=== PATIENT | female | born 1970 | race Caucasian/White ===

== ENCOUNTER → 2016-10-31 | Outpatient (CLI) | payer OTHER ==
--- NOTE | 2016-11-01 08:48 | MM ---
Reason for exam: follow-up at short interval from prior study. Last mammogram was performed 7 months ago. Physical Findings: Nurse did not find any significant physical abnormalities on exam. MG Diagnostic Mammo LT w CAD CC and MLO view(s) were taken of the left breast. Prior study comparison: April 03, 2016, left breast MG diagnostic mammo LT w CAD. November 14, 2009, bilateral digital screening mammogram. The breast tissue is extremely dense which could obscure a lesion on mammography. Finding: There are vascular calcifications in the left breast. Nodular density lower inner quadrant persists, ultrasound is recommended. These results were verbally communicated with the patient and result sheet given to the patient on 10/31/16. ASSESSMENT: Incomplete: need additional imaging evaluation, BI-RAD 0 RECOMMENDATION: Ultrasound of the left breast.
--- NOTE | 2016-11-01 08:51 | USB ---
Reason for exam: additional evaluation requested from abnormal screening. US Breast Limited LT Left breast ultrasound demonstrates a 14 x 13 x 4mm lobular, solid, hypoechoic lesion at 7 o'clock 3cm from nipple and a 10 x 7 x 6mm irregular, solid, hypoechoic lesion at 9 o'clock, 2.3cm from nipple. These results were verbally communicated with the patient and result sheet given to the patient on 10/31/16. ASSESSMENT: Suspicious, BI-RAD 4 RECOMMENDATION: Surgical consultation and ultrasound core biopsy of the left breast. Called with mammographic findings and has scheduled an appointment for the patient for 11/08/16 at 11:[address] Martinez. PRELIMINARY REPORT CALLED AND FAXED TO DR. MARTINEZ ON 11/01/16 AT 300/TP.
== END | disposition home or self-care (01) ==
LOC: RADMAMWWP 13:56
PROVIDERS: ATTEND Surgery
DX: R92.2 Inconclusive mammogram (principal); R92.8 Other abnormal and inconclusive findings on diagnostic imaging of breast; R92.0 Mammographic microcalcification found on diagnostic imaging of breast
CPT/HCPCS: 76642; G0206

== ENCOUNTER → 2016-11-16 | Day surgery (SDC) | payer OTHER ==
[~2016-11-16] MED LIST: ALPRAZolam 0.25 MG TAB ONE
--- NOTE | 2016-11-16 13:55 | USB ---
EXAMINATION TYPE: US discontinued breast bx LT DATE OF EXAM: 11/16/2016 12:56 PM HISTORY: Hypoechoic area left breast 7:00 As well as and 9:00 adjacent to the nipple The 2 areas in question could not be confidently localized sonographically. Examination is further li mited by the patient's overall condition. Biopsy was therefore discontinued. 6 month follow-up ultras ound and mammography is recommended. IMPRESSION: 1. Probably benign BI-RADS 3 Recommendation: 6 month follow-up left-sided mammography and ultrasound.
== END ==
LOC: LABWHC1 10:28
PROVIDERS: ATTEND Surgery
DX: R92.8 Other abnormal and inconclusive findings on diagnostic imaging of breast (principal); Z53.8 Procedure and treatment not carried out for other reasons; Z88.8 Allergy status to other drugs, medicaments and biological substances; Z88.6 Allergy status to analgesic agent; Z91.02 Food additives allergy status

== ENCOUNTER → 2017-06-04 | Outpatient (CLI) | payer OTHER ==
--- NOTE | 2017-06-04 09:51 | MM ---
Reason for exam: follow-up at short interval from prior study. Last mammogram was performed 7 months ago. History: US discontinued breast bx LT of the left breast, November 16, 2016. Physical Findings: Nurse did not find any significant physical abnormalities on exam. MG Diagnostic Mammo w CAD MAURICIO Bilateral CC and MLO view(s) were taken. Prior study comparison: October 31, 2016, left breast MG diagnostic mammo LT w CAD. April 03, 2016, left breast MG diagnostic mammo LT w CAD. The breast tissue is extremely dense which could obscure a lesion on mammography. No suspicious calcifications or masses are seen. No significant new findings when compared with previous films. These results were verbally communicated with the patient and result sheet given to the patient on 06/04/17. ASSESSMENT: Incomplete: need additional imaging evaluation, BI-RAD 0 RECOMMENDATION: Ultrasound of the left breast. Manage patient on a clinical basis.
--- NOTE | 2017-06-04 09:54 | USB ---
Reason for exam: additional evaluation requested from abnormal screening. History: US discontinued breast bx LT of the left breast, November 16, 2016. US Breast LT Left breast ultrasound includes all four quadrants, the retroareolar region and axilla. Finding demonstrates no cystic or solid lesion seen. These results were verbally communicated with the patient and result sheet given to the patient on 06/04/17. ASSESSMENT: Negative, BI-RAD 1 RECOMMENDATION: Routine screening mammogram of both breasts in 1 year. Back on schedule. Manage patient on a clinical basis.
== END | disposition home or self-care (01) ==
LOC: RADMAMWWP 08:20
PROVIDERS: ATTEND Surgery
DX: R92.8 Other abnormal and inconclusive findings on diagnostic imaging of breast (principal)
CPT/HCPCS: 76641; G0204

== ENCOUNTER → 2017-08-02 | Outpatient (CLI) | payer OTHER ==
[2017-08-02 10:20] LABS: Phenytoin (Dilantin) 13.7 ug/mL
[2017-08-02 10:23] LABS: Valproic Acid (Depakene) 46.7 ug/mL
[2017-08-05 07:25] LABS: Levetiracetam (Keppra) 13.9 ug/mL (3.0-60.0)
== END | disposition home or self-care (01) ==
LOC: LABWHC1 09:10
PROVIDERS: ATTEND Psychiatry & Neurology Neurology
DX: G40.219 Localization-related (focal) (partial) symptomatic epilepsy and epileptic syndromes with complex partial seizures, intractable, without status epilepticus (principal)
CPT/HCPCS: 36415; 80164; 80177; 80185; 80203; 80339; 84450; 84460

== ENCOUNTER → 2018-01-13 | Outpatient (CLI) | payer OTHER ==
[2018-01-13 10:25] LABS: Basophils % (A) 1 %; Eosinophils # (A) 0.1 k/uL (0-0.7); Eosinophils % (A) 1 %; HCT 47.6 % (34.0-46.0); HGB 15.5 gm/dL (11.4-16.0); Lymphocytes # (A) 1.4 k/uL (1.0-4.8); Lymphocytes % (A) 25 %; MCH 33.8 pg (25.0-35.0); MCHC 32.5 g/dL (31.0-37.0); MCV 104.1 fL (80.0-100.0); Macrocytosis Slight; Mean Platelet Volume 6.7; Monocytes # (A) 0.7 k/uL (0-1.0); Monocytes % (A) 12 %; Neutrophils # (A) 3.4 k/uL (1.3-7.7); Neutrophils % (A) 58 %; Platelet Count 191 k/uL (150-450); RBC 4.57 m/uL (3.80-5.40); RDW 13.5 % (11.5-15.5); WBC 5.9 k/uL (3.8-10.6)
[2018-01-13 10:31] LABS: Albumin 3.9 g/dL (3.5-5.0); Anion Gap 11 mmol/L; Calcium 9.8 mg/dL (8.4-10.2); Carbon Dioxide 22 mmol/L (22-30); Chloride 108 mmol/L (98-107); Cholesterol 159 mg/dL (<200); Glucose 84 mg/dL (74-99); HDL Cholesterol 70 mg/dL (40-60); LDL Cholesterol,Calculated 72 mg/dL (0-99); Sodium 141 mmol/L (137-145); Total Bilirubin 0.4 mg/dL (0.2-1.3); Total Protein 7.7 g/dL (6.3-8.2); Triglycerides 86 mg/dL (<150)
[2018-01-13 10:33] LABS: Potassium 4.8 mmol/L (3.5-5.1)
[2018-01-13 10:34] LABS: ALT 16 U/L (9-52); AST 32 U/L (14-36); Alkaline Phosphatase 61 U/L (38-126); Blood Urea Nitrogen 20 mg/dL (7-17)
== END | disposition home or self-care (01) ==
LOC: LABWHC1 08:37
PROVIDERS: ATTEND Family Medicine
DX: Z00.00 Encounter for general adult medical examination without abnormal findings (principal); R32 Unspecified urinary incontinence; Z13.220 Encounter for screening for lipoid disorders
CPT/HCPCS: 36415; 80053; 80061; 85025

== ENCOUNTER → 2018-04-25 | Outpatient (CLI) | payer OTHER ==
[2018-04-25 10:25] LABS: Basophils % (A) 1 %; Eosinophils # (A) 0.1 k/uL (0-0.7); Eosinophils % (A) 2 %; HCT 41.4 % (34.0-46.0); HGB 13.6 gm/dL (11.4-16.0); Lymphocytes # (A) 1.4 k/uL (1.0-4.8); Lymphocytes % (A) 28 %; MCHC 32.8 g/dL (31.0-37.0); MCV 103.4 fL (80.0-100.0); Macrocytosis Slight; Mean Platelet Volume 6.7; Monocytes # (A) 0.5 k/uL (0-1.0); Monocytes % (A) 11 %; Neutrophils # (A) 2.8 k/uL (1.3-7.7); Neutrophils % (A) 55 %; Platelet Count 203 k/uL (150-450); RDW 13.1 % (11.5-15.5); WBC 5.1 k/uL (3.8-10.6)
[2018-04-25 10:41] LABS: Phenytoin (Dilantin) 13.3 ug/mL
[2018-04-25 10:43] LABS: Valproic Acid (Depakene) 40.7 ug/mL
[2018-04-28 06:44] LABS: Levetiracetam (Keppra) 11.8 ug/mL (3.0-60.0)
== END | disposition home or self-care (01) ==
LOC: LABWHC1 09:04
PROVIDERS: ATTEND Psychiatry & Neurology Neurology
DX: G40.219 Localization-related (focal) (partial) symptomatic epilepsy and epileptic syndromes with complex partial seizures, intractable, without status epilepticus (principal)
CPT/HCPCS: 36415; 80164; 80177; 80185; 80203; 84450; 84460; 85025

== ENCOUNTER → 2018-07-24 | Outpatient (CLI) | payer MEDICARE, OTHER ==
--- NOTE | 2018-07-26 14:17 | MM ---
Reason for exam: screening (asymptomatic). Last mammogram was performed 1 year and 2 months ago. History: US discontinued breast bx LT of the left breast, November 16, 2016. MG Screening Mammo w CAD Bilateral CC and MLO view(s) were taken. Prior study comparison: June 04, 2017, bilateral MG diagnostic mammo w CAD MAURICIO. October 31, 2016, left breast MG diagnostic mammo LT w CAD. The breast tissue is extremely dense which could obscure a lesion on mammography. Stable vascular calcifications. No discrete abnormality. No significant changes when compared with prior studies. ASSESSMENT: Benign, BI-RAD 2 RECOMMENDATION: Routine screening mammogram of both breasts in 1 year.
== END | disposition home or self-care (01) ==
LOC: RADMAMWWP 14:25
PROVIDERS: ATTEND Family Medicine
DX: Z12.31 Encounter for screening mammogram for malignant neoplasm of breast (principal)
CPT/HCPCS: 77067

== ENCOUNTER → 2018-07-31 | Outpatient (CLI) | payer MEDICARE, OTHER ==
[2018-07-31 15:04] VITALS: BP 122/68; PULSE 90; RESP 18; TEMP 98; BMI 17.1
--- NOTE | 2018-07-31 15:22 | P.GSHP ---
History of Present Illness H&P Date: 07/31/18 Chief Complaint: dense breast Trace is a 47-year-old borderline intellectual functioning white female who comes for routine breast examination. She lives in a skilled nursing, she has a public gaurdian. She has not noted any changes in her breast. No report of any nipple discharge. The report of any trauma or infection of the breast. She had a bilateral mammogram performed on 07/24/2018 which was felt to be benign however she does have bilateral dense breast tissue. Family history: None Hormonal history: Menarche: unknown : none periods: Perimenopausal at this time control pills: Negative Hormones: Negative Past Surgical History; 1. cardiac surgery/unsure of when Past medical history: 1. Borderline intellectual functioning 2. General lysed idiopathic epilepsy 3. nonspeaking 4. Tetralogy of for low 5. Cerebral palsy 6. 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 Eyes: denies blurred vision, denies pain Ears, nose, mouth and throat: Denies headache, Denies sore throat - Breasts Breasts: bilateral: as per HPI - Cardiovascular Comment: Tetralogy of Fallot - Respiratory Respiratory: Denies cough, Denies 7 - Gastrointestinal Gastrointestinal: Denies abdominal pain, Denies diarrhea, Denies nausea, Denies vomiting - Genitourinary (Female) Genitourinary: Denies dysuria, Denies hematuria - Menstruation Menstruation: Reports menses variable - Musculoskeletal Comment: wears brace on right leg Musculoskeletal: Denies myalgias - Integumentary Integumentary: Denies pruritus, Denies rash - Neurological Comment: seizure disorder Neurological: Denies numbness, Denies weakness - Psychiatric Comment: mentally challenged obtrusiveness/bossy Psychiatric: Denies anxiety, Denies depression - Endocrine Endocrine: Denies fatigue, Denies weight change - Hematologic/Lymphatic Comment: none - Allergic/Immunologic Allergic/Immunologic: Reports as per HPI Past Medical History Past Medical History: Seizure Disorder Additional Past Medical History / Comment(s): does use sign language, HX OF CEREBRAL PALSY, AMBULATORY, borderline intellectual functioning, idiopatic epilepsy, deaf, non-speaking, RT LEG AFO BRACE, hx of tetralogy of fallot History of Any Multi-Drug Resistant Organisms: None Reported Past Surgical History: Unable to Obtain Additional Past Surgical History / Comment(s): HEART SX Past Anesthesia/Blood Transfusion Reactions: Unable to Obtain Past Psychological History: ADD/ADHD Smoking Status: Never smoker Past Alcohol Use History: None Reported Past Drug Use History: None Reported Medications and Allergies Home Medications Medication Instructions Recorded Confirmed Type Dextroamphetamine/Amphetamine 20 mg PO BID 02/23/16 04/03/16 History [Adderall Xr] Divalproex [Depakote] 250 mg PO HS 02/23/16 04/03/16 History Divalproex [Depakote] 500 mg PO TID 02/23/16 04/03/16 History Folic Acid 1 mg PO DAILY 02/23/16 04/03/16 History Lacosamide [Vimpat] 50 mg PO BID 02/23/16 04/03/16 History Multivitamins, Thera [Multivitamin] 1 tab PO DAILY 02/23/16 04/03/16 History Phenytoin Sodium Extended 100 mg PO QAM 02/23/16 04/03/16 History [Dilantin] Phenytoin [Dilantin Chew] 50 mg PO HS 02/23/16 04/03/16 History Zonisamide [Zonegran] 25 mg PO DAILY@1800,2200 02/23/16 04/03/16 History Zonisamide [Zonegran] 100 mg PO BID 02/23/16 04/03/16 History levETIRAcetam [Keppra] 500 mg PO TID 02/23/16 04/03/16 History levETIRAcetam [Keppra] 250 mg PO HS 03/29/16 04/03/16 History Allergies Allergy/AdvReac Type Severity Reaction Status Date / Time aspartame Allergy Unknown Verified 04/03/16 08:41 [From Nutrasweet Aspartame] aspirin Allergy Unknown Verified 04/03/16 08:41 ibuprofen Allergy Unknown Verified 04/03/16 08:41 artificial sweetners Allergy Unknown Uncoded 04/03/16 08:41 Surgical - Exam - General mentally challenged thin - Eyes normal ocular movement - ENT upper teeth missing no hearing loss, no congestion - Neck trachea midline - Respiratory normal respiratory effort, clear to auscultation - Cardiovascular Status post cardiac surgery, thoracic scar well healed Rhythm: regular Heart Sounds: normal: S1, S2 - Abdomen Abdomen: soft - Integumentary normal turgor - Neurologic left leg brace - Musculoskeletal Right leg brace - Psychiatric mentally challenged Breast examination: Right breast: Multi-positional exam no dominant masses or nodules of concern Right axilla: No adenopathy of concern Left breast: Multi-positional exam no dominant masses or nodules of concern Left axilla: No adenopathy of concern Results Mammogram results reviewed from Assessment and Plan Assessment: Impression: 1. Fibrocystic breast changes 2. Mentally challenged 3. History of tetralogy of Fallot 4. Seizure disorder 5. Plan: 1. Repeat bilateral mammogram in 1 year 2. Medical management of medical conditions CC: Dr. Bass
== END ==
LOC: WWCWWP 14:46
PROVIDERS: ATTEND Surgery
DX: Z53.9 Procedure and treatment not carried out, unspecified reason (principal)

== ENCOUNTER → 2018-12-16 | Outpatient (CLI) | payer MEDICARE, OTHER ==
[2018-12-16 09:55] LABS: Basophils % (A) 1 %; Eosinophils # (A) 0.1 k/uL (0-0.7); Eosinophils % (A) 2 %; HCT 43.7 % (34.0-46.0); Lymphocytes # (A) 1.5 k/uL (1.0-4.8); Lymphocytes % (A) 34 %; MCH 33.3 pg (25.0-35.0); MCHC 31.9 g/dL (31.0-37.0); MCV 104.2 fL (80.0-100.0); Macrocytosis Slight; Mean Platelet Volume 6.5; Monocytes # (A) 0.5 k/uL (0-1.0); Monocytes % (A) 10 %; Neutrophils # (A) 2.3 k/uL (1.3-7.7); Neutrophils % (A) 51 %; Platelet Count 194 k/uL (150-450); RBC 4.19 m/uL (3.80-5.40); WBC 4.6 k/uL (3.8-10.6)
[2018-12-16 15:59] LABS: African American GFR (CKD) 132.6 (60.0-200.0); Albumin 3.7 g/dL (3.80-4.90); Albumin/Globulin Ratio 1.37 (1.60-3.17); Anion Gap 6.4 mmol/L (4.00-12.00); Calcium 9.1 mg/dL (8.7-10.3); Carbon Dioxide 23.6 mmol/L (21.6-31.8); Globulin 2.7 g/dL (1.6-3.3); LDL Cholesterol,Calculated 82.6 mg/dL (0.0-131.0); Potassium 4.2 mmol/L (3.5-5.5); Total Bilirubin 0.2 mg/dL (0.3-1.2); Total Protein 6.4 g/dL (6.2-8.2); VLDL Calculation 18.4 mg/dL (5.00-40.00)
[2018-12-16 16:20] LABS: T4, Free (Free Thyroxine) 0.6 ng/dL (0.80-1.80)
[2018-12-16 16:27] LABS: Valproic Acid (Depakene) 56.1 ug/mL (50.0-100.0)
[2018-12-16 17:20] LABS: Hemoglobin A1C 5.1 % (4.0-6.0)
[2018-12-16 17:22] LABS: Phenytoin (Dilantin) 16.6 ug/mL (10.0-20.0)
[2018-12-17 11:20] LABS: Levetiracetam (Keppra) 17.8 ug/mL (3.0-60.0)
[2018-12-17 14:11] LABS: Zonisamide (Zonegran) <1 ug/mL (10-40)
== END | disposition home or self-care (01) ==
LOC: LABWHC1 08:14
PROVIDERS: ATTEND Psychiatry & Neurology Neurology
DX: G40.219 Localization-related (focal) (partial) symptomatic epilepsy and epileptic syndromes with complex partial seizures, intractable, without status epilepticus (principal); F90.9 Attention-deficit hyperactivity disorder, unspecified type; Z79.899 Other long term (current) drug therapy
CPT/HCPCS: 36415; 80053; 80061; 80164; 80177; 80185; 80203; 83036; 84439; 84443; 85025

== ENCOUNTER → 2019-09-11 | Outpatient (CLI) | payer MEDICARE, OTHER ==
[2019-09-11 11:17] LABS: Basophils % (A) 0 %; Eosinophils # (A) 0.1 k/uL (0-0.7); Eosinophils % (A) 1 %; HCT 42.9 % (34.0-46.0); HGB 13.7 gm/dL (11.4-16.0); Lymphocytes # (A) 1.7 k/uL (1.0-4.8); Lymphocytes % (A) 23 %; MCH 32.9 pg (25.0-35.0); MCHC 31.8 g/dL (31.0-37.0); MCV 103.4 fL (80.0-100.0); Macrocytosis Slight; Monocytes # (A) 0.8 k/uL (0-1.0); Monocytes % (A) 10 %; Neutrophils # (A) 4.6 k/uL (1.3-7.7); Neutrophils % (A) 62 %; Platelet Count 192 k/uL (150-450); RBC 4.15 m/uL (3.80-5.40); WBC 7.3 k/uL (3.8-10.6)
[2019-09-11 16:12] LABS: Phenytoin (Dilantin) 20.4 ug/mL (10.0-20.0)
[2019-09-11 16:40] LABS: Valproic Acid (Depakene) 48.8 ug/mL (50.0-100.0)
[2019-09-14 08:15] LABS: Levetiracetam (Keppra) 10.6 ug/mL (3.0-60.0)
== END | disposition home or self-care (01) ==
LOC: LABWHC1 10:11
PROVIDERS: ATTEND Psychiatry & Neurology Neurology
DX: G40.219 Localization-related (focal) (partial) symptomatic epilepsy and epileptic syndromes with complex partial seizures, intractable, without status epilepticus (principal)
CPT/HCPCS: 36415; 80164; 80177; 80185; 80203; 84450; 84460; 85025

== ENCOUNTER → 2021-12-14 | Outpatient (CLI) | payer MEDICARE, OTHER ==
[2021-12-14 19:06] LABS: Phenytoin (Dilantin) 14.1 ug/mL (10.0-20.0)
[2021-12-14 21:51] LABS: Valproic Acid (Depakene) 51.9 ug/mL (50.0-100.0)
[2021-12-15 08:47] LABS: Levetiracetam (Keppra) 16.3 ug/mL (3.0-60.0)
== END | disposition home or self-care (01) ==
LOC: LABWHC1 08:01
PROVIDERS: ATTEND Psychiatry & Neurology Neurology
DX: G40.219 Localization-related (focal) (partial) symptomatic epilepsy and epileptic syndromes with complex partial seizures, intractable, without status epilepticus (principal)
CPT/HCPCS: 36415; 80164; 80177; 80185; 80203

== ENCOUNTER → 2023-03-06 | Outpatient (CLI) | payer MEDICARE, OTHER | END | disposition home or self-care (01) | LOC: RADMAMWWP 14:32 | PROVIDERS: ATTEND Family Medicine | DX: Z53.9 Procedure and treatment not carried out, unspecified reason (principal) ==

== ENCOUNTER → 2023-05-10 | Outpatient (CLI) | payer MEDICARE, OTHER ==
[2023-05-10 11:09] LABS: Basophils # (A) 0.05 X 10*3/uL (0.00-0.10); Basophils % (A) 0.6 %; Eosinophils # (A) 0.08 X 10*3/uL (0.04-0.35); HGB 14.1 d/dL (12.0-15.0); Lymphocytes # (A) 1.33 X 10*3/uL (0.90-5.00); Lymphocytes % (A) 16.9 %; MCH 33.1 pg (27.0-32.0); MCHC 32.8 d/dL (32.0-37.0); MCV 100.9 FL (80.0-97.0); Mean Platelet Volume 9.1 FL (9.5-12.2); Monocytes # (A) 1.01 X 10*3/uL (0.20-1.00); Monocytes % (A) 12.8 %; NRBC Per 100 WBC 0 X 10*3/uL (0.00-0.01); Neutrophils # (A) 5.35 X 10*3/uL (1.80-7.70); Neutrophils % (A) 67.8 %; Platelet Count 314 X 10*3/uL (140-440); RBC 4.26 X 10*6/uL (4.10-5.20); WBC 7.89 X 10*3/uL (4.50-10.00)
[2023-05-10 11:33] LABS: ALT 14 U/L (8-44); AST 23 U/L (13-35); Albumin/Globulin Ratio 1.03 Ratio (1.60-3.17); Alkaline Phosphatase 84 U/L (41-126); Blood Urea Nitrogen 18.2 mg/dL (9.0-27.0); Calcium 10.4 mg/dL (8.7-10.3); Carbon Dioxide 26.7 mmol/L (21.6-31.8); Chloride 102 mmol/L (96-109); Globulin 3.9 d/dL (1.6-3.3); Glucose 86 mg/dL (70-110); Phenytoin (Dilantin) 14.4 UG/ML (10.0-20.0); Potassium 4.8 mmol/L (3.5-5.5); Sodium 139 mmol/L (135-145); Total Bilirubin 0.2 mg/dL (0.3-1.2); Total Protein 7.9 d/dL (6.2-8.2); Valproic Acid (Depakene) 61.3 UG/ML (50.0-100.0)
== END | disposition home or self-care (01) ==
LOC: LABWHC1 07:42
PROVIDERS: ATTEND Family Medicine
DX: G40.909 Epilepsy, unspecified, not intractable, without status epilepticus (principal); Z79.899 Other long term (current) drug therapy
CPT/HCPCS: 36415; 80053; 80164; 80177; 80185; 84443; 85025

== ENCOUNTER → 2023-12-13 | Outpatient (CLI) | payer MEDICARE, OTHER ==
[2023-12-13 11:04] LABS: Platelet Count 204 X 10*3/uL (140-440)
[2023-12-13 11:17] LABS: Phenytoin (Dilantin) 18.5 UG/ML (10.0-20.0); Valproic Acid (Depakene) 60.2 UG/ML (50.0-100.0)
== END | disposition home or self-care (01) ==
LOC: LABWHC1 07:45
PROVIDERS: ATTEND Psychiatry & Neurology Neurology
DX: G40.219 Localization-related (focal) (partial) symptomatic epilepsy and epileptic syndromes with complex partial seizures, intractable, without status epilepticus (principal)
CPT/HCPCS: 36415; 80164; 80177; 80185; 80203; 84450; 84460; 85049

== ENCOUNTER → 2024-05-09 | Outpatient (CLI) | payer MEDICARE, OTHER ==
[2024-05-09 23:40] LABS: Basophils # (A) 0.06 X 10*3/uL (0.00-0.10); Basophils % (A) 0.8 %; Eosinophils # (A) 0.07 X 10*3/uL (0.04-0.35); Eosinophils % (A) 0.9 %; HCT 42.5 % (37.2-46.3); HGB 13.8 g/dL (12.0-15.0); Lymphocytes # (A) 2.04 X 10*3/uL (0.90-5.00); Lymphocytes % (A) 25.8 %; MCH 33.2 pg (27.0-32.0); MCHC 32.5 g/dL (32.0-37.0); MCV 102.2 FL (80.0-97.0); Mean Platelet Volume 10.7 FL (9.5-12.2); Monocytes # (A) 1.29 X 10*3/uL (0.20-1.00); Monocytes % (A) 16.3 %; NRBC Per 100 WBC 0 X 10*3/uL (0.00-0.01); Neutrophils # (A) 4.43 X 10*3/uL (1.80-7.70); Neutrophils % (A) 55.9 %; Platelet Count 207 X 10*3/uL (140-440); RBC 4.16 X 10*6/uL (4.10-5.20); RDW 13.6 % (11.5-14.5); WBC 7.91 X 10*3/uL (4.50-10.00)
[2024-05-10 08:18] LABS: ALT 12 U/L (8-44); AST 25 U/L (13-35); Albumin 3.8 g/dL (3.8-4.9); Albumin/Globulin Ratio 1.06 Ratio (1.60-3.17); Alkaline Phosphatase 80 U/L (41-126); Bilirubin, Conjugated <0.20 mg/dL (0.20-0.40); Bilirubin,Unconjugated >0.10 mg/dL (0.20-1.00); Blood Urea Nitrogen 14.9 mg/dL (9.0-27.0); Chol/HDL Ratio 2.56 Ratio; Globulin 3.6 g/dL (1.6-3.3); Glucose 92 mg/dL (70-110); LDL Cholesterol,Calculated 84.1 mg/dL (0.0-131.0); Total Bilirubin 0.3 mg/dL (0.3-1.2); Total Protein 7.4 g/dL (6.2-8.2); VLDL Calculation 17.58 mg/dL (5.00-40.00)
== END | disposition home or self-care (01) ==
LOC: LABWHC1 10:45
PROVIDERS: ATTEND Nurse Practitioner Family
DX: Z51.81 Encounter for therapeutic drug level monitoring (principal); Z79.899 Other long term (current) drug therapy
CPT/HCPCS: 36415; 80061; 80076; 82306; 82565; 82947; 83036; 84439; 84443; 84520; 85025

== ENCOUNTER → 2024-09-11 | Outpatient (CLI) | payer MEDICARE, OTHER ==
[2024-09-11 15:27] LABS: Platelet Count 191 X 10*3/uL (140-440)
[2024-09-11 16:54] LABS: Phenytoin (Dilantin) 15.9 UG/ML (10.0-20.0); Valproic Acid (Depakene) 60.8 UG/ML (50.0-100.0)
== END | disposition home or self-care (01) ==
LOC: LABWHC1 07:58
PROVIDERS: ATTEND Psychiatry & Neurology Neurology
DX: G40.219 Localization-related (focal) (partial) symptomatic epilepsy and epileptic syndromes with complex partial seizures, intractable, without status epilepticus (principal)
CPT/HCPCS: 36415; 80164; 80185; 80203; 84450; 84460; 85049

== ENCOUNTER → 2024-09-25 | Outpatient (CLI) | payer MEDICARE, OTHER ==
--- NOTE | 2024-09-25 19:32 | CT ---
EXAMINATION TYPE: CT brain wo con CT DLP: 1244.5 mGycm, Automated exposure control for dose reduction was used. DATE OF EXAM: 09/25/2024 6:05 PM COMPARISON: None. CLINICAL INDICATION:Female, 53 years old with history of G80.2 SPASTIC HEMIPLEGIC CEREBRAL G40.219, John-plegic, hx of cerebral palsy and epilepsy. TECHNIQUE: Brain: Multiple axial CT images of the brain were obtained without IV contrast. . Coronal and sagitta l reformats reviewed. FINDINGS: Brain: Extra-axial spaces: No abnormal extra-axial fluid collections. Ventricular system: Ex vacuo dilatation of the left lateral ventricle. Cerebral parenchyma: No acute intraparenchymal hemorrhage or mass effect. Encephalomalacia with CSF attenuation within the left MCA distribution involving the left frontal and temporal lobe regions. Th ere is involvement of the left basal ganglia. The pozo-white junction is well differentiated. Cerebellum: Unremarkable. Mass effect: No evidence of midline shift. Intracranial vasculature: unremarkable Soft tissues: Normal. Calvarium/osseous structures: No depressed skull fracture. Paranasal sinuses and mastoid air cells: Clear Visualized orbits: Orbital contents are intact. IMPRESSION: 1. No acute intracranial process. 2. 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 [facility], , 09/25/2024 7:30 PM
== END | disposition home or self-care (01) ==
LOC: RADCTMAIN 17:29
PROVIDERS: ATTEND Psychiatry & Neurology Neurology
DX: G40.219 Localization-related (focal) (partial) symptomatic epilepsy and epileptic syndromes with complex partial seizures, intractable, without status epilepticus (principal); G80.2 Spastic hemiplegic cerebral palsy; G93.89 Other specified disorders of brain
CPT/HCPCS: 70450

== ENCOUNTER 2024-10-06 01:57 | Inpatient (IN) | payer MEDICARE, OTHER ==
[2024-10-06] MEDS ORDERED: fentaNYL (PF) 50 MCG/ML 2 ML AMP IVP PRN ×2 (02:14→03:56)
[2024-10-06] MEDS ORDERED: VANCOMYCIN IV PER PHARMACY 1 EACH MISC MISCELLANE PRN (02:28)
[2024-10-06] MEDS: LORazepam 2 MG/ML INJ IV STA (02:30)
--- NOTE | 2024-10-06 02:41 | ED ---
General Adult HPI - General Chief complaint: Shortness of Breath Stated complaint: WILLY Source: EMS Mode of arrival: EMS Limitations: altered mental status - History of Present Illness Initial comments: Patient is a 53-year-old female with a past medical history of cerebral palsy, deafness, seizure disorder presenting from her [facility] for difficulty breathing. At 11:00 tonight patient began having difficulty in breathing was pale and sweaty. On EMS arrival patient's pulse ox was 80% on room air, she was placed on a nonrebreather and brought to the hospital. History is limited by patient's inability to communicate. Typically does communicate via ASL. Additional history was provided by director of group sales. States that patient ate breakfast and lunch like she normally would yesterday however did not eat dinner. They state that they have been dealing with some "behavioral issues" patient refusing to eat. Patient's baseline is being able to communicate with ASL, she does word searches, goes to activities at the [facility]. Because she is deaf she is nonverbal. Has a public guardian. - Related Data Home Medications Medication Instructions Recorded Confirmed Divalproex [Depakote] 250 mg PO HS 02/23/16 10/06/24 Divalproex [Depakote] 500 mg PO TID 02/23/16 10/06/24 Multivitamins, Thera [Multivitamin] 1 tab PO HS 02/23/16 10/06/24 Phenytoin [Dilantin Chew] 50 mg PO BID 02/23/16 10/06/24 Zonisamide [Zonegran] 25 mg PO DAILY@1500 02/23/16 10/06/24 Zonisamide [Zonegran] 100 mg PO BID 02/23/16 10/06/24 levETIRAcetam [Keppra] 1,000 mg PO BID 02/23/16 10/06/24 Acetaminophen [Tylenol] 650 mg PO Q4-6H PRN 10/06/24 10/06/24 Boost Vhc 0.9gm-2.25kcal/Ml Oral 237 ml PO BID 10/06/24 10/06/24 Dextroamphetamine/Amphetamine 5 mg PO BID 10/06/24 10/06/24 [Adderall] Loperamide [Imodium] 1 dose PO DIRECTED PRN 10/06/24 10/06/24 Magnesium Hydroxide [Milk of 1 dose PO DIRECTED PRN 10/06/24 10/06/24 Magnesia] Midazolam [Nayzilam] 1 spray NASAL DIRECTED PRN 10/06/24 10/06/24 Beszvlxb-Jlnqyebktj-Mfwd Oint 1 applic TOPICAL DIRECTED PRN 10/06/24 10/06/24 [Triple Antibiotic Ointment] OLANZapine [ZyPREXA] 5 mg PO HS 10/06/24 10/06/24 Phenytoin Sodium Extended 30 mg PO HS 10/06/24 10/06/24 [Dilantin] Sennosides-Docusate Sodium 1 tab PO BID 10/06/24 10/06/24 [Senokot-S] guaiFENesin SYRUP 100MG/5ML 1 dose PO DIRECTED PRN 10/06/24 10/06/24 [Robitussin] Allergies Allergy/AdvReac Type Severity Reaction Status Date / Time aspartame Allergy Unknown Verified 10/06/24 07:32 [From Nutrasweet Aspartame] aspirin Allergy Unknown Verified 10/06/24 07:32 ibuprofen Allergy Unknown Verified 10/06/24 07:32 NSAIDS (Non-Steroidal Allergy Unknown Verified 10/06/24 07:32 Anti-Inflamma phenylalanine Allergy Unknown Verified 10/06/24 07:32 artificial sweetners Allergy Unknown Uncoded 10/06/24 07:32 Review of Systems ROS Statement: Those systems with pertinent positive or pertinent negative responses have been documented in the HPI. Limitations: ROS unobtainable due to patients medical condition Past Medical History Past Medical History: Seizure Disorder Additional Past Medical History / Comment(s): does use sign language, HX OF CEREBRAL PALSY, AMBULATORY, borderline intellectual functioning, idiopatic epilepsy, deaf, non-speaking, RT LEG AFO BRACE, hx of tetralogy of fallot History of Any Multi-Drug Resistant Organisms: None Reported Past Surgical History: Unable to Obtain Additional Past Surgical History / Comment(s): HEART SX Past Anesthesia/Blood Transfusion Reactions: Unable to Obtain Past Psychological History: ADD/ADHD Past Alcohol Use History: None Reported Past Drug Use History: None Reported General Exam - General Exam Comments Initial Comments: PE: CONSTITUTIONAL: In acute distress, ill-appearing, open mouth breathing, eyes open SKIN: Warm, dry, yellow-green bruising across the bridge of her nose, scattered bruises on the upper extremities no jaundice, hives or petechiae EYES: Pupils are equally round, extraocular movements intact without nystagmus, clear conjunctiva, non-icteric sclera HENT: Normocephalic, atraumatic w/ exception of bruising noted above, dry mucus membranes, oropharynx clear without exudates NECK: , Full range of motion, normal appearance PULMONARY: Rhonchi and rales in the left lower lung field, no wheezes, no stridor, tachypnea, no host/hostess head muscle use, increased excursion CARDIOVASCULAR: Tachycardia, regular rate, rhythm, normal S1 and S2. No appreciated murmurs, rubs or gallops. Strong radial pulses with intact distal perfusion. No lower extremity edema GASTROINTESTINAL: Firm, flat, active bowel sounds throughout soft, patient appears to guard with palpation of the mid abdomen, , no palpable masses,No hepatosplenomegaly MUSCULOSKELETAL: Chronic muscle contractures in all 4 extremities otherwise no gross deformity NEUROLOGIC:_Unable to assess orientation as patient does not speak, Eyes open but not tracking, does not follow commands, no seizure like activity noted, PSYCHIATRIC: Uable to assess Limitations: altered mental status Course Vital Signs 10/06/24 10/06/24 10/06/24 01:59 02:08 03:38 Temperature 101 F H 101.8 F H Pulse Rate 146 H 130 H Respiratory 27 H 24 22 Rate Blood Pressure 181/102 184/96 O2 Sat by Pulse 88 L 100 Oximetry Fraction of Inspired Oxygen (FIO2) 10/06/24 10/06/24 10/06/24 04:28 05:06 05:12 Temperature Pulse Rate Respiratory Rate Blood Pressure O2 Sat by Pulse Oximetry Fraction of 100 50 50 Inspired Oxygen (FIO2) 10/06/24 10/06/24 10/06/24 06:00 07:00 08:00 Temperature 99.9 F H 98.7 F 98.7 F Pulse Rate 103 H 109 H 107 H Respiratory 22 24 22 Rate Blood Pressure 141/81 147/68 130/70 O2 Sat by Pulse 100 100 99 Oximetry Fraction of Inspired Oxygen (FIO2) 10/06/24 10/06/24 10/06/24 08:09 08:10 09:00 Temperature 998.9 F H Pulse Rate 110 H Respiratory 20 Rate Blood Pressure 117/70 O2 Sat by Pulse 99 Oximetry Fraction of 50 50 Inspired Oxygen (FIO2) 04/08/0110/06/24 10/06/24 09:26 11:00 11:12 Temperature 98.9 F 100.0 F H Pulse Rate 108 H 114 H 114 H Respiratory 20 22 Rate Blood Pressure 121/70 149/73 O2 Sat by Pulse 99 100 Oximetry Fraction of Inspired Oxygen (FIO2) 10/06/24 10/06/24 10/06/24 11:21 11:48 13:00 Temperature 100.8 F H 101.1 F H Pulse Rate 116 H 118 H 118 H Respiratory 24 24 Rate Blood Pressure 147/81 154/85 O2 Sat by Pulse 100 100 Oximetry Fraction of Inspired Oxygen (FIO2) 10/06/24 10/06/24 10/06/24 13:55 14:40 15:01 Temperature 100 F H 100.3 F H Pulse Rate 117 H 117 H 115 H Respiratory 20 22 26 H Rate Blood Pressure 138/72 117/68 168/79 O2 Sat by Pulse 100 98 99 Oximetry Fraction of 50 Inspired Oxygen (FIO2) - Reevaluation(s) Reevaluation #1: Patient returned from CT, despite earlier ativan,tylenol, she remains tachycardic, febrile, and hypertensive. She is lethargic, so further pain control with narcotics will be held off on. At this point will administer labetalol, 10 mg due to persistent hypertension. 10/06/24 03:44 Reevaluation #2: On reassessment patient's mental status is not improving, concern that patient will not continue tolerating secretions, will intubate for airway protection 10/06/24 03:56 EKG Findings - EKG Comments: EKG Findings:: EKG #1, sinus tachycardia, rate 139 bpm QT/QTc 256/337 ms, normal axis, artifact present limiting interpretation,no STEMI. EKG 2 obtained with rate slowed, done at 5:16 AM, shows sinus tachycardia with shortened MA interval , MA interval 100 ms QT/QTc 3/448 ms, normal axis, intraventricular conduction delay,no STEMI Procedures - Central Line Placement Right IJ Consent Obtained: emergent situation Patient Placed on Monitor/Pulse Ox: Yes Prep: mask, gown, gloves Central Line Prep: Chlorhexidine scrub, sterile drapes applied Ultrasound Used for Placement: Yes Central Line Lumen Inserted: triple Bloods Obtained for Lab: Yes Central Line Position: good blood return, all ports aspirated, flushed, capped, sutured in place with 2-0 silk Dressing Applied: Tegaderm Post Procedure X-Ray: tip of catheter in good position Patient Tolerated Procedure: well Complications: none - Intubation Sedative: Etomidate Laryngoscope: Pa Size: 3 ET Tube Size: 7 ET Tube Uncuffed: No Tube Secured Depth (cm): 22 Tube Secured Location: teeth Tube Placement Confirmation: visualized tube passing through cords, equal breath sounds bilaterally, no breath sounds over epigastrium, confirmation by capnometry Patient Tolerated Procedure: well Intubation Complications: none Medical Decision Making - Medical Decision Making Was pt. sent in by a medical professional or institution (, PA, HOLLOW HANDLE KNIFE ASSEMBLER, urgent care, hospital, or snf...) When possible be specific @ -[facility] Did you speak to anyone other than the patient for history (EMS, parent, family, police, friend...)? What history was obtained from this source @Spoke with patient's director of group sales who states patient has been having some behavioral issues recently, intermittently refusing to eat, did eat breakfast and lunch yesterday but refused to eat dinner, found pale and sweaty and dyspneic at 11 PM this evening Did you review nursing and triage notes (agree or disagree)? Why? @ -I reviewed nursing and triage notes Were old charts reviewed (outside hosp., previous admission, EMS record, old EKG, old radiological studies, urgent care reports/EKG's, snf records)? Report findings @ -Medical records reviewed- had recent CT brain on 09/25/[address] brain today, no significant changes from prior Differential Diagnosis (chest pain, altered mental status, abdominal pain women, abdominal pain men, vaginal bleeding, weakness, fever, dyspnea, syncope, headache, dizziness, GI bleed, back pain, seizure, CVA, palpatations, mental health, musculoskeletal)? Differential Dyspnea: Coronary syndrome, arrhythmia, tamponade, asthma, COPD, pulmonary embolism, pneumonia, pneumothorax, pulmonary effusion, anaphylaxis, diabetic ketoacidosis, flailed chest, pulmonary contusion, diaphragmatic rupture, anemia, neuromuscular, this is not meant to be an all-inclusive list. Differential Altered Mental Status: Hypoglycemia, DKA, hypercapnia, ETOH, overdose, CO poisoning, trauma, myxedema coma, HTN encephalopathy, infection, encephalitis, psychosis, intercranial hemorrhage, hepatic encephalopathy, meningitis, CVA, this is not meant to be an all-inclusive list EKG interpreted by me (3pts min.). @ -As above X-rays interpreted by me (1pt min.). #1-chest x-ray #1 reviewed by myself, appears to show possible left lower lobe consolidation, no pneumothorax, abdominal x-ray was reviewed by myself, appears to show dilated bowel loops without free air or clear transition point, Read by radiologist and is significant for asymmetric elevation of the left hemidiaphragm diaphragm with subsegmental changes in the left lung base with left perihilar streaky opacities differentials include atelectasis versus interstitial infection nonobstructive bowel gas pattern no pneumoperitoneum #2-postintubation x-ray reviewed by myself, no pneumothorax, ET tube approximately 4 cm above nehemias #3-postcentral line placement x-ray reviewed by myself, right IJ central and appears appropriately placed in the superior cava, no pneumothorax CT interpreted by me (1pt min.). @I personally reviewed CT brain, appears to show old left encephalomalacia, no acute intracranial hemorrhage or masses, personally reviewed CT PE study see no evidence of PE though there is a large left lower lobe consolidation concerning for pneumonia, reviewed CT abdomen pelvis, dilated bowel loops no air-fluid leve ls, agree with radiologist interpretation U/S interpreted by me (1pt. min.). @ -None done What testing was considered but not performed or refused? (CT, X-rays, U/S, labs)? Why? @ -None What meds were considered but not given or refused? Why? @ -None Did you discuss the management of the patient with other professionals (professionals i.e. , PA, HOLLOW HANDLE KNIFE ASSEMBLER, lab, RT, psych nurse, social insurance specialist, microwave oven assembler, teacher, special technical operations officer, pillowcase cleaner)? Give summary @ -No Was smoking cessation discussed for >3mins.? @ -No Was critical care preformed (if so, how long)? @60 minutes Were there social determinants of health that impacted care today? How? (Homelessness, low income, unemployed, alcoholism, drug addiction, transportation, low edu. Level, literacy, decrease access to med. care, fpc, rehab)? @ -No Was there de-escalation of care discussed even if they declined (Discuss DNR or withdrawal of care, Hospice)? @ Discused with director of group sales pt's code status however she deferred to pt's guardian, RN contacted and was told pt remains full code What co-morbidities impacted this encounter? (DM, HTN, Smoking, COPD, CAD, Cancer, CVA, ARF, Chemo, Hep., AIDS, mental health diagnosis, sleep apnea, morbid obesity)? cerebral palsy, epilepsy, deafness Was patient admitted / discharged? Hospital course, mention meds given and route, prescriptions, significant lab abnormalities, going to OR and other pertinent info. @ -Admission- Patient is a 53-year-old female history of cerebral palsy, epilepsy, deafness presenting today for difficulty in breathing. Patient seen and assessed by myself on arrival. She is ill-appearing, nonrebreather in place, tachycardic and hypertensive. Her eyes are open but do not appear to track caregivers. There is no nystagmus, pupils are equal round reactive. She has rhonchi in the left lower lung field, tachypnea, is tachycardic. 2+pulses in all 4 extremities. 80% on room air. Placed on a nonrebreather mask. Patient was given 2 mg IV Ativan in case tachycardia, hypertension secondary to the seizure, hergroup mobile home technician is unsure what patient's seizures typically look like. Intubation was considered however given patient's history of deafness, cerebral palsy, she will very likely be difficult to wean from a ventilator and is oxygenating well on NRB, no vomiting. At this time will maintain pt on NRB and monitor closely. Chest x-ray apears to show no pneumothorax, possible LLL consolidations, abdominal x-ray does appear to show dilated bowel loops. Patient will receive CT brain, chest abdomen pelvis as she is nonverbal and we do not have a definitive source for her fever/ hypoexmia though I suspect intra-abdominal versus pneumonia. Sepsis bundle ordered. Patient temp 101, Ofirmev ordered. 30 cc/kg fluid bolus. After administration of Ativan patient's exam did not appear to change. Pt's guardian was updated by RN, pt is full code. Ultimately patient intubated for airway protection due to minimal response to painful stimuli and now audible secretions with concern that patient will not continue to tolerate her secretions. Pt intubated w/ 20 mg etomidate, no paralytic needed. Patient's hypertension and tachycardia did improve afterwards. Labs, imaging significant for White blood cell count 21.2, pH 7.29, pCO2 46, bicarb 22 on VBG, lactic 3.7, troponin 0.026, BNP 1640, despite this patient does appear to clinically dehydrated with dry MM and easily collapsible IJ on ultrasound, we will continue with fluid resuscitation.CT brain was negative for acute process, CTA chest was significant for left lower lobe consolidation. Case discussed w/ Dr. Arzola, critical care and Dr. Dominguez [facility], kindly accept pt for admission to ICU. Undiagnosed new problem with uncertain prognosis? @ -No Drug Therapy requiring intensive monitoring for toxicity (Heparin, Nitro, Insulin, Cardizem)? @propofol Were any procedures done? yes intubation, central line placement Diagnosis/symptom? Acute hypoxic respiratory failure, sepsis, pneumonia, acute metabolic encephalopathy Acute, or Chronic, or Acute on Chronic? acute Uncomplicated (without systemic symptoms) or Complicated (systemic symptoms)? complicated Side effects of treatment? @ -No Exacerbation, Progression, or Severe Exacerbation? @ -No Poses a threat to life or bodily function? How? (Chest pain, [place], ND, pneumonia, PE, COPD, DKA, ARF, appy, cholecystitis, CVA, Diverticulitis, Homicidal, Suicidal, threat to staff... and all critical care pts) yes - Lab Data Result diagrams: 10/06/24 06:30 10/06/24 06:30 Lab Results 10/06/24 10/06/24 10/06/24 Range/Units 02:10 02:10 02:10 WBC 21.2 H (3.8-10.6) k/uL RBC 4.38 (3.80-5.40) m/uL Hgb 14.6 (11.4-16.0) gm/dL Hct 45.7 (34.0-46.0) % MCV 104.3 H (80.0-100.0) fL MCH 33.4 (25.0-35.0) pg MCHC 32.0 (31.0-37.0) g/dL RDW 14.2 (11.5-15.5) % Plt Count 326 (150-450) k/uL MPV 7.6 Neutrophils % Not Reportable Neutrophils % (Manual) 64 % Band Neuts % (Manual) 28 % Lymphocytes % Not Reportable Lymphocytes % (Manual) 6 % Monocytes % Not Reportable Monocytes % (Manual) 2 % Eosinophils % Not Reportable Basophils % Not Reportable Metamyelocytes % 1 % Neutrophils # Not Reportable Neutrophils # (Manual) 19.50 H (1.3-7.7) k/uL Lymphocytes # Not Reportable Lymphocytes # (Manual) 1.27 (1.0-4.8) k/uL Monocytes # Not Reportable Monocytes # (Manual) 0.42 (0-1.0) k/uL Eosinophils # Not Reportable Basophils # Not Reportable Metamyelocytes # (Man) 0.21 H (0) k/uL Nucleated RBCs 0 (0-0) /100 WBC Manual Slide Review Performed Toxic Vacuolation Present Hypochromasia Slight Anisocytosis (manual) Present Macrocytosis Moderate PT 12.0 (10.0-12.5) sec INR 1.1 (<1.2) APTT 23.9 (22.0-30.0) sec VBG pH (7.31-7.41) VBG pCO2 (37-51) mmHg VBG HCO3 (24-28) mmol/L Sodium 136 L (137-145) mmol/L Potassium 4.5 (3.5-5.1) mmol/L Chloride 100 (98-107) mmol/L Carbon Dioxide 22 (22-30) mmol/L Anion Gap 14 mmol/L BUN 27 H (7-17) mg/dL Creatinine 0.34 L (0.52-1.04) mg/dL Est GFR (CKD-EPI)AfAm >90 (>60 ml/min/1.73 sqM) Est GFR (CKD-EPI)NonAf >90 (>60 ml/min/1.73 sqM) Glucose 79 (74-99) mg/dL Lactic Ac Sepsis Rflx Plasma Lactic Acid Porfirio (0.7-2.0) mmol/L Calcium 10.2 (8.4-10.2) mg/dL Total Bilirubin 0.6 (0.2-1.3) mg/dL AST 44 H (14-36) U/L ALT 16 (4-34) U/L Alkaline Phosphatase 134 H (38-126) U/L Troponin I (0.000-0.034) ng/mL NT-Pro-B Natriuret Pep 1640 pg/mL Total Protein 9.0 H (6.3-8.2) g/dL Albumin 4.3 (3.5-5.0) g/dL Urine Color Urine Appearance (Clear) Urine pH (5.0-8.0) Ur Specific [place] (1.001-1.035) Urine Protein (Negative) Urine Glucose (UA) (Negative) Urine Ketones (Negative) Urine Blood (Negative) Urine Nitrite (Negative) Urine Bilirubin (Negative) Urine Urobilinogen (<2.0) mg/dL Ur Leukocyte Esterase (Negative) Influenza Type A (PCR) (Not Detectd) Influenza Type B (PCR) (Not Detectd) RSV (PCR) (Not Detectd) SARS-CoV-2 (PCR) (Not Detectd) 10/06/24 10/06/24 10/06/24 Range/Units 02:10 02:10 02:33 WBC (3.8-10.6) k/uL RBC (3.80-5.40) m/uL Hgb (11.4-16.0) gm/dL Hct (34.0-46.0) % MCV (80.0-100.0) fL MCH (25.0-35.0) pg MCHC (31.0-37.0) g/dL RDW (11.5-15.5) % Plt Count (150-450) k/uL MPV Neutrophils % Neutrophils % (Manual) % Band Neuts % (Manual) % Lymphocytes % Lymphocytes % (Manual) % Monocytes % Monocytes % (Manual) % Eosinophils % Basophils % Metamyelocytes % % Neutrophils # Neutrophils # (Manual) (1.3-7.7) k/uL Lymphocytes # Lymphocytes # (Manual) (1.0-4.8) k/uL Monocytes # Monocytes # (Manual) (0-1.0) k/uL Eosinophils # Basophils # Metamyelocytes # (Man) (0) k/uL Nucleated RBCs (0-0) /100 WBC Manual Slide Review Toxic Vacuolation Hypochromasia Anisocytosis (manual) Macrocytosis PT (10.0-12.5) sec INR (<1.2) APTT (22.0-30.0) sec VBG pH 7.29 L (7.31-7.41) VBG pCO2 46 (37-51) mmHg VBG HCO3 22 L (24-28) mmol/L Sodium (137-145) mmol/L Potassium (3.5-5.1) mmol/L Chloride (98-107) mmol/L Carbon Dioxide (22-30) mmol/L Anion Gap mmol/L BUN (7-17) mg/dL Creatinine (0.52-1.04) mg/dL Est GFR (CKD-EPI)AfAm (>60 ml/min/1.73 sqM) Est GFR (CKD-EPI)NonAf (>60 ml/min/1.73 sqM) Glucose (74-99) mg/dL Lactic Ac Sepsis Rflx Plasma Lactic Acid Porfirio 3.7 H* (0.7-2.0) mmol/L Calcium (8.4-10.2) mg/dL Total Bilirubin (0.2-1.3) mg/dL AST (14-36) U/L ALT (4-34) U/L Alkaline Phosphatase (38-126) U/L Troponin I 0.026 (0.000-0.034) ng/mL NT-Pro-B Natriuret Pep pg/mL Total Protein (6.3-8.2) g/dL Albumin (3.5-5.0) g/dL Urine Color Urine Appearance (Clear) Urine pH (5.0-8.0) Ur Specific [place] (1.001-1.035) Urine Protein (Negative) Urine Glucose (UA) (Negative) Urine Ketones (Negative) Urine Blood (Negative) Urine Nitrite (Negative) Urine Bilirubin (Negative) Urine Urobilinogen (<2.0) mg/dL Ur Leukocyte Esterase (Negative) Influenza Type A (PCR) (Not Detectd) Influenza Type B (PCR) (Not Detectd) RSV (PCR) (Not Detectd) SARS-CoV-2 (PCR) (Not Detectd) 10/06/24 10/06/24 10/06/24 Range/Units 02:46 02:50 03:21 WBC (3.8-10.6) k/uL RBC (3.80-5.40) m/uL Hgb (11.4-16.0) gm/dL Hct (34.0-46.0) % MCV (80.0-100.0) fL MCH (25.0-35.0) pg MCHC (31.0-37.0) g/dL RDW (11.5-15.5) % Plt Count (150-450) k/uL MPV Neutrophils % Neutrophils % (Manual) % Band Neuts % (Manual) % Lymphocytes % Lymphocytes % (Manual) % Monocytes % Monocytes % (Manual) % Eosinophils % Basophils % Metamyelocytes % % Neutrophils # Neutrophils # (Manual) (1.3-7.7) k/uL Lymphocytes # Lymphocytes # (Manual) (1.0-4.8) k/uL Monocytes # Monocytes # (Manual) (0-1.0) k/uL Eosinophils # Basophils # Metamyelocytes # (Man) (0) k/uL Nucleated RBCs (0-0) /100 WBC Manual Slide Review Toxic Vacuolation Hypochromasia Anisocytosis (manual) Macrocytosis PT (10.0-12.5) sec INR (<1.2) APTT (22.0-30.0) sec VBG pH (7.31-7.41) VBG pCO2 (37-51) mmHg VBG HCO3 (24-28) mmol/L Sodium (137-145) mmol/L Potassium (3.5-5.1) mmol/L Chloride (98-107) mmol/L Carbon Dioxide (22-30) mmol/L Anion Gap mmol/L BUN (7-17) mg/dL Creatinine (0.52-1.04) mg/dL Est GFR (CKD-EPI)AfAm (>60 ml/min/1.73 sqM) Est GFR (CKD-EPI)NonAf (>60 ml/min/1.73 sqM) Glucose (74-99) mg/dL Lactic Ac Sepsis Rflx Y Plasma Lactic Acid Porfirio (0.7-2.0) mmol/L Calcium (8.4-10.2) mg/dL Total Bilirubin (0.2-1.3) mg/dL AST (14-36) U/L ALT (4-34) U/L Alkaline Phosphatase (38-126) U/L Troponin I (0.000-0.034) ng/mL NT-Pro-B Natriuret Pep pg/mL Total Protein (6.3-8.2) g/dL Albumin (3.5-5.0) g/dL Urine Color Light Yellow Urine Appearance Clear (Clear) Urine pH 6.5 (5.0-8.0) Ur Specific [place] 1.024 (1.001-1.035) Urine Protein Trace H (Negative) Urine Glucose (UA) Trace H (Negative) Urine Ketones Negative (Negative) Urine Blood Negative (Negative) Urine Nitrite Negative (Negative) Urine Bilirubin Negative (Negative) Urine Urobilinogen <2.0 (<2.0) mg/dL Ur Leukocyte Esterase Negative (Negative) Influenza Type A (PCR) Not Detected (Not Detectd) Influenza Type B (PCR) Not Detected (Not Detectd) RSV (PCR) Not Detected (Not Detectd) SARS-CoV-2 (PCR) Not Detected (Not Detectd) Disposition Clinical Impression: Acute hypoxic respiratory failure, Sepsis, Left lower lobe pneumonia, Acute metabolic encephalopathy Disposition: ADMITTED IP TO THIS HOSP Condition: Critical
[2024-10-06] MEDS: PIPERACILLIN-TAZOBACTAM 3.375 GM in SODIUM CHLORIDE 0.9% 100 ML IVPB STA (02:51)
[2024-10-06] MEDS: ACETAMINOPHEN IV (For NPO) 1,000 MG in EMPTY BAG 1 BAG IVPB STA (02:55)
[2024-10-06 02:57] LABS: HCT 45.7 % (34.0-46.0); HGB 14.6 gm/dL (11.4-16.0); Hypochromasia Slight; MCH 33.4 pg (25.0-35.0); MCV 104.3 fL (80.0-100.0); Macrocytosis Moderate; Mean Platelet Volume 7.6; Platelet Count 326 k/uL (150-450); RBC 4.38 m/uL (3.80-5.40); RDW 14.2 % (11.5-15.5); WBC 21.2 k/uL (3.8-10.6)
[2024-10-06] MEDS: VANCOMYCIN 750 MG in SODIUM CHLORIDE 0.9% 250 ML IVPB ONE (02:58)
[2024-10-06 03:17] LABS: ALT 16 U/L (4-34); AST 44 U/L (14-36); African American GFR (CKD) >90 (>60 ml/min/1.73 sqM); Albumin 4.3 g/dL (3.5-5.0); Alkaline Phosphatase 134 U/L (38-126); Anion Gap 14 mmol/L; Blood Urea Nitrogen 27 mg/dL (7-17); Calcium 10.2 mg/dL (8.4-10.2); Carbon Dioxide 22 mmol/L (22-30); Chloride 100 mmol/L (98-107); Glucose 79 mg/dL (74-99); Non-African American GFR(CKD) >90 (>60 ml/min/1.73 sqM); Sodium 136 mmol/L (137-145); Total Bilirubin 0.6 mg/dL (0.2-1.3)
[2024-10-06 03:19] LABS: Potassium 4.5 mmol/L (3.5-5.1)
[2024-10-06 03:26] LABS: NT-Pro-B-Type Natriuretic Pept 1640 pg/mL
[2024-10-06 03:31] LABS: VBG PH 7.29 (7.31-7.41)
[2024-10-06 03:35] LABS: Appearance,Urine Clear (Clear); Bilirubin,Urine Negative (Negative); Blood,Urine Negative (Negative); Color,Urine Light Yellow; Glucose,Urine (UA) Trace (Negative); Ketones,Urine Negative (Negative); Leukocyte Esterase,Urine Negative (Negative); Nitrite,Urine Negative (Negative); PH, Urine 6.5 (5.0-8.0); Protein,Urine Trace (Negative); Specific Gravity,Urine 1.024 (1.001-1.035); Urobilinogen,Urine <2.0 mg/dL (<2.0)
[2024-10-06 03:40] LABS: INR 1.1 (<1.2); Partial Thromboplastin Time 23.9 sec (22.0-30.0)
[2024-10-06] MEDS: LACTATED RINGERS 1,000 ML IV SCH (03:41)
[2024-10-06 04:05] LABS: Influenza A Not Detected (Not Detectd); Influenza B Not Detected (Not Detectd); RSV Not Detected (Not Detectd)
[2024-10-06] MEDS: ETOMIDATE 2 MG/ML 10 ML VIAL IVP STA (04:10)
--- NOTE | 2024-10-06 04:10 | CT ---
EXAM: CT Head Without Intravenous Contrast CLINICAL HISTORY: AMS TECHNIQUE: Axial computed tomography images of the head/brain without intravenous contrast. CTDI is 49.1 mGy and DLP is 1200.4 mGy-cm. This CT exam was performed using one or more of the following dose reduction techniques: automated exposure control, adjustment of the mA and/or kV according to patient size, and/or use of iterative reconstruction technique. COMPARISON: CT head without contrast dated 09/25/2024Limitations: There is motion artifact, which degrades image quality on multiple image slices. FINDINGS: Brain: No definite intracranial hemorrhage; evaluation for subtle extra-axial pathology along the margins of the parenchyma is limited in regions of streak motion artifact. No significant mass effect identified. The encephalomalacia involving the left MCA territory is similar in morphologic appearance from the previous examination, accounting for alteration in positioning. Ventricles: Similar ex vacuo dilatation of the left lateral ventricle. No midline shift or significant effacement of the ventricles. Bones/joints: No definite skull fracture. No obvious skull fracture, accounting for significant artifact skull base. Soft tissues: No significant overlying soft tissue abnormality. Sinuses: Unremarkable as visualized. No acute sinusitis. Mastoid air cells: Unremarkable as visualized. No mastoid effusion. IMPRESSION: Accounting for limitations with extensive motion artifact, no definite acute intracranial process or significant alteration from the prior examination.
[2024-10-06] MEDS: fentaNYL (PF) 50 MCG/ML 2 ML AMP IVP STA (04:16)
--- NOTE | 2024-10-06 04:23 | CT ---
EXAM: CT Angiography Chest With Intravenous Contrast CLINICAL HISTORY: SOB TECHNIQUE: Axial computed tomographic angiography images of the chest with intravenous contrast. CTDI is 4.3 mGy and DLP is 187.9 mGy-cm. This CT exam was performed using one or more of the following dose reduction techniques: automated exposure control, adjustment of the mA and/or kV according to patient size, and/or use of iterative reconstruction technique. MIP reconstructed images were created and reviewed. COMPARISON: No relevant prior studies available. FINDINGS: Limitations: There is use respiratory artifact, which degrades image quality throughout the examination. Pulmonary arteries: Accounting for limitations with diffuse respiratory artifact, there is no evidence for pulmonary embolism. Several distal subsegmental pulmonary artery segments are of limited to nondiagnostic quality. Asymmetric prominence of the left main pulmonary artery with the right pulmonary artery is small in caliber. Aorta: No aortic dissection. There is a subtle focal outpouching of the posterior lateral aspect of the ascending aorta which approximates the somewhat stenotic right pulmonary artery. No obvious communication noted however. Lungs: Dense consolidation of nearly the entire left lower lobe with complete fluid opacification of the regional bronchial structures. Curvilinear presumed atelectatic changes noted involving the right posterior costophrenic margin. No other definite focal airspace consolidation, accounting for limitations. Pleural space: Unremarkable. No significant effusion. No pneumothorax. Heart: Cardiomegaly. There is irregular calcification adjacent to the base of the main pulmonary artery with vertical calcification underlying the sternum. No pericardial effusion. Bones/joints: Sternal hardware appears intact. No acute osseous abnormality. No dislocation. Soft tissues: Unremarkable. Lymph nodes: Unremarkable. No enlarged lymph nodes. IMPRESSION: 1. Accounting for limitations with diffuse respiratory artifact, there is no evidence for pulmonary embolism. Several distal subsegmental pulmonary artery segments are of limited to nondiagnostic quality. 2. Dense consolidation of nearly the entire left lower lobe with complete fluid opacification of the regional bronchial structures. Differential consideration includes aspiration or pneumonia with prominent endobronchial secretions. No pleural effusion or pneumothorax. 3. No aortic dissection. There is a subtle focal outpouching of the posterior lateral aspect of the ascending aorta which approximates the somewhat stenotic right pulmonary artery. No obvious communication noted however. There is calcification adjacent to the base of the pulmonary artery with vertical calcification extending superiorly underlying the sternum. Please correlate with surgical history.
[2024-10-06] MEDS ORDERED: NALOXONE 0.4 MG/ML 1 ML VIAL IV PRN (04:26)
[2024-10-06] MEDS ORDERED: Phosphorus Replacement Protoco 1 EACH MISC MISCELLANE PRN (04:26)
[2024-10-06] MEDS ORDERED: Magnesium Replacement Protocol 1 EACH MISC MISCELLANE PRN (04:26)
[2024-10-06] MEDS ORDERED: Potassium Replacement Protocol 1 EACH MISC MISCELLANE PRN (04:26)
--- NOTE | 2024-10-06 04:26 | XR ---
EXAM: XR Abdomen, 2 Views and XR Chest, 1 View CLINICAL HISTORY: ITS.REASON XR Reason: SOB TECHNIQUE: Frontal view of the chest, frontal view of the abdomen/pelvis and upright or decubitus view of the abdomen. COMPARISON: No relevant prior studies available. FINDINGS: Lungs: Left perihilar streaky opacities noted. Asymmetric elevation left hemidiaphragm with subsegmental changes at the left lung base. Pleural space: Unremarkable. No pneumothorax. Heart: Unremarkable. No cardiomegaly. Mediastinum: The mediastinal contours are unremarkable. The trachea is midline. Intraperitoneal space: No pneumoperitoneum. Gastrointestinal tract: Prominent gas, primarily throughout the distended:. There are nonspecific small bowel loops in the pelvis. Bones/joints: Intact sternal hardware. Osteopenia. No acute fracture. Other findings: No significant stool burden. IMPRESSION: 1. Asymmetric elevation left hemidiaphragm with subsegmental changes at the left lung base. Left perihilar streaky opacities. Differential considerations include subsegmental atelectasis or interstitial infection. 2. Nonspecific, nonobstructive bowel gas pattern. No pneumoperitoneum.
--- NOTE | 2024-10-06 04:32 | CT ---
EXAM: CT Abdomen and Pelvis With Intravenous Contrast CLINICAL HISTORY: Sepsis TECHNIQUE: Axial computed tomography images of the abdomen and pelvis with intravenous contrast. CTDI is 9.8 mGy and DLP is 610.1 mGy-cm. This CT exam was performed using one or more of the following dose reduction techniques: automated exposure control, adjustment of the mA and/or kV according to patient size, and/or use of iterative reconstruction technique. COMPARISON: No relevant prior studies available. FINDINGS: Limitations: There is diffuse respiratory artifact, which degrades image quality throughout the examination. Lung bases: For findings regarding the lung bases, please see the CT report of the chest performed concurrently. ABDOMEN: Liver: Liver is grossly unremarkable. Gallbladder and bile ducts: Unremarkable. No calcified stones. No ductal dilation. Pancreas: The pancreas is grossly unremarkable. No obvious peripancreatic inflammatory changes, accounting for limitations. No ductal dilation. Spleen: The spleen is grossly unremarkable. Adrenals: Unremarkable. No mass. Kidneys and ureters: Unremarkable. No solid mass. No hydronephrosis. Stomach and bowel: No significant stool burden with minimal stool in the distal rectosigmoid. No evidence for obstruction. PELVIS: Appendix: The appendix is not clearly delineated with extensive respiratory artifact. Bladder: The bladder is mildly distended with White catheter in position. Reproductive: Unremarkable as visualized. ABDOMEN and PELVIS: Intraperitoneal space: Unremarkable. No free air. No significant fluid collection. Bones/joints: No acute osseous abnormality identified. Soft tissues: Unremarkable. Vasculature: Atherosclerotic calcification involving the aorta. No dissection or aneurysm. Detailed evaluation is limited; however, there is severe stenosis with inferior deflexion of the celiac artery. The SMA and FLOWER are grossly patent. Lymph nodes: Unremarkable. No enlarged lymph nodes. IMPRESSION: There is diffuse respiratory artifact, which degrades image quality throughout the examination. Accounting for limitations, no evidence for focal high-grade bowel obstruction. 2. 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 The SMA and FLOWER are grossly patent. This is a presumed incidental finding.
[2024-10-06 04:58] LABS: ABG Base Excess -1.5 mmol/L; ABG HCO3 23 mmol/L (21-25); ABG Oxygen Saturation >100.0 % (94-97); ABG PCO2 39 mmHg (35-45); ABG PH 7.38 (7.35-7.45); ABG PO2 374 mmHg (83-108); ABG TCO2 25 mmol/L (19-24); Allen Test Performed? Yes
--- NOTE | 2024-10-06 05:02 | XR ---
EXAM: XR Chest, 1 View CLINICAL HISTORY: ITS.REASON XR Reason: Tube placement TECHNIQUE: Frontal view of the chest. COMPARISON: CT chest performed earlier FINDINGS: Lungs: The airspace consolidation involving the left lower lobe noted on the CT examination is under appreciated radiographically. Pleural space: Unremarkable. No pneumothorax. No large pleural effusion. Heart: Unremarkable. No cardiomegaly. Mediastinum: No tracheal deviation. Bones/joints: Intact sternal hardware. No acute fracture. Lymph nodes: Left hilar calcified lymph nodes noted. Tubes, lines and devices: The endotracheal tube is 4 cm from the nehemias. Nasogastric tube tip in the stomach. IMPRESSION: The endotracheal tube is 4 cm from the nehemias.
--- NOTE | 2024-10-06 05:18 | P.HPIM ---
History of Present Illness H&P Date: 10/06/24 Chief Complaint: shortness of breath Patient is a 53-year-old female with cerebral palsy, deafness, seizure disorder presenting from her prison with shortness of breath. Patient is deaf and nonverbal. At time of interview patient was mechanically intubated and sedated. Public guardian was at bedside and gave majority of history. She states at around 11 PM patient was found to be having labored breathing that continued to get worse and the patient beak started to become pale and diaphoretic. EMS arrived and patient's pulse ox was at 80% on room air and she was placed on a nonrebreather and brought to the hospital. Guardian states that she has been on the decline for the past 6 months. She states that the patient has been refusing to eat and her oral intake has dramatically decreased. States that she has become more dependent over the past few months. She reports that the patient ate breakfast and lunch like she normally would today but did not have dinner. Guardian denies any sick contacts with the prison. States that the patient showed no signs of symptoms of being sick up until today. CXR dependently interpreted displaying airspace consolidation involving the left lower lobe, endotracheal tube 4 cm above from nehemias Brain CT displaying limitation due to expected motion artifact, no definite acute intracranial process or significant alteration from prior CT Chest CTA displaying accounting for limitations with diffuse respiratory art ifact, there is no evidence for PE, dense consolidation of nearly entire left lower lobe with complete fluid opacification of the regional bog bronchial structure, no acute aortic dissection Acute abdomen series displaying asymmetric elevation left hemidiaphragm with segmental changes at the left lung base, left perihilar streaky opacities CT abdomen/pelvis accounting for limitations, no evidence for focal high-grade bowel obstruction, severe stenosis of the celiac artery with inferior deflectio n, most consistent with arcuate type extrinsic compression T101 F, [place] 146, RR 27, BP 181/102, O2 saturation 88% on non-rebreather 15L Review of systems: Pertinent positives and negatives as discussed in HPI, a complete review of systems was performed and all other systems are negative. Physical examination: Vital signs reviewed General: non toxic, no distress, appears at stated age, intubated and sedated Derm: no unusual rashes/lesions, warm Head: atraumatic, normocephalic, symmetric ENT: Nose and ears atraumatic Mouth: OG Tube in place Cardiovascular: S1S2 reg, no murmur, no edema Lungs: CTA bilateral, rhonchi noted b/l, no accessory muscle use Abdominal: soft, nontender to palpation, no guarding Assessment/Plan: Patient is a 53-year-old female with cerebral palsy, deafness, seizure disorder presenting from her prison with shortness of breath.. ED documentation reviewed. The patient is admitted to the intensive care unit for evaluation of severe sepsis. #. Severe sepsis secondary to community-acquired pneumonia #. Lactic acidosis secondary to above SIRS 3 with fever of 101 F WBC 21.2, [place] 146, RR 27 Lactic acid 3.7 Currently mechanically intubated: rate 10, Tv 250, FiO2 100%, PEEP 5 Sedated with propofol 15 mcg/kg/min, fentanyl at 0.5 mcg/kg/hr s/p Zosyn 3.375 gm IVPB once by ED Start on Cefepime 2 g every 8 hours Vancomycin dosed by pharmacy, monitor renal function Cepheid 4 Plex unremarkable 2 L bolus of LR NS at 100 cc an hour Cardiac monitoring Dietitian consulted Pulm/critical care consult #. Hypertensive urgency S/p labetalol 10 mg IVP #. History of seizure Continue home antiseizure medication F: NS at 100 cc/hr E: Replete electrolytes as N: OG tube A: PT/OT consulted DVT prophylaxis: Heparin 5000 unit SQ q 12hr GI prophylaxis: Protonix 40 mg IV daily CODE STATUS: Full code Anticipated discharge place: Pending clinical course Patient is critically ill. Prognosis is guarded. Mira Campbell MD PGY-1 IM Dictation was produced using [employer] dictation software. please excuse any grammatical, word or spelling errors. I have seen and evaluated the patient today. I Discussed the case with the resident and agree with the resident's findings I edited the assessment and plan as necessary as documented in the resident's note. sepsis with community acquired pneumonia , possible aspiration Rocephine 2 gm IVPB daily azithromycin 500 mg IVPB daily dc other antibiotics Past Medical History Past Medical History: Seizure Disorder Additional Past Medical History / Comment(s): does use sign language, HX OF CEREBRAL PALSY, AMBULATORY, borderline intellectual functioning, idiopatic epilepsy, deaf, non-speaking, RT LEG AFO BRACE, hx of tetralogy of fallot History of Any Multi-Drug Resistant Organisms: None Reported Past Surgical History: Unable to Obtain Additional Past Surgical History / Comment(s): HEART SX Past Anesthesia/Blood Transfusion Reactions: Unable to Obtain Past Psychological History: ADD/ADHD Past Alcohol Use History: None Reported Past Drug Use History: None Reported Medications and Allergies Home Medications Medication Instructions Recorded Confirmed Type Dextroamphetamine/Amphetamine 20 mg PO BID 02/23/16 07/31/18 History [Adderall Xr] Divalproex [Depakote] 250 mg PO HS 02/23/16 07/31/18 History Divalproex [Depakote] 500 mg PO TID 02/23/16 07/31/18 History Folic Acid 1 mg PO DAILY 02/23/16 07/31/18 History Lacosamide [Vimpat] 50 mg PO BID 02/23/16 07/31/18 History Multivitamins, Thera [Multivitamin] 1 tab PO DAILY 02/23/16 07/31/18 History Phenytoin Sodium Extended 100 mg PO QAM 02/23/16 07/31/18 History [Dilantin] Phenytoin [Dilantin Chew] 50 mg PO HS 02/23/16 07/31/18 History Zonisamide [Zonegran] 25 mg PO DAILY@1800,2200 02/23/16 07/31/18 History Zonisamide [Zonegran] 100 mg PO BID 02/23/16 07/31/18 History levETIRAcetam [Keppra] 500 mg PO TID 02/23/16 07/31/18 History levETIRAcetam [Keppra] 250 mg PO HS 03/29/16 07/31/18 History Allergies Allergy/AdvReac Type Severity Reaction Status Date / Time aspartame Allergy Unknown Verified 07/31/18 15:09 [From Nutrasweet Aspartame] aspirin Allergy Unknown Verified 07/31/18 15:09 ibuprofen Allergy Unknown Verified 07/31/18 15:09 artificial sweetners Allergy Unknown Uncoded 07/31/18 15:09 Physical Exam Vitals: Vital Signs Temp Pulse Resp BP Pulse Ox FiO2 10/06/24 03:38 101.8 F H 130 H 22 184/96 100 10/06/24 02:16 100 10/06/24 02:08 24 10/06/24 01:59 101 F H 146 H 27 H 181/102 88 L Intake and Output 10/05/24 10/05/24 10/06/24 14:59 22:59 06:59 Other: Weight 43.091 kg Results CBC & Chem 7: 10/06/24 02:10 10/06/24 02:10 Labs: Abnormal Lab Results - Last 24 Hours (Table) 10/06/24 10/06/24 10/06/24 Range/Units 02:10 02:10 02:10 WBC 21.2 H (3.8-10.6) k/uL MCV 104.3 H (80.0-100.0) fL VBG pH (7.31-7.41) VBG HCO3 (24-28) mmol/L Sodium 136 L (137-145) mmol/L BUN 27 H (7-17) mg/dL Creatinine 0.34 L (0.52-1.04) mg/dL Plasma Lactic Acid Porfirio 3.7 H* (0.7-2.0) mmol/L AST 44 H (14-36) U/L Alkaline Phosphatase 134 H (38-126) U/L Total Protein 9.0 H (6.3-8.2) g/dL Urine Protein (Negative) Urine Glucose (UA) (Negative) 10/06/24 10/06/24 Range/Units 02:33 02:46 WBC (3.8-10.6) k/uL MCV (80.0-100.0) fL VBG pH 7.29 L (7.31-7.41) VBG HCO3 22 L (24-28) mmol/L Sodium (137-145) mmol/L BUN (7-17) mg/dL Creatinine (0.52-1.04) mg/dL Plasma Lactic Acid Porfirio (0.7-2.0) mmol/L AST (14-36) U/L Alkaline Phosphatase (38-126) U/L Total Protein (6.3-8.2) g/dL Urine Protein Trace H (Negative) Urine Glucose (UA) Trace H (Negative)
[2024-10-06] MEDS: SODIUM CHLORIDE 0.9% 500 ML 500 ML IV SCH (05:40)
[2024-10-06 05:48] LABS: Band Neutrophils % 28 %; Lymphocytes # (M) 1.27 k/uL (1.0-4.8); Metamyelocytes # (M) 0.21 k/uL (0); Metamyelocytes % 1 %; Monocytes # (M) 0.42 k/uL (0-1.0); Neutrophils % (M) 64 %; Nucleated Red Blood Cells 0 /100 WBC (0-0); Total Cells Counted 200
[2024-10-06] MEDS: LABETALOL 5 MG/ML VIAL MDV IVP STA (05:48)
[2024-10-06 05:49] LABS: Toxic Vacuolation Present
[2024-10-06 05:51] LABS: Anisocytosis (M) Present
[2024-10-06 06:41] LABS: Hypochromasia Slight; MCH 34.5 pg (25.0-35.0); MCHC 32.7 g/dL (31.0-37.0); MCV 105.3 fL (80.0-100.0); Macrocytosis Moderate; Mean Platelet Volume 7.3; Platelet Count 181 k/uL (150-450); RBC 3.23 m/uL (3.80-5.40); RDW 14.1 % (11.5-15.5); WBC 15.8 k/uL (3.8-10.6)
[2024-10-06 06:57] LABS: ALT 13 U/L (4-34); AST 34 U/L (14-36); African American GFR (CKD) >90 (>60 ml/min/1.73 sqM); Albumin 2.3 g/dL (3.5-5.0); Alkaline Phosphatase 89 U/L (38-126); Anion Gap 5 mmol/L; Blood Urea Nitrogen 14 mg/dL (7-17); Calcium 7.4 mg/dL (8.4-10.2); Carbon Dioxide 21 mmol/L (22-30); Chloride 108 mmol/L (98-107); Glucose 89 mg/dL (74-99); Magnesium 1.5 mg/dL (1.6-2.3); Non-African American GFR(CKD) >90 (>60 ml/min/1.73 sqM); Potassium 3.5 mmol/L (3.5-5.1); Sodium 134 mmol/L (137-145); Total Bilirubin 0.5 mg/dL (0.2-1.3); Total Protein 5.4 g/dL (6.3-8.2)
[2024-10-06 07:00] LABS: HGB 11.1 gm/dL (11.4-16.0)
--- NOTE | 2024-10-06 07:04 | XR ---
EXAMINATION TYPE: XR chest 1V portable DATE OF EXAM: 10/06/2024 CLINICAL INDICATION: Female, 53 years old with history of R. IJ CVC placement, progress study. TECHNIQUE: Single AP portable supine view of the chest is obtained. COMPARISON: Chest x-ray from earlier today FINDINGS: There is new right sided internal jugular central venous catheter terminating in SVC. No o bvious pneumothorax after catheter insertion on supine x-ray. Stable endotracheal and orogastric tubes. Overlying sternal wires and mediastinal clips are redemonst rated. Persistent cardiomegaly with left mid to lower lung increased opacity. Right lung is clear. 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 IMPRESSION: New right internal jugular central venous catheter with tip in SVC without pneumothorax. [facility], , 10/06/2024 7:02 AM
[2024-10-06] MEDS: CEFEPIME 2 GM in SODIUM CHLORIDE 0.9% 100 ML IVPB SCH (07:06)
[2024-10-06] MEDS: fentaNYL (PF). 1,000 MCG in SODIUM CHLORIDE 0.9% 80 ML IV SCH ×2 (07:07→10:01)
[2024-10-06] MEDS: PANTOPRAZOLE 40 MG/10 ML VIAL IV SCH (08:24)
[2024-10-06] MEDS: AZITHROMYCIN 500 MG in SODIUM CHLORIDE 0.9% 250 ML IVPB SCH (08:26)
[2024-10-06] MEDS: HEPARIN SODIUM,PORCINE 5,000 UNIT/ML 1 ML VIAL SQ SCH (08:30)
[2024-10-06 09:26] LABS: Band Neutrophils % 1 %; Nucleated Red Blood Cells 0 /100 WBC (0-0); Total Cells Counted 200
[2024-10-06 09:31] LABS: Lymphocytes # (M) 2.69 k/uL (1.0-4.8); Monocytes # (M) 3.48 k/uL (0-1.0); Neutrophils % (M) 61 %
[2024-10-06 09:33] LABS: RBC Morphology Normal
[2024-10-06] MEDS ORDERED: IPRATROPIUM-ALBUTEROL 3 ML NEB INHALATION PRN (09:34)
[2024-10-06] MEDS ORDERED: PNEUMONIA PROTOCOL UTILIZED 1 EACH MISC PO PRN (09:34)
[2024-10-06] MEDS ORDERED: VANCOMYCIN 750 MG in SODIUM CHLORIDE 0.9% 250 ML IVPB SCH (11:00)
[2024-10-06] MEDS: IPRATROPIUM-ALBUTEROL 3 ML NEB INHALATION SCH (11:12)
[2024-10-06] MEDS: ACETAMINOPHEN SUPPOSITORY 650 MG SUPP RECTAL PRN (13:18)
--- NOTE | 2024-10-06 14:19 | P.CNPUL ---
History of Present Illness Consult date: 10/06/24 Reason for consult: dyspnea History of present illness: This is a 53-year-old female patient who is currently intubated for hypoxemic respiratory failure. The patient has history of cerebral palsy. The patient is nonverbal and deaf. According to the caregivers, guardian, the patient has been declining course over the past 6 months. She has been refusing to eat and her oral intake is dramatically dropped over the past 6 months. She has become more dependent. She currently lives in a long-term. The patient was noted to be having worsening shortness of breath and based on ongoing difficulties in breathing she was brought into the emergency department. Apparently, the time of the initial evaluation in the emergency, the patient was sweaty and diaphoretic. Her pulse ox was 80% on room air oxygen as reported by EMS. She was placed on 100% elevated facemask. Apparently, the patient had breakfast and lunch like normal. She did not have dinner on the day of the admission. The patient had been refusing to eat. No reported aspiration by the manager education. No reported seizure activity. Based on her diminished level of consciousness and ongoing hypoxemic respiratory failure, the patient was intubated in the emergency department and placed on mechanical ventilator. This morning, the patient is on a assist-control mode of mechanical ventilation at rate of 10, tidal volume of 250, FiO2 50% with a PEEP of 5. Blood gases done on 900% FiO2 showed a pH of 7.38 with a pCO2 39 and pO2 of 374. The patient is currently sedated and she is currently on propofol running at 20 mcg/kg/min. No hypotension. She is hemodynamically stable. White cell count is at 15.8 with a hemoglobin of 11 and a platelet count of 181. Sodium levels at 134, potassium level is at 3.5 and the BUN is 14 with a creatinine of 0.2. Serum bicarb is at 21. Troponin was 0.02 and 0.05 and 0.02 respectively x 3. UA was negative. Viral drug screen was negative. Electrolytes were all within normal limits. LFT was also within normal limits. CAT scan of the brain that was done in the emergency department showed limited findings due to motion artifact. No acute intracranial process identified. The patient also had a CT of the chest that showed no evidence of any pulm embolism. Of significance was a dense consolidation involving the entire left lower lobe with complete unspecified lobe. Consider an aspiration left lower lobe pneumonia. No evidence of a aortic dissection. No mediastinal lymphadenopathy. Right lung was essentially clear. Follow-up chest x-ray from this morning shows ongoing consolidation of the left lower lobe. The patient also has a right IJ triple-lumen catheter that was placed in the emergency department. Her current cardiac rhythm is sinus tachycardia. The patient was given a combination of Rocephin and Zithromax in the emergency department. Review of Systems ROS unobtainable: due to endotracheal tube, due to mental status Past Medical History Past Medical History: Seizure Disorder Additional Past Medical History / Comment(s): does use sign language, HX OF CEREBRAL PALSY, AMBULATORY, borderline intellectual functioning, idiopatic epilepsy, deaf, non-speaking, RT LEG AFO BRACE, hx of tetralogy of fallot History of Any Multi-Drug Resistant Organisms: None Reported Past Surgical History: Unable to Obtain Additional Past Surgical History / Comment(s): HEART SX Past Anesthesia/Blood Transfusion Reactions: Unable to Obtain Past Psychological History: ADD/ADHD Past Alcohol Use History: None Reported Past Drug Use History: None Reported Medications and Allergies Home Medications Medication Instructions Recorded Confirmed Type Divalproex [Depakote] 250 mg PO HS 02/23/16 10/06/24 History Divalproex [Depakote] 500 mg PO TID 02/23/16 10/06/24 History Multivitamins, Thera [Multivitamin] 1 tab PO HS 02/23/16 10/06/24 History Phenytoin [Dilantin Chew] 50 mg PO BID 02/23/16 10/06/24 History Zonisamide [Zonegran] 25 mg PO DAILY@1500 02/23/16 10/06/24 History Zonisamide [Zonegran] 100 mg PO BID 02/23/16 10/06/24 History levETIRAcetam [Keppra] 1,000 mg PO BID 02/23/16 10/06/24 History Acetaminophen [Tylenol] 650 mg PO Q4-6H PRN 10/06/24 10/06/24 History Boost Vhc 0.9gm-2.25kcal/Ml Oral 237 ml PO BID 10/06/24 10/06/24 History Dextroamphetamine/Amphetamine 5 mg PO BID 10/06/24 10/06/24 History [Adderall] Loperamide [Imodium] 1 dose PO DIRECTED PRN 10/06/24 10/06/24 History Magnesium Hydroxide [Milk of 1 dose PO DIRECTED PRN 10/06/24 10/06/24 History Magnesia] Midazolam [Nayzilam] 1 spray NASAL DIRECTED PRN 10/06/24 10/06/24 History Xmckrspc-Afsorvewoj-Btcp Oint 1 applic TOPICAL DIRECTED PRN 10/06/24 10/06/24 History [Triple Antibiotic Ointment] OLANZapine [ZyPREXA] 5 mg PO HS 10/06/24 10/06/24 History Phenytoin Sodium Extended 30 mg PO HS 10/06/24 10/06/24 History [Dilantin] Sennosides-Docusate Sodium 1 tab PO BID 10/06/24 10/06/24 History [Senokot-S] guaiFENesin SYRUP 100MG/5ML 1 dose PO DIRECTED PRN 10/06/24 10/06/24 History [Robitussin] Allergies Allergy/AdvReac Type Severity Reaction Status Date / Time aspartame Allergy Unknown Verified 10/06/24 07:32 [From Nutrasweet Aspartame] aspirin Allergy Unknown Verified 10/06/24 07:32 ibuprofen Allergy Unknown Verified 10/06/24 07:32 NSAIDS (Non-Steroidal Allergy Unknown Verified 10/06/24 07:32 Anti-Inflamma phenylalanine Allergy Unknown Verified 10/06/24 07:32 artificial sweetners Allergy Unknown Uncoded 10/06/24 07:32 Physical Exam Vitals: Vital Signs Temp Pulse Resp BP Pulse Ox FiO2 10/06/24 09:26 98.9 F 108 H 20 121/70 99 10/06/24 09:00 998.9 F H 110 H 20 117/70 99 10/06/24 08:10 50 10/06/24 08:09 50 10/06/24 08:00 98.7 F 107 H 22 130/70 99 10/06/24 07:00 98.7 F 109 H 24 147/68 100 10/06/24 06:00 99.9 F H 103 H 22 141/81 100 10/06/24 05:12 50 10/06/24 05:06 50 10/06/24 04:28 100 10/06/24 03:38 101.8 F H 130 H 22 184/96 100 10/06/24 02:08 24 10/06/24 01:59 101 F H 146 H 27 H 181/102 88 L Intake and Output 10/05/24 10/06/24 10/06/24 22:59 06:59 14:59 Intake Total 3.167 500 Output Total 350 Balance 3.167 150 Intake: Intake, IV Titration 3.167 500 Amount fentaNYL (PF). 1,000 mcg 500 In Sodium Chloride 0.9% 80 ml @ 0.5 MCG/KG/HR 2. 381 mls/hr IV .Q24H [facility] Rx#:[id number] propofoL 1,000 mg In 3.167 Empty Bag 1 bag @ 15 MCG/ KG/MIN 3.878 mls/hr IV . Q24H [facility] Rx#:[id number] Output: Urine 350 Other: Weight 43.091 kg The patient appeared well nourished and normally developed. Vital signs as documented. The patient is sedated and calm and comfortable on propofol. Orogastric and orotracheal tube are both in place Head exam is unremarkable. No scleral icterus or corneal arcus noted. Neck is without jugular venous distension, thyromegaly, or carotid bruits. Carotid upstrokes are brisk bilaterally. Lungs are clear to auscultation and percussion. The patient has diminished breath sound the left lung base and the patient has a thoracotomy scar over the anterior chest area Cardiac exam reveals the PMI to be normally sized and situated. Rhythm is regular. First and second heart sounds normal. N the patient has a systolic ejection murmur heard throughout the precordium and the patient has a thoracotom y scar related to previous cardiac surgery. Abdominal exam reveals normal bowel sounds, no masses, no organomegaly and no aortic enlargement. Extremities are nonedematous and both femoral and pedal pulses are normal. Examination of the skin revealed no evidence of significant rashes, suspicious appearing nevi or other concerning lesions. Neurologically, the patient is sedated on propofol. Results - Laboratory Findings CBC and BMP: 10/06/24 06:30 10/06/24 06:30 ABG ABG pH 7.38 (7.35-7.45) 10/06/24 04:55 ABG pCO2 39 mmHg (35-45) 10/06/24 04:55 ABG pO2 374 mmHg (83-108) H 10/06/24 04:55 ABG O2 Saturation >100.0 % (94-97) H 10/06/24 04:55 PT/INR, D-dimer PT 12.0 sec (10.0-12.5) 10/06/24 02:10 INR 1.1 (<1.2) 10/06/24 02:10 Abnormal lab findings: Abnormal Labs 10/06/24 10/06/24 10/06/24 02:10 02:10 02:10 WBC 21.2 H RBC Hgb MCV 104.3 H Neutrophils # (Manual) 19.50 H Monocytes # (Manual) Metamyelocytes # (Man) 0.21 H ABG pO2 ABG Total CO2 ABG O2 Saturation VBG pH VBG HCO3 Sodium 136 L Chloride Carbon Dioxide BUN 27 H Creatinine 0.34 L Plasma Lactic Acid Porfirio 3.7 H* Calcium Magnesium AST 44 H Alkaline Phosphatase 134 H Troponin I Total Protein 9.0 H Albumin Urine Protein Urine Glucose (UA) 10/06/24 10/06/24 10/06/24 02:33 02:46 04:55 WBC RBC Hgb MCV Neutrophils # (Manual) Monocytes # (Manual) Metamyelocytes # (Man) ABG pO2 374 H ABG Total CO2 25 H ABG O2 Saturation >100.0 H VBG pH 7.29 L VBG HCO3 22 L Sodium Chloride Carbon Dioxide BUN Creatinine Plasma Lactic Acid Porfirio Calcium Magnesium AST Alkaline Phosphatase Troponin I Total Protein Albumin Urine Protein Trace H Urine Glucose (UA) Trace H 10/06/24 10/06/24 10/06/24 06:30 06:30 06:30 WBC 15.8 H RBC 3.23 L Hgb 11.1 L D MCV 105.3 H Neutrophils # (Manual) 9.70 H Monocytes # (Manual) 3.48 H Metamyelocytes # (Man) ABG pO2 ABG Total CO2 ABG O2 Saturation VBG pH VBG HCO3 Sodium 134 L Chloride 108 H Carbon Dioxide 21 L BUN Creatinine 0.24 L Plasma Lactic Acid Porfirio Calcium 7.4 L Magnesium 1.5 L AST Alkaline Phosphatase Troponin I 0.055 H* Total Protein 5.4 L Albumin 2.3 L Urine Protein Urine Glucose (UA) - Diagnostic Findings Chest x-ray: image reviewed CT scan - chest: image reviewed Assessment and Plan Plan: Acute hypoxic respiratory failure with dense consolidation of the left lower lobe. Consider aspiration left lower lobe pneumonia. Patient is currently intubated on mechanical ventilator. Follow-up blood gas was noted and the oxygenation was adequate. Hemodynamically stable. 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 No signs of any cardiomyopathy at this point. Leukocytosis Questionable stenosis/narrowing of the celiac artery based on CT scan of the abdomen. Noted the SMA and FLOWER were grossly patent. Plan Continue vent support, no vent changes for today FiO2 has been already weaned down Discontinue the Rocephin and Zithromax and put the patient on IV Zosyn covering for aspiration pneumonia Check sputum Gram stain and culture Check blood cultures Normal saline at rate of 75 cc an hour Check valproic acid level Check Dilantin level Obtain echocardiogram Keep the patient sedated on propofol Hemodynamically stable Transfer the patient to the ICU for further care. May need a bronchoscopy to evaluate the left lower lobe should there be no improvement in the follow-up chest x-ray within next 24 hours. Resume Keppra Resume Dilantin Resume Depakote Neurology consultation Will start enteral feeding for nutritional support within next 24 hours. Condition is critical and the patient will be moved to the intensive care unit.
[2024-10-06 15:01] LABS: Glucose,Whole Blood 91 mg/dL (70-110)
[2024-10-06] MEDS ORDERED: DIVALPROEX 500 MG TABLET.DR PO SCH (16:00)
[2024-10-06] MEDS: ZONISAMIDE 25 MG CAP PO SCH (16:10)
[2024-10-06] MEDS: MAGNESIUM SULFATE-D5W PMX 1 GM in DEXTROSE/WATER 1 100ML.BAG IVPB SCH (16:16)
[2024-10-06] MEDS: PIPERACILLIN-TAZOBACTAM 3.375 GM in SODIUM CHLORIDE 0.9% 100 ML IVPB SCH (16:17)
[2024-10-06] MEDS: POTASSIUM BICARBONATE/CIT AC 20 MEQ TABLET.EFF NG-TUBE SCH (16:17)
[2024-10-06] MEDS: VALPROIC ACID ORAL SOLN 250 MG/5 ML CUP PO SCH ×2 (16:59→21:04)
[2024-10-06] MEDS ORDERED: DIVALPROEX 250 MG TABLET.DR PO SCH (21:00)
[2024-10-06] MEDS: levETIRAcetam 500 MG TAB PO SCH (21:03)
[2024-10-06] MEDS: CHLORHEXIDINE GLUCONATE 15 ML CUP MUCOUS MEM SCH (21:03)
[2024-10-06] MEDS: PHENYTOIN 50 MG CHEWABLE PO SCH (21:03)
[2024-10-06] MEDS: OLANZapine 5 MG TAB PO SCH (21:03)
[2024-10-06] MEDS: ZONISAMIDE 100 MG CAP PO SCH (21:04)
[2024-10-06] MEDS: NON FORMULARY DRUG (Phenytoin Sodium Extended [Dilantin] 30 MG Capsule) PO SCH (21:11)
--- NOTE | 2024-10-06 23:01 | XR ---
EXAMINATION TYPE: XR chest 1V portable DATE OF EXAM: 10/06/2024 10:54 PM COMPARISON: Chest radiographs from 10/06/2024 CLINICAL INDICATION: Female, 53 years old with history of increased resp rate, vent changes; [facility] TECHNIQUE: XR chest 1V portable Frontal view of the chest. FINDINGS: Lungs/Pleura: There is no evidence of pleural effusion, focal consolidation, or pneumothorax. Pulmonary vascularity: Unremarkable. Heart/mediastinum: Cardiomediastinal silhouette is unremarkable. Musculoskeletal: No acute osseous pathology. Other findings: None Lines/Tubes: Endotracheal tube with distal tip 5.5 cm above the nehemias. Nasogastric tube with its distal tip and side-port projecting under the diaphragm. Right internal jugular central venous catheter with distal tip at the cavoatrial junction. IMPRESSION: No acute cardiopulmonary disease/process. [facility], , 10/06/2024 10:59 PM
[2024-10-06 23:20] LABS: Allen Test Performed? Yes
[2024-10-06 23:21] LABS: ABG Base Excess 0.5 mmol/L; ABG HCO3 24 mmol/L (21-25); ABG PCO2 34 mmHg (35-45); ABG PH 7.45 (7.35-7.45); ABG PO2 99 mmHg (83-108); ABG TCO2 25 mmol/L (19-24)
[2024-10-06 23:32] LABS: ABG Oxygen Saturation 98.8 % (94-97)
[2024-10-07 04:37] LABS: ABG Base Excess 0.8 mmol/L; ABG HCO3 24 mmol/L (21-25); ABG Oxygen Saturation 98.5 % (94-97); ABG PCO2 31 mmHg (35-45); ABG PH 7.49 (7.35-7.45); ABG PO2 92 mmHg (83-108); ABG TCO2 25 mmol/L (19-24); Allen Test Performed? Yes
[2024-10-07 05:22] LABS: Glucose,Whole Blood 93 mg/dL (70-110)
[2024-10-07 06:36] LABS: African American GFR (CKD) >90 (>60 ml/min/1.73 sqM); Anion Gap 7 mmol/L; Blood Urea Nitrogen 9 mg/dL (7-17); Calcium 8.9 mg/dL (8.4-10.2); Carbon Dioxide 22 mmol/L (22-30); Chloride 106 mmol/L (98-107); Glucose 89 mg/dL (74-99); Non-African American GFR(CKD) >90 (>60 ml/min/1.73 sqM); Sodium 135 mmol/L (137-145)
[2024-10-07 06:53] LABS: Potassium 3.9 mmol/L (3.5-5.1)
[2024-10-07 07:04] LABS: Basophils # (A) 0.1 k/uL (0-0.2); Basophils % (A) 0 %; Eosinophils % (A) 0 %; HCT 37.6 % (34.0-46.0); Hypochromasia Slight; Lymphocytes # (A) 1.1 k/uL (1.0-4.8); Lymphocytes % (A) 6 %; MCHC 31.9 g/dL (31.0-37.0); MCV 106.5 fL (80.0-100.0); Macrocytosis Moderate; Mean Platelet Volume 8.4; Monocytes # (A) 2.2 k/uL (0-1.0); Monocytes % (A) 12 %; Neutrophils # (A) 14.6 k/uL (1.3-7.7); Neutrophils % (A) 80 %; Platelet Count 175 k/uL (150-450); RBC 3.53 m/uL (3.80-5.40); RDW 13.9 % (11.5-15.5); WBC 18.2 k/uL (3.8-10.6)
--- NOTE | 2024-10-07 07:53 | US ---
EXAMINATION TYPE: US venous doppler duplex LE RT DATE OF EXAM: 10/07/2024 7:25 AM COMPARISON: NONE CLINICAL INDICATION: Female, 53 years old with history of swelling and redness RLE; ICU patient. Hep sofi shots, Pain TECHNIQUE: The lower extremity deep venous system is examined utilizing real time linear array sonog rickey with graded compression, color doppler sonography, and spectral doppler. SIDE PERFORMED: Right FINDINGS: VESSELS IMAGED: Common Femoral Vein Deep Femoral Vein Greater Saphenous Vein * Femoral Vein Popliteal Vein Small Saphenous Vein * Proximal Calf Veins (* superficial vessels) Right Leg: Negative for DVT, Color Doppler imaging shows patency of the vessels. Spectral waveforms are within normal limits. IMPRESSION: No ultrasound evidence for deep venous thrombosis. [facility], , 10/07/2024 7:51 AM
--- NOTE | 2024-10-07 07:59 | XR ---
EXAMINATION TYPE: XR chest 1V portable DATE OF EXAM: 10/07/2024 6:15 AM COMPARISON: Chest radiographs from 10/06/2024 CLINICAL INDICATION: Female, 53 years old with history of Tube placement; [facility] TECHNIQUE: XR chest 1V portable Frontal view of the chest. FINDINGS: Lungs/Pleura: There is no evidence of pleural effusion, focal consolidation, or pneumothorax. Pulmonary vascularity: Unremarkable. Heart/mediastinum: Cardiomediastinal silhouette is unremarkable. Musculoskeletal: No acute osseous pathology. Midline sternotomy wires are noted. Other findings: None Lines/Tubes: Endotracheal tube with distal tip 4.5 cm above the nehemias. Nasogastric tube with its distal tip and side-port projecting under the diaphragm. Right internal jugular central venous catheter with distal tip at the cavoatrial junction. IMPRESSION: No acute cardiopulmonary disease/process. [facility], , 10/07/2024 7:57 AM
[2024-10-07] MEDS: ACETAMINOPHEN TAB 325 MG TAB PO PRN (10:11)
--- NOTE | 2024-10-07 10:51 | CA ---
Transthoracic Echo Report Name: Mary Jo Ojeda Age: 53 Gender: F : 1970 Exam Date: 10/07/2024 08:05 Exam Location: [place] [facility] Ht (in): 61 Wt (lb): 96 Ordering Physician: Chelo Sams MD Attending/Referring Phys: Singe Machine Operator Pam Sanchez RDCS Procedure CPT: Indications: trop elevation Cardiac Hx: Hx of tetrology of fallot Technical Quality: Good Contrast 1: Total Dose (mL): Contrast 2: Total Dose (mL): MEASUREMENTS (Male / Female) Normal Values 2D ECHO LV Diastolic Diameter PLAX 3.5 cm 4.2 - 5.9 / 3.9 - 5.3 cm LV Systolic Diameter PLAX 2.5 cm IVS Diastolic Thickness 0.8 cm 0.6 - 1.0 / 0.6 - 0.9 cm LVPW Diastolic Thickness 0.6 cm 0.6 - 1.0 / 0.6 - 0.9 cm LV Relative Wall Thickness 0.4 LVOT Diameter 2.3 cm LV Diastolic Volume MOD BP 72.5 cm??? 67 - 155 / 56 - 104 cm??? LV Systolic Volume MOD BP 29.2 cm??? 22 - 58 / 19 - 49 cm??? LV Ejection Fraction MOD BP 59.8 % >= 55 % LV Cardiac Index MOD BP 3913.0 cm???/min???m??? LV Diastolic Volume MOD 4C 70.0 cm??? LV Systolic Volume MOD 4C 24.3 cm??? LV Ejection Fraction MOD 4C 65.3 % LV Cardiac Index MOD 4C 4122.2 cm???/min???m??? LV Diastolic Length 4C 6.8 cm LV Systolic Length 4C 5.4 cm LV Diastolic Volume MOD 2C 73.5 cm??? LV Systolic Volume MOD 2C 31.2 cm??? LV Ejection Fraction MOD 2C 57.6 % LV Cardiac Index MOD 2C 3819.0 cm???/min???m??? LV Diastolic Length 2C 7.0 cm LV Systolic Length 2C 6.1 cm LA Volume 38.6 cm??? 18 - 58 / 22 - 52 cm??? LA Volume Index 28.3 cm???/m??? 16 - 28 cm???/m??? DOPPLER AV Peak Velocity 132.0 cm/s AV Peak Gradient 7.0 mmHg AV Mean Velocity 95.0 cm/s AV Mean Gradient 4.0 mmHg AV Velocity Time Integral 22.1 cm MV Area PHT 9.9 cm??? Mitral E Point Velocity 77.2 cm/s Mitral A Point Velocity 105.2 cm/s Mitral E to A Ratio 0.7 MV Deceleration Time 76.3 ms PV Peak Velocity 263.4 cm/s PV Peak Gradient 27.8 mmHg PV Mean Velocity 174.8 cm/s PV Mean Gradient 14.3 mmHg PV Velocity Time Integral 43.9 cm FINDINGS Left Ventricle Left ventricular ejection fraction is estimated at 60 %. Left ventricular cavity size normal. Left ventricular wall thickness normal. No obvious regional wall motion abnormalities. Right Ventricle Normal right ventricular size. Mildly reduced right ventricular global systolic function. Unable to estimate the right ventricular systolic pressure. Right Atrium Normal right atrial size. Left Atrium Normal left atrial size. Mitral Valve Structurally normal mitral valve. No evidence for mitral valve prolapse. No mitral stenosis. Trace mitral regurgitation. Aortic Valve Trileaflet aortic valve. Aortic valve sclerosis. No aortic stenosis. Mild aortic regurgitation. Tricuspid Valve Structurally normal tricuspid valve. No tricuspid stenosis. Trace tricuspid regurgitation. Pulmonic Valve Structurally normal pulmonic valve. Valvular pulmonic stenosis. Mild pulmonic regurgitation. Pericardium No pericardial effusion. Aorta Aortic annulus normal. CONCLUSIONS Indication Abnormal troponin Normal LV size and function Prominent posterior pericardial stripe Previewed by: Dr. Bethel Gutiérrez MD (Electronically Signed) Final Date: 07 October 2024 10:50
--- NOTE | 2024-10-07 11:31 | P.PN ---
Subjective Progress Note Date: 10/07/24 53-year-old female with cerebral palsy, deafness, seizure disorder presenting from her [facility] with shortness of breath. Patient was found to be having labored breathing that continued to get worse and the patient beak started to become pale and diaphoretic. EMS arrived and patient's pulse ox was at 80% on room air and she was placed on a nonrebreather and brought to the hospital. Guardian states that she has been on the decline for the past 6 months. She states that the patient has been refusing to eat and her oral intake has dramatically decreased. States that she has become more dependent over the past few months. In the ED she underwent extensive evaluation. T101 F, [place] 146, RR 27, BP 181/102, O2 saturation 88% on non-rebreather 15L. CBC, CMP significant for WBC 15.8, RBC 3.23, Hg 11.1, MCV 105.3, Na 134, Cl 108, bicarb 21, Cr 0.24, Ca 7.4, alb 2.3. Mag 1.6. Trop 0.055, 0.028 with EKG showing sinus tachycardia with no ST elevation. Lactic acid 0.8. CXR showed airspace consolidation involving the left lower lobe. Brain CT no acute process. Chest CTA no evidence for PE, dense consolidation of nearly entire left lower lobe. 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 Her respiratory status worsened and she was intubated in the ED and transferred to ICU for further management. Started on Rocephin and Azithromycin, switched to Zosyn for concerns for aspiration PNA. 10/07 Patient was seen and examined. Intubated. Sedated with Propofol 35 mcg/kg/min. Paralytic includes Fentanyl at 0.5 mcg/kg/hr. Antibiotics include Zosyn 3.75 g IV TID (D2). CBC, CMP significant for WBC 18.2, RBC 3.53, MCV 106.5, Na 135, Cr 0.2. Mag 2.0. ABG pH 7.49, pCO2 31, pO2 92, FiO2 40%. Urine Legionella neg. Phenytoin level 12.1, Valproic acid level 56.2. Venous doppler no DVT. CXR shows ET tube 4.5 cm above the nehemias + NGT. General: Intubated and sedated Derm: warm, dry Head: atraumatic, normocephalic, symmetric, NGT + ETT in place Mouth: no lip lesion, mucus membranes moist Cardiovascular: S1S2 tachy, no murmur Lungs: Coarse BS bilaterally, no rales , no accessory muscle use Ext: no gross muscle atrophy, no edema, no contractures Neuro: Unable to determine Psych: Unable to determine Based on my assessment of this patient, this patient meets a high complexity level of care. Acute hypoxic respiratory failure and severe sepsis secondary to Aspiration PNA: Tylneol 650 mg PO Q6H PRN fever. Zosyn 3.75 g IV TID (D2). DuoNeb QID scheduled and PRN SOB/wheezing. NS at 100 cc/hr. HOB elevation. Follow sputum and BCx. Telemetry monitoring. Troponin elevation: Likely demand ischemia due to above. Echo ordered. Seizure disorder: Depakote 500 mg PO TID, 250 mg PO QHS. Keppra 1000 mg PO BID. Phenytoin 50 mg PO BID, 30 mg PO QHS. Zonegran 100 mg PO BID, 25 mg PO QD. Resolved: HypoMag, Lactic acidosis CODE STATUS: FULL CODE. DVT Prophylaxis: Heparin SQ GI Prophylaxis: Protonix Designated medical POA if patient is not able to make medical decisions for themselves: I have reviewed the following risk and insurance consultant notes: Pulmonary note. I have reviewed the results of the following tests: As above. I have ordered the following tests: As above. I have discussed the care of this patient with the following independent historian: I have independently interpreted the following test below: CXR I have discussed the management of this patient with the following physician: Objective - Vital Signs Vital signs: Vital Signs Temp 98.1 F 10/07/24 06:00 Pulse 114 H 10/07/24 07:59 Resp 26 H 10/07/24 07:00 BP 127/57 10/07/24 07:00 Pulse Ox 99 10/07/24 07:00 FiO2 40 10/07/24 07:40 Intake & Output 10/06/24 10/07/24 10/07/24 18:59 06:59 18:59 Intake Total 2922.096 3584.355 171.336 Output Total 605 455 75 Balance 761.622 984.355 96.336 Weight 43.091 kg 45.6 kg Intake: IV 400 1200 100 Sodium Chloride 0.9% 281 811 4085 100 ml 500 ml @ 100 mls/hr IV .Q5H [facility] Rx#:[id number] Intake, IV Titration 856.622 179.355 71.336 Amount Magnesium Sulfate-D5w Pmx 200 1 gm In Dextrose/Water 1 100ml.bag @ 100 mls/hr IVPB Q1H [facility] Rx#: [id number] Piperacillin-Tazobactam 3 100 100 .375 gm In Sodium Chloride 0.9% 100 ml @ 25 mls/hr IVPB Q8HR [facility] Rx# :[id number] fentaNYL (PF). 1,000 mcg 4.310 In Sodium Chloride 0.9% 80 ml @ 0.5 MCG/KG/HR 2. 155 mls/hr IV .Q24H [facility] Rx#:[id number] fentaNYL (PF). 1,000 mcg 500 In Sodium Chloride 0.9% 80 ml @ 0.5 MCG/KG/HR 2. 381 mls/hr IV .Q24H [facility] Rx#:[id number] propofoL 1,000 mg In 56.622 75.045 71.336 Empty Bag 1 bag @ 15 MCG/ KG/MIN 3.878 mls/hr IV . Q24H [facility] Rx#:[id number] Oral 0 0 Other 110 60 Output: Gastric Drainage 50 25 Urine 555 430 75 Other: Voiding Method Indwelling Catheter Indwelling Catheter # Bowel Movements 0 - Labs CBC & Chem 7: 10/07/24 05:27 10/07/24 05:27 Labs: Abnormal Lab Results - Last 24 Hours (Table) 10/06/24 10/06/24 10/07/24 Range/Units 06:30 22:45 04:22 WBC (3.8-10.6) k/uL RBC (3.80-5.40) m/uL MCV (80.0-100.0) fL Neutrophils # (1.3-7.7) k/uL Neutrophils # (Manual) 9.70 H (1.3-7.7) k/uL Monocytes # (0-1.0) k/uL Monocytes # (Manual) 3.48 H (0-1.0) k/uL ABG pH 7.49 H (7.35-7.45) ABG pCO2 34 L 31 L (35-45) mmHg ABG Total CO2 25 H 25 H (19-24) mmol/L ABG O2 Saturation 98.8 H 98.5 H (94-97) % Hemoglobin 11.1 L 11.0 L (11.4-16.0) gm/dL Sodium (137-145) mmol/L Creatinine (0.52-1.04) mg/dL 10/07/24 10/07/24 Range/Units 05:27 05:27 WBC 18.2 H (3.8-10.6) k/uL RBC 3.53 L (3.80-5.40) m/uL MCV 106.5 H (80.0-100.0) fL Neutrophils # 14.6 H (1.3-7.7) k/uL Neutrophils # (Manual) (1.3-7.7) k/uL Monocytes # 2.2 H (0-1.0) k/uL Monocytes # (Manual) (0-1.0) k/uL ABG pH (7.35-7.45) ABG pCO2 (35-45) mmHg ABG Total CO2 (19-24) mmol/L ABG O2 Saturation (94-97) % Hemoglobin (11.4-16.0) gm/dL Sodium 135 L (137-145) mmol/L Creatinine 0.20 L (0.52-1.04) mg/dL Microbiology - Last 24 Hours (Table) 10/06/24 11:26 Gram Stain - Preliminary Sputum
[2024-10-07 11:52] LABS: Glucose,Whole Blood 99 mg/dL (70-110)
--- NOTE | 2024-10-07 14:09 | P.PN ---
Subjective Progress Note Date: 10/07/24 This is a 53-year-old female patient who is currently intubated for hypoxemic respiratory failure. The patient has history of cerebral palsy. The patient is nonverbal and deaf. According to the caregivers, guardian, the patient has been declining course over the past 6 months. She has been refusing to eat and her oral intake is dramatically dropped over the past 6 months. She has become more dependent. She currently lives in a fci. The patient was noted to be having worsening shortness of breath and based on ongoing difficulties in breathing she was brought into the emergency department. Apparently, the time of the initial evaluation in the emergency, the patient was sweaty and di aphoretic. Her pulse ox was 80% on room air oxygen as reported by EMS. She was placed on 100% elevated facemask. Apparently, the patient had breakfast and lunch like normal. She did not have dinner on the day of the admission. The patient had been refusing to eat. No reported aspiration by the group home counselor. No reported seizure activity. Based on her diminished level of consciousness and ongoing hypoxemic respiratory failure, the patient was intubated in the emergency department and placed on mechanical ventilator. This morning, the patient is on a assist-control mode of mechanical ventilation at rate of 10, tidal volume of 250, FiO2 50% with a PEEP of 5. Blood gases done on 900% FiO2 showed a pH of 7.38 with a pCO2 39 and pO2 of 374. The patient is currently sedated and she is currently on propofol running at 20 mcg/kg/min. No hypotension. She is hemodynamically stable. White cell count is at 15.8 with a hemoglobin of 11 and a platelet count of 181. Sodium levels at 134, potassium level is at 3.5 and the BUN is 14 with a creatinine of 0.2. Serum bicarb is at 21. Troponin was 0.02 and 0.05 and 0.02 respectively x 3. UA was negative. Viral drug screen was negative. Electrolytes were all within normal limits. LFT was also within normal limits. CAT scan of the brain that was done in the emergency department showed limited findings due to motion artifact. No acute intracranial process identified. The patient also had a CT of the chest that showed no evidence of any pulm embolism. Of significance was a dense consolidation involving the entire left lower lobe with complete unspecified lobe. Consider an aspiration left lower lobe pneumonia. No evidence of a aortic dissection. No mediastinal lymphadenopathy. Right lung was essentially clear. Follow-up chest x-ray from this morning shows ongoing consolidation of the left lower lobe. The patient also has a right IJ triple-lumen catheter that was placed in the emergency department. Her current cardiac rhythm is sinus tachycardia. The patient was given a combination of Rocephin and Zithromax in the emergency department. 10/07/2024, the patient is being seen for a follow-up. The patient was hospitalized for an acute hypoxic respiratory failure and a dense left lower lobe pneumonia. This morning, the patient calm and comfortable. Overnight, she encountered some increased restlessness, agitation and asynchrony on mechanical ventilator. Based on that, the patient was started on propofol which is currently running at 35 mcg/kg/min and she is also on fentanyl at 0.5 mcg/kg/h. She remains on a mechanical ventilator, assist-control mode at rate of 20, tidal volume of 350, FiO2 40% with a PEEP of 5. Blood gas showed a pH of 7.49 with a pCO2 31 and pO2 of 92. The patient remains in normal sinus rate of 100 cc an hour. The patient remains on IV Zosyn. Bronchoscopy endobronchial lavage was done. There was significant amount of mucous plugging bilaterally in the lower lobes and therapeutic airway suctioning was done and the BAL of the left lower lobe was done pending further cultures. No seizure activity has been noted. The patient is hemodynamically stable on no pressors. The white cell count is 18.2 with a hemoglobin 12 and a platelet count of 175. Sodium is at 135, potassium is at 3.9, BUN is 9 with a creatinine of 0.2. The toxicology screen for antiepileptics showed a Dilantin level of 12.1 and a valproic acid of 56. Neurology has been consulted. The patient has no noted seizure activity over the past 24 hours. Objective - Vital Signs Vital signs: Vital Signs Temp 102.1 F H 10/07/24 08:00 Pulse 112 H 10/07/24 13:00 Resp 14 10/07/24 13:00 BP 139/62 10/07/24 13:00 Pulse Ox 99 10/07/24 13:00 FiO2 40 10/07/24 12:00 Intake & Output 10/06/24 10/07/24 10/07/24 18:59 06:59 18:59 Intake Total 8285.978 6515.355 671.336 Output Total 605 455 195 Balance 761.622 984.355 476.336 Weight 43.091 kg 45.6 kg 45.6 kg Intake: IV 400 1200 600 Sodium Chloride 0.9% 638 863 3064 600 ml 500 ml @ 100 mls/hr IV .Q5H [facility] Rx#:[id number] Intake, IV Titration 856.622 179.355 71.336 Amount Magnesium Sulfate-D5w Pmx 200 1 gm In Dextrose/Water 1 100ml.bag @ 100 mls/hr IVPB Q1H [facility] Rx#: [id number] Piperacillin-Tazobactam 3 100 100 .375 gm In Sodium Chloride 0.9% 100 ml @ 25 mls/hr IVPB Q8HR [facility] Rx# :[id number] fentaNYL (PF). 1,000 mcg 4.310 In Sodium Chloride 0.9% 80 ml @ 0.5 MCG/KG/HR 2. 155 mls/hr IV .Q24H [facility] Rx#:[id number] fentaNYL (PF). 1,000 mcg 500 In Sodium Chloride 0.9% 80 ml @ 0.5 MCG/KG/HR 2. 381 mls/hr IV .Q24H [facility] Rx#:[id number] propofoL 1,000 mg In 56.622 75.045 71.336 Empty Bag 1 bag @ 15 MCG/ KG/MIN 3.878 mls/hr IV . Q24H [facility] Rx#:[id number] Oral 0 0 Other 110 60 Output: Gastric Drainage 50 25 Urine 555 430 195 Other: Voiding Method Indwelling Catheter Indwelling Catheter Indwelling Catheter # Bowel Movements 0 - Exam The patient appeared well nourished and normally developed. Vital signs as documented. The patient is sedated and calm and comfortable on propofol and fentanyl. Orogastric and orotracheal tube are both in place Head exam is unremarkable. No scleral icterus or corneal arcus noted. Neck is without jugular venous distension, thyromegaly, or carotid bruits. Carotid upstrokes are brisk bilaterally. Lungs are clear to auscultation and percussion. The patient has diminished breath sound the left lung base and the patient has a thoracotomy scar over the anterior chest area Cardiac exam reveals the PMI to be normally sized and situated. Rhythm is regular. First and second heart sounds normal. N the patient has a systolic ejection murmur heard throughout the precordium and the patient has a thoracotomy scar related to previous cardiac surgery. Abdominal exam reveals normal bowel sounds, no masses, no organomegaly and no aortic enlargement. Extremities are nonedematous and both femoral and pedal pulses are normal. Examination of the skin revealed no evidence of significant rashes, suspicious appearing nevi or other concerning lesions. Neurologically, the patient is sedated on propofol. - Labs CBC & Chem 7: 10/07/24 05:27 10/07/24 05:27 Labs: Abnormal Lab Results - Last 24 Hours (Table) 10/06/24 10/07/24 10/07/24 Range/Units 22:45 04:22 05:27 WBC (3.8-10.6) k/uL RBC (3.80-5.40) m/uL MCV (80.0-100.0) fL Neutrophils # (1.3-7.7) k/uL Monocytes # (0-1.0) k/uL ABG pH 7.49 H (7.35-7.45) ABG pCO2 34 L 31 L (35-45) mmHg ABG Total CO2 25 H 25 H (19-24) mmol/L ABG O2 Saturation 98.8 H 98.5 H (94-97) % Hemoglobin 11.1 L 11.0 L (11.4-16.0) gm/dL Sodium 135 L (137-145) mmol/L Creatinine 0.20 L (0.52-1.04) mg/dL 10/07/24 Range/Units 05:27 WBC 18.2 H (3.8-10.6) k/uL RBC 3.53 L (3.80-5.40) m/uL MCV 106.5 H (80.0-100.0) fL Neutrophils # 14.6 H (1.3-7.7) k/uL Monocytes # 2.2 H (0-1.0) k/uL ABG pH (7.35-7.45) ABG pCO2 (35-45) mmHg ABG Total CO2 (19-24) mmol/L ABG O2 Saturation (94-97) % Hemoglobin (11.4-16.0) gm/dL Sodium (137-145) mmol/L Creatinine (0.52-1.04) mg/dL Microbiology - Last 24 Hours (Table) 10/06/24 02:34 Blood Culture - Preliminary Blood 10/06/24 11:26 Gram Stain - Preliminary Sputum Assessment and Plan Plan: Acute hypoxic respiratory failure with dense consolidation of the left lower lobe. Consider aspiration left lower lobe pneumonia. The patient remains intubated on mechanical ventilator. Bronchoscopy was done and copious amount of purulent secretion was noted in lung bases bilaterally more so in the left lower lobe. Therapeutic airway suctioning was done. A BAL of the left lower lobe was done pending cultures. The patient currently is on IV Zosyn Acute leukocytosis likely secondary to above Left lower lobe pneumonia with extensive consolidation of the left lower lobe with subsequent respiratory failure. Oxygenation has improved. 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 No signs of any cardiomyopathy at this point. Leukocytosis Questionable stenosis/narrowing of the celiac artery based on CT scan of the abdomen. Noted the SMA and FLOWER were grossly patent. Plan Continue vent support Dropped respiratory rate down to 12 Continue propofol and fentanyl for sedation Bronchoscopy and BAL of the left lower lobe was done. In addition to thera peutic airway suctioning of the purulent respiratory secretions. Continue IV Zosyn covering for aspiration pneumonia Check blood cultures pending Normal saline at rate of 75 cc an hour Antiepileptic levels were checked and the patient will be seen by neurology Obtain echocardiogram pending as the patient has history of tetralogy of Fallot Hemodynamically stable, no pressors Neurology consultation Will start enteral feeding for nutritional support Condition is critical and the patient will be kept in the intensive care unit. This evaluation was done and 33 minutes. Time with Patient: Greater than 30
--- NOTE | 2024-10-07 14:11 | P.PCN ---
Date of Procedure: 10/07/24 Preoperative Diagnosis: Left lower lobe pneumonia Postoperative Diagnosis: Bilateral purulent respiratory secretions involving the lung bases secondary to pneumonia Procedure(s) Performed: Bronchoscopy and BAL of the left lower lobe Anesthesia: MAC Surgeon: Derek Arzola Estimated Blood Loss (ml): 0 Pathology: other Condition: critical Disposition: ICU Operative Findings: Procedure was done in the intensive care unit. The patient was already sedated with a combination of propofol and fentanyl. The patient was intubated on mechanical ventilator. Irregular adapter was attached to the orotracheal tube. Flexible bronchoscopy was done in the intensive care unit while the patient being fully sedated. The fracture bronchoscope was easily passed through the orotracheal tube and was advanced to the lower trachea. Secretions were identified in the distal trachea occupying the membranes well. Close secretions were suctioned out. Further inspection was done. Copious amount of respiratory secretions noted in the lower lobes bilaterally more so on the left lower lobe obstructing left lower lobe bronchus. Therapeutic airway suctioning was done. After clearing the airway from secretions, a full airway inspection was done. Visualized airways include the distal trachea, bilateral mainstem bronchi, right upper lobe bronchus, bronchus intermedius and right lower lobe bronchus and the right middle lobe bronchus and the various 10 segments on the right. Examination of the left side included the left mainstem bronchus, left upper lobe bronchus and left lower lobe bronchus and the various 8 segments of the left. Airways were patent. No evidence of any food material or foreign bodies. A BAL of the left lower lobe was done. Total of 60 cc of fluid was infused and 20 cc was aspirated. The aspirate was sent for cultures. Procedure was completed without any complications. No hypoxemia. No hemodynamic instability. Patient will be kept on IV Zosyn with further antibiotic adjustments based on the resulting cultures.
[2024-10-07 17:47] LABS: Glucose,Whole Blood 80 mg/dL (70-110)
[2024-10-08 03:31] LABS: African American GFR (CKD) >90 (>60 ml/min/1.73 sqM); Anion Gap 5 mmol/L; Blood Urea Nitrogen 7 mg/dL (7-17); Calcium 8.9 mg/dL (8.4-10.2); Carbon Dioxide 24 mmol/L (22-30); Chloride 108 mmol/L (98-107); Glucose 102 mg/dL (74-99); Magnesium 1.9 mg/dL (1.6-2.3); Non-African American GFR(CKD) >90 (>60 ml/min/1.73 sqM); Sodium 137 mmol/L (137-145)
[2024-10-08] MEDS ORDERED: Magnesium Replacement Protocol 1 EACH MISC MISCELLANE PRN (03:39)
[2024-10-08] MEDS ORDERED: Potassium Replacement Protocol 1 EACH MISC MISCELLANE PRN (03:39)
[2024-10-08 03:49] LABS: Basophils % (A) 0 %; Eosinophils % (A) 0 %; HCT 32.4 % (34.0-46.0); HGB 10.4 gm/dL (11.4-16.0); Hypochromasia Moderate; Lymphocytes # (A) 1.1 k/uL (1.0-4.8); Lymphocytes % (A) 7 %; MCH 34.1 pg (25.0-35.0); MCHC 32.2 g/dL (31.0-37.0); MCV 105.9 fL (80.0-100.0); Macrocytosis Moderate; Mean Platelet Volume 8.2; Monocytes # (A) 1.5 k/uL (0-1.0); Monocytes % (A) 9 %; Neutrophils # (A) 13.9 k/uL (1.3-7.7); Neutrophils % (A) 83 %; Platelet Count 150 k/uL (150-450); RBC 3.06 m/uL (3.80-5.40); RDW 13.8 % (11.5-15.5); WBC 16.7 k/uL (3.8-10.6)
[2024-10-08] MEDS: MAGNESIUM SULFATE-D5W PMX 1 GM in DEXTROSE/WATER 1 100ML.BAG IVPB ONE (03:53)
[2024-10-08] MEDS: POTASSIUM CHLORIDE 20 MEQ in WATER FOR INJECTION 1 100ML.BAG IVPB SCH (04:29)
[2024-10-08 05:02] LABS: ABG Base Excess -1.8 mmol/L; ABG HCO3 24 mmol/L (21-25); ABG PCO2 45 mmHg (35-45); ABG PH 7.34 (7.35-7.45); ABG PO2 86 mmHg (83-108); ABG TCO2 26 mmol/L (19-24); Allen Test Performed? Yes
--- NOTE | 2024-10-08 08:18 | XR ---
EXAMINATION TYPE: XR chest 1V portable DATE OF EXAM: 10/08/2024 5:34 AM COMPARISON: Chest radiograph from one day prior. CLINICAL INDICATION: Female, 53 years old with history of Tube placement; [facility] TECHNIQUE: XR chest 1V portable Frontal view of the chest. FINDINGS: Lungs/Pleura: Left-sided airspace opacities now present in today's exam. Blunting of the left costoph renic angle. There is no evidence of right pleural effusion, focal consolidation, or pneumothorax Pulmonary vascularity: Unremarkable. Heart/mediastinum: Cardiomediastinal silhouette is unremarkable. Musculoskeletal: No acute osseous pathology. Midline sternotomy wires are noted. Other findings: None Lines/Tubes: Endotracheal tube with distal tip 5.1 cm above the nehemias. Nasogastric tube with its distal tip and side-port projecting under the diaphragm. Right internal jugular central venous catheter with distal tip at the cavoatrial junction. IMPRESSION: Layering left pleural effusion with left-sided airspace opacities more prominent on today's exam. [facility], , 10/08/2024 8:16 AM
--- NOTE | 2024-10-08 09:28 | P.CNNES ---
History of Present Illness Consult date: 10/07/24 Requesting physician: Chrissy Hernandez Reason for Consult: seizures disorder, ams History of Present Illness: Patient is a 53-year-old female with history of deafness in cerebral palsy, lives in a detention. Patient came to the hospital by ambulance yesterday float tender at 1:57 AM for respiratory distress. Her heart rate and blood pressures were up. While in the ER, patient's respiratory status got worse and was intubated and placed on mechanical ventilator in the ER. Patient has history of seizure disorder. Patient has been having episodes of heart rate and blood pressure going up, Raising concern for seizures. No obvious seizure otherwise have been witnessed by the staff. As per EMS flowsheet, staff called EMS and reported patient having trouble breathing this morning with last known well of 11 PM the night prior. Patient was being held up by staff and is breathing with fast, loud grunting noises. Patient is febrile to touch. Vital signs at the scene was blood pressure not present, pulse rate 140, respiration 32 saturation 80%. Vital signs since arrival revealed temperature 101.8, pulse rate 146, saturation 88%. Blood test shows elevated WBC 21.2, hemoglobin 14.6 with elevated MCV 104.3. Platelets are normal. PT PTT normal. Sodium 136 potassium 4.5, BUN 27, creatinine 0.34. Lactate 3.7. AST 44, ALT 16. UA negative, influenza, RSV and coronavirus PCR negative. Urine Legionella negative. Depakote level is therapeutic 56.2, and Dilantin 12.1. Home medications include zonisamide 100 mg twice daily and 25 mg daily at 3 PM, Dilantin chew tab, 50 mg twice daily and Dilantin extended release 30 mg at bedtime. Depakote 500 mg 3 times daily and 250 mg at bedtime. Also on Keppra 1000 mg twice daily. Patient on Adderall 5 mg twice daily, olanzapine 5 mg at bedtime. Review of Systems ROS unobtainable: due to endotracheal tube, due to mental status Past Medical History Past Medical History: Seizure Disorder Additional Past Medical History / Comment(s): does use sign language, HX OF CEREBRAL PALSY, AMBULATORY, borderline intellectual functioning, idiopatic epilepsy, deaf, non-speaking, RT LEG AFO BRACE, hx of tetralogy of fallot History of Any Multi-Drug Resistant Organisms: None Reported Past Surgical History: Unable to Obtain Additional Past Surgical History / Comment(s): HEART SX Past Anesthesia/Blood Transfusion Reactions: Unable to Obtain Past Psychological History: ADD/ADHD Past Alcohol Use History: None Reported Past Drug Use History: None Reported Medications and Allergies Home Medications Medication Instructions Recorded Confirmed Type Divalproex [Depakote] 250 mg PO HS 02/23/16 10/06/24 History Divalproex [Depakote] 500 mg PO TID 02/23/16 10/06/24 History Multivitamins, Thera [Multivitamin] 1 tab PO HS 02/23/16 10/06/24 History Phenytoin [Dilantin Chew] 50 mg PO BID 02/23/16 10/06/24 History Zonisamide [Zonegran] 25 mg PO DAILY@1500 02/23/16 10/06/24 History Zonisamide [Zonegran] 100 mg PO BID 02/23/16 10/06/24 History levETIRAcetam [Keppra] 1,000 mg PO BID 02/23/16 10/06/24 History Acetaminophen [Tylenol] 650 mg PO Q4-6H PRN 10/06/24 10/06/24 History Boost Vhc 0.9gm-2.25kcal/Ml Oral 237 ml PO BID 10/06/24 10/06/24 History Dextroamphetamine/Amphetamine 5 mg PO BID 10/06/24 10/06/24 History [Adderall] Loperamide [Imodium] 1 dose PO DIRECTED PRN 10/06/24 10/06/24 History Magnesium Hydroxide [Milk of 1 dose PO DIRECTED PRN 10/06/24 10/06/24 History Magnesia] Midazolam [Nayzilam] 1 spray NASAL DIRECTED PRN 10/06/24 10/06/24 History Nzgagieq-Dqiapuqfdk-Gpdy Oint 1 applic TOPICAL DIRECTED PRN 10/06/24 10/06/24 History [Triple Antibiotic Ointment] OLANZapine [ZyPREXA] 5 mg PO HS 10/06/24 10/06/24 History Phenytoin Sodium Extended 30 mg PO HS 10/06/24 10/06/24 History [Dilantin] Sennosides-Docusate Sodium 1 tab PO BID 10/06/24 10/06/24 History [Senokot-S] guaiFENesin SYRUP 100MG/5ML 1 dose PO DIRECTED PRN 10/06/24 10/06/24 History [Robitussin] Allergies Allergy/AdvReac Type Severity Reaction Status Date / Time aspartame Allergy Unknown Verified 10/06/24 07:32 [From Nutrasweet Aspartame] aspirin Allergy Unknown Verified 10/06/24 07:32 ibuprofen Allergy Unknown Verified 10/06/24 07:32 NSAIDS (Non-Steroidal Allergy Unknown Verified 10/06/24 07:32 Anti-Inflamma phenylalanine Allergy Unknown Verified 10/06/24 07:32 artificial sweetners Allergy Unknown Uncoded 10/06/24 07:32 Physical Examination - Vital Signs Vital Signs: Vital Signs Temp Pulse Resp BP Pulse Ox FiO2 10/07/24 18:00 110 H 15 159/78 99 10/07/24 17:00 109 H 13 126/71 99 10/07/24 16:00 97.9 F 108 H 13 162/81 99 40 10/07/24 15:08 106 H 10/07/24 15:00 105 H 12 132/68 99 10/07/24 14:56 103 H 10/07/24 14:55 40 10/07/24 14:00 105 H 12 159/87 98 10/07/24 13:00 112 H 14 139/62 99 10/07/24 12:00 113 H 13 157/77 96 40 10/07/24 11:24 120 H 10/07/24 11:14 118 H 40 10/07/24 11:00 122 H 16 148/72 96 10/07/24 10:00 123 H 15 148/71 98 10/07/24 09:00 122 H 20 137/64 99 10/07/24 08:00 102.1 F H 121 H 20 167/79 98 40 10/07/24 07:59 114 H 10/07/24 07:48 112 H 10/07/24 07:40 40 10/07/24 07:00 114 H 26 H 127/57 99 40 10/07/24 06:00 98.1 F 114 H 20 161/70 96 40 10/07/24 05:00 116 H 20 144/69 98 40 10/07/24 04:23 40 10/07/24 04:00 112 H 20 152/71 98 40 10/07/24 03:00 98.1 F 112 H 20 144/69 99 40 10/07/24 02:00 112 H 20 157/81 97 40 10/07/24 01:00 97.8 F 111 H 20 154/77 100 40 10/07/24 00:00 112 H 20 152/72 99 40 10/06/24 23:23 40 10/06/24 23:00 116 H 20 162/77 40 10/06/24 22:00 122 H 28 H 166/78 95 40 10/06/24 21:00 98.0 F 123 H 28 H 160/77 95 40 10/06/24 20:00 121 H 25 H 159/82 94 L 40 10/06/24 19:51 28 H 40 10/06/24 19:47 40 10/06/24 19:00 115 H 24 160/77 100 10/06/24 18:30 113 H 22 149/74 99 10/06/24 18:29 116 H 10/06/24 18:21 114 H 40 Intake and Output 10/07/24 10/07/24 10/07/24 06:59 14:59 22:59 Intake Total 945.873 871.336 511.893 Output Total 275 295 425 Balance 670.873 576.336 86.893 Intake: IV 800 800 400 Sodium Chloride 0.9% 500 800 800 400 ml 500 ml @ 100 mls/hr IV .Q5H [facility] Rx#:[id number] Intake, IV Titration 145.873 71.336 81.893 Amount Piperacillin-Tazobactam 3 100 .375 gm In Sodium Chloride 0.9% 100 ml @ 25 mls/hr IVPB Q8HR [facility] Rx# :[id number] fentaNYL (PF). 1,000 mcg 4.310 In Sodium Chloride 0.9% 80 ml @ 0.5 MCG/KG/HR 2. 155 mls/hr IV .Q24H [facility] Rx#:[id number] propofoL 1,000 mg In 41.563 71.336 81.893 Empty Bag 1 bag @ 15 MCG/ KG/MIN 3.878 mls/hr IV . Q24H [facility] Rx#:[id number] Oral 0 0 Tube Feeding 30 Output: Gastric Drainage 25 Urine 250 295 425 Other: Voiding Method Indwelling Catheter Indwelling Catheter Indwelling Catheter # Bowel Movements 0 Weight 45.6 kg 45.6 kg Patient is a middle aged female, who is intubated, sedated with propofol 35 mcg/kg/min. Also on fentanyl 0.5 mcg/kg/h. Also having Zosyn and IV fluids running. Patient is sedated. No obvious seizure-like activity noted. On cranial nerve examination, pupils are equal, round 3 mm and very minimally reacting to light, oculocephalics are absent. Visual olivas cannot be tested. Face is symmetric, and lower cranial nerves cannot be tested. Patient does have a gag and cough. On muscle strength testing, patient does not respond to nailbed pressure on either side. Her tone is normal in the left upper limb, and the right upper limb appears slightly smaller in size with decreased tone. Deep tendon reflexes are absent and plantars are flat. Sensory to touch evoked no response. Nailbed pressure also did not evoke any response. Cerebellar functions cannot be tested. Bulk of muscles overall decreased particularly right upper limb. Gait cannot be checked. On general examination, there is no carotid bruit or murmur, S1-S2 audible. Chest is clear on consultation. Abdomen is soft nontender. No organomegaly, bowel sounds present. Peripheral pulses are present. No peripheral edema. Results - Laboratory Findings CBC and BMP: 10/08/24 02:33 10/08/24 02:33 Abnormal Lab Findings: Abnormal Labs 10/06/24 10/06/24 10/06/24 02:10 02:10 02:10 WBC 21.2 H RBC Hgb MCV 104.3 H Neutrophils # Neutrophils # (Manual) 19.50 H Monocytes # Monocytes # (Manual) Metamyelocytes # (Man) 0.21 H ABG pH ABG pCO2 ABG pO2 ABG Total CO2 ABG O2 Saturation VBG pH VBG HCO3 Hemoglobin Sodium 136 L Chloride Carbon Dioxide BUN 27 H Creatinine 0.34 L Plasma Lactic Acid Porfirio 3.7 H* Calcium Magnesium AST 44 H Alkaline Phosphatase 134 H Troponin I Total Protein 9.0 H Albumin Urine Protein Urine Glucose (UA) 10/06/24 10/06/24 10/06/24 02:33 02:46 04:55 WBC RBC Hgb MCV Neutrophils # Neutrophils # (Manual) Monocytes # Monocytes # (Manual) Metamyelocytes # (Man) ABG pH ABG pCO2 ABG pO2 374 H ABG Total CO2 25 H ABG O2 Saturation >100.0 H VBG pH 7.29 L VBG HCO3 22 L Hemoglobin Sodium Chloride Carbon Dioxide BUN Creatinine Plasma Lactic Acid Porfirio Calcium Magnesium AST Alkaline Phosphatase Troponin I Total Protein Albumin Urine Protein Trace H Urine Glucose (UA) Trace H 10/06/24 10/06/24 10/06/24 06:30 06:30 06:30 WBC 15.8 H RBC 3.23 L Hgb 11.1 L D MCV 105.3 H Neutrophils # Neutrophils # (Manual) 9.70 H Monocytes # Monocytes # (Manual) 3.48 H Metamyelocytes # (Man) ABG pH ABG pCO2 ABG pO2 ABG Total CO2 ABG O2 Saturation VBG pH VBG HCO3 Hemoglobin Sodium 134 L Chloride 108 H Carbon Dioxide 21 L BUN Creatinine 0.24 L Plasma Lactic Acid Porfirio Calcium 7.4 L Magnesium 1.5 L AST Alkaline Phosphatase Troponin I 0.055 H* Total Protein 5.4 L Albumin 2.3 L Urine Protein Urine Glucose (UA) 10/06/24 10/07/24 10/07/24 22:45 04:22 05:27 WBC RBC Hgb MCV Neutrophils # Neutrophils # (Manual) Monocytes # Monocytes # (Manual) Metamyelocytes # (Man) ABG pH 7.49 H ABG pCO2 34 L 31 L ABG pO2 ABG Total CO2 25 H 25 H ABG O2 Saturation 98.8 H 98.5 H VBG pH VBG HCO3 Hemoglobin 11.1 L 11.0 L Sodium 135 L Chloride Carbon Dioxide BUN Creatinine 0.20 L Plasma Lactic Acid Porfirio Calcium Magnesium AST Alkaline Phosphatase Troponin I Total Protein Albumin Urine Protein Urine Glucose (UA) 10/07/24 05:27 WBC 18.2 H RBC 3.53 L Hgb MCV 106.5 H Neutrophils # 14.6 H Neutrophils # (Manual) Monocytes # 2.2 H Monocytes # (Manual) Metamyelocytes # (Man) ABG pH ABG pCO2 ABG pO2 ABG Total CO2 ABG O2 Saturation VBG pH VBG HCO3 Hemoglobin Sodium Chloride Carbon Dioxide BUN Creatinine Plasma Lactic Acid Porfirio Calcium Magnesium AST Alkaline Phosphatase Troponin I Total Protein Albumin Urine Protein Urine Glucose (UA) Assessment and Plan Assessment: * Altered mental status, likely due to metabolic encephalopathy * Acute respiratory failure on mechanical ventilation * Left lower lobe pneumonia * History of seizure disorder, on multiple AEDs * Cerebral palsy * Nonverbal state * Hearing-impaired * History of tetralogy of bilateral, postcardiac surgery at the young age. No signs of cardiomyopathy. Plan: * Patient has history of seizure disorder, maintained on multiple antiepileptic medications. * Patient to be continued on her seizure medications including Depakote 500 mg 3 times a day and 1250 mg at bedtime, Dilantin chew tab 50 mg twice a day and Dilantin 30 mg extended release at bedtime. Patient also on Keppra 1000 mg twice a day, and zonisamide 100 mg twice a day and 25 mg daily. Continue her seizure medications. Patient not able to receive zonisamide because cannot be given by NG tube. This will be resumed when patient is extubated. * All AED levels are therapeutic. Dilantin 12.1, Depakote 56.2 and Keppra 14.9 (3-60) * If any concern about seizure, I would have low threshold to check an EEG. * Other medical management as per IM, critical care and other specialties on board. * Neurology will follow. Thank you for the consult.
[2024-10-08] MEDS: FUROSEMIDE 10 MG/ML 4 ML VIAL IV STA ×2 (09:41→10:00)
--- NOTE | 2024-10-08 11:08 | P.PN ---
Subjective Progress Note Date: 10/08/24 53-year-old female with cerebral palsy, deafness, seizure disorder presenting from her [facility]dc with shortness of breath. Patient was found to be having labored breathing that continued to get worse and the patient beak started to become pale and diaphoretic. EMS arrived and patient's pulse ox was at 80% on room air and she was placed on a nonrebreather and brought to the hospital. Guardian states that she has been on the decline for the past 6 months. She states that the patient has been refusing to eat and her oral intake has dramatically decreased. States that she has become more dependent over the past few months. In the ED she underwent extensive evaluation. T101 F, NH 146, RR 27, BP 181/102, O2 saturation 88% on non-rebreather 15L. CBC, CMP significant for WBC 15.8, RBC 3.23, Hg 11.1, MCV 105.3, Na 134, Cl 108, bicarb 21, Cr 0.24, Ca 7.4, alb 2.3. Mag 1.6. Trop 0.055, 0.028 with EKG showing sinus tachycardia with no ST elevation. Lactic acid 0.8. CXR showed airspace consolidation involving the left lower lobe. Brain CT no acute process. Chest CTA no evidence for PE, dense consolidation of nearly entire left lower lobe. 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 Her respiratory status worsened and she was intubated in the ED and transferred to ICU for further management. Started on Rocephin and Azithromycin, switched to Zosyn for concerns for aspiration PNA. 10/07 Patient was seen and examined. Intubated. Sedated with Propofol 35 mcg/kg/min. Paralytic includes Fentanyl at 0.5 mcg/kg/hr. Antibiotics include Zosyn 3.75 g IV TID (D2). CBC, CMP significant for WBC 18.2, RBC 3.53, MCV 106.5, Na 135, Cr 0.2. Mag 2.0. ABG pH 7.49, pCO2 31, pO2 92, FiO2 40%. Urine Legionella neg. Phenytoin level 12.1, Valproic acid level 56.2. Venous doppler no DVT. CXR shows ET tube 4.5 cm above the nehemias + NGT. 10/08 Patient was seen and examined. Intubated. Underwent bronchoscopy with BAL yesterday with purulent secretions. Sedated with Propofol 35 mcg/kg/min. Paralytic includes Fentanyl at 0.5 mcg/kg/hr. Antibiotics include Zosyn 3.75 g IV TID (D3). Received Lasix 40 mg IV x 1 today. CBC, CMP significant for WBC 16.7, RBC 3.06, Hg 10.4, Hct 32.4, MCV 105.9, K 3, Cl 108, Cr 0.26, glu 102. Mag 1.9. ABG pH 7.34, pO2 97, FiO2 40%. Sputum Cx Moraxella. BCx prelim neg so far. Echo EF 60%. CXR shows L sided infiltrates, ET tube 5.1 cm above the nehemias + NGT. General: Intubated and sedated Derm: warm, dry Head: atraumatic, normocephalic, symmetric, NGT + ETT in place Mouth: no lip lesion, mucus membranes moist Cardiovascular: S1S2 tachy, no murmur Lungs: Coarse BS bilaterally, no rales , no accessory muscle use Ext: no gross muscle atrophy, no edema, no contractures Neuro: Unable to determine Psych: Unable to determine Based on my assessment of this patient, this patient meets a high complexity level of care. Acute hypoxic respiratory failure and severe sepsis secondary to Aspiration PNA: Tylneol 650 mg PO Q6H PRN fever. Zosyn 3.75 g IV TID (D3). DuoNeb QID scheduled and PRN SOB/wheezing. NS at 100 cc/hr. HOB elevation. Follow sputum, BAL cultures and BCx. Telemetry monitoring. Hypokalemia: KCl 60 meq IV x 1. Mag sulfate 1g IV x 1. Repeat labs in the AM. Macrocytic anemia: Likely dilutional. No signs of active bleeding. Monitor CBC. Troponin elevation: Likely demand ischemia due to above. Echo as above. Seizure disorder: Depakote 500 mg PO TID, 250 mg PO QHS. Keppra 1000 mg PO BID. Phenytoin 50 mg PO BID, 30 mg PO QHS. Zonegran 100 mg PO BID, 25 mg PO QD. Neurology on board. Resolved: HypoMag, Lactic acidosis CODE STATUS: FULL CODE. DVT Prophylaxis: Heparin SQ GI Prophylaxis: Protonix Designated medical POA if patient is not able to make medical decisions for themselves: I have reviewed the following customer experience consultant notes: Pulmonary, Neurology, BAL note. I have reviewed the results of the following tests: As above. I have ordered the following tests: As above. I have discussed the care of this patient with the following independent historian: I have independently interpreted the following test below: CXR I have discussed the management of this patient with the following physician: Objective - Vital Signs Vital signs: Vital Signs Temp 97.7 F 10/08/24 08:00 Pulse 93 10/08/24 08:29 Resp 19 10/08/24 08:00 BP 125/65 10/08/24 08:00 Pulse Ox 100 10/08/24 08:00 FiO2 40 10/08/24 08:16 Intake & Output 10/07/24 10/08/24 10/08/24 18:59 06:59 18:59 Intake Total 3688.233 3956.441 515 Output Total 720 450 40 Balance 044.504 1550.441 475 Weight 45.6 kg 44.6 kg Intake: IV 1200 1400 325 Piperacillin-Tazobactam 3 200 25 .375 gm In Sodium Chloride 0.9% 100 ml @ 25 mls/hr IVPB Q8HR [facility] Rx# :[id number] Sodium Chloride 0.9% 500 1200 1200 300 ml 500 ml @ 100 mls/hr IV .Q5H [facility] Rx#:[id number] Intake, IV Titration 153.229 381.441 100 Amount Magnesium Sulfate-D5w Pmx 100 1 gm In Dextrose/Water 1 100ml.bag @ 100 mls/hr IVPB ONCE ONE Rx#: [id number] Potassium Chloride 20 meq 200 100 In Water For Injection 1 100ml.bag @ 50 mls/hr IVPB Q2H [facility] Rx#: [id number] propofoL 1,000 mg In 153.229 81.441 Empty Bag 1 bag @ 15 MCG/ KG/MIN 3.878 mls/hr IV . Q24H [facility] Rx#:[id number] Oral 0 Tube Feeding 30 190 60 Other 150 30 Output: Gastric Drainage 25 Urine 720 425 40 Other: Voiding Method Indwelling Catheter Indwelling Catheter # Bowel Movements 0 - Labs CBC & Chem 7: 10/08/24 02:33 10/08/24 02:33 Labs: Abnormal Lab Results - Last 24 Hours (Table) 10/08/24 10/08/24 10/08/24 Range/Units 02:33 02:33 04:50 WBC 16.7 H (3.8-10.6) k/uL RBC 3.06 L (3.80-5.40) m/uL Hgb 10.4 L (11.4-16.0) gm/dL Hct 32.4 L (34.0-46.0) % MCV 105.9 H (80.0-100.0) fL Neutrophils # 13.9 H (1.3-7.7) k/uL Monocytes # 1.5 H (0-1.0) k/uL ABG pH 7.34 L (7.35-7.45) ABG Total CO2 26 H (19-24) mmol/L Hemoglobin 10.8 L (11.4-16.0) gm/dL Potassium 3.0 L (3.5-5.1) mmol/L Chloride 108 H (98-107) mmol/L Creatinine 0.26 L (0.52-1.04) mg/dL Glucose 102 H (74-99) mg/dL Microbiology - Last 24 Hours (Table) 10/06/24 11:26 Gram Stain - Final Sputum Sputum Culture - Final Moraxella(branhamella) catarra 10/07/24 10:30 Gram Stain - Preliminary Bronchoalviolar Lavage - Left 10/06/24 02:34 Blood Culture - Preliminary Blood
[2024-10-08 14:32] LABS: ABG Base Excess -0.3 mmol/L; ABG HCO3 24 mmol/L (21-25); ABG Oxygen Saturation 99.7 % (94-97); ABG PCO2 37 mmHg (35-45); ABG PH 7.42 (7.35-7.45); ABG PO2 133 mmHg (83-108); ABG TCO2 25 mmol/L (19-24); Allen Test Performed? Yes
[2024-10-08] MEDS: HYDROmorphone 0.5 MG/0.5 ML SYRINGE IVP STA (15:57)
[2024-10-08 18:29] LABS: Glucose,Whole Blood 108 mg/dL (70-110)
--- NOTE | 2024-10-08 19:18 | P.PN ---
Subjective Progress Note Date: 10/08/24 This is a 53-year-old female patient who is currently intubated for hypoxemic respiratory failure. The patient has history of cerebral palsy. The patient is nonverbal and deaf. According to the caregivers, guardian, the patient has been declining course over the past 6 months. She has been refusing to eat and her oral intake is dramatically dropped over the past 6 months. She has become more dependent. She currently lives in a prison. The patient was noted to be having worsening shortness of breath and based on ongoing difficulties in breathing she was brought into the emergency department. Apparently, the time of the initial evaluation in the emergency, the patient was sweaty and di aphoretic. Her pulse ox was 80% on room air oxygen as reported by EMS. She was placed on 100% elevated facemask. Apparently, the patient had breakfast and lunch like normal. She did not have dinner on the day of the admission. The patient had been refusing to eat. No reported aspiration by the group contract analyst. No reported seizure activity. Based on her diminished level of consciousness and ongoing hypoxemic respiratory failure, the patient was intubated in the emergency department and placed on mechanical ventilator. This morning, the patient is on a assist-control mode of mechanical ventilation at rate of 10, tidal volume of 250, FiO2 50% with a PEEP of 5. Blood gases done on 900% FiO2 showed a pH of 7.38 with a pCO2 39 and pO2 of 374. The patient is currently sedated and she is currently on propofol running at 20 mcg/kg/min. No hypotension. She is hemodynamically stable. White cell count is at 15.8 with a hemoglobin of 11 and a platelet count of 181. Sodium levels at 134, potassium level is at 3.5 and the BUN is 14 with a creatinine of 0.2. Serum bicarb is at 21. Troponin was 0.02 and 0.05 and 0.02 respectively x 3. UA was negative. Viral drug screen was negative. Electrolytes were all within normal limits. LFT was also within normal limits. CAT scan of the brain that was done in the emergency department showed limited findings due to motion artifact. No acute intracranial process identified. The patient also had a CT of the chest that showed no evidence of any pulm embolism. Of significance was a dense consolidation involving the entire left lower lobe with complete unspecified lobe. Consider an aspiration left lower lobe pneumonia. No evidence of a aortic dissection. No mediastinal lymphadenopathy. Right lung was essentially clear. Follow-up chest x-ray from this morning shows ongoing consolidation of the left lower lobe. The patient also has a right IJ triple-lumen catheter that was placed in the emergency department. Her current cardiac rhythm is sinus tachycardia. The patient was given a combination of Rocephin and Zithromax in the emergency department. 10/07/2024, the patient is being seen for a follow-up. The patient was hospitalized for an acute hypoxic respiratory failure and a dense left lower lobe pneumonia. This morning, the patient calm and comfortable. Overnight, she encountered some increased restlessness, agitation and asynchrony on mechanical ventilator. Based on that, the patient was started on propofol which is currently running at 35 mcg/kg/min and she is also on fentanyl at 0.5 mcg/kg/h. She remains on a mechanical ventilator, assist-control mode at rate of 20, tidal volume of 350, FiO2 40% with a PEEP of 5. Blood gas showed a pH of 7.49 with a pCO2 31 and pO2 of 92. The patient remains in normal sinus rate of 100 cc an hour. The patient remains on IV Zosyn. Bronchoscopy endobronchial lavage was done. There was significant amount of mucous plugging bilaterally in the lower lobes and therapeutic airway suctioning was done and the BAL of the left lower lobe was done pending further cultures. No seizure activity has been noted. The patient is hemodynamically stable on no pressors. The white cell count is 18.2 with a hemoglobin 12 and a platelet count of 175. Sodium is at 135, potassium is at 3.9, BUN is 9 with a creatinine of 0.2. The toxicology screen for antiepileptics showed a Dilantin level of 12.1 and a valproic acid of 56. Neurology has been consulted. The patient has no noted seizure activity over the past 24 hours. On today's evaluation of 10/08/2024, the patient is being seen for a follow-up. The patient has been intubated with a mechanical ventilator due to left lower lobe pneumonia. She is chronically debilitated. She is deaf and mute. She also has history of cerebral palsy. She had an extensive left lower lobe. 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 This morning, the patient is on propofol running at 35 mcg/kg/min and fentanyl at 0.5 mcg/kg/h. Remains on normal citrate of 100 cc an hour. She remains on a mechanical ventilator. Vent settings are essentially unchanged. The patient is on a assist-control mode at a rate of 20, tidal volume of 350 40% with a PEEP of 5. Blood gas showed a pH of 7.34 with a pCO2 of 45 with a pO2 of 86. The patient is on vital HP at rate of 20 cc an hour. Balance over the past 24 hours has been +2.6. The patient's blood work from today shows a white cell count of 16.7, hemoglobin 10.4 and a platelet count of 150. The sodium is at 137, potassium is at 3 replaced in the follow-up potassium level is at 4, BUN is at 7 with a creatinine of 0.26. Serum bicarb is 24. Magnesium level is at 1.9. The patient remains on IV Zosyn. Hemodynamically stable and the patient is currently on no pressors. No seizure activity and the patient continues to be on antiepileptic medications. Objective - Vital Signs Vital signs: Vital Signs Temp 97.7 F 10/08/24 08:00 Pulse 93 10/08/24 08:29 Resp 19 10/08/24 08:00 BP 125/65 10/08/24 08:00 Pulse Ox 100 10/08/24 08:00 FiO2 40 10/08/24 08:16 Intake & Output 10/07/24 10/08/24 10/08/24 18:59 06:59 18:59 Intake Total 2690.323 9652.441 515 Output Total 720 450 40 Balance 720.597 8515.441 475 Weight 45.6 kg 44.6 kg Intake: IV 1200 1400 325 Piperacillin-Tazobactam 3 200 25 .375 gm In Sodium Chloride 0.9% 100 ml @ 25 mls/hr IVPB Q8HR COUNTS INCLUDE 234 BEDS AT THE [facility] Rx# :[id number] Sodium Chloride 0.9% 500 1200 1200 300 ml 500 ml @ 100 mls/hr IV .Q5H COUNTS INCLUDE 234 BEDS AT THE [facility] Rx#:[id number] Intake, IV Titration 153.229 381.441 100 Amount Magnesium Sulfate-D5w Pmx 100 1 gm In Dextrose/Water 1 100ml.bag @ 100 mls/hr IVPB ONCE ONE Rx#: [id number] Potassium Chloride 20 meq 200 100 In Water For Injection 1 100ml.bag @ 50 mls/hr IVPB Q2H COUNTS INCLUDE 234 BEDS AT THE [facility] Rx#: [id number] propofoL 1,000 mg In 153.229 81.441 Empty Bag 1 bag @ 15 MCG/ KG/MIN 3.878 mls/hr IV . Q24H [facility] Rx#:[id number] Oral 0 Tube Feeding 30 190 60 Other 150 30 Output: Gastric Drainage 25 Urine 720 425 40 Other: Voiding Method Indwelling Catheter Indwelling Catheter # Bowel Movements 0 - Exam The patient appeared well nourished and normally developed. Vital signs as documented. The patient is sedated and calm and comfortable on propofol and fentanyl. Orogastric and orotracheal tube are both in place Head exam is unremarkable. No scleral icterus or corneal arcus noted. Neck is without jugular venous distension, thyromegaly, or carotid bruits. Carotid upstrokes are brisk bilaterally. Lungs are clear to auscultation and percussion. The patient has diminished breath sound the left lung base and the patient has a thoracotomy scar over the anterior chest area Cardiac exam reveals the PMI to be normally sized and situated. Rhythm is regular. First and second heart sounds normal. N the patient has a systolic ejection murmur heard throughout the precordium and the patient has a thoracotomy scar related to previous cardiac surgery. Abdominal exam reveals normal bowel sounds, no masses, no organomegaly and no aortic enlargement. Extremities are nonedematous and both femoral and pedal pulses are normal. Examination of the skin revealed no evidence of significant rashes, suspicious appearing nevi or other concerning lesions. Neurologically, the patient is sedated on propofol. - Labs CBC & Chem 7: 10/08/24 02:33 10/08/24 12:41 Labs: Abnormal Lab Results - Last 24 Hours (Table) 10/08/24 10/08/24 10/08/24 Range/Units 02:33 02:33 04:50 WBC 16.7 H (3.8-10.6) k/uL RBC 3.06 L (3.80-5.40) m/uL Hgb 10.4 L (11.4-16.0) gm/dL Hct 32.4 L (34.0-46.0) % MCV 105.9 H (80.0-100.0) fL Neutrophils # 13.9 H (1.3-7.7) k/uL Monocytes # 1.5 H (0-1.0) k/uL ABG pH 7.34 L (7.35-7.45) ABG Total CO2 26 H (19-24) mmol/L Hemoglobin 10.8 L (11.4-16.0) gm/dL Potassium 3.0 L (3.5-5.1) mmol/L Chloride 108 H (98-107) mmol/L Creatinine 0.26 L (0.52-1.04) mg/dL Glucose 102 H (74-99) mg/dL Microbiology - Last 24 Hours (Table) 10/06/24 11:26 Gram Stain - Final Sputum Sputum Culture - Final Moraxella(branhamella) catarra 10/07/24 10:30 Gram Stain - Preliminary Bronchoalviolar Lavage - Left 10/06/24 02:34 Blood Culture - Preliminary Blood Assessment and Plan Plan: Acute hypoxic respiratory failure with dense consolidation of the left lower lobe. Consider aspiration left lower lobe pneumonia. The patient remains intubated on mechanical ventilator. Bronchoscopy was done and copious amount of purulent secretion was noted in lung bases bilaterally more so in the left lower lobe. Therapeutic airway suctioning was done. A BAL of the left lower lobe was done pending cultures. The patient currently is on IV Zosyn. Oxygenation is stable for now. Chest x-ray still showing left lower lobe consolidation, probably slightly worse compared to yesterday. Acute leukocytosis likely secondary to above Left lower lobe pneumonia with extensive consolidation of the left lower lobe, likely secondary to Moraxella catarrhalis. The patient remains on IV Zosyn. The patient is status post bronchoscopy and bronchoalveolar lavage and therapeutic airway suctioning performed on 10/07/2024. 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 No signs of any cardiomyopathy at this point. Leukocytosis Questionable stenosis/narrowing of the celiac artery based on CT scan of the abdomen. Noted the SMA and FLOWER were grossly patent. Plan Continue vent support No vent changes for today Give the patient a sedation holiday The patient will be unable to do conventional weaning trials. Obviously, she cannot give us an adequate weaning parameters. Once off sedation, I am going to switch this patient to a PSV of 5 and a PEEP of 5 and assess her candidacy for further weaning and extubation. Bronchoscopy and BAL of the left lower lobe was done. In addition to therapeutic airway suctioning of the purulent respiratory secretions. Sputum Gram stain and culture showing Moraxella catarrhalis and the patient is currently on IV Zosyn. Continue IV Zosyn covering for aspiration pneumonia Check blood cultures are negative Normal saline at rate of 75 cc an hour Give the patient Lasix 40 mg IV push x 1. Antiepileptic levels were checked and the patient will be seen by neurology Patient has history of tetralogy of Fallot, and echocardiogram shows a preserved LV function without any significant valvular abnormalities Hemodynamically stable, no pressors Neurology consultation Patient is currently on enteral feeding for nutritional support Further recommendations are to follow. This is working progress. For now, the patient will be taken off sedation and her respiratory status will be reevaluated. Condition is critical and the patient will be kept in the intensive care unit. This evaluation was done and 33 minutes. Time with Patient: Greater than 30
[2024-10-08 20:49] LABS: ABG Base Excess -1.1 mmol/L; ABG HCO3 25 mmol/L (21-25); ABG Oxygen Saturation >100.0 % (94-97); ABG PCO2 47 mmHg (35-45); ABG PH 7.33 (7.35-7.45); ABG PO2 254 mmHg (83-108); ABG TCO2 27 mmol/L (19-24); Allen Test Performed? Yes
--- NOTE | 2024-10-08 20:49 | P.PN ---
Progress Note - Text Progress Note Date: 10/08/24 (1957) Called to see patient for intubation. Respiratory distress upon entering. Sats holding at 95 on mask oxygen. began preoxygenating patient with a 100% Percent O2 via assisted ventilations with Ambu bag. 14 mg of etomidate and 50 mg of rocuronium were given in that order. Flushed. Ventilation via Ambu bag was accomplished by me while waiting for Zemuron to take effect. MAC 3 blade was used and [address] a 7.0 endotracheal tube 22 cm at the lip. Vital signs after remained within patient's normal range of tachycardia and SpO2 increased to 100%. Positive color change. Left in care of respiratory staff
--- NOTE | 2024-10-08 20:51 | XR ---
EXAMINATION TYPE: XR chest 1V portable DATE OF EXAM: 10/08/2024 8:44 PM COMPARISON: Multiple radiographs, with the most recent on 10/08/2024 TECHNIQUE: XR chest 1V portable Portable AP radiograph of the chest. CLINICAL INDICATION:Female, 53 years old with history of intubation, tube placement; FINDINGS: Lungs/Pleura: Blunting of both costophrenic angles with right basilar airspace opacities. Improvement of left basilar patchy airspace opacities. No pneumothorax. Pulmonary vascularity: Unremarkable. Heart/mediastinum: Cardiomediastinal silhouette is prominent in size. Musculoskeletal: No acute osseous pathology. Midline sternotomy wires are noted and stable. Remote ri ght lateral fourth rib fracture. Other findings: None Lines/Tubes: Endotracheal tube with distal tip 3.8 cm above the nehemias Nasogastric tube with its distal tip in the stomach however the sidehole is at the GE junction. Right IJ central venous catheter with distal tip terminating at the superior cavoatrial junction. IMPRESSION: 1. Improvement in left pleural effusion and left basilar airspace opacities. Development of right ba silar airspace opacities concerning for atelectasis versus infiltrates. 2. Small bilateral pleural effusions. 3. Sidehole of the NG tube at the GE junction. Recommend advancement of 4 cm. Remaining lines and tu bes are stable. [facility], , 10/08/2024 8:49 PM
[2024-10-08] MEDS ORDERED: VALPROATE SODIUM 250 MG in SODIUM CHLORIDE 0.9% 100 ML IVPB SCH (21:00)
[2024-10-08] MEDS: VALPROATE SODIUM IVPB SCH (22:10)
[2024-10-08] MEDS: SODIUM CHLORIDE 0.9% IVPB SCH (22:10)
[2024-10-08] MEDS: levETIRAcetam IV 500 MG/5 ML VIAL IVP SCH (22:11)
[2024-10-08] MEDS: PHENYTOIN SODIUM INJ 50 MG/ML 2 ML VIAL IVP SCH (22:12)
[2024-10-08] MEDS: VALPROATE SODIUM 500 MG in SODIUM CHLORIDE 0.9% 100 ML IVPB SCH (23:44)
[2024-10-09 00:02] LABS: Glucose,Whole Blood 82 mg/dL (70-110)
[2024-10-09 03:44] LABS: HCT 36.5 % (34.0-46.0); HGB 10.9 gm/dL (11.4-16.0); Hypochromasia Moderate; MCH 32.7 pg (25.0-35.0); MCHC 29.9 g/dL (31.0-37.0); MCV 109.4 fL (80.0-100.0); Macrocytosis Marked; Mean Platelet Volume 7.8; Platelet Count 184 k/uL (150-450); RBC 3.34 m/uL (3.80-5.40); RDW 14.2 % (11.5-15.5); WBC 18.8 k/uL (3.8-10.6)
[2024-10-09 05:24] LABS: ABG Base Excess -1.5 mmol/L; ABG HCO3 24 mmol/L (21-25); ABG Oxygen Saturation 99.3 % (94-97); ABG PCO2 40 mmHg (35-45); ABG PH 7.38 (7.35-7.45); ABG PO2 119 mmHg (83-108); ABG TCO2 25 mmol/L (19-24); Allen Test Performed? Yes
[2024-10-09 05:27] LABS: African American GFR (CKD) >90 (>60 ml/min/1.73 sqM); Anion Gap 11 mmol/L; Blood Urea Nitrogen 7 mg/dL (7-17); Carbon Dioxide 19 mmol/L (22-30); Chloride 110 mmol/L (98-107); Glucose 84 mg/dL (74-99); Magnesium 1.7 mg/dL (1.6-2.3); Non-African American GFR(CKD) >90 (>60 ml/min/1.73 sqM); Potassium 3.6 mmol/L (3.5-5.1); Sodium 140 mmol/L (137-145)
[2024-10-09 05:32] LABS: Glucose,Whole Blood 88 mg/dL (70-110)
[2024-10-09] MEDS: hydrALAZINE HCL 20 MG/ML 1 ML VIAL IVP PRN (06:15)
[2024-10-09] MEDS ORDERED: Potassium Replacement Protocol 1 EACH MISC MISCELLANE PRN (06:54)
[2024-10-09] MEDS: MAGNESIUM SULFATE-D5W PMX 1 GM in DEXTROSE/WATER 1 100ML.BAG IVPB ONE (07:08)
[2024-10-09] MEDS: POTASSIUM BICARBONATE/CIT AC 20 MEQ TABLET.EFF NG-TUBE SCH (07:09)
--- NOTE | 2024-10-09 07:10 | XR ---
EXAMINATION TYPE: XR chest 1V portable DATE OF EXAM: 10/09/2024 CLINICAL INDICATION: Female, 53 years old with history of post intubation, ICU, progress study. TECHNIQUE: Single AP portable upright view of the chest is obtained. COMPARISON: Chest x-ray from one day earlier and older studies. FINDINGS: Stable endotracheal and orogastric tubes. Stable right internal jugular central venous cat heter. Overlying sternal wires and mediastinal clips are redemonstrated. Patient remains rotated to the right. Persistent cardiomegaly with bibasilar increased opacities. Und erlying scoliosis is redemonstrated. IMPRESSION: Persistent cardiomegaly with small bilateral pleural effusions. Findings consistent with continued CHF exacerbation. Bibasilar opacities could reflect acute infiltrate and/or atelectasis. No significant change from one day earlier. [facility], , 10/09/2024 7:08 AM
[2024-10-09] MEDS: SCOPOLAMINE 1 MG/72 HR PATCH TRANSDERM SCH (09:47)
[2024-10-09 12:04] LABS: Glucose,Whole Blood 84 mg/dL (70-110)
--- NOTE | 2024-10-09 12:50 | P.PN ---
Subjective Progress Note Date: 10/09/24 53-year-old female with cerebral palsy, deafness, seizure disorder presenting from her detention with shortness of breath. Patient was found to be having labored breathing that continued to get worse and the patient beak started to become pale and diaphoretic. EMS arrived and patient's pulse ox was at 80% on room air and she was placed on a nonrebreather and brought to the hospital. Guardian states that she has been on the decline for the past 6 months. She states that the patient has been refusing to eat and her oral intake has dramatically decreased. States that she has become more dependent over the past few months. In the ED she underwent extensive evaluation. T101 F, IA 146, RR 27, BP 181/102, O2 saturation 88% on non-rebreather 15L. CBC, CMP significant for WBC 15.8, RBC 3.23, Hg 11.1, MCV 105.3, Na 134, Cl 108, bicarb 21, Cr 0.24, Ca 7.4, alb 2.3. Mag 1.6. Trop 0.055, 0.028 with EKG showing sinus tachycardia with no ST elevation. Lactic acid 0.8. CXR showed airspace consolidation involving the left lower lobe. Brain CT no acute process. Chest CTA no evidence for PE, dense consolidation of nearly entire left lower lobe. 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 Her respiratory status worsened and she was intubated in the ED and transferred to ICU for further management. Started on Rocephin and Azithromycin, switched to Zosyn for concerns for aspiration PNA. 10/07 Patient was seen and examined. Intubated. Sedated with Propofol 35 mcg/kg/min. Paralytic includes Fentanyl at 0.5 mcg/kg/hr. Antibiotics include Zosyn 3.75 g IV TID (D2). CBC, CMP significant for WBC 18.2, RBC 3.53, MCV 106.5, Na 135, Cr 0.2. Mag 2.0. ABG pH 7.49, pCO2 31, pO2 92, FiO2 40%. Urine Legionella neg. Phenytoin level 12.1, Valproic acid level 56.2. Venous doppler no DVT. CXR shows ET tube 4.5 cm above the nehemias + NGT. 10/08 Patient was seen and examined. Intubated. Underwent bronchoscopy with BAL yesterday with purulent secretions. Sedated with Propofol 35 mcg/kg/min. Paralytic includes Fentanyl at 0.5 mcg/kg/hr. Antibiotics include Zosyn 3.75 g IV TID (D3). Received Lasix 40 mg IV x 1 today. CBC, CMP significant for WBC 16.7, RBC 3.06, Hg 10.4, Hct 32.4, MCV 105.9, K 3, Cl 108, Cr 0.26, glu 102. Mag 1.9. ABG pH 7.34, pO2 97, FiO2 40%. Sputum Cx Moraxella. BCx prelim neg so far. Echo EF 60%. CXR shows L sided infiltrates, ET tube 5.1 cm above the nehemias + NGT. 10/09 Patient was seen and examined. Extubated briefly yesterday required re- intubation last night. Sedated with Propofol 35 mcg/kg/min. Paralytic includes Fentanyl at 0.5 mcg/kg/hr. Antibiotics include Zosyn 3.75 g IV TID (D4). CBC, CMP significant for WBC 18.8, RBC 3.34, Hg 10.9, MCV 109.4, Cl 110, bicarb 19, Cr 0.22. Mag 1.7. ABG pH 7.38, pO2 119, FiO2 40%. Sputum Cx Moraxella. BCx prelim neg so far. CXR shows L sided infiltrates, ET tube similar to previous CXR. General: Intubated and sedated Derm: warm, dry Head: atraumatic, normocephalic, symmetric, NGT + ETT in place Mouth: no lip lesion, mucus membranes moist Cardiovascular: S1S2 tachy, no murmur Lungs: Coarse BS bilaterally, no rales , no accessory muscle use Ext: no gross muscle atrophy, no edema, no contractures Neuro: Unable to determine Psych: Unable to determine Based on my assessment of this patient, this patient meets a high complexity level of care. Acute hypoxic respiratory failure and severe sepsis secondary to Aspiration PNA: Tylneol 650 mg PO Q6H PRN fever. Zosyn 3.75 g IV TID (D4). DuoNeb QID scheduled and PRN SOB/wheezing. HOB elevation. Follow sputum, BAL cultures and BCx. Telemetry monitoring. Pulmonary on board. Macrocytic anemia: Likely dilutional. No signs of active bleeding. Monitor CBC. Troponin elevation: Likely demand ischemia due to above. Echo as above. Seizure disorder: Depakote 580 mg IV TID. Keppra 1000 mg IV BID. Phenytoin 50 mg IV BID. Zonegran 100 mg PO BID, 25 mg PO QD when able. Neurology on board. Resolved: HypoMag, Lactic acidosis, HypoK CODE STATUS: FULL CODE. DVT Prophylaxis: Heparin SQ GI Prophylaxis: Protonix Designated medical POA if patient is not able to make medical decisions for themselves: I have reviewed the following income tax consultant notes: Pulmonary note. I have reviewed the results of the following tests: CBC, BMP, Mag, ABG. I have ordered the following tests: I have discussed the care of this patient with the following independent historian: I have independently interpreted the following test below: CXR I have discussed the management of this patient with the following physician: Objective - Vital Signs Vital signs: Vital Signs Temp 98.0 F 10/09/24 08:00 Pulse 111 H 10/09/24 12:27 Resp 12 10/09/24 11:00 BP 151/80 10/09/24 11:00 Pulse Ox 100 10/09/24 11:00 FiO2 40 10/09/24 12:18 Intake & Output 10/08/24 10/09/24 10/09/24 18:59 06:59 18:59 Intake Total 3935.703 7502.032 200 Output Total 1100 560 35 Balance 496.095 851.032 165 Weight 46.7 kg Intake: IV 1240 1300 200 Piperacillin-Tazobactam 3 200 100 .375 gm In Sodium Chloride 0.9% 100 ml @ 25 mls/hr IVPB Q8HR [facility] Rx# :[id number] Sodium Chloride 0.9% 500 1040 1200 200 ml 500 ml @ 100 mls/hr IV .Q5H [facility] Rx#:[id number] Intake, IV Titration 186.095 111.032 Amount Potassium Chloride 20 meq 100 In Water For Injection 1 100ml.bag @ 50 mls/hr IVPB Q2H [facility] Rx#: [id number] Valproate Sodium 580 mg 105 In Sodium Chloride 0.9% 50 ml @ 50 mls/hr IVPB Q8H [facility] Rx#:[id number] fentaNYL (PF). 1,000 mcg 3.663 In Sodium Chloride 0.9% 80 ml @ 0.5 MCG/KG/HR 2. 155 mls/hr IV .Q24H [facility] Rx#:[id number] propofoL 1,000 mg In 82.432 6.032 Empty Bag 1 bag @ 15 MCG/ KG/MIN 3.878 mls/hr IV . Q24H [facility] Rx#:[id number] Oral 0 Tube Feeding 140 Other 30 Output: Urine 1100 560 35 Other: Voiding Method Indwelling Catheter Indwelling Catheter - Labs CBC & Chem 7: 10/09/24 02:38 10/09/24 02:38 Labs: Abnormal Lab Results - Last 24 Hours (Table) 10/08/24 10/08/24 10/09/24 Range/Units 14:28 20:47 02:38 WBC (3.8-10.6) k/uL RBC (3.80-5.40) m/uL Hgb (11.4-16.0) gm/dL MCV (80.0-100.0) fL MCHC (31.0-37.0) g/dL Macrocytosis ABG pH 7.33 L (7.35-7.45) ABG pCO2 47 H (35-45) mmHg ABG pO2 133 H 254 H (83-108) mmHg ABG Total CO2 25 H 27 H (19-24) mmol/L ABG O2 Saturation 99.7 H >100.0 H (94-97) % Hemoglobin 11.3 L 11.0 L (11.4-16.0) gm/dL Chloride 110 H (98-107) mmol/L Carbon Dioxide 19 L (22-30) mmol/L Creatinine 0.22 L (0.52-1.04) mg/dL 10/09/24 10/09/24 Range/Units 02:38 05:22 WBC 18.8 H (3.8-10.6) k/uL RBC 3.34 L (3.80-5.40) m/uL Hgb 10.9 L (11.4-16.0) gm/dL MCV 109.4 H (80.0-100.0) fL MCHC 29.9 L (31.0-37.0) g/dL Macrocytosis Marked A ABG pH (7.35-7.45) ABG pCO2 (35-45) mmHg ABG pO2 119 H (83-108) mmHg ABG Total CO2 25 H (19-24) mmol/L ABG O2 Saturation 99.3 H (94-97) % Hemoglobin 10.9 L (11.4-16.0) gm/dL Chloride (98-107) mmol/L Carbon Dioxide (22-30) mmol/L Creatinine (0.52-1.04) mg/dL Microbiology - Last 24 Hours (Table) 10/07/24 10:30 Gram Stain - Final Bronchoalviolar Lavage - Left Bronchial Washings Culture - Final 10/08/24 15:29 Gram Stain - Preliminary Sputum 10/06/24 02:34 Blood Culture - Preliminary Blood
[2024-10-09] MEDS: FUROSEMIDE 10 MG/ML 4 ML VIAL IV STA (13:24)
--- NOTE | 2024-10-09 13:35 | P.PN ---
Subjective Progress Note Date: 10/09/24 This is a 53-year-old female patient who is currently intubated for hypoxemic respiratory failure. The patient has history of cerebral palsy. The patient is nonverbal and deaf. According to the caregivers, guardian, the patient has been declining course over the past 6 months. She has been refusing to eat and her oral intake is dramatically dropped over the past 6 months. She has become more dependent. She currently lives in a half-way. The patient was noted to be having worsening shortness of breath and based on ongoing difficulties in breathing she was brought into the emergency department. Apparently, the time of the initial evaluation in the emergency, the patient was sweaty and di aphoretic. Her pulse ox was 80% on room air oxygen as reported by EMS. She was placed on 100% elevated facemask. Apparently, the patient had breakfast and lunch like normal. She did not have dinner on the day of the admission. The patient had been refusing to eat. No reported aspiration by the group reservations coordinator. No reported seizure activity. Based on her diminished level of consciousness and ongoing hypoxemic respiratory failure, the patient was intubated in the emergency department and placed on mechanical ventilator. This morning, the patient is on a assist-control mode of mechanical ventilation at rate of 10, tidal volume of 250, FiO2 50% with a PEEP of 5. Blood gases done on 900% FiO2 showed a pH of 7.38 with a pCO2 39 and pO2 of 374. The patient is currently sedated and she is currently on propofol running at 20 mcg/kg/min. No hypotension. She is hemodynamically stable. White cell count is at 15.8 with a hemoglobin of 11 and a platelet count of 181. Sodium levels at 134, potassium level is at 3.5 and the BUN is 14 with a creatinine of 0.2. Serum bicarb is at 21. Troponin was 0.02 and 0.05 and 0.02 respectively x 3. UA was negative. Viral drug screen was negative. Electrolytes were all within normal limits. LFT was also within normal limits. CAT scan of the brain that was done in the emergency department showed limited findings due to motion artifact. No acute intracranial process identified. The patient also had a CT of the chest that showed no evidence of any pulm embolism. Of significance was a dense consolidation involving the entire left lower lobe with complete unspecified lobe. Consider an aspiration left lower lobe pneumonia. No evidence of a aortic dissection. No mediastinal lymphadenopathy. Right lung was essentially clear. Follow-up chest x-ray from this morning shows ongoing consolidation of the left lower lobe. The patient also has a right IJ triple-lumen catheter that was placed in the emergency department. Her current cardiac rhythm is sinus tachycardia. The patient was given a combination of Rocephin and Zithromax in the emergency department. 10/07/2024, the patient is being seen for a follow-up. The patient was hospitalized for an acute hypoxic respiratory failure and a dense left lower lobe pneumonia. This morning, the patient calm and comfortable. Overnight, she encountered some increased restlessness, agitation and asynchrony on mechanical ventilator. Based on that, the patient was started on propofol which is currently running at 35 mcg/kg/min and she is also on fentanyl at 0.5 mcg/kg/h. She remains on a mechanical ventilator, assist-control mode at rate of 20, tidal volume of 350, FiO2 40% with a PEEP of 5. Blood gas showed a pH of 7.49 with a pCO2 31 and pO2 of 92. The patient remains in normal sinus rate of 100 cc an hour. The patient remains on IV Zosyn. Bronchoscopy endobronchial lavage was done. There was significant amount of mucous plugging bilaterally in the lower lobes and therapeutic airway suctioning was done and the BAL of the left lower lobe was done pending further cultures. No seizure activity has been noted. The patient is hemodynamically stable on no pressors. The white cell count is 18.2 with a hemoglobin 12 and a platelet count of 175. Sodium is at 135, potassium is at 3.9, BUN is 9 with a creatinine of 0.2. The toxicology screen for antiepileptics showed a Dilantin level of 12.1 and a valproic acid of 56. Neurology has been consulted. The patient has no noted seizure activity over the past 24 hours. On today's evaluation of 10/08/2024, the patient is being seen for a follow-up. The patient has been intubated with a mechanical ventilator due to left lower lobe pneumonia. She is chronically debilitated. She is deaf and mute. She also has history of cerebral palsy. She had an extensive left lower lobe. 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 This morning, the patient is on propofol running at 35 mcg/kg/min and fentanyl at 0.5 mcg/kg/h. Remains on normal citrate of 100 cc an hour. She remains on a mechanical ventilator. Vent settings are essentially unchanged. The patient is on a assist-control mode at a rate of 20, tidal volume of 350 40% with a PEEP of 5. Blood gas showed a pH of 7.34 with a pCO2 of 45 with a pO2 of 86. The patient is on vital HP at rate of 20 cc an hour. Balance over the past 24 hours has been +2.6. The patient's blood work from today shows a white cell count of 16.7, hemoglobin 10.4 and a platelet count of 150. The sodium is at 137, potassium is at 3 replaced in the follow-up potassium level is at 4, BUN is at 7 with a creatinine of 0.26. Serum bicarb is 24. Magnesium level is at 1.9. The patient remains on IV Zosyn. Hemodynamically stable and the patient is currently on no pressors. No seizure activity and the patient continues to be on antiepileptic medications. On 10/09/2024, the patient is being seen for a follow-up. Noted the patient was weaned off the mechanical ventilator and the patient was extubated yesterday and the patient did well for a few hours. Subsequently, the patient developed difficulties with respiratory secretions and she was unable to maintain patent airways. She was getting more tachycardic and short of breath and tachypneic and she was also desaturating. Few hours following the extubation, the patient was reintubated and placed back on mechanical ventilator. This morning, the patient is on propofol running at 30 mcg/kg/min and fentanyl at 0.5 mcg/kg/h. She is on assist-control mode of mechanical ventilation at rate of 12, tidal volume of 350, FiO2 40% with a PEEP of 5. pH is 7.38 with a pCO2 40 and pO2 119. The follow-up chest x-ray from today shows adequate positioning of the orotracheal tube. There is persistent cardiomegaly and small bilateral pleural effusion. There is also bibasilar pulmonary infiltrates consistent with pneumonia. Respiratory secretions are copious. The patient's white cell count is 18.8. Hemoglobin 10.9 and the platelet count is 884. BUN is at 7 with a c reatinine of 0.22. Sodium is at 140 and a potassium level is at 3.6. Enteral feeding is to be restarted and the patient will be given a scopolamine patch. Remains on IV Zosyn as the patient previous sputum analysis showed Moraxella catarrhalis. The results of the bronchioloalveolar lavage are still pending for now. Hemodynamically stable. The patient is on no pressors. The patient on normal citrate at 100 cc an hour. Objective - Vital Signs Vital signs: Vital Signs Temp 97.9 F 10/09/24 06:00 Pulse 109 H 10/09/24 08:37 Resp 12 10/09/24 07:00 BP 163/74 10/09/24 07:00 Pulse Ox 100 10/09/24 07:00 FiO2 40 10/09/24 08:14 Intake & Output 10/08/24 10/09/24 10/09/24 18:59 06:59 18:59 Intake Total 8819.424 1600.032 200 Output Total 1100 560 35 Balance 496.095 851.032 165 Weight 46.7 kg Intake: IV 1240 1300 200 Piperacillin-Tazobactam 3 200 100 .375 gm In Sodium Chloride 0.9% 100 ml @ 25 mls/hr IVPB Q8HR [facility] Rx# :[id number] Sodium Chloride 0.9% 500 1040 1200 200 ml 500 ml @ 100 mls/hr IV .Q5H [facility] Rx#:[id number] Intake, IV Titration 186.095 111.032 Amount Potassium Chloride 20 meq 100 In Water For Injection 1 100ml.bag @ 50 mls/hr IVPB Q2H [facility] Rx#: [id number] Valproate Sodium 580 mg 105 In Sodium Chloride 0.9% 50 ml @ 50 mls/hr IVPB Q8H [facility] Rx#:[id number] fentaNYL (PF). 1,000 mcg 3.663 In Sodium Chloride 0.9% 80 ml @ 0.5 MCG/KG/HR 2. 155 mls/hr IV .Q24H [facility] Rx#:[id number] propofoL 1,000 mg In 82.432 6.032 Empty Bag 1 bag @ 15 MCG/ KG/MIN 3.878 mls/hr IV . Q24H [facility] Rx#:[id number] Oral 0 Tube Feeding 140 Other 30 Output: Urine 1100 560 35 Other: Voiding Method Indwelling Catheter Indwelling Catheter - Exam The patient appeared well nourished and normally developed. Vital signs as documented. The patient is sedated and calm and comfortable on propofol and fentanyl. Orogastric and orotracheal tube are both in place Head exam is unremarkable. No scleral icterus or corneal arcus noted. Neck is without jugular venous distension, thyromegaly, or carotid bruits. Carotid upstrokes are brisk bilaterally. Lungs are clear to auscultation and percussion. The patient has diminished breath sound the left lung base and the patient has a thoracotomy scar over the anterior chest area Cardiac exam reveals the PMI to be normally sized and situated. Rhythm is regular. First and second heart sounds normal. N the patient has a systolic ejection murmur heard throughout the precordium and the patient has a thoracotomy scar related to previous cardiac surgery. Abdominal exam reveals normal bowel sounds, no masses, no organomegaly and no aortic enlargement. Extremities are nonedematous and both femoral and pedal pulses are normal. Examination of the skin revealed no evidence of significant rashes, suspicious appearing nevi or other concerning lesions. Neurologically, the patient is sedated on propofol. - Labs CBC & Chem 7: 10/09/24 02:38 10/09/24 02:38 Labs: Abnormal Lab Results - Last 24 Hours (Table) 10/08/24 10/08/24 10/09/24 Range/Units 14:28 20:47 02:38 WBC (3.8-10.6) k/uL RBC (3.80-5.40) m/uL Hgb (11.4-16.0) gm/dL MCV (80.0-100.0) fL MCHC (31.0-37.0) g/dL Macrocytosis ABG pH 7.33 L (7.35-7.45) ABG pCO2 47 H (35-45) mmHg ABG pO2 133 H 254 H (83-108) mmHg ABG Total CO2 25 H 27 H (19-24) mmol/L ABG O2 Saturation 99.7 H >100.0 H (94-97) % Hemoglobin 11.3 L 11.0 L (11.4-16.0) gm/dL Chloride 110 H (98-107) mmol/L Carbon Dioxide 19 L (22-30) mmol/L Creatinine 0.22 L (0.52-1.04) mg/dL 10/09/24 10/09/24 Range/Units 02:38 05:22 WBC 18.8 H (3.8-10.6) k/uL RBC 3.34 L (3.80-5.40) m/uL Hgb 10.9 L (11.4-16.0) gm/dL MCV 109.4 H (80.0-100.0) fL MCHC 29.9 L (31.0-37.0) g/dL Macrocytosis Marked A ABG pH (7.35-7.45) ABG pCO2 (35-45) mmHg ABG pO2 119 H (83-108) mmHg ABG Total CO2 25 H (19-24) mmol/L ABG O2 Saturation 99.3 H (94-97) % Hemoglobin 10.9 L (11.4-16.0) gm/dL Chloride (98-107) mmol/L Carbon Dioxide (22-30) mmol/L Creatinine (0.52-1.04) mg/dL Microbiology - Last 24 Hours (Table) 10/07/24 10:30 Gram Stain - Preliminary Bronchoalviolar Lavage - Left Bronchial Washings Culture - Preliminary 10/06/24 02:34 Blood Culture - Preliminary Blood 10/06/24 11:26 Gram Stain - Final Sputum Sputum Culture - Final Moraxella(branhamella) catarra Assessment and Plan Plan: Acute hypoxic respiratory failure with dense consolidation of the left lower lobe. Consider aspiration left lower lobe pneumonia. The patient remains intubated on mechanical ventilator. Bronchoscopy was done and copious amount of purulent secretion was noted in lung bases bilaterally more so in the left lower lobe. Therapeutic airway suctioning was done. A BAL of the left lower lobe was done pending cultures. The patient currently is on IV Zosyn. The patient was extubated on 10/08/2024 to be reintubated within a few hours due to difficulties in handling respiratory secretions. She has a weak cough. Continues to have copious respiratory secretions on today's examination. Chest x-ray is also showing lower lobe bilateral pulmonary infiltrates consistent with pneumonia. Acute leukocytosis likely secondary to above Left lower lobe pneumonia with extensive consolidation of the left lower lobe, likely secondary to Moraxella catarrhalis. The patient remains on IV Zosyn. The patient is status post bronchoscopy and bronchoalveolar lavage and therapeutic airway suctioning performed on 10/07/2024. 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 No signs of any cardiomyopathy at this point. Leukocytosis Questionable stenosis/narrowing of the celiac artery based on CT scan of the abdomen. Noted the SMA and FLOWER were grossly patent. Plan Continue vent support No vent changes for today Keep the patient on a combination of propofol and fentanyl Failed extubation on 10/08/2024,The patient was reintubated with on the same day But the patient has scopolamine patch every 72 hours Continue IV Zosyn covering for aspiration pneumonia May need another bronchoscopy on next 24 hours Check blood cultures are negative The results of the BAL are still pending Start the patient on enteral feeding for nutritional support Patient has history of tetralogy of Fallot, and echocardiogram shows a preserved LV function without any significant valvular abnormalities Hemodynamically stable, no pressors Change IV fluids to KVO Neurology consultation Further recommendations are to follow. This is working progress. Condition is critical and the patient will be kept in the intensive care unit. This evaluation was done and 33 minutes. Time with Patient: Greater than 30
--- NOTE | 2024-10-09 16:03 | P.PN ---
Subjective Progress Note Date: 10/08/24 Patient was seen for a follow-up. Patient was extubated at 3:30 PM today. She is having a lot of secretions. She was given Dilaudid and doing slightly better. Patient is hearing impaired. Objective - Vital Signs Vital signs: Vital Signs Temp 98.4 F 10/08/24 12:00 Pulse 125 H 10/08/24 16:00 Resp 27 H 10/08/24 16:00 BP 194/124 10/08/24 16:00 Pulse Ox 93 L 10/08/24 16:00 FiO2 40 10/08/24 15:15 Intake & Output 10/07/24 10/08/24 10/08/24 18:59 06:59 18:59 Intake Total 0905.744 6181.441 1356.095 Output Total 258 104 3651 Balance 988.246 1260.441 296.095 Weight 45.6 kg 44.6 kg Intake: IV 1200 1400 1000 Piperacillin-Tazobactam 3 200 100 .375 gm In Sodium Chloride 0.9% 100 ml @ 25 mls/hr IVPB Q8HR [facility] Rx# :[id number] Sodium Chloride 0.9% 500 1200 1200 900 ml 500 ml @ 100 mls/hr IV .Q5H [facility] Rx#:[id number] Intake, IV Titration 153.229 381.441 186.095 Amount Magnesium Sulfate-D5w Pmx 100 1 gm In Dextrose/Water 1 100ml.bag @ 100 mls/hr IVPB [facility]CE [facility] Rx#: [id number] Potassium Chloride 20 meq 200 100 In Water For Injection 1 100ml.bag @ 50 mls/hr IVPB Q2H [facility] Rx#: [id number] fentaNYL (PF). 1,000 mcg 3.663 In Sodium Chloride 0.9% 80 ml @ 0.5 MCG/KG/HR 2. 155 mls/hr IV .Q24H [facility] Rx#:[id number] propofoL 1,000 mg In 153.229 81.441 82.432 Empty Bag 1 bag @ 15 MCG/ KG/MIN 3.878 mls/hr IV . Q24H [facility] Rx#:[id number] Oral 0 Tube Feeding 30 190 140 Other 150 30 Output: Gastric Drainage 25 Urine 616 319 2890 Other: Voiding Method Indwelling Catheter Indwelling Catheter Indwelling Catheter # Bowel Movements 0 - Exam On examination patient is reclining in the bed. She is obtunded. She is ex tubated. She does have oxygen by nasal cannula. Patient did open her eyes. She continues to have right hemiparesis from her CP. Patient opens her eyes, and gazes upwards. She does not make eye contact, or tracks. Does not follow directions. She is also hearing impaired. However with her open eyes, she did not make any eye contact. - Labs CBC & Chem 7: 10/09/24 02:38 10/09/24 02:38 Labs: Abnormal Lab Results - Last 24 Hours (Table) 10/08/24 10/08/24 10/08/24 Range/Units 02:33 02:33 04:50 WBC 16.7 H (3.8-10.6) k/uL RBC 3.06 L (3.80-5.40) m/uL Hgb 10.4 L (11.4-16.0) gm/dL Hct 32.4 L (34.0-46.0) % MCV 105.9 H (80.0-100.0) fL Neutrophils # 13.9 H (1.3-7.7) k/uL Monocytes # 1.5 H (0-1.0) k/uL ABG pH 7.34 L (7.35-7.45) ABG pO2 (83-108) mmHg ABG Total CO2 26 H (19-24) mmol/L ABG O2 Saturation (94-97) % Hemoglobin 10.8 L (11.4-16.0) gm/dL Potassium 3.0 L (3.5-5.1) mmol/L Chloride 108 H (98-107) mmol/L Creatinine 0.26 L (0.52-1.04) mg/dL Glucose 102 H (74-99) mg/dL 10/08/24 Range/Units 14:28 WBC (3.8-10.6) k/uL RBC (3.80-5.40) m/uL Hgb (11.4-16.0) gm/dL Hct (34.0-46.0) % MCV (80.0-100.0) fL Neutrophils # (1.3-7.7) k/uL Monocytes # (0-1.0) k/uL ABG pH (7.35-7.45) ABG pO2 133 H (83-108) mmHg ABG Total CO2 25 H (19-24) mmol/L ABG O2 Saturation 99.7 H (94-97) % Hemoglobin 11.3 L (11.4-16.0) gm/dL Potassium (3.5-5.1) mmol/L Chloride (98-107) mmol/L Creatinine (0.52-1.04) mg/dL Glucose (74-99) mg/dL Microbiology - Last 24 Hours (Table) 10/07/24 10:30 Gram Stain - Preliminary Bronchoalviolar Lavage - Left Bronchial Washings Culture - Preliminary 10/06/24 02:34 Blood Culture - Preliminary Blood 10/06/24 11:26 Gram Stain - Final Sputum Sputum Culture - Final Moraxella(branhamella) catarra Assessment and Plan Assessment: * Altered mental status, likely due to metabolic encephalopathy * Acute respiratory failure on mechanical ventilation * Left lower lobe pneumonia * History of seizure disorder, on multiple AEDs * Cerebral palsy * Nonverbal state * Hearing-impaired * History of tetralogy of bilateral, postcardiac surgery at the young age. No signs of cardiomyopathy. Plan: * Patient has history of seizure disorder, maintained on multiple antiepileptic medications. * Patient to be continued on her seizure medications including Depakote 500 mg 3 times a day and 250 mg at bedtime, Dilantin chew tab 50 mg twice a day and Dilantin 30 mg extended release at bedtime. Patient also on Keppra 1000 mg twice a day, and zonisamide 100 mg twice a day and 25 mg daily. Continue her seizure medications. Patient not able to receive zonisamide because cannot be given by NG tube. This will be resumed when patient is extubated. If patient needs to be on IV medications, then the oral doses can be switched to the IV form in equivalent doses. * All AED levels are therapeutic. Dilantin 12.1, Depakote 56.2 and Keppra 14.9 (3-60) * If any concern about seizure, I would have low threshold to check an EEG. No clinical seizures noted, or any suspicious seizure-like activity. * Other medical management as per IM, critical care and other specialties on board. * Discussed with nursing staff in detail.
--- NOTE | 2024-10-09 16:08 | P.PN ---
Subjective Progress Note Date: 10/09/24 10/09/2024: Patient was reintubated at 7:53 PM last night for worsening respiratory status. Patient currently on propofol 35 mcg/kg/min, also on fentanyl 0.5 mcg/kg/h patient sedated, examination limited. No obvious seizure- like activity. 10/08/2024: Patient was seen for a follow-up. Patient was extubated at 3:30 PM today. She is having a lot of secretions. She was given Dilaudid and doing slightly better. Patient is hearing impaired. Objective - Vital Signs Vital signs: Vital Signs Temp 98.2 F 10/09/24 12:00 Pulse 111 H 10/09/24 16:00 Resp 15 10/09/24 15:00 BP 150/76 10/09/24 15:00 Pulse Ox 98 10/09/24 15:00 FiO2 40 10/09/24 15:54 Intake & Output 10/08/24 10/09/24 10/09/24 18:59 06:59 18:59 Intake Total 2737.997 0590.239 460 Output Total 1100 560 435 Balance 496.095 940.239 25 Weight 46.7 kg 46.7 kg Intake: IV 1240 1300 440 Piperacillin-Tazobactam 3 200 100 .375 gm In Sodium Chloride 0.9% 100 ml @ 25 mls/hr IVPB Q8HR [facility] Rx# :[id number] Sodium Chloride 0.9% 500 1040 1200 340 ml 500 ml @ 100 mls/hr IV .Q5H [facility] Rx#:[id number] Valproate Sodium 250 mg 100 In Sodium Chloride 0.9% 100 ml @ 100 mls/hr IVPB HS [facility] Rx#:[id number] Intake, IV Titration 186.095 200.239 Amount Potassium Chloride 20 meq 100 In Water For Injection 1 100ml.bag @ 50 mls/hr IVPB Q2H [facility] Rx#: [id number] Valproate Sodium 580 mg 105 In Sodium Chloride 0.9% 50 ml @ 50 mls/hr IVPB Q8H [facility] Rx#:[id number] fentaNYL (PF). 1,000 mcg 3.663 In Sodium Chloride 0.9% 80 ml @ 0.5 MCG/KG/HR 2. 155 mls/hr IV .Q24H [facility] Rx#:[id number] propofoL 1,000 mg In 82.432 95.239 Empty Bag 1 bag @ 15 MCG/ KG/MIN 3.878 mls/hr IV . Q24H [facility] Rx#:[id number] Oral 0 Tube Feeding 140 20 Other 30 Output: Urine 1100 560 435 Other: Voiding Method Indwelling Catheter Indwelling Catheter Indwelling Catheter - Exam On examination patient is reintubated, sedated on propofol and fentanyl. [place] limited, pupils equal, round and gaze midline. - Labs CBC & Chem 7: 10/09/24 02:38 10/09/24 02:38 Labs: Abnormal Lab Results - Last 24 Hours (Table) 10/08/24 10/09/24 10/09/24 Range/Units 20:47 02:38 02:38 WBC 18.8 H (3.8-10.6) k/uL RBC 3.34 L (3.80-5.40) m/uL Hgb 10.9 L (11.4-16.0) gm/dL MCV 109.4 H (80.0-100.0) fL MCHC 29.9 L (31.0-37.0) g/dL Macrocytosis Marked A ABG pH 7.33 L (7.35-7.45) ABG pCO2 47 H (35-45) mmHg ABG pO2 254 H (83-108) mmHg ABG Total CO2 27 H (19-24) mmol/L ABG O2 Saturation >100.0 H (94-97) % Hemoglobin 11.0 L (11.4-16.0) gm/dL Chloride 110 H (98-107) mmol/L Carbon Dioxide 19 L (22-30) mmol/L Creatinine 0.22 L (0.52-1.04) mg/dL 10/09/24 Range/Units 05:22 WBC (3.8-10.6) k/uL RBC (3.80-5.40) m/uL Hgb (11.4-16.0) gm/dL MCV (80.0-100.0) fL MCHC (31.0-37.0) g/dL Macrocytosis ABG pH (7.35-7.45) ABG pCO2 (35-45) mmHg ABG pO2 119 H (83-108) mmHg ABG Total CO2 25 H (19-24) mmol/L ABG O2 Saturation 99.3 H (94-97) % Hemoglobin 10.9 L (11.4-16.0) gm/dL Chloride (98-107) mmol/L Carbon Dioxide (22-30) mmol/L Creatinine (0.52-1.04) mg/dL Microbiology - Last 24 Hours (Table) 10/08/24 15:29 Gram Stain - Preliminary Sputum Sputum Culture - Preliminary 10/06/24 02:34 Blood Culture - Preliminary Blood 10/07/24 10:30 Gram Stain - Final Bronchoalviolar Lavage - Left Bronchial Washings Culture - Final Assessment and Plan Assessment: * Altered mental status, likely due to metabolic encephalopathy * Acute respiratory failure on mechanical ventilation. 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 No signs of cardiomyopathy. Plan: * Patient has history of seizure disorder, maintained on multiple antiepileptic medications. * Patient to be continued on her seizure medications including Depakote 500 mg 3 times a day and 250 mg at bedtime, Dilantin chew tab 50 mg twice a day and Dilantin 30 mg extended release at bedtime. Patient also on Keppra 1000 mg twice a day, and zonisamide 100 mg twice a day and 25 mg daily. Continue her seizure medications. Patient not able to receive zonisamide because cannot be given by NG tube. This will be resumed when patient is extubated. If patient needs to be on IV medications, then the oral doses can be switched to the IV form in equivalent doses. * All AED levels are therapeutic. Dilantin 12.1, Depakote 56.2 and Keppra 14.9 (3-60) * If any concern about seizure, I would have low threshold to check an EEG. No clinical seizures noted, or any suspicious seizure-like activity. * Other medical management as per IM, critical care and other specialties on board.
[2024-10-09 17:36] LABS: Glucose,Whole Blood 88 mg/dL (70-110)
[2024-10-09 23:37] LABS: Glucose,Whole Blood 92 mg/dL (70-110)
[2024-10-10 05:25] LABS: ABG Base Excess 4.2 mmol/L; ABG HCO3 30 mmol/L (21-25); ABG Oxygen Saturation 98.4 % (94-97); ABG PCO2 48 mmHg (35-45); ABG PO2 103 mmHg (83-108); ABG TCO2 31 mmol/L (19-24); Allen Test Performed? Yes
[2024-10-10 05:52] LABS: HCT 33.7 % (34.0-46.0); HGB 10.5 gm/dL (11.4-16.0); Hypochromasia Slight; MCH 33.6 pg (25.0-35.0); MCHC 31.1 g/dL (31.0-37.0); MCV 108.1 fL (80.0-100.0); Mean Platelet Volume 7.6; Platelet Count 172 k/uL (150-450); RBC 3.12 m/uL (3.80-5.40); RDW 14.1 % (11.5-15.5); WBC 9.5 k/uL (3.8-10.6)
[2024-10-10 05:53] LABS: Macrocytosis Marked
[2024-10-10] MEDS: MAGNESIUM SULFATE-D5W PMX 1 GM in DEXTROSE/WATER 1 100ML.BAG IVPB ONE (06:16)
[2024-10-10 06:27] LABS: Glucose,Whole Blood 104 mg/dL (70-110)
[2024-10-10 06:34] LABS: African American GFR (CKD) >90 (>60 ml/min/1.73 sqM); Anion Gap 3 mmol/L; Blood Urea Nitrogen 12 mg/dL (7-17); Calcium 9.1 mg/dL (8.4-10.2); Carbon Dioxide 28 mmol/L (22-30); Chloride 107 mmol/L (98-107); Glucose 106 mg/dL (74-99); Non-African American GFR(CKD) >90 (>60 ml/min/1.73 sqM); Potassium 3.6 mmol/L (3.5-5.1); Sodium 138 mmol/L (137-145)
--- NOTE | 2024-10-10 08:18 | XR ---
EXAMINATION TYPE: XR chest 1V DATE OF EXAM: 10/10/2024 5:16 AM COMPARISON: 10/09/2024 CLINICAL INDICATION: Female, 53 years old with history of intubated, TECHNIQUE: XR chest 1V view(s) obtained. FINDINGS: The heart size is normal. The pulmonary vasculature is normal. Left lower lobe infiltrate is present. Correlate for atelectasis and pneumonia. Endotracheal tube is present 4.1 cm above the nehemias. Nasogastric tube transverses the thorax. Right central venous catheter is present with the tip in the distal superior vena cava region. IMPRESSION: 1. Worsening left lower lobe infiltrate. Correlate for pneumonia or atelectasis. Continued follow-up recommended [facility], , 10/10/2024 8:16 AM
[2024-10-10] MEDS: FUROSEMIDE 10 MG/ML 4 ML VIAL IV STA (09:43)
[2024-10-10] MEDS: POTASSIUM BICARBONATE/CIT AC 20 MEQ TABLET.EFF NG-TUBE SCH (09:43)
--- NOTE | 2024-10-10 10:31 | P.PN ---
Subjective Progress Note Date: 10/10/24 53-year-old female with cerebral palsy, deafness, seizure disorder presenting from her [facility] with shortness of breath. Patient was found to be having labored breathing that continued to get worse and the patient beak started to become pale and diaphoretic. EMS arrived and patient's pulse ox was at 80% on room air and she was placed on a nonrebreather and brought to the hospital. Guardian states that she has been on the decline for the past 6 months. She states that the patient has been refusing to eat and her oral intake has dramatically decreased. States that she has become more dependent over the past few months. In the ED she underwent extensive evaluation. T101 F, DE 146, RR 27, BP 181/102, O2 saturation 88% on non-rebreather 15L. CBC, CMP significant for WBC 15.8, RBC 3.23, Hg 11.1, MCV 105.3, Na 134, Cl 108, bicarb 21, Cr 0.24, Ca 7.4, alb 2.3. Mag 1.6. Trop 0.055, 0.028 with EKG showing sinus tachycardia with no ST elevation. Lactic acid 0.8. CXR showed airspace consolidation involving the left lower lobe. Brain CT no acute process. Chest CTA no evidence for PE, dense consolidation of nearly entire left lower lobe. 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 Her respiratory status worsened and she was intubated in the ED and transferred to ICU for further management. Started on Rocephin and Azithromycin, switched to Zosyn for concerns for aspiration PNA. Urine Legionella neg. Phenytoin level 12.1, Valproic acid level 56.2. Venous doppler no DVT. Sputum Cx Moraxella. Echo EF 60%. Extubated on 10/08 but re- intubated later on that day. 10/10 Patient was seen and examined. Sedated with Propofol 25 mcg/kg/min. Paralytic includes Fentanyl at 0.5 mcg/kg/hr. Given Lasix 40 mg IV x 1 yesterday and today. Antibiotics include Zosyn 3.75 g IV TID (D5). CBC, CMP significant for RBC 3.12, Hg 10.5, Hct 33.7, MCV 108.1, Cr 0.2, glu 106. Mag 1.7. ABG pH 7.4, pCO2 48, pO2 98.4, FiO2 40%. Sputum Cx Moraxella. BCx prelim neg so far. BAL cultures many PMN with rare gram + cocci. CXR shows L sided infiltrates, ET tube similar to previous CXR. General: Intubated and sedated Derm: warm, dry Head: atraumatic, normocephalic, symmetric, NGT + ETT in place Mouth: no lip lesion, mucus membranes moist Cardiovascular: S1S2 tachy, no murmur Lungs: Coarse BS bilaterally, no rales , no accessory muscle use Ext: no gross muscle atrophy, no edema, no contractures Neuro: Unable to determine Psych: Unable to determine Based on my assessment of this patient, this patient meets a high complexity level of care. Acute hypoxic respiratory failure and severe sepsis secondary to Aspiration PNA: Tylneol 650 mg PO Q6H PRN fever. Zosyn 3.75 g IV TID (D5). DuoNeb QID scheduled and PRN SOB/wheezing. HOB elevation. Aspiration precautions. Follow sputum, BAL cultures and BCx. Telemetry monitoring. Pulmonary on board. Macrocytic anemia: Likely dilutional. No signs of active bleeding. Obtain B12, Folate. Monitor CBC. Troponin elevation: Likely demand ischemia due to above. Echo as above. Seizure disorder: Depakote 580 mg IV TID. Keppra 1000 mg IV BID. Phenytoin 50 mg IV BID. Zonegran 100 mg PO BID, 25 mg PO QD when able. Neurology on board. Resolved: HypoMag, Lactic acidosis, HypoK CODE STATUS: FULL CODE. DVT Prophylaxis: Heparin SQ GI Prophylaxis: Protonix Designated medical POA if patient is not able to make medical decisions for themselves: I have reviewed the following speech correction consultant notes: Pulmonary note. I have reviewed the results of the following tests: CBC, BMP, Mag, ABG. I have ordered the following tests: B12, Folate, TSH. I have discussed the care of this patient with the following independent historian: I have independently interpreted the following test below: CXR I have discussed the management of this patient with the following physician: Objective - Vital Signs Vital signs: Vital Signs Temp 99.0 F 10/10/24 04:00 Pulse 108 H 10/10/24 08:11 Resp 12 10/10/24 06:00 BP 143/78 10/10/24 06:00 Pulse Ox 99 10/10/24 06:00 FiO2 40 10/10/24 08:10 Intake & Output 10/09/24 10/10/24 10/10/24 18:59 06:59 18:59 Intake Total 710 706.27 Output Total 1035 465 Balance -325 241.27 Weight 46.7 kg Intake: IV 600 240 Piperacillin-Tazobactam 3 100 .375 gm In Sodium Chloride 0.9% 100 ml @ 25 mls/hr IVPB Q8HR [facility] Rx# :[id number] Sodium Chloride 0.9% 500 400 240 ml 500 ml @ 100 mls/hr IV .Q5H [facility] Rx#:[id number] Valproate Sodium 250 mg 100 In Sodium Chloride 0.9% 100 ml @ 100 mls/hr IVPB HS [facility] Rx#:[id number] Intake, IV Titration 142.27 Amount fentaNYL (PF). 1,000 mcg 0 In Sodium Chloride 0.9% 80 ml @ 0.5 MCG/KG/HR 2. 155 mls/hr IV .Q24H [facility] Rx#:[id number] propofoL 1,000 mg In 142.27 Empty Bag 1 bag @ 15 MCG/ KG/MIN 3.878 mls/hr IV . Q24H [facility] Rx#:[id number] Tube Feeding 80 324 Other 30 Output: Urine 1035 465 Other: Voiding Method Indwelling Catheter Indwelling Catheter - Labs CBC & Chem 7: 10/10/24 05:42 10/10/24 05:42 Labs: Abnormal Lab Results - Last 24 Hours (Table) 10/10/24 10/10/24 10/10/24 Range/Units 05:23 05:42 05:42 RBC 3.12 L (3.80-5.40) m/uL Hgb 10.5 L (11.4-16.0) gm/dL Hct 33.7 L (34.0-46.0) % MCV 108.1 H (80.0-100.0) fL Macrocytosis Marked A ABG pCO2 48 H (35-45) mmHg ABG HCO3 30 H (21-25) mmol/L ABG Total CO2 31 H (19-24) mmol/L ABG O2 Saturation 98.4 H (94-97) % Hemoglobin 10.6 L (11.4-16.0) gm/dL Creatinine 0.20 L (0.52-1.04) mg/dL Glucose 106 H (74-99) mg/dL Microbiology - Last 24 Hours (Table) 10/08/24 15:29 Gram Stain - Preliminary Sputum Sputum Culture - Preliminary 10/06/24 02:34 Blood Culture - Preliminary Blood 10/07/24 10:30 Gram Stain - Final Bronchoalviolar Lavage - Left Bronchial Washings Culture - Final
[2024-10-10 11:41] LABS: Glucose,Whole Blood 155 mg/dL (70-110)
--- NOTE | 2024-10-10 12:38 | P.PN ---
Subjective Progress Note Date: 10/10/24 This is a 53-year-old female patient who is currently intubated for hypoxemic respiratory failure. The patient has history of cerebral palsy. The patient is nonverbal and deaf. According to the caregivers, guardian, the patient has been declining course over the past 6 months. She has been refusing to eat and her oral intake is dramatically dropped over the past 6 months. She has become more dependent. She currently lives in a custodial. The patient was noted to be having worsening shortness of breath and based on ongoing difficulties in breathing she was brought into the emergency department. Apparently, the time of the initial evaluation in the emergency, the patient was sweaty and di aphoretic. Her pulse ox was 80% on room air oxygen as reported by EMS. She was placed on 100% elevated facemask. Apparently, the patient had breakfast and lunch like normal. She did not have dinner on the day of the admission. The patient had been refusing to eat. No reported aspiration by the sales activity manager. No reported seizure activity. Based on her diminished level of consciousness and ongoing hypoxemic respiratory failure, the patient was intubated in the emergency department and placed on mechanical ventilator. This morning, the patient is on a assist-control mode of mechanical ventilation at rate of 10, tidal volume of 250, FiO2 50% with a PEEP of 5. Blood gases done on 900% FiO2 showed a pH of 7.38 with a pCO2 39 and pO2 of 374. The patient is currently sedated and she is currently on propofol running at 20 mcg/kg/min. No hypotension. She is hemodynamically stable. White cell count is at 15.8 with a hemoglobin of 11 and a platelet count of 181. Sodium levels at 134, potassium level is at 3.5 and the BUN is 14 with a creatinine of 0.2. Serum bicarb is at 21. Troponin was 0.02 and 0.05 and 0.02 respectively x 3. UA was negative. Viral drug screen was negative. Electrolytes were all within normal limits. LFT was also within normal limits. CAT scan of the brain that was done in the emergency department showed limited findings due to motion artifact. No acute intracranial process identified. The patient also had a CT of the chest that showed no evidence of any pulm embolism. Of significance was a dense consolidation involving the entire left lower lobe with complete unspecified lobe. Consider an aspiration left lower lobe pneumonia. No evidence of a aortic dissection. No mediastinal lymphadenopathy. Right lung was essentially clear. Follow-up chest x-ray from this morning shows ongoing consolidation of the left lower lobe. The patient also has a right IJ triple-lumen catheter that was placed in the emergency department. Her current cardiac rhythm is sinus tachycardia. The patient was given a combination of Rocephin and Zithromax in the emergency department. 10/07/2024, the patient is being seen for a follow-up. The patient was hospitalized for an acute hypoxic respiratory failure and a dense left lower lobe pneumonia. This morning, the patient calm and comfortable. Overnight, she encountered some increased restlessness, agitation and asynchrony on mechanical ventilator. Based on that, the patient was started on propofol which is currently running at 35 mcg/kg/min and she is also on fentanyl at 0.5 mcg/kg/h. She remains on a mechanical ventilator, assist-control mode at rate of 20, tidal volume of 350, FiO2 40% with a PEEP of 5. Blood gas showed a pH of 7.49 with a pCO2 31 and pO2 of 92. The patient remains in normal sinus rate of 100 cc an hour. The patient remains on IV Zosyn. Bronchoscopy endobronchial lavage was done. There was significant amount of mucous plugging bilaterally in the lower lobes and therapeutic airway suctioning was done and the BAL of the left lower lobe was done pending further cultures. No seizure activity has been noted. The patient is hemodynamically stable on no pressors. The white cell count is 18.2 with a hemoglobin 12 and a platelet count of 175. Sodium is at 135, potassium is at 3.9, BUN is 9 with a creatinine of 0.2. The toxicology screen for antiepileptics showed a Dilantin level of 12.1 and a valproic acid of 56. Neurology has been consulted. The patient has no noted seizure activity over the past 24 hours. On today's evaluation of 10/08/2024, the patient is being seen for a follow-up. The patient has been intubated with a mechanical ventilator due to left lower lobe pneumonia. She is chronically debilitated. She is deaf and mute. She also has history of cerebral palsy. She had an extensive left lower lobe. 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 This morning, the patient is on propofol running at 35 mcg/kg/min and fentanyl at 0.5 mcg/kg/h. Remains on normal citrate of 100 cc an hour. She remains on a mechanical ventilator. Vent settings are essentially unchanged. The patient is on a assist-control mode at a rate of 20, tidal volume of 350 40% with a PEEP of 5. Blood gas showed a pH of 7.34 with a pCO2 of 45 with a pO2 of 86. The patient is on vital HP at rate of 20 cc an hour. Balance over the past 24 hours has been +2.6. The patient's blood work from today shows a white cell count of 16.7, hemoglobin 10.4 and a platelet count of 150. The sodium is at 137, potassium is at 3 replaced in the follow-up potassium level is at 4, BUN is at 7 with a creatinine of 0.26. Serum bicarb is 24. Magnesium level is at 1.9. The patient remains on IV Zosyn. Hemodynamically stable and the patient is currently on no pressors. No seizure activity and the patient continues to be on antiepileptic medications. On 10/09/2024, the patient is being seen for a follow-up. Noted the patient was weaned off the mechanical ventilator and the patient was extubated yesterday and the patient did well for a few hours. Subsequently, the patient developed difficulties with respiratory secretions and she was unable to maintain patent airways. She was getting more tachycardic and short of breath and tachypneic and she was also desaturating. Few hours following the extubation, the patient was reintubated and placed back on mechanical ventilator. This morning, the patient is on propofol running at 30 mcg/kg/min and fentanyl at 0.5 mcg/kg/h. She is on assist-control mode of mechanical ventilation at rate of 12, tidal volume of 350, FiO2 40% with a PEEP of 5. pH is 7.38 with a pCO2 40 and pO2 119. The follow-up chest x-ray from today shows adequate positioning of the orotracheal tube. There is persistent cardiomegaly and small bilateral pleural effusion. There is also bibasilar pulmonary infiltrates consistent with pneumonia. Respiratory secretions are copious. The patient's white cell count is 18.8. Hemoglobin 10.9 and the platelet count is 884. BUN is at 7 with a c reatinine of 0.22. Sodium is at 140 and a potassium level is at 3.6. Enteral feeding is to be restarted and the patient will be given a scopolamine patch. Remains on IV Zosyn as the patient previous sputum analysis showed Moraxella catarrhalis. The results of the bronchioloalveolar lavage are still pending for now. Hemodynamically stable. The patient is on no pressors. The patient on normal citrate at 100 cc an hour. On 10/10/2024, patient is being seen for a follow-up. This morning, the patient remains sedated on propofol which is running at 25 mcg/kg/min. The patient is also on fentanyl at 0.5 mcg/kg/h., The patient is calm and comfortable on mechanical ventilator and she is on assist-control mode at rate of 12, tidal volume of 350, FiO2 of 40% and PEEP of 5. Blood gas showed a pH of 7.4 with a pCO2 of 48 and pO2 of 103. Chest x-ray shows a persistent consolidation in the lung bases bilaterally. Respiratory secretions improved compared to yesterday. Urine output is adequate and the patient is currently on normal citrate of 20 cc an hour. Fluid balance is +1.4 L over the past 24 hours. The patient is on vital HP at rate of 34 cc an hour and the patient is currently in normal sinus rhythm without any significant hypotension. The patient is on no pressors. The white cell count of 9.5, hemoglobin is 10.5 and a platelet count of 172. BUN is 12 with a creatinine of 0.2. Sodium level is at 138 and a potassium level is at 3.6. Bicarb is at 28. The patient remains on IV Zosyn. No other significant events overnight. Objective - Vital Signs Vital signs: Vital Signs Temp 99.0 F 10/10/24 04:00 Pulse 101 H 10/10/24 11:56 Resp 12 10/10/24 06:00 BP 143/78 10/10/24 06:00 Pulse Ox 99 10/10/24 06:00 FiO2 40 10/10/24 11:50 Intake & Output 10/09/24 10/10/24 10/10/24 18:59 06:59 18:59 Intake Total 710 706.27 Output Total 1035 465 Balance -325 241.27 Weight 46.7 kg Intake: IV 600 240 Piperacillin-Tazobactam 3 100 .375 gm In Sodium Chloride 0.9% 100 ml @ 25 mls/hr IVPB Q8HR [facility] Rx# :[id number] Sodium Chloride 0.9% 500 400 240 ml 500 ml @ 100 mls/hr IV .Q5H [facility] Rx#:[id number] Valproate Sodium 250 mg 100 In Sodium Chloride 0.9% 100 ml @ 100 mls/hr IVPB HS [facility] Rx#:[id number] Intake, IV Titration 142.27 Amount fentaNYL (PF). 1,000 mcg 0 In Sodium Chloride 0.9% 80 ml @ 0.5 MCG/KG/HR 2. 155 mls/hr IV .Q24H [facility] Rx#:[id number] propofoL 1,000 mg In 142.27 Empty Bag 1 bag @ 15 MCG/ KG/MIN 3.878 mls/hr IV . Q24H [facility] Rx#:[id number] Tube Feeding 80 324 Other 30 Output: Urine 1035 465 Other: Voiding Method Indwelling Catheter Indwelling Catheter - Exam The patient appeared well nourished and normally developed. Vital signs as documented. The patient is sedated and calm and comfortable on propofol and fentanyl. Orogastric and orotracheal tube are both in place Head exam is unremarkable. No scleral icterus or corneal arcus noted. Neck is without jugular venous distension, thyromegaly, or carotid bruits. Carotid upstrokes are brisk bilaterally. Lungs are clear to auscultation and percussion. The patient has diminished breath sound the left lung base and the patient has a thoracotomy scar over the anterior chest area Cardiac exam reveals the PMI to be normally sized and situated. Rhythm is regular. First and second heart sounds normal. N the patient has a systolic ejection murmur heard throughout the precordium and the patient has a thoracotomy scar related to previous cardiac surgery. Abdominal exam reveals normal bowel sounds, no masses, no organomegaly and no aortic enlargement. Extremities are nonedematous and both femoral and pedal pulses are normal. Examination of the skin revealed no evidence of significant rashes, suspicious appearing nevi or other concerning lesions. Neurologically, the patient is sedated on propofol. - Labs CBC & Chem 7: 10/10/24 05:42 10/10/24 05:42 Labs: Abnormal Lab Results - Last 24 Hours (Table) 10/10/24 10/10/24 10/10/24 Range/Units 05:23 05:42 05:42 RBC 3.12 L (3.80-5.40) m/uL Hgb 10.5 L (11.4-16.0) gm/dL Hct 33.7 L (34.0-46.0) % MCV 108.1 H (80.0-100.0) fL Macrocytosis Marked A ABG pCO2 48 H (35-45) mmHg ABG HCO3 30 H (21-25) mmol/L ABG Total CO2 31 H (19-24) mmol/L ABG O2 Saturation 98.4 H (94-97) % Hemoglobin 10.6 L (11.4-16.0) gm/dL Creatinine 0.20 L (0.52-1.04) mg/dL Glucose 106 H (74-99) mg/dL POC Glucose (mg/dL) (70-110) mg/dL 10/10/24 Range/Units 11:40 RBC (3.80-5.40) m/uL Hgb (11.4-16.0) gm/dL Hct (34.0-46.0) % MCV (80.0-100.0) fL Macrocytosis ABG pCO2 (35-45) mmHg ABG HCO3 (21-25) mmol/L ABG Total CO2 (19-24) mmol/L ABG O2 Saturation (94-97) % Hemoglobin (11.4-16.0) gm/dL Creatinine (0.52-1.04) mg/dL Glucose (74-99) mg/dL POC Glucose (mg/dL) 155 H (70-110) mg/dL Microbiology - Last 24 Hours (Table) 10/08/24 15:29 Gram Stain - Preliminary Sputum Sputum Culture - Preliminary 10/06/24 02:34 Blood Culture - Preliminary Blood 10/07/24 10:30 Gram Stain - Final Bronchoalviolar Lavage - Left Bronchial Washings Culture - Final Assessment and Plan Plan: Acute hypoxic respiratory failure with dense consolidation of the left lower lobe. Consider aspiration left lower lobe pneumonia. The patient remains intubated on mechanical ventilator. Bronchoscopy was done and copious amount of purulent secretion was noted in lung bases bilaterally more so in the left lower lobe. Therapeutic airway suctioning was done. A BAL of the left lower lobe was done pending cultures. The patient currently is on IV Zosyn. The patient was extubated on 10/08/2024 to be reintubated within a few hours due to difficulties in handling respiratory secretions. She has a weak cough. Continues to have copious respiratory secretions on today's examination. Chest x-ray is also showing lower lobe bilateral pulmonary infiltrates consistent with pneumonia. There is a persistent left lower lobe consolidation. Acute leukocytosis likely secondary to above Left lower lobe pneumonia with extensive consolidation of the left lower lobe, likely secondary to Moraxella catarrhalis. The patient remains on IV Zosyn. The patient is status post bronchoscopy and bronchoalveolar lavage and therapeutic airway suctioning performed on 10/07/2024. 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 No signs of any cardiomyopathy at this point. Leukocytosis Questionable stenosis/narrowing of the celiac artery based on CT scan of the abdomen. Noted the SMA and FLOWER were grossly patent. Plan Continue vent support No vent changes for today Keep the patient on a combination of propofol and fentanyl, will titrate the fentanyl. Failed extubation on 10/08/2024,The patient was reintubated with on the same day. For now, the patient remains on the mechanical ventilator. Respiratory secretions are obviously an issue impairing the patient's ability to extubate. Keep scopolamine patch every 72 hours Continue IV Zosyn covering for aspiration pneumonia May need another bronchoscopy on next 24 hours Check blood cultures are negative The results of the BAL are negative for any microbial growth Continue enteral feeding for nutritional support Lasix 40 mg IV push x 1 Patient has history of tetralogy of Fallot, and echocardiogram shows a preserved LV function without any significant valvular abnormalities Hemodynamically stable, no pressors Change IV fluids to KVO Neurology consultation Further recommendations are to follow. This is working progress. Condition is critical and the patient will be kept in the intensive care unit. This evaluation was done and 33 minutes. Time with Patient: Greater than 30
[2024-10-10 15:40] LABS: Vitamin B12 >1800.0 pg/mL (200.0-944.0)
--- NOTE | 2024-10-10 16:39 | P.PN ---
Subjective Progress Note Date: 10/10/24 10/10/2024: Patient was seen for a follow-up. Patient continues to be intubated, sedated with propofol 25 mcg/kg/min. Also on fentanyl 0.5 mcg/kg/h. Patient is calm and comfortable on ventilator. No seizure-like activity. 10/09/2024: Patient was reintubated at 7:53 PM last night for worsening respiratory status. Patient currently on propofol 35 mcg/kg/min, also on fentanyl 0.5 mcg/kg/h patient sedated, examination limited. No obvious seizure- like activity. 10/08/2024: Patient was seen for a follow-up. Patient was extubated at 3:30 PM today. She is having a lot of secretions. She was given Dilaudid and doing slightly better. Patient is hearing impaired. Objective - Vital Signs Vital signs: Vital Signs Temp 99.0 F 10/10/24 04:00 Pulse 101 H 10/10/24 11:56 Resp 12 10/10/24 06:00 BP 143/78 10/10/24 06:00 Pulse Ox 99 10/10/24 06:00 FiO2 40 10/10/24 11:50 Intake & Output 10/09/24 10/10/24 10/10/24 18:59 06:59 18:59 Intake Total 710 706.27 Output Total 1035 465 Balance -325 241.27 Weight 46.7 kg Intake: IV 600 240 Piperacillin-Tazobactam 3 100 .375 gm In Sodium Chloride 0.9% 100 ml @ 25 mls/hr IVPB Q8HR [facility] Rx# :[id number] Sodium Chloride 0.9% 500 400 240 ml 500 ml @ 100 mls/hr IV .Q5H [facility] Rx#:[id number] Valproate Sodium 250 mg 100 In Sodium Chloride 0.9% 100 ml @ 100 mls/hr IVPB HS [facility] Rx#:[id number] Intake, IV Titration 142.27 Amount fentaNYL (PF). 1,000 mcg 0 In Sodium Chloride 0.9% 80 ml @ 0.5 MCG/KG/HR 2. 155 mls/hr IV .Q24H [facility] Rx#:[id number] propofoL 1,000 mg In 142.27 Empty Bag 1 bag @ 15 MCG/ KG/MIN 3.878 mls/hr IV . Q24H [facility] Rx#:[id number] Tube Feeding 80 324 Other 30 Output: Urine 1035 465 Other: Voiding Method Indwelling Catheter Indwelling Catheter - Exam On examination patient is reintubated, sedated on propofol and fentanyl. Examination limited, pupils equal, round and gaze midline. Patient does not responding to nailbed pressure. - Labs CBC & Chem 7: 10/10/24 05:42 10/10/24 05:42 Labs: Abnormal Lab Results - Last 24 Hours (Table) 10/10/24 10/10/24 10/10/24 Range/Units 05:23 05:42 05:42 RBC 3.12 L (3.80-5.40) m/uL Hgb 10.5 L (11.4-16.0) gm/dL Hct 33.7 L (34.0-46.0) % MCV 108.1 H (80.0-100.0) fL Macrocytosis Marked A ABG pCO2 48 H (35-45) mmHg ABG HCO3 30 H (21-25) mmol/L ABG Total CO2 31 H (19-24) mmol/L ABG O2 Saturation 98.4 H (94-97) % Hemoglobin 10.6 L (11.4-16.0) gm/dL Creatinine 0.20 L (0.52-1.04) mg/dL Glucose 106 H (74-99) mg/dL POC Glucose (mg/dL) (70-110) mg/dL 10/10/24 Range/Units 11:40 RBC (3.80-5.40) m/uL Hgb (11.4-16.0) gm/dL Hct (34.0-46.0) % MCV (80.0-100.0) fL Macrocytosis ABG pCO2 (35-45) mmHg ABG HCO3 (21-25) mmol/L ABG Total CO2 (19-24) mmol/L ABG O2 Saturation (94-97) % Hemoglobin (11.4-16.0) gm/dL Creatinine (0.52-1.04) mg/dL Glucose (74-99) mg/dL POC Glucose (mg/dL) 155 H (70-110) mg/dL Microbiology - Last 24 Hours (Table) 10/08/24 15:29 Gram Stain - Preliminary Sputum Sputum Culture - Preliminary 10/06/24 02:34 Blood Culture - Preliminary Blood 10/07/24 10:30 Gram Stain - Final Bronchoalviolar Lavage - Left Bronchial Washings Culture - Final Assessment and Plan Assessment: * Altered mental status, likely due to metabolic encephalopathy * Acute respiratory failure on mechanical ventilation. 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 No signs of cardiomyopathy. Plan: * Patient has history of seizure disorder, maintained on multiple antiepileptic medications. * Patient to be continued on her seizure medications including Depakote 500 mg 3 times a day and 250 mg at bedtime, Dilantin chew tab 50 mg twice a day and Dilantin 30 mg extended release at bedtime. Patient also on Keppra 1000 mg twice a day, and zonisamide 100 mg twice a day and 25 mg daily. Continue her seizure medications. Patient not able to receive zonisamide because cannot be given by NG tube. This will be resumed when patient is extubated. If patient needs to be on IV medications, then the oral doses can be switched to the IV form in equivalent doses. * All AED levels are therapeutic. Dilantin 12.1, Depakote 56.2 and Keppra 14.9 (3-60) * If any concern about seizure, I would have low threshold to check an EEG. No clinical seizures noted, or any suspicious seizure-like activity. * Other medical management as per IM, critical care and other specialties on board. * Dr. Miles Nicolas to resume neurology service from Saturday.
[2024-10-10 18:04] LABS: Glucose,Whole Blood 130 mg/dL (70-110)
[2024-10-10] MEDS: PHENYTOIN SODIUM INJ 50 MG/ML 2 ML VIAL IVP SCH (19:59)
[2024-10-11] MEDS: SODIUM CHLORIDE 0.9% 1,000 ML IV SCH (02:37)
[2024-10-11 05:13] LABS: ABG HCO3 34 mmol/L (21-25); ABG Oxygen Saturation 99.3 % (94-97); ABG PCO2 53 mmHg (35-45); ABG PH 7.41 (7.35-7.45); ABG PO2 124 mmHg (83-108); ABG TCO2 36 mmol/L (19-24); Allen Test Performed? Yes
[2024-10-11 06:07] LABS: Basophils % (A) 0 %; Eosinophils # (A) 0.1 k/uL (0-0.7); Eosinophils % (A) 1 %; HCT 31.4 % (34.0-46.0); HGB 9.8 gm/dL (11.4-16.0); Lymphocytes # (A) 1.2 k/uL (1.0-4.8); Lymphocytes % (A) 15 %; MCH 33.6 pg (25.0-35.0); MCHC 31.2 g/dL (31.0-37.0); MCV 107.5 fL (80.0-100.0); Macrocytosis Moderate; Mean Platelet Volume 7.6; Monocytes # (A) 1.1 k/uL (0-1.0); Monocytes % (A) 14 %; Neutrophils # (A) 5.2 k/uL (1.3-7.7); Neutrophils % (A) 66 %; Platelet Count 189 k/uL (150-450); RBC 2.92 m/uL (3.80-5.40); RDW 13.9 % (11.5-15.5); WBC 7.9 k/uL (3.8-10.6)
[2024-10-11 06:14] LABS: African American GFR (CKD) >90 (>60 ml/min/1.73 sqM); Anion Gap 1 mmol/L; Blood Urea Nitrogen 19 mg/dL (7-17); Calcium 8.9 mg/dL (8.4-10.2); Carbon Dioxide 33 mmol/L (22-30); Chloride 104 mmol/L (98-107); Glucose 102 mg/dL (74-99); Non-African American GFR(CKD) >90 (>60 ml/min/1.73 sqM); Potassium 3.8 mmol/L (3.5-5.1); Sodium 138 mmol/L (137-145)
[2024-10-11] MEDS ORDERED: Potassium Replacement Protocol 1 EACH MISC MISCELLANE PRN (06:16)
[2024-10-11] MEDS ORDERED: Magnesium Replacement Protocol 1 EACH MISC MISCELLANE PRN (06:38)
[2024-10-11] MEDS: MAGNESIUM SULFATE-D5W PMX 1 GM in DEXTROSE/WATER 1 100ML.BAG IVPB ONE (06:55)
[2024-10-11] MEDS: POTASSIUM BICARBONATE/CIT AC 20 MEQ TABLET.EFF NG-TUBE SCH (06:56)
--- NOTE | 2024-10-11 08:03 | XR ---
EXAMINATION TYPE: XR chest 1V portable DATE OF EXAM: 10/11/2024 5:17 AM COMPARISON: None. CLINICAL INDICATION: Female, 53 years old with history of intubated, difficulty breathing TECHNIQUE: XR chest 1V portable view(s) obtained. FINDINGS: The heart size is normal. The pulmonary vasculature is normal. Left lower lobe stable infiltrate is present. Correlate for atelectasis or pneumonia. Endotracheal tube tip is 5 cm above the nehemias. Nasogastric tube tips within the left upper quadrant of the abdomen. Right central venous catheter tip is in the distal superior vena cava region. IMPRESSION: 1. Stable left lower lobe infiltrate. Correlate for atelectasis or pneumonia. 2. Lines and catheters discussed above. [facility], , 10/11/2024 8:01 AM
[2024-10-11] MEDS: FUROSEMIDE 10 MG/ML 4 ML VIAL IV STA (09:05)
--- NOTE | 2024-10-11 10:29 | P.PN ---
Subjective Progress Note Date: 10/11/24 This is a 53-year-old female patient who is currently intubated for hypoxemic respiratory failure. The patient has history of cerebral palsy. The patient is nonverbal and deaf. According to the caregivers, guardian, the patient has been declining course over the past 6 months. She has been refusing to eat and her oral intake is dramatically dropped over the past 6 months. She has become more dependent. She currently lives in a fci. The patient was noted to be having worsening shortness of breath and based on ongoing difficulties in breathing she was brought into the emergency department. Apparently, the time of the initial evaluation in the emergency, the patient was sweaty and di aphoretic. Her pulse ox was 80% on room air oxygen as reported by EMS. She was placed on 100% elevated facemask. Apparently, the patient had breakfast and lunch like normal. She did not have dinner on the day of the admission. The patient had been refusing to eat. No reported aspiration by the group product manager. No reported seizure activity. Based on her diminished level of consciousness and ongoing hypoxemic respiratory failure, the patient was intubated in the emergency department and placed on mechanical ventilator. This morning, the patient is on a assist-control mode of mechanical ventilation at rate of 10, tidal volume of 250, FiO2 50% with a PEEP of 5. Blood gases done on 900% FiO2 showed a pH of 7.38 with a pCO2 39 and pO2 of 374. The patient is currently sedated and she is currently on propofol running at 20 mcg/kg/min. No hypotension. She is hemodynamically stable. White cell count is at 15.8 with a hemoglobin of 11 and a platelet count of 181. Sodium levels at 134, potassium level is at 3.5 and the BUN is 14 with a creatinine of 0.2. Serum bicarb is at 21. Troponin was 0.02 and 0.05 and 0.02 respectively x 3. UA was negative. Viral drug screen was negative. Electrolytes were all within normal limits. LFT was also within normal limits. CAT scan of the brain that was done in the emergency department showed limited findings due to motion artifact. No acute intracranial process identified. The patient also had a CT of the chest that showed no evidence of any pulm embolism. Of significance was a dense consolidation involving the entire left lower lobe with complete unspecified lobe. Consider an aspiration left lower lobe pneumonia. No evidence of a aortic dissection. No mediastinal lymphadenopathy. Right lung was essentially clear. Follow-up chest x-ray from this morning shows ongoing consolidation of the left lower lobe. The patient also has a right IJ triple-lumen catheter that was placed in the emergency department. Her current cardiac rhythm is sinus tachycardia. The patient was given a combination of Rocephin and Zithromax in the emergency department. 10/07/2024, the patient is being seen for a follow-up. The patient was hospitalized for an acute hypoxic respiratory failure and a dense left lower lobe pneumonia. This morning, the patient calm and comfortable. Overnight, she encountered some increased restlessness, agitation and asynchrony on mechanical ventilator. Based on that, the patient was started on propofol which is currently running at 35 mcg/kg/min and she is also on fentanyl at 0.5 mcg/kg/h. She remains on a mechanical ventilator, assist-control mode at rate of 20, tidal volume of 350, FiO2 40% with a PEEP of 5. Blood gas showed a pH of 7.49 with a pCO2 31 and pO2 of 92. The patient remains in normal sinus rate of 100 cc an hour. The patient remains on IV Zosyn. Bronchoscopy endobronchial lavage was done. There was significant amount of mucous plugging bilaterally in the lower lobes and therapeutic airway suctioning was done and the BAL of the left lower lobe was done pending further cultures. No seizure activity has been noted. The patient is hemodynamically stable on no pressors. The white cell count is 18.2 with a hemoglobin 12 and a platelet count of 175. Sodium is at 135, potassium is at 3.9, BUN is 9 with a creatinine of 0.2. The toxicology screen for antiepileptics showed a Dilantin level of 12.1 and a valproic acid of 56. Neurology has been consulted. The patient has no noted seizure activity over the past 24 hours. On today's evaluation of 10/08/2024, the patient is being seen for a follow-up. The patient has been intubated with a mechanical ventilator due to left lower lobe pneumonia. She is chronically debilitated. She is deaf and mute. She also has history of cerebral palsy. She had an extensive left lower lobe. 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 This morning, the patient is on propofol running at 35 mcg/kg/min and fentanyl at 0.5 mcg/kg/h. Remains on normal citrate of 100 cc an hour. She remains on a mechanical ventilator. Vent settings are essentially unchanged. The patient is on a assist-control mode at a rate of 20, tidal volume of 350 40% with a PEEP of 5. Blood gas showed a pH of 7.34 with a pCO2 of 45 with a pO2 of 86. The patient is on vital HP at rate of 20 cc an hour. Balance over the past 24 hours has been +2.6. The patient's blood work from today shows a white cell count of 16.7, hemoglobin 10.4 and a platelet count of 150. The sodium is at 137, potassium is at 3 replaced in the follow-up potassium level is at 4, BUN is at 7 with a creatinine of 0.26. Serum bicarb is 24. Magnesium level is at 1.9. The patient remains on IV Zosyn. Hemodynamically stable and the patient is currently on no pressors. No seizure activity and the patient continues to be on antiepileptic medications. On 10/09/2024, the patient is being seen for a follow-up. Noted the patient was weaned off the mechanical ventilator and the patient was extubated yesterday and the patient did well for a few hours. Subsequently, the patient developed difficulties with respiratory secretions and she was unable to maintain patent airways. She was getting more tachycardic and short of breath and tachypneic and she was also desaturating. Few hours following the extubation, the patient was reintubated and placed back on mechanical ventilator. This morning, the patient is on propofol running at 30 mcg/kg/min and fentanyl at 0.5 mcg/kg/h. She is on assist-control mode of mechanical ventilation at rate of 12, tidal volume of 350, FiO2 40% with a PEEP of 5. pH is 7.38 with a pCO2 40 and pO2 119. The follow-up chest x-ray from today shows adequate positioning of the orotracheal tube. There is persistent cardiomegaly and small bilateral pleural effusion. There is also bibasilar pulmonary infiltrates consistent with pneumonia. Respiratory secretions are copious. The patient's white cell count is 18.8. Hemoglobin 10.9 and the platelet count is 884. BUN is at 7 with a c reatinine of 0.22. Sodium is at 140 and a potassium level is at 3.6. Enteral feeding is to be restarted and the patient will be given a scopolamine patch. Remains on IV Zosyn as the patient previous sputum analysis showed Moraxella catarrhalis. The results of the bronchioloalveolar lavage are still pending for now. Hemodynamically stable. The patient is on no pressors. The patient on normal citrate at 100 cc an hour. On 10/10/2024, patient is being seen for a follow-up. This morning, the patient remains sedated on propofol which is running at 25 mcg/kg/min. The patient is also on fentanyl at 0.5 mcg/kg/h., The patient is calm and comfortable on mechanical ventilator and she is on assist-control mode at rate of 12, tidal volume of 350, FiO2 of 40% and PEEP of 5. Blood gas showed a pH of 7.4 with a pCO2 of 48 and pO2 of 103. Chest x-ray shows a persistent consolidation in the lung bases bilaterally. Respiratory secretions improved compared to yesterday. Urine output is adequate and the patient is currently on normal citrate of 20 cc an hour. Fluid balance is +1.4 L over the past 24 hours. The patient is on vital HP at rate of 34 cc an hour and the patient is currently in normal sinus rhythm without any significant hypotension. The patient is on no pressors. The white cell count of 9.5, hemoglobin is 10.5 and a platelet count of 172. BUN is 12 with a creatinine of 0.2. Sodium level is at 138 and a potassium level is at 3.6. Bicarb is at 28. The patient remains on IV Zosyn. No other significant events overnight. 10/11/2024, the patient remains on propofol at 20 mcg and fentanyl at 0.5 mcg. Remains on the mechanical ventilator on assist-control mode at rate of 12, tidal volume of 350, FiO2 of 40% with a PEEP of 5. Blood gas showed pH of 7.41 with a pCO2 of 51 and pO2 of 124. Chest x-ray unchanged with bilateral lower lobe pulmonary infiltrates worse on the left. Orotracheal tube is in good location. No significant secretions. Remains on IV Zosyn. Hemodynamically stable. No pressors. Tolerating enteral feeding for nutritional support, currently on vital HP at rate of 24 cc an hour. White cell count is at 7.9 with a hemoglobin 9.8 and a platelet count of 189. Sodium is at 138, BUN is 19 with a creatinine of 0.19. Potassium level is at 3.8. Objective - Vital Signs Vital signs: Vital Signs Temp 97.8 F 10/11/24 04:00 Pulse 101 H 10/11/24 07:00 Resp 13 10/11/24 07:00 BP 157/75 10/11/24 07:00 Pulse Ox 100 10/11/24 07:00 FiO2 40 10/11/24 06:00 Intake & Output 10/10/24 10/11/24 10/11/24 18:59 06:59 18:59 Intake Total 456.48 561.154 Output Total 850 360 Balance -393.52 201.154 Weight 46.8 kg Intake: IV 100 Piperacillin-Tazobactam 3 100 .375 gm In Sodium Chloride 0.9% 100 ml @ 25 mls/hr IVPB Q8HR [facility] Rx# :[id number] Intake, IV Titration 48.48 291.154 Amount Sodium Chloride 0.9% 1, 200 000 ml @ 20 mls/hr IV . Q24H [facility] Rx#:[id number] Valproate Sodium 580 mg 50 In Sodium Chloride 0.9% 50 ml @ 50 mls/hr IVPB Q8H [facility] Rx#:[id number] propofoL 1,000 mg In 48.48 41.154 Empty Bag 1 bag @ 15 MCG/ KG/MIN 3.878 mls/hr IV . Q24H [facility] Rx#:[id number] Tube Feeding 408 170 Output: Urine 850 360 Other: Voiding Method Indwelling Catheter Indwelling Catheter - Exam The patient appeared well nourished and normally developed. Vital signs as documented. The patient is sedated and calm and comfortable on propofol and fentanyl. Orogastric and orotracheal tube are both in place Head exam is unremarkable. No scleral icterus or corneal arcus noted. Neck is without jugular venous distension, thyromegaly, or carotid bruits. C arotid upstrokes are brisk bilaterally. Lungs are clear to auscultation and percussion. The patient has diminished breath sound the left lung base and the patient has a thoracotomy scar over the anterior chest area Cardiac exam reveals the PMI to be normally sized and situated. Rhythm is regular. First and second heart sounds normal. N the patient has a systolic ejection murmur heard throughout the precordium and the patient has a thoracotomy scar related to previous cardiac surgery. Abdominal exam reveals normal bowel sounds, no masses, no organomegaly and no aortic enlargement. Extremities are nonedematous and both femoral and pedal pulses are normal. Examination of the skin revealed no evidence of significant rashes, suspicious appearing nevi or other concerning lesions. Neurologically, the patient is sedated on propofol. - Labs CBC & Chem 7: 10/11/24 05:10/11/24 05:28 Labs: Abnormal Lab Results - Last 24 Hours (Table) 10/10/24 10/10/24 10/10/24 Range/Units 05:42 11:40 18:02 RBC (3.80-5.40) m/uL Hgb (11.4-16.0) gm/dL Hct (34.0-46.0) % MCV (80.0-100.0) fL Monocytes # (0-1.0) k/uL ABG pCO2 (35-45) mmHg ABG pO2 (83-108) mmHg ABG HCO3 (21-25) mmol/L ABG Total CO2 (19-24) mmol/L ABG O2 Saturation (94-97) % Hemoglobin (11.4-16.0) gm/dL Carbon Dioxide (22-30) mmol/L BUN (7-17) mg/dL Creatinine (0.52-1.04) mg/dL Glucose (74-99) mg/dL POC Glucose (mg/dL) 155 H 130 H (70-110) mg/dL Vitamin B12 >1800.0 H (200.0-944.0) pg/mL 10/11/24 10/11/24 10/11/24 Range/Units 05:11 05:28 05:28 RBC 2.92 L (3.80-5.40) m/uL Hgb 9.8 L (11.4-16.0) gm/dL Hct 31.4 L (34.0-46.0) % MCV 107.5 H (80.0-100.0) fL Monocytes # 1.1 H (0-1.0) k/uL ABG pCO2 53 H (35-45) mmHg ABG pO2 124 H (83-108) mmHg ABG HCO3 34 H (21-25) mmol/L ABG Total CO2 36 H (19-24) mmol/L ABG O2 Saturation 99.3 H (94-97) % Hemoglobin 10.0 L (11.4-16.0) gm/dL Carbon Dioxide 33 H (22-30) mmol/L BUN 19 H (7-17) mg/dL Creatinine 0.19 L (0.52-1.04) mg/dL Glucose 102 H (74-99) mg/dL POC Glucose (mg/dL) (70-110) mg/dL Vitamin B12 (200.0-944.0) pg/mL Microbiology - Last 24 Hours (Table) 10/08/24 15:29 Gram Stain - Final Sputum Sputum Culture - Final Assessment and Plan Plan: Acute hypoxic respiratory failure with dense consolidation of the left lower lobe. Consider aspiration left lower lobe pneumonia. The patient remains intubated on mechanical ventilator. Bronchoscopy was done and copious amount of purulent secretion was noted in lung bases bilaterally more so in the left lower lobe. Therapeutic airway suctioning was done. A BAL of the left lower lobe was done pending cultures. The patient currently is on IV Zosyn. The patient was extubated on 10/08/2024 to be reintubated within a few hours due to difficulties in handling respiratory secretions. She has a weak cough. Continues to have copious respiratory secretions on today's examination. Chest x-ray is also showing lower lobe bilateral pulmonary infiltrates consistent with pneumonia. There is a persistent left lower lobe consolidation. Will give the patient another trial of extubation today. Noted respiratory secretions have improved Acute leukocytosis likely secondary to above, improved and the white cell count is down to 7.9 Left lower lobe pneumonia with extensive consolidation of the left lower lobe, likely secondary to Moraxella catarrhalis. The patient remains on IV Zosyn. The patient is status post bronchoscopy and bronchoalveolar lavage and therapeutic airway suctioning performed on 10/07/2024. 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 No signs of any cardiomyopathy at this point. Leukocytosis Questionable stenosis/narrowing of the celiac artery based on CT scan of the abdomen. Noted the SMA and FLOWER were grossly patent. Plan Sedation holiday, weaning parameters, possible extubation today. Note that the respiratory secretions have improved and the patient may possibly successfully extubated today.. Note that the patient failed extubation on 10/08/2024,The patient was reintubated with on the same day. Respiratory secretions are obviously an issue impairing the patient's ability to extubate. Keep scopolamine patch every 72 hours Continue IV Zosyn covering for aspiration pneumonia Check blood cultures are negative The results of the BAL are negative for any microbial growth Continue enteral feeding for nutritional support Lasix 40 mg IV push x 1 Patient has history of tetralogy of Fallot, and echocardiogram shows a preserved LV function without any significant valvular abnormalities Hemodynamically stable, no pressors Change IV fluids to KVO Neurology consultation Further recommendations are to follow. This is working progress. Condition is critical and the patient will be kept in the intensive care unit. This evaluation was done and 33 minutes. Time with Patient: Greater than 30
--- NOTE | 2024-10-11 10:41 | P.PN ---
Subjective Progress Note Date: 10/11/24 53-year-old female with cerebral palsy, deafness, seizure disorder presenting from her skilled nursing with shortness of breath. Patient was found to be having labored breathing that continued to get worse and the patient beak started to become pale and diaphoretic. EMS arrived and patient's pulse ox was at 80% on room air and she was placed on a nonrebreather and brought to the hospital. Guardian states that she has been on the decline for the past 6 months. She states that the patient has been refusing to eat and her oral intake has dramatically decreased. States that she has become more dependent over the past few months. In the ED she underwent extensive evaluation. T101 F, PA 146, RR 27, BP 181/102, O2 saturation 88% on non-rebreather 15L. CBC, CMP significant for WBC 15.8, RBC 3.23, Hg 11.1, MCV 105.3, Na 134, Cl 108, bicarb 21, Cr 0.24, Ca 7.4, alb 2.3. Mag 1.6. Trop 0.055, 0.028 with EKG showing sinus tachycardia with no ST elevation. Lactic acid 0.8. CXR showed airspace consolidation involving the left lower lobe. Brain CT no acute process. Chest CTA no evidence for PE, dense consolidation of nearly entire left lower lobe. 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 Her respiratory status worsened and she was intubated in the ED and transferred to ICU for further management. Started on Rocephin and Azithromycin, switched to Zosyn for concerns for aspiration PNA. Urine Legionella neg. Phenytoin level 12.1, Valproic acid level 56.2. Venous doppler no DVT. Sputum Cx Moraxella. Echo EF 60%. Extubated on 10/08 but re- intubated later on that day. 10/11 Patient was seen and examined. Sedated with Propofol 20 mcg/kg/min. Paralytic includes Fentanyl at 0.5 mcg/kg/hr. Given Lasix 40 mg IV (10/08, 10/09, 10/10 and 10/11). Antibiotics include Zosyn 3.75 g IV TID (D6). CBC, BMP significant for RBC 2.92, Hg 9.8, Hct 31.4, MCV 107.5, bicarb 33, BUN 19, Cr 0.19, glu 102. Mag 1.9. ABG pH 7.4, pCO2 53, pO2 99.3, FiO2 40%. B12 > 1800, Folate 16.2. TSH 0.84. Sputum Cx Moraxella. BCx and BAL cultures negative. CXR shows L sided infiltrates, ET tube similar to previous CXR. BP 157/75, HR 101, T 97.8F, RR 13. General: Intubated and sedated Derm: warm, dry Head: atraumatic, normocephalic, symmetric, NGT + ETT in place Mouth: no lip lesion, mucus membranes moist Cardiovascular: S1S2 tachy, no murmur Lungs: Coarse BS bilaterally, no rales , no accessory muscle use Ext: no gross muscle atrophy, no edema, no contractures Neuro: Unable to determine Psych: Unable to determine Based on my assessment of this patient, this patient meets a high complexity level of care. Acute hypoxic respiratory failure and severe sepsis secondary to Aspiration PNA: Tylneol 650 mg PO Q6H PRN fever. Zosyn 3.75 g IV TID (D6). DuoNeb QID scheduled and PRN SOB/wheezing. HOB elevation. Aspiration precautions. Sputum Cx Moraxella. BCx and BAL cultures negative. Telemetry monitoring. Pulmonary on board. Macrocytic anemia: Likely dilutional. No signs of active bleeding. B12 > 1800, Folate 16.2. Monitor CBC. Troponin elevation: Likely demand ischemia due to above. Echo as above. Seizure disorder: Depakote 580 mg IV TID. Keppra 1000 mg IV BID. Phenytoin 50 mg IV BID. Zonegran 100 mg PO BID, 25 mg PO QD when able. Neurology on board. Resolved: HypoMag, Lactic acidosis, HypoK Plans for sedation holiday and extubation today. CODE STATUS: FULL CODE. DVT Prophylaxis: Heparin SQ GI Prophylaxis: Protonix Designated medical POA if patient is not able to make medical decisions for themselves: I have reviewed the following clinical program consultant notes: Pulmonary, Neurology note I have reviewed the results of the following tests: CBC, BMP, Mag, ABG, B12, Folate, TSH, BAL Cx, BCx I have ordered the following tests: I have discussed the care of this patient with the following independent historian: NERI I have independently interpreted the following test below: CXR I have discussed the management of this patient with the following physician: Objective - Vital Signs Vital signs: Vital Signs Temp 97.8 F 10/11/24 04:00 Pulse 101 H 10/11/24 07:00 Resp 13 10/11/24 07:00 BP 157/75 10/11/24 07:00 Pulse Ox 100 10/11/24 07:00 FiO2 40 10/11/24 06:00 Intake & Output 10/10/24 10/11/24 10/11/24 18:59 06:59 18:59 Intake Total 456.48 561.154 Output Total 850 360 Balance -393.52 201.154 Weight 46.8 kg Intake: IV 100 Piperacillin-Tazobactam 3 100 .375 gm In Sodium Chloride 0.9% 100 ml @ 25 mls/hr IVPB Q8HR [facility] Rx# :[id number] Intake, IV Titration 48.48 291.154 Amount Sodium Chloride 0.9% 1, 200 000 ml @ 20 mls/hr IV . Q24H [facility] Rx#:[id number] Valproate Sodium 580 mg 50 In Sodium Chloride 0.9% 50 ml @ 50 mls/hr IVPB Q8H [facility] Rx#:[id number] propofoL 1,000 mg In 48.48 41.154 Empty Bag 1 bag @ 15 MCG/ KG/MIN 3.878 mls/hr IV . Q24H [facility] Rx#:[id number] Tube Feeding 408 170 Output: Urine 850 360 Other: Voiding Method Indwelling Catheter Indwelling Catheter - Labs CBC & Chem 7: 10/11/24 05:28 10/11/24 05:28 Labs: Abnormal Lab Results - Last 24 Hours (Table) 10/10/24 10/10/24 10/10/24 Range/Units 05:42 11:40 18:02 RBC (3.80-5.40) m/uL Hgb (11.4-16.0) gm/dL Hct (34.0-46.0) % MCV (80.0-100.0) fL Monocytes # (0-1.0) k/uL ABG pCO2 (35-45) mmHg ABG pO2 (83-108) mmHg ABG HCO3 (21-25) mmol/L ABG Total CO2 (19-24) mmol/L ABG O2 Saturation (94-97) % Hemoglobin (11.4-16.0) gm/dL Carbon Dioxide (22-30) mmol/L BUN (7-17) mg/dL Creatinine (0.52-1.04) mg/dL Glucose (74-99) mg/dL POC Glucose (mg/dL) 155 H 130 H (70-110) mg/dL Vitamin B12 >1800.0 H (200.0-944.0) pg/mL 10/11/24 10/11/24 10/11/24 Range/Units 05:11 05:28 05:28 RBC 2.92 L (3.80-5.40) m/uL Hgb 9.8 L (11.4-16.0) gm/dL Hct 31.4 L (34.0-46.0) % MCV 107.5 H (80.0-100.0) fL Monocytes # 1.1 H (0-1.0) k/uL ABG pCO2 53 H (35-45) mmHg ABG pO2 124 H (83-108) mmHg ABG HCO3 34 H (21-25) mmol/L ABG Total CO2 36 H (19-24) mmol/L ABG O2 Saturation 99.3 H (94-97) % Hemoglobin 10.0 L (11.4-16.0) gm/dL Carbon Dioxide 33 H (22-30) mmol/L BUN 19 H (7-17) mg/dL Creatinine 0.19 L (0.52-1.04) mg/dL Glucose 102 H (74-99) mg/dL POC Glucose (mg/dL) (70-110) mg/dL Vitamin B12 (200.0-944.0) pg/mL Microbiology - Last 24 Hours (Table) 10/08/24 15:29 Gram Stain - Final Sputum Sputum Culture - Final
[2024-10-11 11:58] LABS: Glucose,Whole Blood 100 mg/dL (70-110)
[2024-10-11] MEDS: DEXMEDETOMIDINE/0.9% NACL(PMX) 400 MCG in EMPTY BAG 1 BAG IV SCH (12:37)
--- NOTE | 2024-10-11 15:59 | P.PN ---
Subjective Progress Note Date: 10/11/24 10/11/2024: Patient was seen for a follow-up. Patient continues to be intubated on mechanical ventilation. Patient is currently on Precedex 0.4 mcg/kg/h. Patient was tried on weaning twice but she became tachypneic, therefore put back on sedation. Per nursing report, when sedation was turned off, patient was quite awake, interacting with her caregivers and even signed some paper with her left hand. At present she is back on sedation with Precedex. No seizures reported. 10/10/2024: Patient was seen for a follow-up. Patient continues to be intubated, sedated with propofol 25 mcg/kg/min. Also on fentanyl 0.5 mcg/kg/h. Patient is calm and comfortable on ventilator. No seizure-like activity. 10/09/2024: Patient was reintubated at 7:53 PM last night for worsening respiratory status. Patient currently on propofol 35 mcg/kg/min, also on fentanyl 0.5 mcg/kg/h patient sedated, examination limited. No obvious seizure- like activity. 10/08/2024: Patient was seen for a follow-up. Patient was extubated at 3:30 PM today. She is having a lot of secretions. She was given Dilaudid and doing slightly better. Patient is hearing impaired. Objective - Vital Signs Vital signs: Vital Signs Temp 98.2 F 10/11/24 12:00 Pulse 86 10/11/24 15:53 Resp 13 10/11/24 13:00 BP 139/76 10/11/24 13:00 Pulse Ox 100 10/11/24 13:00 FiO2 40 10/11/24 15:29 Intake & Output 10/10/24 10/11/24 10/11/24 18:59 06:59 18:59 Intake Total 456.48 561.154 586.999 Output Total 497 055 3539 Balance -393.52 201.154 -803.001 Weight 46.8 kg Intake: IV 100 180 Piperacillin-Tazobactam 3 100 100 .375 gm In Sodium Chloride 0.9% 100 ml @ 25 mls/hr IVPB Q8HR [facility] Rx# :[id number] Sodium Chloride 0.9% 1, 80 000 ml @ 20 mls/hr IV . Q24H [facility] Rx#:[id number] Intake, IV Titration 48.48 291.154 112.999 Amount Dexmedetomidine/0.9% NaCl 2.613 (Pmx) 400 mcg In Empty Bag 1 bag @ 0.2 MCG/KG/HR 2.34 mls/hr IV .Q24H [facility] Rx#:[id number] Sodium Chloride 0.9% 1, 200 000 ml @ 20 mls/hr IV . Q24H [facility] Rx#:[id number] Valproate Sodium 580 mg 50 In Sodium Chloride 0.9% 50 ml @ 50 mls/hr IVPB Q8H [facility] Rx#:[id number] fentaNYL (PF). 1,000 mcg 45.83 In Sodium Chloride 0.9% 80 ml @ 0.5 MCG/KG/HR 2. 155 mls/hr IV .Q24H [facility] Rx#:[id number] propofoL 1,000 mg In 48.48 41.154 64.556 Empty Bag 1 bag @ 15 MCG/ KG/MIN 3.878 mls/hr IV . Q24H [facility] Rx#:[id number] Tube Feeding 408 170 204 Other 90 Output: Urine 981 136 8909 Other: Voiding Method Indwelling Catheter Indwelling Catheter Indwelling Catheter - Exam On examination patient is reintubated, sedated Precedex 0.4 mcg/kg/h. Examination limited, pupils equal, round and gaze midline. Exam limited at this time, but per nursing report, refer to above. - Labs CBC & Chem 7: 10/11/24 05:28 10/11/24 05:28 Labs: Abnormal Lab Results - Last 24 Hours (Table) 10/10/24 10/11/24 10/11/24 Range/Units 18:02 05:11 05:28 RBC 2.92 L (3.80-5.40) m/uL Hgb 9.8 L (11.4-16.0) gm/dL Hct 31.4 L (34.0-46.0) % MCV 107.5 H (80.0-100.0) fL Monocytes # 1.1 H (0-1.0) k/uL ABG pCO2 53 H (35-45) mmHg ABG pO2 124 H (83-108) mmHg ABG HCO3 34 H (21-25) mmol/L ABG Total CO2 36 H (19-24) mmol/L ABG O2 Saturation 99.3 H (94-97) % Hemoglobin 10.0 L (11.4-16.0) gm/dL Carbon Dioxide (22-30) mmol/L BUN (7-17) mg/dL Creatinine (0.52-1.04) mg/dL Glucose (74-99) mg/dL POC Glucose (mg/dL) 130 H (70-110) mg/dL 10/11/24 Range/Units 05:28 RBC (3.80-5.40) m/uL Hgb (11.4-16.0) gm/dL Hct (34.0-46.0) % MCV (80.0-100.0) fL Monocytes # (0-1.0) k/uL ABG pCO2 (35-45) mmHg ABG pO2 (83-108) mmHg ABG HCO3 (21-25) mmol/L ABG Total CO2 (19-24) mmol/L ABG O2 Saturation (94-97) % Hemoglobin (11.4-16.0) gm/dL Carbon Dioxide 33 H (22-30) mmol/L BUN 19 H (7-17) mg/dL Creatinine 0.19 L (0.52-1.04) mg/dL Glucose 102 H (74-99) mg/dL POC Glucose (mg/dL) (70-110) mg/dL Microbiology - Last 24 Hours (Table) 10/06/24 02:34 Blood Culture - Final Blood 10/08/24 15:29 Gram Stain - Final Sputum Sputum Culture - Final Assessment and Plan Assessment: * Altered mental status, likely due to metabolic encephalopathy * Acute respiratory failure on mechanical ventilation. 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 No signs of cardiomyopathy. Plan: * Patient has history of seizure disorder, maintained on multiple antiepileptic medications. * Patient to be continued on her seizure medications including Depakote 500 mg 3 times a day and 250 mg at bedtime, Dilantin chew tab 50 mg twice a day and Dilantin 30 mg extended release at bedtime. Patient also on Keppra 1000 mg twice a day, and zonisamide 100 mg twice a day and 25 mg daily. Continue her seizure medications. Patient not able to receive zonisamide because cannot be given by NG tube. This will be resumed when patient is extubated. If patient needs to be on IV medications, then the oral doses can be switched to the IV form in equivalent doses. * All AED levels are therapeutic. Dilantin 12.1, Depakote 56.2 and Keppra 14.9 (3-60) * If any concern about seizure, I would have low threshold to check an EEG. No clinical seizures noted, or any suspicious seizure-like activity. * Other medical management as per IM, critical care and other specialties on board. * Dr. Miles Nicolas to resume neurology service from Saturday morning.
[2024-10-11 17:28] LABS: Glucose,Whole Blood 137 mg/dL (70-110)
[2024-10-12 00:10] LABS: Glucose,Whole Blood 101 mg/dL (70-110)
[2024-10-12] MEDS: FUROSEMIDE 10 MG/ML 4 ML VIAL IV STA ×2 (00:11→23:41)
[2024-10-12 04:46] LABS: ABG Base Excess 13.8 mmol/L; ABG HCO3 39 mmol/L (21-25); ABG Oxygen Saturation 98.8 % (94-97); ABG PCO2 52 mmHg (35-45); ABG PH 7.48 (7.35-7.45); ABG PO2 109 mmHg (83-108); ABG TCO2 41 mmol/L (19-24); Allen Test Performed? Yes
[2024-10-12 05:10] LABS: African American GFR (CKD) >90 (>60 ml/min/1.73 sqM); Anion Gap 1 mmol/L; Blood Urea Nitrogen 21 mg/dL (7-17); Calcium 8.7 mg/dL (8.4-10.2); Carbon Dioxide 36 mmol/L (22-30); Chloride 101 mmol/L (98-107); Glucose 118 mg/dL (74-99); Magnesium 1.9 mg/dL (1.6-2.3); Non-African American GFR(CKD) >90 (>60 ml/min/1.73 sqM); Potassium 3.8 mmol/L (3.5-5.1); Sodium 138 mmol/L (137-145)
[2024-10-12 05:27] LABS: Basophils % (A) 0 %; Eosinophils # (A) 0.1 k/uL (0-0.7); Eosinophils % (A) 1 %; HCT 30.2 % (34.0-46.0); HGB 9.8 gm/dL (11.4-16.0); Hypochromasia Moderate; Lymphocytes # (A) 1.3 k/uL (1.0-4.8); Lymphocytes % (A) 17 %; MCH 34.3 pg (25.0-35.0); MCHC 32.4 g/dL (31.0-37.0); MCV 105.8 fL (80.0-100.0); Macrocytosis Moderate; Mean Platelet Volume 7.3; Monocytes # (A) 1.3 k/uL (0-1.0); Monocytes % (A) 16 %; Neutrophils # (A) 4.8 k/uL (1.3-7.7); Neutrophils % (A) 62 %; Platelet Count 172 k/uL (150-450); RBC 2.86 m/uL (3.80-5.40); RDW 13.4 % (11.5-15.5); WBC 7.7 k/uL (3.8-10.6)
[2024-10-12] MEDS ORDERED: Potassium Replacement Protocol 1 EACH MISC MISCELLANE PRN ×2 (05:59→06:00)
[2024-10-12] MEDS ORDERED: Magnesium Replacement Protocol 1 EACH MISC MISCELLANE PRN (06:00)
[2024-10-12] MEDS: POTASSIUM BICARBONATE/CIT AC 20 MEQ TABLET.EFF NG-TUBE SCH (06:23)
[2024-10-12] MEDS: MAGNESIUM SULFATE-D5W PMX 1 GM in DEXTROSE/WATER 1 100ML.BAG IVPB ONE (06:23)
--- NOTE | 2024-10-12 06:37 | XR ---
EXAMINATION TYPE: XR chest 1V portable DATE OF EXAM: 10/12/2024 CLINICAL INDICATION: Female, 53 years old with history of mechanical ventilation, progress study. TECHNIQUE: Single AP portable semi-upright view of the chest is obtained. COMPARISON: Chest x-ray from one day earlier and older studies. FINDINGS: Stable endotracheal and orogastric tubes. Stable right internal jugular central venous cat heter. Overlying sternal wires and mediastinal clips are redemonstrated. Persistent mild cardiomegaly with left basilar increased opacity. Underlying scoliosis is redemonstra chantelle. IMPRESSION: Persistent mild cardiomegaly with small bilateral pleural effusions. Persistent left lowe r lung acute infiltrate and/or atelectasis. [facility], , 10/12/2024 6:35 AM
[2024-10-12 07:06] LABS: Glucose,Whole Blood 118 mg/dL (70-110)
[2024-10-12] MEDS: DEXMEDETOMIDINE/0.9% NACL(PMX) 400 MCG in EMPTY BAG 1 BAG IV SCH (09:30)
[2024-10-12 11:32] LABS: Glucose,Whole Blood 86 mg/dL (70-110)
[2024-10-12] MEDS: IPRATROPIUM-ALBUTEROL 3 ML NEB INHALATION SCH (11:53)
--- NOTE | 2024-10-12 12:32 | P.PN ---
Subjective Progress Note Date: 10/12/24 Hospital Course: 53-year-old female with cerebral palsy, deafness, seizure disorder presenting from her prison with shortness of breath. Patient was found to be having labored breathing that continued to get worse and the patient beak started to become pale and diaphoretic. EMS arrived and patient's pulse ox was at 80% on room air and she was placed on a nonrebreather and brought to the hospital. Guardian states that she has been on the decline for the past 6 months. She states that the patient has been refusing to eat and her oral intake has dramatically decreased. States that she has become more dependent over the past few months. In the ED she underwent extensive evaluation. T101 F, UT 146, RR 27, BP 181/102, O2 saturation 88% on non-rebreather 15L. CBC, CMP significant fo r WBC 15.8, RBC 3.23, Hg 11.1, MCV 105.3, Na 134, Cl 108, bicarb 21, Cr 0.24, Ca 7.4, alb 2.3. Mag 1.6. Trop 0.055, 0.028 with EKG showing sinus tachycardia with no ST elevation. Lactic acid 0.8. CXR showed airspace consolidation involving the left lower lobe. Brain CT no acute process. Chest CTA no evidence for PE, dense consolidation of nearly entire left lower lobe. 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 Her respiratory status worsened and she was intubated in the ED and transferred to ICU for further management. Started on Rocephin and Azithromycin, switched to Zosyn for concerns for aspiration PNA. Urine Legionella neg. Phenytoin level 12.1, Valproic acid level 56.2. Venous doppler no DVT. Sputum Cx Moraxella. Echo EF 60%. Extubated on 10/08 but re- intubated later on that day. 10/11 failed weaning trial. 10/12: Surgery consulted for trach and PEG, plan to switch from fentanyl and propofol to Precedex. Currently Precedex infusing at 0.2 mcg/kg/h Pertinent Imaging: Chest x-ray, reviewed personally, left lower lung infiltrate/atelectasis unchanged, signs of cardiomegaly Subjective: Intubated and sedated Pertinent positives and negatives as discussed above, a complete review of systems was performed and all other systems are negative. Vitals Signs Reviewed. General: Intubated and sedated Derm: warm, dry Head: atraumatic, normocephalic, symmetric, NGT + ETT in place Mouth: no lip lesion, mucus membranes moist Cardiovascular: S1S2 tachy, no murmur Lungs: Coarse BS bilaterally, no rales , no accessory muscle use Ext: no gross muscle atrophy, no edema, no contractures Neuro: Unable to determine Psych: Unable to determine Data Reviewed Today: Pertinent Labs: Normal WBC, hemoglobin 9.8, platelet count normal, ABG with respiratory alkalosis pH 7.48, pCO2 52, pO2 109, sodium, potassium normal, creatinine 0.2, blood glucoses well-controlled. Assessment and Plan: Acute hypoxic respiratory failure and severe sepsis secondary to aspiration left lower lobe pneumonia s/p extubation failure on 10/25 -Continue Zosyn 3.75 g IV 3 times daily day 7, sputum cultures growing Moraxe lla, blood cultures and BAL cultures negative -Pulmonary/critical care following, appreciate recommendations -Surgery consulted for trach and PEG -Fentanyl and propofol switched to Precedex Microcytic anemia -No signs of active bleeding, hemoglobin stable, B12 more than 1800, folate 16.2, monitor CBC Troponin elevation: Likely demand ischemia due to above. Echo as above. Seizure disorder Cerebral palsy Nonverbal at baseline Impaired hearing Depakote 580 mg IV TID. Keppra 1000 mg IV BID. Phenytoin 50 mg IV BID. Zonegran 100 mg PO BID, 25 mg PO QD when able. Neurology on board. Resolved: HypoMag, Lactic acidosis, HypoK DVT ppx: Heparin subcu Code status: Full code Anticipated discharge place: [facility] Anticipated discharge time: TBD Objective - Vital Signs Vital signs: Vital Signs Temp 97.4 F L 10/12/24 12:10 Pulse 86 10/12/24 12:10 Resp 12 10/12/24 12:10 BP 98/50 10/12/24 12:10 Pulse Ox 97 10/12/24 12:10 FiO2 40 10/12/24 11:46 Intake & Output 10/11/24 10/12/24 10/12/24 18:59 06:59 18:59 Intake Total 864.195 671.213 413.136 Output Total 1530 1330 175 Balance -665.805 -658.787 238.136 Weight 46.2 kg 46.2 kg Intake: IV 280 240 100 Piperacillin-Tazobactam 3 100 .375 gm In Sodium Chloride 0.9% 100 ml @ 25 mls/hr IVPB Q8HR [facility] Rx# :[id number] Sodium Chloride 0.9% 1, 180 240 100 000 ml @ 20 mls/hr IV . Q24H [facility] Rx#:[id number] Intake, IV Titration 120.195 23.213 113.136 Amount Dexmedetomidine/0.9% NaCl 10.723 (Pmx) 400 mcg In Empty Bag 1 bag @ 0.2 MCG/KG/HR 2.31 mls/hr IV .Q24H [facility] Rx#:[id number] Dexmedetomidine/0.9% NaCl 9.809 11.505 (Pmx) 400 mcg In Empty Bag 1 bag @ 0.2 MCG/KG/HR 2.34 mls/hr IV .Q24H [facility] Rx#:[id number] fentaNYL (PF). 1,000 mcg 45.83 10.739 30.774 In Sodium Chloride 0.9% 80 ml @ 0.5 MCG/KG/HR 2. 155 mls/hr IV .Q24H [facility] Rx#:[id number] propofoL 1,000 mg In 64.556 0.969 71.639 Empty Bag 1 bag @ 15 MCG/ KG/MIN 3.878 mls/hr IV . Q24H [facility] Rx#:[id number] Tube Feeding 374 408 170 Other 90 30 Output: Urine 1530 1330 175 Other: Voiding Method Indwelling Catheter Indwelling Catheter - Labs CBC & Chem 7: 10/12/24 04:25 10/12/24 04:25 Labs: Abnormal Lab Results - Last 24 Hours (Table) 10/11/24 10/12/24 10/12/24 Range/Units 17:27 04:25 04:25 RBC 2.86 L (3.80-5.40) m/uL Hgb 9.8 L (11.4-16.0) gm/dL Hct 30.2 L (34.0-46.0) % MCV 105.8 H (80.0-100.0) fL Monocytes # 1.3 H (0-1.0) k/uL ABG pH (7.35-7.45) ABG pCO2 (35-45) mmHg ABG pO2 (83-108) mmHg ABG HCO3 (21-25) mmol/L ABG Total CO2 (19-24) mmol/L ABG O2 Saturation (94-97) % Hemoglobin (11.4-16.0) gm/dL Carbon Dioxide 36 H (22-30) mmol/L BUN 21 H (7-17) mg/dL Creatinine 0.21 L (0.52-1.04) mg/dL Glucose 118 H (74-99) mg/dL POC Glucose (mg/dL) 137 H (70-110) mg/dL 10/12/24 10/12/24 Range/Units 04:45 07:05 RBC (3.80-5.40) m/uL Hgb (11.4-16.0) gm/dL Hct (34.0-46.0) % MCV (80.0-100.0) fL Monocytes # (0-1.0) k/uL ABG pH 7.48 H (7.35-7.45) ABG pCO2 52 H (35-45) mmHg ABG pO2 109 H (83-108) mmHg ABG HCO3 39 H (21-25) mmol/L ABG Total CO2 41 H (19-24) mmol/L ABG O2 Saturation 98.8 H (94-97) % Hemoglobin 9.3 L (11.4-16.0) gm/dL Carbon Dioxide (22-30) mmol/L BUN (7-17) mg/dL Creatinine (0.52-1.04) mg/dL Glucose (74-99) mg/dL POC Glucose (mg/dL) 118 H (70-110) mg/dL Microbiology - Last 24 Hours (Table) 10/06/24 02:34 Blood Culture - Final Blood
--- NOTE | 2024-10-12 13:17 | P.PN ---
Subjective Progress Note Date: 10/12/24 Principal diagnosis: Acute hypoxic respiratory failure with left lower lobe pneumonia, secondary to Moraxella catarrhalis. This is a 53-year-old female patient who is currently intubated for hypoxemic respiratory failure. The patient has history of cerebral palsy. The patient is nonverbal and deaf. According to the caregivers, guardian, the patient has been declining course over the past 6 months. She has been refusing to eat and her oral intake is dramatically dropped over the past 6 months. She has become more dependent. She currently lives in a intermediate. The patient was noted to be having worsening shortness of breath and based on ongoing difficulties in lance athing she was brought into the emergency department. Apparently, the time of the initial evaluation in the emergency, the patient was sweaty and diaphoretic. Her pulse ox was 80% on room air oxygen as reported by EMS. She was placed on 100% elevated facemask. Apparently, the patient had breakfast and lunch like normal. She did not have dinner on the day of the admission. The patient had been refusing to eat. No reported aspiration by the group leader. No reported seizure activity. Based on her diminished level of consciousness and ongoing hypoxemic respiratory failure, the patient was intubated in the emergency department and placed on mechanical ventilator. This morning, the patient is on a assist-control mode of mechanical ventilation at rate of 10, tidal volume of 250, FiO2 50% with a PEEP of 5. Blood gases done on 900% FiO2 showed a pH of 7.38 with a pCO2 39 and pO2 of 374. The patient is currently sedated and she is currently on propofol running at 20 mcg/kg/min. No hypotension. She is hemodynamically stable. White cell count is at 15.8 with a hemoglobin of 11 and a platelet count of 181. Sodium levels at 134, potassium level is at 3.5 and the BUN is 14 with a creatinine of 0.2. Serum bicarb is at 21. Troponin was 0.02 and 0.05 and 0.02 respectively x 3. UA was negative. Viral drug screen was negative. Electrolytes were all within normal limits. LFT was also within normal limits. CAT scan of the brain that was done in the emergency department showed limited findings due to motion artifact. No acute intracranial process identified. The patient also had a CT of the chest that showed no evidence of any pulm embolism. Of significance was a dense consolidation involving the entire left lower lobe with complete unspecified lobe. Consider an aspiration left lower lobe pneumonia. No evidence of a aortic dissection. No mediastinal lymphadenopathy. Right lung was essentially clear. Follow-up chest x-ray from this morning shows ongoing consolidation of the left lower lobe. The patient also has a right IJ triple-lumen catheter that was placed in the emergency department. Her current cardiac rhythm is sinus tachycardia. The patient was given a combination of Rocephin and Zithromax in the emergency department. 10/07/2024, the patient is being seen for a follow-up. The patient was hospitalized for an acute hypoxic respiratory failure and a dense left lower lobe pneumonia. This morning, the patient calm and comfortable. Overnight, she encountered some increased restlessness, agitation and asynchrony on mechanical ventilator. Based on that, the patient was started on propofol which is currently running at 35 mcg/kg/min and she is also on fentanyl at 0.5 mcg/kg/h. She remains on a mechanical ventilator, assist-control mode at rate of 20, tidal volume of 350, FiO2 40% with a PEEP of 5. Blood gas showed a pH of 7.49 with a pCO2 31 and pO2 of 92. The patient remains in normal sinus rate of 100 cc an hour. The patient remains on IV Zosyn. Bronchoscopy endobronchial lavage was done. There was significant amount of mucous plugging bilaterally in the lower lobes and therapeutic airway suctioning was done and the BAL of the left lower lobe was done pending further cultures. No seizure activity has been noted. The patient is hemodynamically stable on no pressors. The white cell count is 18.2 with a hemoglobin 12 and a platelet count of 175. Sodium is at 135, potassium is at 3.9, BUN is 9 with a creatinine of 0.2. The toxicology screen for antiepileptics showed a Dilantin level of 12.1 and a valproic acid of 56. Neurology has been consulted. The patient has no noted seizure activity over the past 24 hours. On today's evaluation of 10/08/2024, the patient is being seen for a follow-up. The patient has been intubated with a mechanical ventilator due to left lower lobe pneumonia. She is chronically debilitated. She is deaf and mute. She also has history of cerebral palsy. She had an extensive left lower lobe. 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 This morning, the patient is on propofol running at 35 mcg/kg/min and fentanyl at 0.5 mcg/kg/h. Remains on normal citrate of 100 cc an hour. She remains on a mechanical ventilator. Vent settings are essentially unchanged. The patient is on a assist-control mode at a rate of 20, tidal volume of 350 40% with a PEEP of 5. Blood gas showed a pH of 7.34 with a pCO2 of 45 with a pO2 of 86. The patient is on vital HP at rate of 20 cc an hour. Balance over the past 24 hours has been +2.6. The patient's blood work from today shows a white cell count of 16.7, hemoglobin 10.4 and a platelet count of 150. The sodium is at 137, potassium is at 3 replaced in the follow-up potassium level is at 4, BUN is at 7 with a creatinine of 0.26. Serum bicarb is 24. Magnesium level is at 1.9. The patient remains on IV Zosyn. Hemodynamically stable and the patient is currently on no pressors. No seizure activity and the patient continues to be on antiepileptic medications. On 10/09/2024, the patient is being seen for a follow-up. Noted the patient was weaned off the mechanical ventilator and the patient was extubated yesterday and the patient did well for a few hours. Subsequently, the patient developed difficulties with respiratory secretions and she was unable to maintain patent airways. She was getting more tachycardic and short of breath and tachypneic and she was also desaturating. Few hours following the extubation, the patient was reintubated and placed back on mechanical ventilator. This morning, the patient is on propofol running at 30 mcg/kg/min and fentanyl at 0.5 mcg/kg/h. She is on assist-control mode of mechanical ventilation at rate of 12, tidal volume of 350, FiO2 40% with a PEEP of 5. pH is 7.38 with a pCO2 40 and pO2 119. The follow-up chest x-ray from today shows adequate positioning of the orotracheal tube. There is persistent cardiomegaly and small bilateral pleural effusion. There is also bibasilar pulmonary infiltrates consistent with pneumonia. Respiratory secretions are copious. The patient's white cell count is 18.8. Hemoglobin 10.9 and the platelet count is 884. BUN is at 7 with a creatinine of 0.22. Sodium is at 140 and a potassium level is at 3.6. Enteral feeding is to be restarted and the patient will be given a scopolamine patch. Remains on IV Zosyn as the patient previous sputum analysis showed Moraxella catarrhalis. The results of the bronchioloalveolar lavage are still pending for now. Hemodynamically stable. The patient is on no pressors. The patient on normal citrate at 100 cc an hour. On 10/10/2024, patient is being seen for a follow-up. This morning, the patient remains sedated on propofol which is running at 25 mcg/kg/min. The patient is also on fentanyl at 0.5 mcg/kg/h., The patient is calm and comfortable on mechanical ventilator and she is on assist-control mode at rate of 12, tidal volume of 350, FiO2 of 40% and PEEP of 5. Blood gas showed a pH of 7.4 with a pCO2 of 48 and pO2 of 103. Chest x-ray shows a persistent consolidation in the lung bases bilaterally. Respiratory secretions improved compared to yesterday. Urine output is adequate and the patient is currently on normal citrate of 20 cc an hour. Fluid balance is +1.4 L over the past 24 hours. The patient is on vital HP at rate of 34 cc an hour and the patient is currently in normal sinus rhythm without any significant hypotension. The patient is on no pressors. The white cell count of 9.5, hemoglobin is 10.5 and a platelet count of 172. BUN is 12 with a creatinine of 0.2. Sodium level is at 138 and a potassium level is at 3.6. Bicarb is at 28. The patient remains on IV Zosyn. No other significant events overnight. 10/11/2024, the patient remains on propofol at 20 mcg and fentanyl at 0.5 mcg. Remains on the mechanical ventilator on assist-control mode at rate of 12, tidal volume of 350, FiO2 of 40% with a PEEP of 5. Blood gas showed pH of 7.41 with a pCO2 of 51 and pO2 of 124. Chest x-ray unchanged with bilateral lower lobe pulmonary infiltrates worse on the left. Orotracheal tube is in good location. No significant secretions. Remains on IV Zosyn. Hemodynamically stable. No pressors. Tolerating enteral feeding for nutritional support, currently on vital HP at rate of 24 cc an hour. White cell count is at 7.9 with a hemoglobin 9.8 and a platelet count of 189. Sodium is at 138, BUN is 19 with a creatinine of 0.19. Potassium level is at 3.8. Patient was seen today on 10/12/2024, remains in the ICU, intubated and mechanically ventilated, patient is failed weaning, she was on Precedex and pressure support and CPAP for about 2 hours, however she became agitated and restless had to be placed back on propofol and fentanyl last night. She is on propofol at 50 mcg/kg/min she is also on fentanyl 1 mcg/kg/h. She is on assist- control rate of 12 tidal volume 350 FiO2 40% PEEP of 5 ABG showed a pO2 of 109 pCO2 52 pH of 7.48. Patient did have an extubation trial on 11/04 but she failed within a matter of hours. She could not clear her secretions. And most likely she will continue to have this problem considering her cerebral palsy patient had bronchoscopy on 10/06 and 10/07, cultures are positive for Moraxella catarrhalis. Hence I am going to give the patient a few more trials of weaning in the meantime I will go ahead and consult general surgery for possible tracheostomy and PEG tube placement. This will have to be cleared through her legal guardian. This will have to be cleared through her legal guardian. ABG today showed a pO2 of 109 pCO2 52 pH of 7.48. Basic metabolic profile is normal bicarb is 36 BUN is 21 creatinine 0.1 chest x-ray continues to show cardiomegaly small bilateral pleural effusions and left lower lobe consolidation with infiltrate and atelectasis. Microbiology showed positive Moraxella catarrhalis in the sputum. Blood cultures have been negative. Antibiotics henao, patient remains on Zosyn. Objective - Vital Signs Vital signs: Vital Signs Temp 97.4 F L 10/12/24 12:10 Pulse 86 10/12/24 12:10 Resp 12 10/12/24 12:10 BP 98/50 10/12/24 12:10 Pulse Ox 97 10/12/24 12:10 FiO2 40 10/12/24 11:46 Intake & Output 04/06/25 04/07/25 04/07/25 18:59 06:59 18:59 Intake Total 864.195 671.213 551.136 Output Total 1530 1330 235 Balance -665.805 -658.787 316.136 Weight 46.2 kg 46.2 kg Intake: IV 280 240 140 Piperacillin-Tazobactam 3 100 .375 gm In Sodium Chloride 0.9% 100 ml @ 25 mls/hr IVPB Q8HR [facility] Rx# :[id number] Sodium Chloride 0.9% 1, 180 240 140 000 ml @ 20 mls/hr IV . Q24H [facility] Rx#:[id number] Intake, IV Titration 120.195 23.213 113.136 Amount Dexmedetomidine/0.9% NaCl 10.723 (Pmx) 400 mcg In Empty Bag 1 bag @ 0.2 MCG/KG/HR 2.31 mls/hr IV .Q24H [facility] Rx#:[id number] Dexmedetomidine/0.9% NaCl 9.809 11.505 (Pmx) 400 mcg In Empty Bag 1 bag @ 0.2 MCG/KG/HR 2.34 mls/hr IV .Q24H [facility] Rx#:[id number] fentaNYL (PF). 1,000 mcg 45.83 10.739 30.774 In Sodium Chloride 0.9% 80 ml @ 0.5 MCG/KG/HR 2. 155 mls/hr IV .Q24H [facility] Rx#:[id number] propofoL 1,000 mg In 64.556 0.969 71.639 Empty Bag 1 bag @ 15 MCG/ KG/MIN 3.878 mls/hr IV . Q24H [facility] Rx#:[id number] Tube Feeding 374 408 238 Other 90 60 Output: Urine 1530 1330 235 Other: Voiding Method Indwelling Catheter Indwelling Catheter - Exam General: Revealed a 53-year-old female, sedated, on propofol, in no distress, intubated and mechanically ventilated. Derm: warm, dry Head: atraumatic, normocephalic, symmetric, NGT + ETT are intact. And in place. EENT: PERRLA, EOMI, nonicteric, no neck masses no JVD Mouth: Moist mucous membranes. Cardiovascular: Distant S1-S2, no S3 gallop, no murmur. Lungs: Crackles and rhonchi noted bilaterally. Ext: No deformities, no contractures, no muscle atrophy Neuro: Unable to assess patient is sedated on propofol and is also on fentanyl Psych: Unable to assess - Labs CBC & Chem 7: 10/12/24 04:25 10/12/24 04:25 Labs: Abnormal Lab Results - Last 24 Hours (Table) 10/11/24 10/12/24 10/12/24 Range/Units 17:27 04:25 04:25 RBC 2.86 L (3.80-5.40) m/uL Hgb 9.8 L (11.4-16.0) gm/dL Hct 30.2 L (34.0-46.0) % MCV 105.8 H (80.0-100.0) fL Monocytes # 1.3 H (0-1.0) k/uL ABG pH (7.35-7.45) ABG pCO2 (35-45) mmHg ABG pO2 (83-108) mmHg ABG HCO3 (21-25) mmol/L ABG Total CO2 (19-24) mmol/L ABG O2 Saturation (94-97) % Hemoglobin (11.4-16.0) gm/dL Carbon Dioxide 36 H (22-30) mmol/L BUN 21 H (7-17) mg/dL Creatinine 0.21 L (0.52-1.04) mg/dL Glucose 118 H (74-99) mg/dL POC Glucose (mg/dL) 137 H (70-110) mg/dL 10/12/24 10/12/24 Range/Units 04:45 07:05 RBC (3.80-5.40) m/uL Hgb (11.4-16.0) gm/dL Hct (34.0-46.0) % MCV (80.0-100.0) fL Monocytes # (0-1.0) k/uL ABG pH 7.48 H (7.35-7.45) ABG pCO2 52 H (35-45) mmHg ABG pO2 109 H (83-108) mmHg ABG HCO3 39 H (21-25) mmol/L ABG Total CO2 41 H (19-24) mmol/L ABG O2 Saturation 98.8 H (94-97) % Hemoglobin 9.3 L (11.4-16.0) gm/dL Carbon Dioxide (22-30) mmol/L BUN (7-17) mg/dL Creatinine (0.52-1.04) mg/dL Glucose (74-99) mg/dL POC Glucose (mg/dL) 118 H (70-110) mg/dL Microbiology - Last 24 Hours (Table) 10/06/24 02:34 Blood Culture - Final Blood Assessment and Plan Assessment: Impression: Acute hypoxic respiratory failure with extensive left lower lobe pneumonia secondary to Moraxella catarrhalis Extensive left lower lobe pneumonia Cerebral palsy Deafness in both ears Nonverbal Limited intellectual functional capacity Seizure disorder on multiple meds for seizures History of Tetralogy of Fallot requiring surgery at young age/cardiac surgery 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 Continue antibiotics/Zosyn Intermittently diurese the patient Continue DVT prophylaxis and GI prophylaxis Continue IV fluids at O Consult surgery for possible tracheostomy and PEG tube placement Patient has multiple comorbidities, she is critically ill, and I doubt if she will wean easily although we will continue to try. Patient remains critically ill. Critical care time is 34 minutes We continue to follow Time with Patient: Greater than 30
--- NOTE | 2024-10-12 14:15 | P.GSCN ---
History of Present Illness Consult date: 10/12/24 History of present illness: CHIEF COMPLAINT: Respiratory failure HISTORY OF PRESENT ILLNESS: This is a 53-year-old female who presented with respiratory failure and pneumonia. She is intubated and on mechanical ventilation in the ICU. Patient has failed her weaning trials. Surgical service has been consulted for tracheostomy and PEG tube placement. Patient does have a history of cerebral palsy and is deaf. Patient has a caregiver and guardian. PAST MEDICAL HISTORY: See below PAST SURGICAL HISTORY: See below MEDICATIONS: See below ALLERGIES: See below SOCIAL HISTORY: No illicit drug use. REVIEW OF SYSTEMS: CONSTITUTIONAL: Denies fever or chills. HEENT: Denies blurred vision, vision changes, or eye pain. Denies hemoptysis CARDIOVASCULAR: Denies chest pain or pressure. RESPIRATORY: No shortness of breath. GASTROINTESTINAL: See HPI for pertinent findings HEMATOLOGIC: Denies bleeding disorders. GENITOURINARY: Denies any blood in urine or increased urinary frequency. SKIN: Denies pruitis. Denies rash. PHYSICAL EXAM: VITAL SIGNS: Reviewed GENERAL: in no acute distress. ABDOMEN: Soft. Nondistended. nontender NEUROLOGIC: intubated and sedated LABORATORY DATA: WBC 7.7 HGB 9.8 plt 172 Na 138 K 3.8 Cr .021 Albumin 2.3 IMAGING: ASSESSMENT: 1. Acute hypoxic respiratory failure and difficult to wean from vent 2. Pneumonia 3. Severe protein calorie malnutrition PLAN: - Patient scheduled for tracheostomy and PEG tube placement tomorrow with Dr. Navarrete - Hold tube feedings after midnight and hold subcu heparin in a.m. Physician Able Bodied Seaman note has been reviewed by physician. Signing provider agrees with the documented findings, assessment, and plan of care. I have personally seen and examined the patient, reviewed the PESTICIDE CHEMIST /PAs history, exam and MDM and agree with the assessment and plan as written. Based on total visit time, I have performed more than 50% of the visit. As above: Patient remains ventilated. Medical history reviewed. Will schedule tentatively for tracheostomy and PEG tube placement tomorrow if consent obtained. Past Medical History Past Medical History: Seizure Disorder Additional Past Medical History / Comment(s): does use sign language, HX OF CEREBRAL PALSY, AMBULATORY, borderline intellectual functioning, idiopatic ep ilepsy, deaf, non-speaking, RT LEG AFO BRACE, hx of tetralogy of fallot History of Any Multi-Drug Resistant Organisms: None Reported Past Surgical History: Unable to Obtain Additional Past Surgical History / Comment(s): HEART SX Past Anesthesia/Blood Transfusion Reactions: Unable to Obtain Past Psychological History: ADD/ADHD Past Alcohol Use History: None Reported Past Drug Use History: None Reported Medications and Allergies Home Medications Medication Instructions Recorded Confirmed Type Divalproex [Depakote] 250 mg PO HS 02/23/16 10/06/24 History Divalproex [Depakote] 500 mg PO TID 02/23/16 10/06/24 History Multivitamins, Thera [Multivitamin] 1 tab PO HS 02/23/16 10/06/24 History Phenytoin [Dilantin Chew] 50 mg PO BID 02/23/16 10/06/24 History Zonisamide [Zonegran] 25 mg PO DAILY@1500 02/23/16 10/06/24 History Zonisamide [Zonegran] 100 mg PO BID 02/23/16 10/06/24 History levETIRAcetam [Keppra] 1,000 mg PO BID 02/23/16 10/06/24 History Acetaminophen [Tylenol] 650 mg PO Q4-6H PRN 10/06/24 10/06/24 History Boost Vhc 0.9gm-2.25kcal/Ml Oral 237 ml PO BID 10/06/24 10/06/24 History Dextroamphetamine/Amphetamine 5 mg PO BID 10/06/24 10/06/24 History [Adderall] Loperamide [Imodium] 1 dose PO DIRECTED PRN 10/06/24 10/06/24 History Magnesium Hydroxide [Milk of 1 dose PO DIRECTED PRN 10/06/24 10/06/24 History Magnesia] Midazolam [Nayzilam] 1 spray NASAL DIRECTED PRN 10/06/24 10/06/24 History Bylkizkv-Mipznippot-Dcuo Oint 1 applic TOPICAL DIRECTED PRN 10/06/24 10/06/24 History [Triple Antibiotic Ointment] OLANZapine [ZyPREXA] 5 mg PO HS 10/06/24 10/06/24 History Phenytoin Sodium Extended 30 mg PO HS 10/06/24 10/06/24 History [Dilantin] Sennosides-Docusate Sodium 1 tab PO BID 10/06/24 10/06/24 History [Senokot-S] guaiFENesin SYRUP 100MG/5ML 1 dose PO DIRECTED PRN 10/06/24 10/06/24 History [Robitussin] Allergies Allergy/AdvReac Type Severity Reaction Status Date / Time aspartame Allergy Unknown Verified 10/06/24 07:32 [From Nutrasweet Aspartame] aspirin Allergy Unknown Verified 10/06/24 07:32 ibuprofen Allergy Unknown Verified 10/06/24 07:32 NSAIDS (Non-Steroidal Allergy Unknown Verified 10/06/24 07:32 Anti-Inflamma phenylalanine Allergy Unknown Verified 10/06/24 07:32 artificial sweetners Allergy Unknown Uncoded 10/06/24 07:32 Surgical - Exam Vital Signs Temp Pulse Resp BP Pulse Ox 101 F H 146 H 27 H 181/102 88 L 10/06/24 01:59 10/06/24 01:59 10/06/24 01:59 10/06/24 01:59 10/06/24 01:59 Results - Labs 10/12/24 04:25 10/12/24 04:25 Abnormal Lab Results - Last 24 Hours (Table) 10/11/24 10/12/24 10/12/24 Range/Units 17:27 04:25 04:25 RBC 2.86 L (3.80-5.40) m/uL Hgb 9.8 L (11.4-16.0) gm/dL Hct 30.2 L (34.0-46.0) % MCV 105.8 H (80.0-100.0) fL Monocytes # 1.3 H (0-1.0) k/uL ABG pH (7.35-7.45) ABG pCO2 (35-45) mmHg ABG pO2 (83-108) mmHg ABG HCO3 (21-25) mmol/L ABG Total CO2 (19-24) mmol/L ABG O2 Saturation (94-97) % Hemoglobin (11.4-16.0) gm/dL Carbon Dioxide 36 H (22-30) mmol/L BUN 21 H (7-17) mg/dL Creatinine 0.21 L (0.52-1.04) mg/dL Glucose 118 H (74-99) mg/dL POC Glucose (mg/dL) 137 H (70-110) mg/dL 10/12/24 10/12/24 Range/Units 04:45 07:05 RBC (3.80-5.40) m/uL Hgb (11.4-16.0) gm/dL Hct (34.0-46.0) % MCV (80.0-100.0) fL Monocytes # (0-1.0) k/uL ABG pH 7.48 H (7.35-7.45) ABG pCO2 52 H (35-45) mmHg ABG pO2 109 H (83-108) mmHg ABG HCO3 39 H (21-25) mmol/L ABG Total CO2 41 H (19-24) mmol/L ABG O2 Saturation 98.8 H (94-97) % Hemoglobin 9.3 L (11.4-16.0) gm/dL Carbon Dioxide (22-30) mmol/L BUN (7-17) mg/dL Creatinine (0.52-1.04) mg/dL Glucose (74-99) mg/dL POC Glucose (mg/dL) 118 H (70-110) mg/dL Microbiology - Last 24 Hours (Table) 10/06/24 02:34 Blood Culture - Final Blood Diabetes panel 10/12/24 Range/Units 04:25 Sodium 138 (137-145) mmol/L Potassium 3.8 (3.5-5.1) mmol/L Chloride 101 (98-107) mmol/L Carbon Dioxide 36 H (22-30) mmol/L BUN 21 H (7-17) mg/dL Creatinine 0.21 L (0.52-1.04) mg/dL Glucose 118 H (74-99) mg/dL Calcium 8.7 (8.4-10.2) mg/dL Calcium panel 10/12/24 Range/Units 04:25 Calcium 8.7 (8.4-10.2) mg/dL Pituitary panel 10/12/24 Range/Units 04:25 Sodium 138 (137-145) mmol/L Potassium 3.8 (3.5-5.1) mmol/L Chloride 101 (98-107) mmol/L Carbon Dioxide 36 H (22-30) mmol/L BUN 21 H (7-17) mg/dL Creatinine 0.21 L (0.52-1.04) mg/dL Glucose 118 H (74-99) mg/dL Calcium 8.7 (8.4-10.2) mg/dL Adrenal panel 10/12/24 Range/Units 04:25 Sodium 138 (137-145) mmol/L Potassium 3.8 (3.5-5.1) mmol/L Chloride 101 (98-107) mmol/L Carbon Dioxide 36 H (22-30) mmol/L BUN 21 H (7-17) mg/dL Creatinine 0.21 L (0.52-1.04) mg/dL Glucose 118 H (74-99) mg/dL Calcium 8.7 (8.4-10.2) mg/dL
[2024-10-12 23:15] LABS: Glucose,Whole Blood 93 mg/dL (70-110)
[2024-10-13 05:26] LABS: ABG Base Excess 12.5 mmol/L; ABG HCO3 37 mmol/L (21-25); ABG Oxygen Saturation 98.3 % (94-97); ABG PCO2 49 mmHg (35-45); ABG PH 7.49 (7.35-7.45); ABG PO2 97 mmHg (83-108); ABG TCO2 39 mmol/L (19-24); Allen Test Performed? Yes
[2024-10-13 05:58] LABS: Glucose,Whole Blood 116 mg/dL (70-110)
[2024-10-13 06:23] LABS: HGB 10.7 g/dL (12.0-15.0); MCH 35.7 pg (27.0-32.0); MCHC 33.4 g/dL (32.0-37.0); MCV 106.7 fL (80.0-97.0); Mean Platelet Volume 9.3 fL (9.5-12.2); Platelet Count 211 10*3/uL (140-440); RDW 13.4 % (11.5-14.5); WBC 10.89 10*3/uL (4.50-10.00)
[2024-10-13 06:25] LABS: African American GFR (CKD) >90 (>60 ml/min/1.73 sqM); Anion Gap 4 mmol/L; Blood Urea Nitrogen 20 mg/dL (7-17); Calcium 9.2 mg/dL (8.4-10.2); Carbon Dioxide 35 mmol/L (22-30); Chloride 99 mmol/L (98-107); Glucose 126 mg/dL (74-99); Non-African American GFR(CKD) >90 (>60 ml/min/1.73 sqM); Potassium 3.8 mmol/L (3.5-5.1); Sodium 138 mmol/L (137-145)
[2024-10-13] MEDS: POTASSIUM BICARBONATE/CIT AC 20 MEQ TABLET.EFF NG-TUBE SCH (06:38)
--- NOTE | 2024-10-13 07:51 | XR ---
EXAMINATION TYPE: XR chest 1V portable DATE OF EXAM: 10/13/2024 CLINICAL INDICATION: Female, 53 years old with history of mechanical ventilation, progress study. TECHNIQUE: Single AP portable semi-upright view of the chest is obtained. COMPARISON: Chest x-ray from one day earlier and older studies. FINDINGS: Stable endotracheal and orogastric tubes. Stable right internal jugular central venous cat heter. Overlying sternal wires and mediastinal clips are redemonstrated. Persistent mild cardiomegaly with left lower lung increased opacity. Osseous structures are. IMPRESSION: Persistent mild cardiomegaly with small bilateral pleural effusions and new central vascu lar congestion. Findings suggest worsening CHF exacerbation/fluid overload state. Correlate clinicall y. There is underlying left lower lung acute infiltrate and/or atelectasis also noted. [facility], , 10/13/2024 7:49 AM
[2024-10-13 08:21] LABS: Band Neutrophils % 6 %; Eosinophils # (M) 0.11 k/uL (0-0.7); Lymphocytes # (M) 1.31 k/uL (1.0-4.8); Metamyelocytes # (M) 0.33 k/uL (0); Metamyelocytes % 3 %; Monocytes # (M) 1.74 k/uL (0-1.0); Myelocytes # (M) 0.33 k/uL (0); Myelocytes % 3 %; Neutrophils # (M) 7.29 k/uL (1.3-7.7); Neutrophils % (M) 61 %; Nucleated Red Blood Cells 0 /100 WBC (0-0); Total Cells Counted 200
[2024-10-13 08:22] LABS: Anisocytosis (M) Present; Poikilocytosis (M) Present
--- NOTE | 2024-10-13 11:05 | P.PN ---
Subjective Progress Note Date: 10/13/24 Hospital Course: 53-year-old female with cerebral palsy, deafness, seizure disorder presenting from her senior care with shortness of breath. Patient was found to be having labored breathing that continued to get worse and the patient beak started to become pale and diaphoretic. EMS arrived and patient's pulse ox was at 80% on room air and she was placed on a nonrebreather and brought to the hospital. Guardian states that she has been on the decline for the past 6 months. She states that the patient has been refusing to eat and her oral intake has dramatically decreased. States that she has become more dependent over the past few months. In the ED she underwent extensive evaluation. T101 F, NE 146, RR 27, BP 181/102, O2 saturation 88% on non-rebreather 15L. CBC, CMP significant fo r WBC 15.8, RBC 3.23, Hg 11.1, MCV 105.3, Na 134, Cl 108, bicarb 21, Cr 0.24, Ca 7.4, alb 2.3. Mag 1.6. Trop 0.055, 0.028 with EKG showing sinus tachycardia with no ST elevation. Lactic acid 0.8. CXR showed airspace consolidation involving the left lower lobe. Brain CT no acute process. Chest CTA no evidence for PE, dense consolidation of nearly entire left lower lobe. 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 Her respiratory status worsened and she was intubated in the ED and transferred to ICU for further management. Started on Rocephin and Azithromycin, switched to Zosyn for concerns for aspiration PNA. Urine Legionella neg. Phenytoin level 12.1, Valproic acid level 56.2. Venous doppler no DVT. Sputum Cx Moraxella. Echo EF 60%. Extubated on 10/08 but re- intubated later on that day. 10/11 failed weaning trial. 7Contacted legal guardian [phone], updated on patient's current health condition, clinical progress, inability to wean off from ventilator, failed extubation. As was suggested by pulm crit, we discussed possible placement of PEG tube and tracheostomy versus comfort measures only. At this moment, the legal guardian cannot make final decision and could not consent for surgery. In order to change CODE STATUS, a court order needs to be obtained. In summary, this is a 53-year-old lady with profound underlying disability due to cerebral palsy, nonverbal, dependent for ADLs, failed trials of extubation, ventilatory weaning, remains ventilator dependent. Given her poor premorbid status, limited physiologic reserve, high likelihood of recurrent aspiration, her prognosis for meaningful recovery for return to prehospital baseline is poor. 10/13 discussed with RN, per legal guardian the plan is to obtain court order for code status change, no PEG or Trach Pertinent Imaging: Chest x-ray, reviewed personally, left lower lung infiltrate/atelectasis unchanged, right lower lobe atelectasis Subjective: Intubated and sedated Pertinent positives and negatives as discussed above, a complete review of systems was performed and all other systems are negative. Vitals Signs Reviewed. General: Intubated and sedated Derm: warm, dry Head: atraumatic, normocephalic, symmetric, NGT + ETT in place Mouth: no lip lesion, mucus membranes moist Cardiovascular: S1S2 tachy, no murmur Lungs: Coarse BS bilaterally, no rales , no accessory muscle use Ext: no gross muscle atrophy, no edema, no contractures Neuro: Unable to determine Psych: Unable to determine Data Reviewed Today: Pertinent Labs: WBC 10.8, hemoglobin 10.7, platelet count 211, ABG with pH of 7.49, pCO2 49, pO2 97, sodium and potassium normal, bicarb 35, creatinine 0.18, blood glucose is controlled, magnesium 2.0 Assessment and Plan: Acute hypoxic respiratory failure and severe sepsis secondary to aspiration left lower lobe pneumonia s/p extubation failure on 10/25 -Continue Zosyn 3.75 g IV 3 times daily day 8, sputum cultures growing Moraxella, blood cultures and BAL cultures negative -Pulmonary/critical care following, appreciate recommendations -Surgery consulted for trach and PEG, currently pending, like her guardian is working on obtaining court order for CODE STATUS change and eventually plan for [employer] Microcytic anemia -No signs of active bleeding, hemoglobin stable, B12 more than 1800, folate 16.2, monitor CBC Troponin elevation: Likely demand ischemia due to above. Echo as above. Seizure disorder Cerebral palsy Nonverbal at baseline Impaired hearing Depakote 580 mg IV TID. Keppra 1000 mg IV BID. Phenytoin 50 mg IV BID. Zonegran 100 mg PO BID, 25 mg PO QD when able. Neurology on board. Resolved: HypoMag, Lactic acidosis, HypoK DVT ppx: Heparin subcu Code status: Full code Anticipated discharge place: TBD Anticipated discharge time: TBD Objective - Vital Signs Vital signs: Vital Signs Temp 99.8 F H 10/13/24 08:00 Pulse 101 H 10/13/24 11:00 Resp 12 10/13/24 11:00 BP 133/68 10/13/24 11:00 Pulse Ox 98 10/13/24 11:00 FiO2 40 10/13/24 08:00 Intake & Output 10/12/24 10/13/24 10/13/24 18:59 06:59 18:59 Intake Total 976.819 900.527 230.371 Output Total 355 1130 175 Balance 621.819 -229.473 55.371 Weight 46.2 kg 46.8 kg Intake: IV 340 340 60 Piperacillin-Tazobactam 3 100 100 .375 gm In Sodium Chloride 0.9% 100 ml @ 25 mls/hr IVPB Q8HR [facility] Rx# :[id number] Sodium Chloride 0.9% 1, 240 240 60 000 ml @ 20 mls/hr IV . Q24H [facility] Rx#:[id number] Intake, IV Titration 138.819 62.527 72.371 Amount Dexmedetomidine/0.9% NaCl 18.847 (Pmx) 400 mcg In Empty Bag 1 bag @ 0.2 MCG/KG/HR 2.31 mls/hr IV .Q24H [facility] Rx#:[id number] fentaNYL (PF). 1,000 mcg 30.774 In Sodium Chloride 0.9% 80 ml @ 0.5 MCG/KG/HR 2. 155 mls/hr IV .Q24H [facility] Rx#:[id number] propofoL 1,000 mg In 89.198 62.527 72.371 Empty Bag 1 bag @ 15 MCG/ KG/MIN 3.878 mls/hr IV . Q24H [facility] Rx#:[id number] Tube Feeding 408 408 68 Other 90 90 30 Output: Urine 355 1130 175 Other: Voiding Method Indwelling Catheter Indwelling Catheter - Labs CBC & Chem 7: 10/13/24 05:13 10/13/24 05:13 Labs: Abnormal Lab Results - Last 24 Hours (Table) 10/13/24 10/13/24 10/13/24 Range/Units 05:13 05:13 05:16 WBC 10.89 H (4.50-10.00) 10*3/uL RBC 3.00 L (4.10-5.20) 10*6/uL Hgb 10.7 L (12.0-15.0) g/dL Hct 32.0 L (37.2-46.3) % MCV 106.7 H (80.0-97.0) fL MCH 35.7 H (27.0-32.0) pg MPV 9.3 L (9.5-12.2) fL Immature Gran # 0.63 H (0.00-0.04) 10*3/uL Monocytes # (Manual) 1.74 H (0-1.0) k/uL Metamyelocytes # (Man) 0.33 H (0) k/uL Myelocytes # (Manual) 0.33 H (0) k/uL ABG pH 7.49 H (7.35-7.45) ABG pCO2 49 H (35-45) mmHg ABG HCO3 37 H (21-25) mmol/L ABG Total CO2 39 H (19-24) mmol/L ABG O2 Saturation 98.3 H (94-97) % Hemoglobin 10.5 L (11.4-16.0) gm/dL Carbon Dioxide 35 H (22-30) mmol/L BUN 20 H (7-17) mg/dL Creatinine 0.18 L (0.52-1.04) mg/dL Glucose 126 H (74-99) mg/dL POC Glucose (mg/dL) (70-110) mg/dL 10/13/24 Range/Units 05:57 WBC (4.50-10.00) 10*3/uL RBC (4.10-5.20) 10*6/uL Hgb (12.0-15.0) g/dL Hct (37.2-46.3) % MCV (80.0-97.0) fL MCH (27.0-32.0) pg MPV (9.5-12.2) fL Immature Gran # (0.00-0.04) 10*3/uL Monocytes # (Manual) (0-1.0) k/uL Metamyelocytes # (Man) (0) k/uL Myelocytes # (Manual) (0) k/uL ABG pH (7.35-7.45) ABG pCO2 (35-45) mmHg ABG HCO3 (21-25) mmol/L ABG Total CO2 (19-24) mmol/L ABG O2 Saturation (94-97) % Hemoglobin (11.4-16.0) gm/dL Carbon Dioxide (22-30) mmol/L BUN (7-17) mg/dL Creatinine (0.52-1.04) mg/dL Glucose (74-99) mg/dL POC Glucose (mg/dL) 116 H (70-110) mg/dL
--- NOTE | 2024-10-13 12:04 | P.PN ---
Subjective Progress Note Date: 10/13/24 Principal diagnosis: Acute hypoxic respiratory failure with left lower lobe pneumonia, secondary to Moraxella catarrhalis. This is a 53-year-old female patient who is currently intubated for hypoxemic respiratory failure. The patient has history of cerebral palsy. The patient is nonverbal and deaf. According to the caregivers, guardian, the patient has been declining course over the past 6 months. She has been refusing to eat and her oral intake is dramatically dropped over the past 6 months. She has become more dependent. She currently [facility] a jail. The patient was noted to be having worsening shortness of breath and based on ongoing difficulties in lance athing she was brought into the emergency department. Apparently, the time of the initial evaluation in the emergency, the patient was sweaty and diaphoretic. Her pulse ox was 80% on room air oxygen as reported by EMS. She was placed on 100% elevated facemask. Apparently, the patient had breakfast and lunch like normal. She did not have dinner on the day of the admission. The patient had been refusing to eat. No reported aspiration by the public affairs manager. No reported seizure activity. Based on her diminished level of consciousness and ongoing hypoxemic respiratory failure, the patient was intubated in the emergency department and placed on mechanical ventilator. This morning, the patient is on a assist-control mode of mechanical ventilation at rate of 10, tidal volume of 250, FiO2 50% with a PEEP of 5. Blood gases done on 900% FiO2 showed a pH of 7.38 with a pCO2 39 and pO2 of 374. The patient is currently sedated and she is currently on propofol running at 20 mcg/kg/min. No hypotension. She is hemodynamically stable. White cell count is at 15.8 with a hemoglobin of 11 and a platelet count of 181. Sodium levels at 134, potassium level is at 3.5 and the BUN is 14 with a creatinine of 0.2. Serum bicarb is at 21. Troponin was 0.02 and 0.05 and 0.02 respectively x 3. UA was negative. Viral drug screen was negative. Electrolytes were all within normal limits. LFT was also within normal limits. CAT scan of the brain that was done in the emergency department showed limited findings due to motion artifact. No acute intracranial process identified. The patient also had a CT of the chest that showed no evidence of any pulm embolism. Of significance was a dense consolidation involving the entire left lower lobe with complete unspecified lobe. Consider an aspiration left lower lobe pneumonia. No evidence of a aortic dissection. No mediastinal lymphadenopathy. Right lung was essentially clear. Follow-up chest x-ray from this morning shows ongoing consolidation of the left lower lobe. The patient also has a right IJ triple-lumen catheter that was placed in the emergency department. Her current cardiac rhythm is sinus tachycardia. The patient was given a combination of Rocephin and Zithromax in the emergency department. 10/07/2024, the patient is being seen for a follow-up. The patient was hospitalized for an acute hypoxic respiratory failure and a dense left lower lobe pneumonia. This morning, the patient calm and comfortable. Overnight, she encountered some increased restlessness, agitation and asynchrony on mechanical ventilator. Based on that, the patient was started on propofol which is currently running at 35 mcg/kg/min and she is also on fentanyl at 0.5 mcg/kg/h. She remains on a mechanical ventilator, assist-control mode at rate of 20, tidal volume of 350, FiO2 40% with a PEEP of 5. Blood gas showed a pH of 7.49 with a pCO2 31 and pO2 of 92. The patient remains in normal sinus rate of 100 cc an hour. The patient remains on IV Zosyn. Bronchoscopy endobronchial lavage was done. There was significant amount of mucous plugging bilaterally in the lower lobes and therapeutic airway suctioning was done and the BAL of the left lower lobe was done pending further cultures. No seizure activity has been noted. The patient is hemodynamically stable on no pressors. The white cell count is 18.2 with a hemoglobin 12 and a platelet count of 175. Sodium is at 135, potassium is at 3.9, BUN is 9 with a creatinine of 0.2. The toxicology screen for antiepileptics showed a Dilantin level of 12.1 and a valproic acid of 56. Neurology has been consulted. The patient has no noted seizure activity over the past 24 hours. On today's evaluation of 10/08/2024, the patient is being seen for a follow-up. The patient has been intubated with a mechanical ventilator due to left lower lobe pneumonia. She is chronically debilitated. She is deaf and mute. She also has history of cerebral palsy. She had an extensive left lower lobe. 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 This morning, the patient is on propofol running at 35 mcg/kg/min and fentanyl at 0.5 mcg/kg/h. Remains on normal citrate of 100 cc an hour. She remains on a mechanical ventilator. Vent settings are essentially unchanged. The patient is on a assist-control mode at a rate of 20, tidal volume of 350 40% with a PEEP of 5. Blood gas showed a pH of 7.34 with a pCO2 of 45 with a pO2 of 86. The patient is on vital HP at rate of 20 cc an hour. Balance over the past 24 hours has been +2.6. The patient's blood work from today shows a white cell count of 16.7, hemoglobin 10.4 and a platelet count of 150. The sodium is at 137, potassium is at 3 replaced in the follow-up potassium level is at 4, BUN is at 7 with a creatinine of 0.26. Serum bicarb is 24. Magnesium level is at 1.9. The patient remains on IV Zosyn. Hemodynamically stable and the patient is currently on no pressors. No seizure activity and the patient continues to be on antiepileptic medications. On 10/09/2024, the patient is being seen for a follow-up. Noted the patient was weaned off the mechanical ventilator and the patient was extubated yesterday and the patient did well for a few hours. Subsequently, the patient developed difficulties with respiratory secretions and she was unable to maintain patent airways. She was getting more tachycardic and short of breath and tachypneic and she was also desaturating. Few hours following the extubation, the patient was reintubated and placed back on mechanical ventilator. This morning, the patient is on propofol running at 30 mcg/kg/min and fentanyl at 0.5 mcg/kg/h. She is on assist-control mode of mechanical ventilation at rate of 12, tidal volume of 350, FiO2 40% with a PEEP of 5. pH is 7.38 with a pCO2 40 and pO2 119. The follow-up chest x-ray from today shows adequate positioning of the orotracheal tube. There is persistent cardiomegaly and small bilateral pleural effusion. There is also bibasilar pulmonary infiltrates consistent with pneumonia. Respiratory secretions are copious. The patient's white cell count is 18.8. Hemoglobin 10.9 and the platelet count is 884. BUN is at 7 with a creatinine of 0.22. Sodium is at 140 and a potassium level is at 3.6. Enteral feeding is to be restarted and the patient will be given a scopolamine patch. Remains on IV Zosyn as the patient previous sputum analysis showed Moraxella catarrhalis. The results of the bronchioloalveolar lavage are still pending for now. Hemodynamically stable. The patient is on no pressors. The patient on normal citrate at 100 cc an hour. On 10/10/2024, patient is being seen for a follow-up. This morning, the patient remains sedated on propofol which is running at 25 mcg/kg/min. The patient is also on fentanyl at 0.5 mcg/kg/h., The patient is calm and comfortable on mechanical ventilator and she is on assist-control mode at rate of 12, tidal volume of 350, FiO2 of 40% and PEEP of 5. Blood gas showed a pH of 7.4 with a pCO2 of 48 and pO2 of 103. Chest x-ray shows a persistent consolidation in the lung bases bilaterally. Respiratory secretions improved compared to yesterday. Urine output is adequate and the patient is currently on normal citrate of 20 cc an hour. Fluid balance is +1.4 L over the past 24 hours. The patient is on vital HP at rate of 34 cc an hour and the patient is currently in normal sinus rhythm without any significant hypotension. The patient is on no pressors. The white cell count of 9.5, hemoglobin is 10.5 and a platelet count of 172. BUN is 12 with a creatinine of 0.2. Sodium level is at 138 and a potassium level is at 3.6. Bicarb is at 28. The patient remains on IV Zosyn. No other significant events overnight. 10/11/2024, the patient remains on propofol at 20 mcg and fentanyl at 0.5 mcg. Remains on the mechanical ventilator on assist-control mode at rate of 12, tidal volume of 350, FiO2 of 40% with a PEEP of 5. Blood gas showed pH of 7.41 with a pCO2 of 51 and pO2 of 124. Chest x-ray unchanged with bilateral lower lobe pulmonary infiltrates worse on the left. Orotracheal tube is in good location. No significant secretions. Remains on IV Zosyn. Hemodynamically stable. No pressors. Tolerating enteral feeding for nutritional support, currently on vital HP at rate of 24 cc an hour. White cell count is at 7.9 with a hemoglobin 9.8 and a platelet count of 189. Sodium is at 138, BUN is 19 with a creatinine of 0.19. Potassium level is at 3.8. Patient was seen today on 10/12/2024, remains in the ICU, intubated and mechanically ventilated, patient is failed weaning, she was on Precedex and pressure support and CPAP for about 2 hours, however she became agitated and restless had to be placed back on propofol and fentanyl last night. She is on propofol at 50 mcg/kg/min she is also on fentanyl 1 mcg/kg/h. She is on assist- control rate of 12 tidal volume 350 FiO2 40% PEEP of 5 ABG showed a pO2 of 109 pCO2 52 pH of 7.48. Patient did have an extubation trial on 11/04 but she failed within a matter of hours. She could not clear her secretions. And most likely she will continue to have this problem considering her cerebral palsy patient had bronchoscopy on 10/06 and 10/07, cultures are positive for Moraxella catarrhalis. Hence I am going to give the patient a few more trials of weaning in the meantime I will go ahead and consult general surgery for possible tracheostomy and PEG tube placement. This will have to be cleared through her legal guardian. This will have to be cleared through her legal guardian. ABG today showed a pO2 of 109 pCO2 52 pH of 7.48. Basic metabolic profile is normal bicarb is 36 BUN is 21 creatinine 0.1 chest x-ray continues to show cardiomegaly small bilateral pleural effusions and left lower lobe consolidation with infiltrate and atelectasis. Microbiology showed positive Moraxella catarrhalis in the sputum. Blood cultures have been negative. Antibiotics henao, patient remains on Zosyn. Seen today , remains in the ICU, intubated mechanically ventilated. Remains on Zosyn remains on assist-control rate of 12 tidal volume 350 FiO2 40% PEEP of 5 ABG showed a pO2 of 97 pCO2 49 pH of 7.49. She is on propofol at 30 mcg/kg/min also on vital HP at 34 cc/h. Today I had a chance to discuss her condition with the legal guardian, and the legal guardian prefers to go to court with the petition to change her CODE STATUS to DNR and possibly consider comfort care. At this point in time, I was recommending either going to tracheostomy or PEG tube placement or go to comfort care. This is to be addressed by the court hopefully in the next 24 to 48 hours. In the meantime we are planning to continue supportive care measures, continue ventilatory support, patient is very high risk for extubation, as she will fail as she failed before, and I believe the patient has significant difficulty clearing her secretions or follow instructions to keep her airways intact. Ideally speaking tracheostomy would be ideal unless we proceed with DNR CODE STATUS, extubation, and comfort care measures at that point. Chest x-ray continues to show infiltrates specially in the left lower lobe. WBC count is 10.9 hemoglobin 10.7 platelets are 211. Basic metabolic profile is normal renal profile is normal bicarb is 35 very Objective - Vital Signs Vital signs: Vital Signs Temp 99.8 F H 10/13/24 08:00 Pulse 105 H 10/13/24 11:37 Resp 12 10/13/24 11:00 BP 133/68 10/13/24 11:00 Pulse Ox 98 10/13/24 11:00 FiO2 40 10/13/24 11:36 Intake & Output 10/12/24 10/13/24 10/13/24 18:59 06:59 18:59 Intake Total 976.819 900.527 420.207 Output Total 355 1130 275 Balance 621.819 -229.473 145.207 Weight 46.2 kg 46.8 kg Intake: IV 340 340 170 Piperacillin-Tazobactam 3 100 100 100 .375 gm In Sodium Chloride 0.9% 100 ml @ 25 mls/hr IVPB Q8HR [facility] Rx# :[id number] Sodium Chloride 0.9% 1, 240 240 70 000 ml @ 20 mls/hr IV . Q24H [facility] Rx#:[id number] Intake, IV Titration 138.819 62.527 84.207 Amount Dexmedetomidine/0.9% NaCl 18.847 (Pmx) 400 mcg In Empty Bag 1 bag @ 0.2 MCG/KG/HR 2.31 mls/hr IV .Q24H [facility] Rx#:[id number] fentaNYL (PF). 1,000 mcg 30.774 In Sodium Chloride 0.9% 80 ml @ 0.5 MCG/KG/HR 2. 155 mls/hr IV .Q24H [facility] Rx#:[id number] propofoL 1,000 mg In 89.198 62.527 84.207 Empty Bag 1 bag @ 15 MCG/ KG/MIN 3.878 mls/hr IV . Q24H [facility] Rx#:[id number] Tube Feeding 408 408 136 Other 90 90 30 Output: Urine 355 1130 275 Other: Voiding Method Indwelling Catheter Indwelling Catheter - Exam General: Revealed a 53-year-old female, sedated, on propofol, in no distress, intubated and mechanically ventilated. Derm: warm, dry Head: atraumatic, normocephalic, symmetric, NGT + ETT are intact. And in place. EENT: PERRLA, EOMI, nonicteric, no neck masses no JVD Mouth: Moist mucous membranes. Cardiovascular: Distant S1-S2, no S3 gallop, no murmur. Lungs: Crackles and rhonchi noted bilaterally. Ext: No deformities, no contractures, no muscle atrophy Neuro: Unable to assess patient is sedated on propofol and is also on fentanyl Psych: Unable to assess - Labs CBC & Chem 7: 10/13/24 05:13 10/13/24 05:13 Labs: Abnormal Lab Results - Last 24 Hours (Table) 10/13/24 10/13/24 10/13/24 Range/Units 05:13 05:13 05:16 WBC 10.89 H (4.50-10.00) 10*3/uL RBC 3.00 L (4.10-5.20) 10*6/uL Hgb 10.7 L (12.0-15.0) g/dL Hct 32.0 L (37.2-46.3) % MCV 106.7 H (80.0-97.0) fL MCH 35.7 H (27.0-32.0) pg MPV 9.3 L (9.5-12.2) fL Immature Gran # 0.63 H (0.00-0.04) 10*3/uL Monocytes # (Manual) 1.74 H (0-1.0) k/uL Metamyelocytes # (Man) 0.33 H (0) k/uL Myelocytes # (Manual) 0.33 H (0) k/uL ABG pH 7.49 H (7.35-7.45) ABG pCO2 49 H (35-45) mmHg ABG HCO3 37 H (21-25) mmol/L ABG Total CO2 39 H (19-24) mmol/L ABG O2 Saturation 98.3 H (94-97) % Hemoglobin 10.5 L (11.4-16.0) gm/dL Carbon Dioxide 35 H (22-30) mmol/L BUN 20 H (7-17) mg/dL Creatinine 0.18 L (0.52-1.04) mg/dL Glucose 126 H (74-99) mg/dL POC Glucose (mg/dL) (70-110) mg/dL 10/13/24 Range/Units 05:57 WBC (4.50-10.00) 10*3/uL RBC (4.10-5.20) 10*6/uL Hgb (12.0-15.0) g/dL Hct (37.2-46.3) % MCV (80.0-97.0) fL MCH (27.0-32.0) pg MPV (9.5-12.2) fL Immature Gran # (0.00-0.04) 10*3/uL Monocytes # (Manual) (0-1.0) k/uL Metamyelocytes # (Man) (0) k/uL Myelocytes # (Manual) (0) k/uL ABG pH (7.35-7.45) ABG pCO2 (35-45) mmHg ABG HCO3 (21-25) mmol/L ABG Total CO2 (19-24) mmol/L ABG O2 Saturation (94-97) % Hemoglobin (11.4-16.0) gm/dL Carbon Dioxide (22-30) mmol/L BUN (7-17) mg/dL Creatinine (0.52-1.04) mg/dL Glucose (74-99) mg/dL POC Glucose (mg/dL) 116 H (70-110) mg/dL Assessment and Plan Assessment: Impression: Acute hypoxic respiratory failure with extensive left lower lobe pneumonia secondary to Moraxella catarrhalis Extensive left lower lobe pneumonia Cerebral palsy Deafness in both ears Nonverbal Limited intellectual functional capacity Seizure disorder on multiple meds for seizures History of Tetralogy of Fallot requiring surgery at young age/cardiac surgery 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 Hands ideally patient will need tracheostomy and PEG tube placement if agreed upon by legal guardian. Otherwise consider DNR CODE STATUS and comfort care measures postextubation. Recommendation: Continue ventilatory support Continue nutritional support Continue sedation however will give the patient a trial of Precedex again and possibly another weaning trial if no improvement may have to seriously consider tracheostomy and PEG tube placement. Continue antibiotics/Zosyn Continue DVT prophylaxis and GI prophylaxis Continue IV fluids at [facility] Surgical consult for tracheostomy and PEG tube is presently on hold as discussed with legal guardian Patient has multiple comorbidities, she is critically ill, and I doubt if she will wean easily although we will continue to try. Patient remains critically ill. Discussed her condition with legal guardian over the phone, planning to potation court for DNR CODE STATUS and possibly comfort care measures postextubation. Will continue to follow Critical care time is 32 minutes Time with Patient: Greater than 30
[2024-10-13 12:30] LABS: Glucose,Whole Blood 119 mg/dL (70-110)
--- NOTE | 2024-10-13 13:44 | P.PN ---
Subjective Progress Note Date: 10/13/24 I am seeing the patient for the first time during this admission. Please refer to Dr. Hyman's notes for further details. It seems the patient has altered mental status and felt due to metabolic encephalopathy. The patient has hx of cerebral palsy, is nonverbal and has hearing impairment. Patient continues to be intubated on a ventilator and is on IV Propofol. Objective - Vital Signs Vital signs: Vital Signs Temp 98.6 F 10/13/24 12:00 Pulse 103 H 10/13/24 12:00 Resp 23 10/13/24 12:00 BP 122/67 10/13/24 12:00 Pulse Ox 99 10/13/24 12:00 FiO2 40 10/13/24 11:36 Intake & Output 10/12/24 10/13/24 10/13/24 18:59 06:59 18:59 Intake Total 976.819 900.527 504.207 Output Total 355 1130 385 Balance 621.819 -229.473 119.207 Weight 46.2 kg 46.8 kg Intake: IV 340 340 190 Piperacillin-Tazobactam 3 100 100 100 .375 gm In Sodium Chloride 0.9% 100 ml @ 25 mls/hr IVPB Q8HR [facility] Rx# :[id number] Sodium Chloride 0.9% 1, 240 240 90 000 ml @ 20 mls/hr IV . Q24H [facility] Rx#:[id number] Intake, IV Titration 138.819 62.527 84.207 Amount Dexmedetomidine/0.9% NaCl 18.847 (Pmx) 400 mcg In Empty Bag 1 bag @ 0.2 MCG/KG/HR 2.31 mls/hr IV .Q24H [facility] Rx#:[id number] fentaNYL (PF). 1,000 mcg 30.774 In Sodium Chloride 0.9% 80 ml @ 0.5 MCG/KG/HR 2. 155 mls/hr IV .Q24H [facility] Rx#:[id number] propofoL 1,000 mg In 89.198 62.527 84.207 Empty Bag 1 bag @ 15 MCG/ KG/MIN 3.878 mls/hr IV . Q24H [facility] Rx#:[id number] Tube Feeding 408 408 170 Other 90 90 60 Output: Urine 355 1130 385 Other: Voiding Method Indwelling Catheter Indwelling Catheter - Exam General: Lying in bed and does not appear in acute distress. Lung: Intubated on a ventilator. Neuro: Very limited. Patient is on IV Propofol. Patient is comatose GCS 3 (E1, VT1, M1). - Labs CBC & Chem 7: 10/13/24 05:13 10/13/24 05:13 Labs: Abnormal Lab Results - Last 24 Hours (Table) 10/13/24 10/13/24 10/13/24 Range/Units 05:13 05:13 05:16 WBC 10.89 H (4.50-10.00) 10*3/uL RBC 3.00 L (4.10-5.20) 10*6/uL Hgb 10.7 L (12.0-15.0) g/dL Hct 32.0 L (37.2-46.3) % MCV 106.7 H (80.0-97.0) fL MCH 35.7 H (27.0-32.0) pg MPV 9.3 L (9.5-12.2) fL Immature Gran # 0.63 H (0.00-0.04) 10*3/uL Monocytes # (Manual) 1.74 H (0-1.0) k/uL Metamyelocytes # (Man) 0.33 H (0) k/uL Myelocytes # (Manual) 0.33 H (0) k/uL ABG pH 7.49 H (7.35-7.45) ABG pCO2 49 H (35-45) mmHg ABG HCO3 37 H (21-25) mmol/L ABG Total CO2 39 H (19-24) mmol/L ABG O2 Saturation 98.3 H (94-97) % Hemoglobin 10.5 L (11.4-16.0) gm/dL Carbon Dioxide 35 H (22-30) mmol/L BUN 20 H (7-17) mg/dL Creatinine 0.18 L (0.52-1.04) mg/dL Glucose 126 H (74-99) mg/dL POC Glucose (mg/dL) (70-110) mg/dL 10/13/24 10/13/24 Range/Units 05:57 12:28 WBC (4.50-10.00) 10*3/uL RBC (4.10-5.20) 10*6/uL Hgb (12.0-15.0) g/dL Hct (37.2-46.3) % MCV (80.0-97.0) fL MCH (27.0-32.0) pg MPV (9.5-12.2) fL Immature Gran # (0.00-0.04) 10*3/uL Monocytes # (Manual) (0-1.0) k/uL Metamyelocytes # (Man) (0) k/uL Myelocytes # (Manual) (0) k/uL ABG pH (7.35-7.45) ABG pCO2 (35-45) mmHg ABG HCO3 (21-25) mmol/L ABG Total CO2 (19-24) mmol/L ABG O2 Saturation (94-97) % Hemoglobin (11.4-16.0) gm/dL Carbon Dioxide (22-30) mmol/L BUN (7-17) mg/dL Creatinine (0.52-1.04) mg/dL Glucose (74-99) mg/dL POC Glucose (mg/dL) 116 H 119 H (70-110) mg/dL Assessment and Plan Assessment: * Altered mental status, likely due to metabolic encephalopathy * Acute respiratory failure on mechanical ventilation. 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 No signs of cardiomyopathy. Plan: * Patient has history of seizure disorder, maintained on multiple antiepileptic medications. * Patient to be continued on her seizure medications including Depakote 500 mg 3 times a day and 250 mg at bedtime, Dilantin chew tab 50 mg twice a day and Dilantin 30 mg extended release at bedtime. Patient also on Keppra 1000 mg twice a day, and zonisamide 100 mg twice a day and 25 mg daily. Continue her seizure medications. Patient not able to receive zonisamide because cannot be given by NG tube. This will be resumed when patient is extubated. If patient needs to be on IV medications, then the oral doses can be switched to the IV form in equivalent doses. * All AED levels are therapeutic. Dilantin 12.1, Depakote 56.2 and Keppra 14.9 (3-60) * If any concern about seizure, I would have low threshold to check an EEG. No clinical seizures noted, or any suspicious seizure-like activity. * Other medical management as per IM, critical care and other specialties on board. Will follow-up sporadically. Time with Patient: Less than 30
--- NOTE | 2024-10-13 15:27 | P.PN ---
Subjective Progress Note Date: 10/13/24 Principal diagnosis: Respiratory failure Patient remains on the ventilator. Power of estate planning attorney spoke with pulmonary earlier today. Plans are to likely make the patient comfort measures at this time. Objective - Vital Signs Vital signs: Vital Signs Temp 98.6 F 10/13/24 12:30 Pulse 109 H 10/13/24 15:24 Resp 19 10/13/24 14:00 BP 143/69 10/13/24 14:00 Pulse Ox 98 10/13/24 14:00 FiO2 40 10/13/24 15:11 Intake & Output 10/12/24 10/13/24 10/13/24 18:59 06:59 18:59 Intake Total 976.819 900.527 672.207 Output Total 355 1130 465 Balance 621.819 -229.473 207.207 Weight 46.2 kg 46.8 kg Intake: IV 340 340 230 Piperacillin-Tazobactam 3 100 100 100 .375 gm In Sodium Chloride 0.9% 100 ml @ 25 mls/hr IVPB Q8HR [facility] Rx# :[id number] Sodium Chloride 0.9% 1, 240 240 130 000 ml @ 20 mls/hr IV . Q24H [facility] Rx#:[id number] Intake, IV Titration 138.819 62.527 84.207 Amount Dexmedetomidine/0.9% NaCl 18.847 (Pmx) 400 mcg In Empty Bag 1 bag @ 0.2 MCG/KG/HR 2.31 mls/hr IV .Q24H [facility] Rx#:[id number] fentaNYL (PF). 1,000 mcg 30.774 In Sodium Chloride 0.9% 80 ml @ 0.5 MCG/KG/HR 2. 155 mls/hr IV .Q24H [facility] Rx#:[id number] propofoL 1,000 mg In 89.198 62.527 84.207 Empty Bag 1 bag @ 15 MCG/ KG/MIN 3.878 mls/hr IV . Q24H [facility] Rx#:[id number] Tube Feeding 408 408 238 Other 90 90 120 Output: Urine 355 1130 465 Other: Voiding Method Indwelling Catheter Indwelling Catheter - Exam Abdomen: Soft, nontender, nondistended - Labs CBC & Chem 7: 10/13/24 05:13 10/13/24 05:13 Labs: Abnormal Lab Results - Last 24 Hours (Table) 10/13/24 10/13/24 10/13/24 Range/Units 05:13 05:13 05:16 WBC 10.89 H (4.50-10.00) 10*3/uL RBC 3.00 L (4.10-5.20) 10*6/uL Hgb 10.7 L (12.0-15.0) g/dL Hct 32.0 L (37.2-46.3) % MCV 106.7 H (80.0-97.0) fL MCH 35.7 H (27.0-32.0) pg MPV 9.3 L (9.5-12.2) fL Immature Gran # 0.63 H (0.00-0.04) 10*3/uL Monocytes # (Manual) 1.74 H (0-1.0) k/uL Metamyelocytes # (Man) 0.33 H (0) k/uL Myelocytes # (Manual) 0.33 H (0) k/uL ABG pH 7.49 H (7.35-7.45) ABG pCO2 49 H (35-45) mmHg ABG HCO3 37 H (21-25) mmol/L ABG Total CO2 39 H (19-24) mmol/L ABG O2 Saturation 98.3 H (94-97) % Hemoglobin 10.5 L (11.4-16.0) gm/dL Carbon Dioxide 35 H (22-30) mmol/L BUN 20 H (7-17) mg/dL Creatinine 0.18 L (0.52-1.04) mg/dL Glucose 126 H (74-99) mg/dL POC Glucose (mg/dL) (70-110) mg/dL 10/13/24 10/13/24 Range/Units 05:57 12:28 WBC (4.50-10.00) 10*3/uL RBC (4.10-5.20) 10*6/uL Hgb (12.0-15.0) g/dL Hct (37.2-46.3) % MCV (80.0-97.0) fL MCH (27.0-32.0) pg MPV (9.5-12.2) fL Immature Gran # (0.00-0.04) 10*3/uL Monocytes # (Manual) (0-1.0) k/uL Metamyelocytes # (Man) (0) k/uL Myelocytes # (Manual) (0) k/uL ABG pH (7.35-7.45) ABG pCO2 (35-45) mmHg ABG HCO3 (21-25) mmol/L ABG Total CO2 (19-24) mmol/L ABG O2 Saturation (94-97) % Hemoglobin (11.4-16.0) gm/dL Carbon Dioxide (22-30) mmol/L BUN (7-17) mg/dL Creatinine (0.52-1.04) mg/dL Glucose (74-99) mg/dL POC Glucose (mg/dL) 116 H 119 H (70-110) mg/dL Assessment and Plan (1) Left lower lobe pneumonia Narrative/Plan: Patient remains on the ventilator. Plans for comfort care. Will sign off. Please reconsult if needed. Current Visit: Yes Status: Acute Code(s): J18.9 - PNEUMONIA, UNSPECIFIED O RGANISM SNOMED Code(s): 461024324
[2024-10-13 17:41] LABS: Glucose,Whole Blood 113 mg/dL (70-110)
[2024-10-14 00:07] LABS: Glucose,Whole Blood 141 mg/dL (70-110)
[2024-10-14 05:27] LABS: African American GFR (CKD) >90 (>60 ml/min/1.73 sqM); Anion Gap 6 mmol/L; Blood Urea Nitrogen 20 mg/dL (7-17); Calcium 9.7 mg/dL (8.4-10.2); Carbon Dioxide 32 mmol/L (22-30); Chloride 99 mmol/L (98-107); Glucose 109 mg/dL (74-99); Non-African American GFR(CKD) >90 (>60 ml/min/1.73 sqM); Potassium 4.2 mmol/L (3.5-5.1); Sodium 137 mmol/L (137-145)
[2024-10-14 05:30] LABS: Basophils # (A) 0.02 10*3/uL (0.00-0.10); Basophils % (A) 0.2 %; Eosinophils # (A) 0.03 10*3/uL (0.04-0.35); Eosinophils % (A) 0.3 %; HCT 32.7 % (37.2-46.3); HGB 10.6 g/dL (12.0-15.0); Lymphocytes # (A) 1.24 10*3/uL (0.90-5.00); Lymphocytes % (A) 11.1 %; MCH 34.5 pg (27.0-32.0); MCHC 32.4 g/dL (32.0-37.0); Mean Platelet Volume 9.1 fL (9.5-12.2); Monocytes # (A) 2.47 10*3/uL (0.20-1.00); Monocytes % (A) 22.1 %; Neutrophils % (A) 62.4 %; Platelet Count 236 10*3/uL (140-440); RBC 3.07 10*6/uL (4.10-5.20); RDW 13.5 % (11.5-14.5)
[2024-10-14 05:44] LABS: ABG Base Excess 10.5 mmol/L; ABG HCO3 36 mmol/L (21-25); ABG Oxygen Saturation 99.1 % (94-97); ABG PCO2 50 mmHg (35-45); ABG PH 7.46 (7.35-7.45); ABG PO2 119 mmHg (83-108); ABG TCO2 37 mmol/L (19-24); Allen Test Performed? Yes
[2024-10-14 06:07] LABS: Glucose,Whole Blood 130 mg/dL (70-110)
[2024-10-14 06:15] LABS: MCV 106.5 fL (80.0-97.0)
--- NOTE | 2024-10-14 06:59 | XR ---
EXAMINATION TYPE: XR chest 1V portable DATE OF EXAM: 10/14/2024 CLINICAL INDICATION: Female, 53 years old with history of mechanical ventilation, progress study. TECHNIQUE: Single AP portable semiupright view of the chest is obtained. COMPARISON: Chest x-ray from one day earlier and older studies FINDINGS: Stable endotracheal and orogastric tubes. Stable right internal jugular central venous cat heter. Overlying sternal wires and mediastinal clips are redemonstrated. Persistent mild cardiomegaly with left lower lung increased opacity. Osseous structures are intact. IMPRESSION: Persistent mild cardiomegaly with small left greater than right bilateral pleural effusio ns and central vascular congestion. Findings suggest continued CHF exacerbation/fluid overload state . Correlate clinically. There is underlying left lower lung acute infiltrate and/or atelectasis also noted. [facility], , 10/14/2024 6:57 AM
[2024-10-14] MEDS ORDERED: HYDROmorphone 0.5 MG/0.5 ML SYRINGE IVP PRN (07:31)
[2024-10-14] MEDS: DEXMEDETOMIDINE/0.9% NACL(PMX) 400 MCG in EMPTY BAG 1 BAG IV SCH (10:41)
[2024-10-14 12:00] LABS: Glucose,Whole Blood 144 mg/dL (70-110)
--- NOTE | 2024-10-14 12:30 | P.PN ---
Subjective Progress Note Date: 10/14/24 Hospital Course: 53-year-old female with cerebral palsy, deafness, seizure disorder presenting from her assisted with shortness of breath. Patient was found to be having labored breathing that continued to get worse and the patient beak started to become pale and diaphoretic. EMS arrived and patient's pulse ox was at 80% on room air and she was placed on a nonrebreather and brought to the hospital. Guardian states that she has been on the decline for the past 6 months. She states that the patient has been refusing to eat and her oral intake has dramatically decreased. States that she has become more dependent over the past few months. In the ED she underwent extensive evaluation. T101 F, IN 146, RR 27, BP 181/102, O2 saturation 88% on non-rebreather 15L. CBC, CMP significant fo r WBC 15.8, RBC 3.23, Hg 11.1, MCV 105.3, Na 134, Cl 108, bicarb 21, Cr 0.24, Ca 7.4, alb 2.3. Mag 1.6. Trop 0.055, 0.028 with EKG showing sinus tachycardia with no ST elevation. Lactic acid 0.8. CXR showed airspace consolidation involving the left lower lobe. Brain CT no acute process. Chest CTA no evidence for PE, dense consolidation of nearly entire left lower lobe. 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 Her respiratory status worsened and she was intubated in the ED and transferred to ICU for further management. Started on Rocephin and Azithromycin, switched to Zosyn for concerns for aspiration PNA. Urine Legionella neg. Phenytoin level 12.1, Valproic acid level 56.2. Venous doppler no DVT. Sputum Cx Moraxella. Echo EF 60%. Extubated on 10/08 but re- intubated later on that day. 10/11 failed weaning trial. 7Contacted legal guardian [phone], updated on patient's current health condition, clinical progress, inability to wean off from ventilator, failed extubation. As was suggested by pulm crit, we discussed possible placement of PEG tube and tracheostomy versus comfort measures only. At this moment, the legal guardian cannot make final decision and could not consent for surgery. In order to change CODE STATUS, a court order needs to be obtained. 10/13 discussed with RN, per legal guardian the plan is to obtain court order for code status change, no PEG or Trach for now 10/14: Plan for possible weaning later today, court hearing at 2 PM Pertinent Imaging: Chest x-ray, reviewed personally, left lower lung infiltrate/atelectasis unchanged, right lower lobe atelectasis and effusion Subjective: Intubated and sedated Pertinent positives and negatives as discussed above, a complete review of systems was performed and all other systems are negative. Vitals Signs Reviewed. General: Intubated and sedated Derm: warm, dry Head: atraumatic, normocephalic, symmetric, NGT + ETT in place Mouth: no lip lesion, mucus membranes moist Cardiovascular: S1S2 tachy, no murmur Lungs: Coarse BS bilaterally, no rales , no accessory muscle use Ext: no gross muscle atrophy, bilateral pitting pedal edema and hand edema, no contractures Neuro: Unable to determine Psych: Unable to determine Data Reviewed Today: Pertinent Labs: WBC 11.2, hemoglobin 10.6, platelet count normal, ABG with pH of 7.46, pCO2 50, pO2 119, sodium and potassium normal, bicarb 32, creatinine 0.18, blood glucose is controlled Assessment and Plan: Acute hypoxic respiratory failure and severe sepsis secondary to aspiration left lower lobe pneumonia s/p extubation failure on 10/25 -Continue Zosyn 3.75 g IV 3 times daily day 9, sputum cultures growing Moraxella, blood cultures and BAL cultures negative -Pulmonary/critical care following, appreciate recommendations -Surgery consulted for trach and PEG, currently pending, like her guardian is working on obtaining court order for CODE STATUS change and eventually plan for [employer] Microcytic anemia -No signs of active bleeding, hemoglobin stable, B12 more than 1800, folate 16.2, monitor CBC Troponin elevation: Likely demand ischemia due to above. Echo as above. Seizure disorder Cerebral palsy Nonverbal at baseline Impaired hearing Depakote 580 mg IV TID. Keppra 1000 mg IV BID. Phenytoin 50 mg IV BID. Zonegran 100 mg PO BID, 25 mg PO QD when able. Neurology on board. Resolved: HypoMag, Lactic acidosis, HypoK DVT ppx: Heparin subcu Code status: Full code Anticipated discharge place: TBD Anticipated discharge time: TBD Objective - Vital Signs Vital signs: Vital Signs Temp 97.6 F 10/14/24 12:00 Pulse 95 10/14/24 12:00 Resp 15 10/14/24 12:00 BP 132/69 10/14/24 12:00 Pulse Ox 99 10/14/24 12:00 FiO2 35 10/14/24 12:00 Intake & Output 10/13/24 10/14/24 10/14/24 18:59 06:59 18:59 Intake Total 888.207 907.688 450.124 Output Total 588 360 505 Balance 300.207 547.688 -54.876 Weight 48.2 kg Intake: IV 310 270 120 Piperacillin-Tazobactam 3 100 .375 gm In Sodium Chloride 0.9% 100 ml @ 25 mls/hr IVPB Q8HR [facility] Rx# :[id number] Sodium Chloride 0.9% 1, 210 220 120 000 ml @ 20 mls/hr IV . Q24H [facility] Rx#:[id number] Valproate Sodium 580 mg 50 In Sodium Chloride 0.9% 50 ml @ 50 mls/hr IVPB Q8H [facility] Rx#:[id number] Intake, IV Titration 84.207 173.688 66.124 Amount propofoL 1,000 mg In 84.207 173.688 66.124 Empty Bag 1 bag @ 15 MCG/ KG/MIN 3.878 mls/hr IV . Q24H [facility] Rx#:[id number] Tube Feeding 374 374 204 Other 120 90 60 Output: Urine 588 360 505 Other: Voiding Method Indwelling Catheter Indwelling Catheter Indwelling Catheter - Labs CBC & Chem 7: 10/14/24 05:13 10/14/24 03:48 Labs: Abnormal Lab Results - Last 24 Hours (Table) 10/13/24 10/13/24 10/14/24 Range/Units 12:28 17:39 00:05 WBC (4.50-10.00) 10*3/uL RBC (4.10-5.20) 10*6/uL Hgb (12.0-15.0) g/dL Hct (37.2-46.3) % MCV (80.0-97.0) fL MCH (27.0-32.0) pg MPV (9.5-12.2) fL Immature Gran # (0.00-0.04) 10*3/uL Monocytes # (0.20-1.00) 10*3/uL Eosinophils # (0.04-0.35) 10*3/uL ABG pH (7.35-7.45) ABG pCO2 (35-45) mmHg ABG pO2 (83-108) mmHg ABG HCO3 (21-25) mmol/L ABG Total CO2 (19-24) mmol/L ABG O2 Saturation (94-97) % Hemoglobin (11.4-16.0) gm/dL Carbon Dioxide (22-30) mmol/L BUN (7-17) mg/dL Creatinine (0.52-1.04) mg/dL Glucose (74-99) mg/dL POC Glucose (mg/dL) 119 H 113 H 141 H (70-110) mg/dL 10/14/24 10/14/24 10/14/24 Range/Units 03:48 05:13 05:43 WBC 11.20 H (4.50-10.00) 10*3/uL RBC 3.07 L (4.10-5.20) 10*6/uL Hgb 10.6 L (12.0-15.0) g/dL Hct 32.7 L (37.2-46.3) % MCV 106.5 H (80.0-97.0) fL MCH 34.5 H (27.0-32.0) pg MPV 9.1 L (9.5-12.2) fL Immature Gran # 0.44 H (0.00-0.04) 10*3/uL Monocytes # 2.47 H (0.20-1.00) 10*3/uL Eosinophils # 0.03 L (0.04-0.35) 10*3/uL ABG pH 7.46 H (7.35-7.45) ABG pCO2 50 H (35-45) mmHg ABG pO2 119 H (83-108) mmHg ABG HCO3 36 H (21-25) mmol/L ABG Total CO2 37 H (19-24) mmol/L ABG O2 Saturation 99.1 H (94-97) % Hemoglobin 10.2 L (11.4-16.0) gm/dL Carbon Dioxide 32 H (22-30) mmol/L BUN 20 H (7-17) mg/dL Creatinine 0.18 L (0.52-1.04) mg/dL Glucose 109 H (74-99) mg/dL POC Glucose (mg/dL) (70-110) mg/dL 10/14/24 10/14/24 Range/Units 06:05 11:59 WBC (4.50-10.00) 10*3/uL RBC (4.10-5.20) 10*6/uL Hgb (12.0-15.0) g/dL Hct (37.2-46.3) % MCV (80.0-97.0) fL MCH (27.0-32.0) pg MPV (9.5-12.2) fL Immature Gran # (0.00-0.04) 10*3/uL Monocytes # (0.20-1.00) 10*3/uL Eosinophils # (0.04-0.35) 10*3/uL ABG pH (7.35-7.45) ABG pCO2 (35-45) mmHg ABG pO2 (83-108) mmHg ABG HCO3 (21-25) mmol/L ABG Total CO2 (19-24) mmol/L ABG O2 Saturation (94-97) % Hemoglobin (11.4-16.0) gm/dL Carbon Dioxide (22-30) mmol/L BUN (7-17) mg/dL Creatinine (0.52-1.04) mg/dL Glucose (74-99) mg/dL POC Glucose (mg/dL) 130 H 144 H (70-110) mg/dL
--- NOTE | 2024-10-14 13:52 | P.PN ---
Subjective Progress Note Date: 10/14/24 Principal diagnosis: Acute hypoxic respiratory failure with left lower lobe pneumonia, secondary to Moraxella catarrhalis. This is a 53-year-old female patient who is currently intubated for hypoxemic respiratory failure. The patient has history of cerebral palsy. The patient is nonverbal and deaf. According to the caregivers, guardian, the patient has been declining course over the past 6 months. She has been refusing to eat and her oral intake is dramatically dropped over the past 6 months. She has become more dependent. She currently lives in a correction. The patient was noted to be having worsening shortness of breath and based on ongoing difficulties in lance athing she was brought into the emergency department. Apparently, the time of the initial evaluation in the emergency, the patient was sweaty and diaphoretic. Her pulse ox was 80% on room air oxygen as reported by EMS. She was placed on 100% elevated facemask. Apparently, the patient had breakfast and lunch like normal. She did not have dinner on the day of the admission. The patient had been refusing to eat. No reported aspiration by the parking manager. No reported seizure activity. Based on her diminished level of consciousness and ongoing hypoxemic respiratory failure, the patient was intubated in the emergency department and placed on mechanical ventilator. This morning, the patient is on a assist-control mode of mechanical ventilation at rate of 10, tidal volume of 250, FiO2 50% with a PEEP of 5. Blood gases done on 900% FiO2 showed a pH of 7.38 with a pCO2 39 and pO2 of 374. The patient is currently sedated and she is currently on propofol running at 20 mcg/kg/min. No hypotension. She is hemodynamically stable. White cell count is at 15.8 with a hemoglobin of 11 and a platelet count of 181. Sodium levels at 134, potassium level is at 3.5 and the BUN is 14 with a creatinine of 0.2. Serum bicarb is at 21. Troponin was 0.02 and 0.05 and 0.02 respectively x 3. UA was negative. Viral drug screen was negative. Electrolytes were all within normal limits. LFT was also within normal limits. CAT scan of the brain that was done in the emergency department showed limited findings due to motion artifact. No acute intracranial process identified. The patient also had a CT of the chest that showed no evidence of any pulm embolism. Of significance was a dense consolidation involving the entire left lower lobe with complete unspecified lobe. Consider an aspiration left lower lobe pneumonia. No evidence of a aortic dissection. No mediastinal lymphadenopathy. Right lung was essentially clear. Follow-up chest x-ray from this morning shows ongoing consolidation of the left lower lobe. The patient also has a right IJ triple-lumen catheter that was placed in the emergency department. Her current cardiac rhythm is sinus tachycardia. The patient was given a combination of Rocephin and Zithromax in the emergency department. 10/07/2024, the patient is being seen for a follow-up. The patient was hospitalized for an acute hypoxic respiratory failure and a dense left lower lobe pneumonia. This morning, the patient calm and comfortable. Overnight, she encountered some increased restlessness, agitation and asynchrony on mechanical ventilator. Based on that, the patient was started on propofol which is currently running at 35 mcg/kg/min and she is also on fentanyl at 0.5 mcg/kg/h. She remains on a mechanical ventilator, assist-control mode at rate of 20, tidal volume of 350, FiO2 40% with a PEEP of 5. Blood gas showed a pH of 7.49 with a pCO2 31 and pO2 of 92. The patient remains in normal sinus rate of 100 cc an hour. The patient remains on IV Zosyn. Bronchoscopy endobronchial lavage was done. There was significant amount of mucous plugging bilaterally in the lower lobes and therapeutic airway suctioning was done and the BAL of the left lower lobe was done pending further cultures. No seizure activity has been noted. The patient is hemodynamically stable on no pressors. The white cell count is 18.2 with a hemoglobin 12 and a platelet count of 175. Sodium is at 135, potassium is at 3.9, BUN is 9 with a creatinine of 0.2. The toxicology screen for antiepileptics showed a Dilantin level of 12.1 and a valproic acid of 56. Neurology has been consulted. The patient has no noted seizure activity over the past 24 hours. On today's evaluation of 10/08/2024, the patient is being seen for a follow-up. The patient has been intubated with a mechanical ventilator due to left lower lobe pneumonia. She is chronically debilitated. She is deaf and mute. She also has history of cerebral palsy. She had an extensive left lower lobe. 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 This morning, the patient is on propofol running at 35 mcg/kg/min and fentanyl at 0.5 mcg/kg/h. Remains on normal citrate of 100 cc an hour. She remains on a mechanical ventilator. Vent settings are essentially unchanged. The patient is on a assist-control mode at a rate of 20, tidal volume of 350 40% with a PEEP of 5. Blood gas showed a pH of 7.34 with a pCO2 of 45 with a pO2 of 86. The patient is on vital HP at rate of 20 cc an hour. Balance over the past 24 hours has been +2.6. The patient's blood work from today shows a white cell count of 16.7, hemoglobin 10.4 and a platelet count of 150. The sodium is at 137, potassium is at 3 replaced in the follow-up potassium level is at 4, BUN is at 7 with a creatinine of 0.26. Serum bicarb is 24. Magnesium level is at 1.9. The patient remains on IV Zosyn. Hemodynamically stable and the patient is currently on no pressors. No seizure activity and the patient continues to be on antiepileptic medications. On 10/09/2024, the patient is being seen for a follow-up. Noted the patient was weaned off the mechanical ventilator and the patient was extubated yesterday and the patient did well for a few hours. Subsequently, the patient developed difficulties with respiratory secretions and she was unable to maintain patent airways. She was getting more tachycardic and short of breath and tachypneic and she was also desaturating. Few hours following the extubation, the patient was reintubated and placed back on mechanical ventilator. This morning, the patient is on propofol running at 30 mcg/kg/min and fentanyl at 0.5 mcg/kg/h. She is on assist-control mode of mechanical ventilation at rate of 12, tidal volume of 350, FiO2 40% with a PEEP of 5. pH is 7.38 with a pCO2 40 and pO2 119. The follow-up chest x-ray from today shows adequate positioning of the orotracheal tube. There is persistent cardiomegaly and small bilateral pleural effusion. There is also bibasilar pulmonary infiltrates consistent with pneumonia. Respiratory secretions are copious. The patient's white cell count is 18.8. Hemoglobin 10.9 and the platelet count is 884. BUN is at 7 with a creatinine of 0.22. Sodium is at 140 and a potassium level is at 3.6. Enteral feeding is to be restarted and the patient will be given a scopolamine patch. Remains on IV Zosyn as the patient previous sputum analysis showed Moraxella catarrhalis. The results of the bronchioloalveolar lavage are still pending for now. Hemodynamically stable. The patient is on no pressors. The patient on normal citrate at 100 cc an hour. On 10/10/2024, patient is being seen for a follow-up. This morning, the patient remains sedated on propofol which is running at 25 mcg/kg/min. The patient is also on fentanyl at 0.5 mcg/kg/h., The patient is calm and comfortable on mechanical ventilator and she is on assist-control mode at rate of 12, tidal volume of 350, FiO2 of 40% and PEEP of 5. Blood gas showed a pH of 7.4 with a pCO2 of 48 and pO2 of 103. Chest x-ray shows a persistent consolidation in the lung bases bilaterally. Respiratory secretions improved compared to yesterday. Urine output is adequate and the patient is currently on normal citrate of 20 cc an hour. Fluid balance is +1.4 L over the past 24 hours. The patient is on vital HP at rate of 34 cc an hour and the patient is currently in normal sinus rhythm without any significant hypotension. The patient is on no pressors. The white cell count of 9.5, hemoglobin is 10.5 and a platelet count of 172. BUN is 12 with a creatinine of 0.2. Sodium level is at 138 and a potassium level is at 3.6. Bicarb is at 28. The patient remains on IV Zosyn. No other significant events overnight. 10/11/2024, the patient remains on propofol at 20 mcg and fentanyl at 0.5 mcg. Remains on the mechanical ventilator on assist-control mode at rate of 12, tidal volume of 350, FiO2 of 40% with a PEEP of 5. Blood gas showed pH of 7.41 with a pCO2 of 51 and pO2 of 124. Chest x-ray unchanged with bilateral lower lobe pulmonary infiltrates worse on the left. Orotracheal tube is in good location. No significant secretions. Remains on IV Zosyn. Hemodynamically stable. No pressors. Tolerating enteral feeding for nutritional support, currently on vital HP at rate of 24 cc an hour. White cell count is at 7.9 with a hemoglobin 9.8 and a platelet count of 189. Sodium is at 138, BUN is 19 with a creatinine of 0.19. Potassium level is at 3.8. Patient was seen today on 10/12/2024, remains in the ICU, intubated and mechanically ventilated, patient is failed weaning, she was on Precedex and pressure support and CPAP for about 2 hours, however she became agitated and restless had to be placed back on propofol and fentanyl last night. She is on propofol at 50 mcg/kg/min she is also on fentanyl 1 mcg/kg/h. She is on assist- control rate of 12 tidal volume 350 FiO2 40% PEEP of 5 ABG showed a pO2 of 109 pCO2 52 pH of 7.48. Patient did have an extubation trial on 11/04 but she failed within a matter of hours. She could not clear her secretions. And most likely she will continue to have this problem considering her cerebral palsy patient had bronchoscopy on 10/06 and 10/07, cultures are positive for Moraxella catarrhalis. Hence I am going to give the patient a few more trials of weaning in the meantime I will go ahead and consult general surgery for possible tracheostomy and PEG tube placement. This will have to be cleared through her legal guardian. This will have to be cleared through her legal guardian. ABG today showed a pO2 of 109 pCO2 52 pH of 7.48. Basic metabolic profile is normal bicarb is 36 BUN is 21 creatinine 0.1 chest x-ray continues to show cardiomegaly small bilateral pleural effusions and left lower lobe consolidation with infiltrate and atelectasis. Microbiology showed positive Moraxella catarrhalis in the sputum. Blood cultures have been negative. Antibiotics henao, patient remains on Zosyn. Seen today , remains in the ICU, intubated mechanically ventilated. Remains on Zosyn remains on assist-control rate of 12 tidal volume 350 FiO2 40% PEEP of 5 ABG showed a pO2 of 97 pCO2 49 pH of 7.49. She is on propofol at 30 mcg/kg/min also on vital HP at 34 cc/h. Today I had a chance to discuss her condition with the legal guardian, and the legal guardian prefers to go to court with the petition to change her CODE STATUS to DNR and possibly consider comfort care. At this point in time, I was recommending either going to tracheostomy or PEG tube placement or go to comfort care. This is to be addressed by the court hopefully in the next 24 to 48 hours. In the meantime we are planning to continue supportive care measures, continue ventilatory support, patient is very high risk for extubation, as she will fail as she failed before, and I believe the patient has significant difficulty clearing her secretions or follow instructions to keep her airways intact. Ideally speaking tracheostomy would be ideal unless we proceed with DNR CODE STATUS, extubation, and comfort care measures at that point. Chest x-ray continues to show infiltrates specially in the left lower lobe. WBC count is 10.9 hemoglobin 10.7 platelets are 211. Basic metabolic profile is normal renal profile is normal bicarb is 35 Patient was seen today on 10/14/2024, remains in the ICU, intubated and mechanically ventilated, on assist-control rate of 12 tidal volume 350 FiO2 40% PEEP of 5 ABG showed a pO2 of 119 pCO2 5 0 pH of 7.46. Remains on propofol at 45 mcg/kg/min vital HP at 34 cc/h and on Zosyn ABG was noted and FiO2 was cut down to 35%. Chest x-ray was noted, continues to have infiltrate in the left lower lobe, may be a small pleural effusion right side seems to be relatively clear. Legal guardian is here today, and will petition the court for possible DNR CODE STATUS, and that the patient is to be extubated, not to be reintubated, and not to proceed with tracheostomy and PEG tube placement. WBC count is 11.2 hemoglobin is 10.6, basic metabolic profile is normal BUN is 20 creatinine 0.18 Objective - Vital Signs Vital signs: Vital Signs Temp 97.6 F 10/14/24 12:00 Pulse 85 10/14/24 13:00 Resp 12 10/14/24 13:00 BP 130/67 10/14/24 13:00 Pulse Ox 98 10/14/24 13:00 FiO2 35 10/14/24 12:00 Intake & Output 10/13/24 10/14/24 10/14/24 18:59 06:59 18:59 Intake Total 888.207 907.688 458.117 Output Total 588 360 505 Balance 300.207 547.688 -46.883 Weight 48.2 kg Intake: IV 310 270 120 Piperacillin-Tazobactam 3 100 .375 gm In Sodium Chloride 0.9% 100 ml @ 25 mls/hr IVPB Q8HR [facility] Rx# :[id number] Sodium Chloride 0.9% 1, 210 220 120 000 ml @ 20 mls/hr IV . Q24H [facility] Rx#:[id number] Valproate Sodium 580 mg 50 In Sodium Chloride 0.9% 50 ml @ 50 mls/hr IVPB Q8H [facility] Rx#:[id number] Intake, IV Titration 84.207 173.688 74.117 Amount propofoL 1,000 mg In 84.207 173.688 74.117 Empty Bag 1 bag @ 15 MCG/ KG/MIN 3.878 mls/hr IV . Q24H [facility] Rx#:[id number] Tube Feeding 374 374 204 Other 120 90 60 Output: Urine 588 360 505 Other: Voiding Method Indwelling Catheter Indwelling Catheter Indwelling Catheter - Exam General: Revealed a 53-year-old female, sedated, on propofol, in no distress, intubated and mechanically ventilated. Derm: warm, dry Head: atraumatic, normocephalic, symmetric, NGT + ETT are intact. And in place. EENT: PERRLA, EOMI, nonicteric, no neck masses no JVD Mouth: Moist mucous membranes. Cardiovascular: Distant S1-S2, no S3 gallop, no murmur. Lungs: Crackles and rhonchi noted bilaterally. Ext: No deformities, no contractures, no muscle atrophy Neuro: Unable to assess patient is sedated on propofol and is also on fentanyl Psych: Unable to assess - Labs CBC & Chem 7: 10/14/24 05:13 10/14/24 03:48 Labs: Abnormal Lab Results - Last 24 Hours (Table) 10/13/24 10/14/24 10/14/24 Range/Units 17:39 00:05 03:48 WBC (4.50-10.00) 10*3/uL RBC (4.10-5.20) 10*6/uL Hgb (12.0-15.0) g/dL Hct (37.2-46.3) % MCV (80.0-97.0) fL MCH (27.0-32.0) pg MPV (9.5-12.2) fL Immature Gran # (0.00-0.04) 10*3/uL Monocytes # (0.20-1.00) 10*3/uL Eosinophils # (0.04-0.35) 10*3/uL ABG pH (7.35-7.45) ABG pCO2 (35-45) mmHg ABG pO2 (83-108) mmHg ABG HCO3 (21-25) mmol/L ABG Total CO2 (19-24) mmol/L ABG O2 Saturation (94-97) % Hemoglobin (11.4-16.0) gm/dL Carbon Dioxide 32 H (22-30) mmol/L BUN 20 H (7-17) mg/dL Creatinine 0.18 L (0.52-1.04) mg/dL Glucose 109 H (74-99) mg/dL POC Glucose (mg/dL) 113 H 141 H (70-110) mg/dL 10/14/24 10/14/24 10/14/24 Range/Units 05:13 05:43 06:05 WBC 11.20 H (4.50-10.00) 10*3/uL RBC 3.07 L (4.10-5.20) 10*6/uL Hgb 10.6 L (12.0-15.0) g/dL Hct 32.7 L (37.2-46.3) % MCV 106.5 H (80.0-97.0) fL MCH 34.5 H (27.0-32.0) pg MPV 9.1 L (9.5-12.2) fL Immature Gran # 0.44 H (0.00-0.04) 10*3/uL Monocytes # 2.47 H (0.20-1.00) 10*3/uL Eosinophils # 0.03 L (0.04-0.35) 10*3/uL ABG pH 7.46 H (7.35-7.45) ABG pCO2 50 H (35-45) mmHg ABG pO2 119 H (83-108) mmHg ABG HCO3 36 H (21-25) mmol/L ABG Total CO2 37 H (19-24) mmol/L ABG O2 Saturation 99.1 H (94-97) % Hemoglobin 10.2 L (11.4-16.0) gm/dL Carbon Dioxide (22-30) mmol/L BUN (7-17) mg/dL Creatinine (0.52-1.04) mg/dL Glucose (74-99) mg/dL POC Glucose (mg/dL) 130 H (70-110) mg/dL 10/14/24 Range/Units 11:59 WBC (4.50-10.00) 10*3/uL RBC (4.10-5.20) 10*6/uL Hgb (12.0-15.0) g/dL Hct (37.2-46.3) % MCV (80.0-97.0) fL MCH (27.0-32.0) pg MPV (9.5-12.2) fL Immature Gran # (0.00-0.04) 10*3/uL Monocytes # (0.20-1.00) 10*3/uL Eosinophils # (0.04-0.35) 10*3/uL ABG pH (7.35-7.45) ABG pCO2 (35-45) mmHg ABG pO2 (83-108) mmHg ABG HCO3 (21-25) mmol/L ABG Total CO2 (19-24) mmol/L ABG O2 Saturation (94-97) % Hemoglobin (11.4-16.0) gm/dL Carbon Dioxide (22-30) mmol/L BUN (7-17) mg/dL Creatinine (0.52-1.04) mg/dL Glucose (74-99) mg/dL POC Glucose (mg/dL) 144 H (70-110) mg/dL Assessment and Plan Assessment: Impression: Acute hypoxic respiratory failure with extensive left lower lobe pneumonia secondary to Moraxella catarrhalis Cerebral palsy Deafness in both ears Nonverbal Limited intellectual functional capacity Seizure disorder on multiple meds for seizures History of Tetralogy of Fallot requiring surgery at young age/cardiac surgery 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 Discussed her condition again today with legal guardian, awaiting court petition for DNR CODE STATUS and will address accordingly. Recommendation: Continue ventilatory support Continue nutritional support Trial of sedation today. Use Precedex instead. Continue Zosyn Continue DVT prophylaxis and GI prophylaxis Continue IV fluids at KVO Patient has multiple comorbidities, remains critically ill Critical care time is 33 minutes Time with Patient: Greater than 30
[2024-10-14] MEDS: NOREPINEPHRINE 8 MG in SODIUM CHLORIDE 0.9% 250 ML IV SCH (16:25)
[2024-10-14 18:09] LABS: Glucose,Whole Blood 113 mg/dL (70-110)
[2024-10-14] MEDS: ONDANSETRON 4 MG/2 ML VIAL IVP ONE (18:20)
[2024-10-14] MEDS: DEXAMETHASONE SOD PHOSPHATE 4 MG/ML 1 ML VIAL IV ONE (18:20)
[2024-10-14] MEDS: LACTATED RINGERS 1,000 ML IV SCH (18:20)
[2024-10-14 23:44] LABS: Glucose,Whole Blood 126 mg/dL (70-110)
[2024-10-15 00:36] LABS: Glucose,Whole Blood 113 mg/dL (70-110)
--- NOTE | 2024-10-15 05:31 | XR ---
EXAMINATION TYPE: XR chest 1V portable DATE OF EXAM: 10/15/2024 CLINICAL INDICATION: Female, 53 years old with history of mechanical ventilation, progress study. TECHNIQUE: Single AP portable semiupright view of the chest is obtained. COMPARISON: Chest x-ray from one day earlier and older studies FINDINGS: Stable endotracheal and orogastric tubes. Stable right internal jugular central venous cat heter. Overlying sternal wires and mediastinal clips are redemonstrated. Persistent mild cardiomegaly with left lower lung increased opacity. Right lung remains clear. Osseou s structures are intact. IMPRESSION: Persistent mild cardiomegaly with small left sided bilateral pleural effusion and centra l vascular congestion. Findings suggest continued CHF exacerbation/fluid overload state. Correlate cl inically. There is persistent left lower lung acute infiltrate and/or atelectasis also noted. No sign ificant change from one day earlier. [facility], , 10/15/2024 5:28 AM
[2024-10-15 06:07] LABS: Basophils # (A) 0.03 10*3/uL (0.00-0.10); Basophils % (A) 0.4 %; Eosinophils # (A) 0.03 10*3/uL (0.04-0.35); Eosinophils % (A) 0.4 %; HCT 27.6 % (37.2-46.3); Lymphocytes # (A) 1.12 10*3/uL (0.90-5.00); Lymphocytes % (A) 13.6 %; MCH 33.9 pg (27.0-32.0); MCHC 31.5 g/dL (32.0-37.0); MCV 107.4 fL (80.0-97.0); Monocytes # (A) 1.46 10*3/uL (0.20-1.00); Monocytes % (A) 17.8 %; Neutrophils # (A) 5.35 10*3/uL (1.80-7.70); Platelet Count 224 10*3/uL (140-440); RBC 2.57 10*6/uL (4.10-5.20); RDW 13.4 % (11.5-14.5); WBC 8.22 10*3/uL (4.50-10.00)
[2024-10-15 06:21] LABS: Glucose,Whole Blood 135 mg/dL (70-110)
[2024-10-15 06:26] LABS: ABG HCO3 36 mmol/L (21-25); ABG Oxygen Saturation 97.7 % (94-97); ABG PCO2 47 mmHg (35-45); ABG PH 7.49 (7.35-7.45); ABG PO2 109 mmHg (83-108); ABG TCO2 37 mmol/L (19-24); Allen Test Performed? Yes
[2024-10-15 06:33] LABS: HGB 8.7 g/dL (12.0-15.0)
[2024-10-15 06:42] LABS: African American GFR (CKD) >90 (>60 ml/min/1.73 sqM); Anion Gap 2 mmol/L; Blood Urea Nitrogen 24 mg/dL (7-17); Calcium 9.3 mg/dL (8.4-10.2); Carbon Dioxide 35 mmol/L (22-30); Chloride 100 mmol/L (98-107); Glucose 128 mg/dL (74-99); Non-African American GFR(CKD) >90 (>60 ml/min/1.73 sqM); Potassium 3.8 mmol/L (3.5-5.1); Sodium 137 mmol/L (137-145)
[2024-10-15 08:58] VITALS: TEMP 98.1
[2024-10-15] MEDS ORDERED: ARTIFICIAL TEARS-HYPROMELLOSE DROPS 15 ML BTL BOTH EYES PRN (11:26)
[2024-10-15] MEDS ORDERED: DRY MOUTH SPRAY 59 SPRAY/59 ML SPRAY MUCOUS MEM PRN (11:26)
[2024-10-15] MEDS: LORazepam 1 MG/0.5 ML VIAL IV PRN (11:57)
[2024-10-15] MEDS: MORPHINE SULFATE 2 MG/ML SYRINGE IVP PRN (11:57)
--- NOTE | 2024-10-15 12:15 | P.PN ---
Subjective Progress Note Date: 10/15/24 Principal diagnosis: Acute hypoxic respiratory failure with left lower lobe pneumonia, secondary to Moraxella catarrhalis. This is a 53-year-old female patient who is currently intubated for hypoxemic respiratory failure. The patient has history of cerebral palsy. The patient is nonverbal and deaf. According to the caregivers, guardian, the patient has been declining course over the past 6 months. She has been refusing to eat and her oral intake is dramatically dropped over the past 6 months. She has become more dependent. She currently lives in a residential. The patient was noted to be having worsening shortness of breath and based on ongoing difficulties in lance athing she was brought into the emergency department. Apparently, the time of the initial evaluation in the emergency, the patient was sweaty and diaphoretic. Her pulse ox was 80% on room air oxygen as reported by EMS. She was placed on 100% elevated facemask. Apparently, the patient had breakfast and lunch like normal. She did not have dinner on the day of the admission. The patient had been refusing to eat. No reported aspiration by the production team manager. No reported seizure activity. Based on her diminished level of consciousness and ongoing hypoxemic respiratory failure, the patient was intubated in the emergency department and placed on mechanical ventilator. This morning, the patient is on a assist-control mode of mechanical ventilation at rate of 10, tidal volume of 250, FiO2 50% with a PEEP of 5. Blood gases done on 900% FiO2 showed a pH of 7.38 with a pCO2 39 and pO2 of 374. The patient is currently sedated and she is currently on propofol running at 20 mcg/kg/min. No hypotension. She is hemodynamically stable. White cell count is at 15.8 with a hemoglobin of 11 and a platelet count of 181. Sodium levels at 134, potassium level is at 3.5 and the BUN is 14 with a creatinine of 0.2. Serum bicarb is at 21. Troponin was 0.02 and 0.05 and 0.02 respectively x 3. UA was negative. Viral drug screen was negative. Electrolytes were all within normal limits. LFT was also within normal limits. CAT scan of the brain that was done in the emergency department showed limited findings due to motion artifact. No acute intracranial process identified. The patient also had a CT of the chest that showed no evidence of any pulm embolism. Of significance was a dense consolidation involving the entire left lower lobe with complete unspecified lobe. Consider an aspiration left lower lobe pneumonia. No evidence of a aortic dissection. No mediastinal lymphadenopathy. Right lung was essentially clear. Follow-up chest x-ray from this morning shows ongoing consolidation of the left lower lobe. The patient also has a right IJ triple-lumen catheter that was placed in the emergency department. Her current cardiac rhythm is sinus tachycardia. The patient was given a combination of Rocephin and Zithromax in the emergency department. 10/07/2024, the patient is being seen for a follow-up. The patient was hospitalized for an acute hypoxic respiratory failure and a dense left lower lobe pneumonia. This morning, the patient calm and comfortable. Overnight, she encountered some increased restlessness, agitation and asynchrony on mechanical ventilator. Based on that, the patient was started on propofol which is currently running at 35 mcg/kg/min and she is also on fentanyl at 0.5 mcg/kg/h. She remains on a mechanical ventilator, assist-control mode at rate of 20, tidal volume of 350, FiO2 40% with a PEEP of 5. Blood gas showed a pH of 7.49 with a pCO2 31 and pO2 of 92. The patient remains in normal sinus rate of 100 cc an hour. The patient remains on IV Zosyn. Bronchoscopy endobronchial lavage was done. There was significant amount of mucous plugging bilaterally in the lower lobes and therapeutic airway suctioning was done and the BAL of the left lower lobe was done pending further cultures. No seizure activity has been noted. The patient is hemodynamically stable on no pressors. The white cell count is 18.2 with a hemoglobin 12 and a platelet count of 175. Sodium is at 135, potassium is at 3.9, BUN is 9 with a creatinine of 0.2. The toxicology screen for antiepileptics showed a Dilantin level of 12.1 and a valproic acid of 56. Neurology has been consulted. The patient has no noted seizure activity over the past 24 hours. On today's evaluation of 10/08/2024, the patient is being seen for a follow-up. The patient has been intubated with a mechanical ventilator due to left lower lobe pneumonia. She is chronically debilitated. She is deaf and mute. She also has history of cerebral palsy. She had an extensive left lower lobe. 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 This morning, the patient is on propofol running at 35 mcg/kg/min and fentanyl at 0.5 mcg/kg/h. Remains on normal citrate of 100 cc an hour. She remains on a mechanical ventilator. Vent settings are essentially unchanged. The patient is on a assist-control mode at a rate of 20, tidal volume of 350 40% with a PEEP of 5. Blood gas showed a pH of 7.34 with a pCO2 of 45 with a pO2 of 86. The patient is on vital HP at rate of 20 cc an hour. Balance over the past 24 hours has been +2.6. The patient's blood work from today shows a white cell count of 16.7, hemoglobin 10.4 and a platelet count of 150. The sodium is at 137, potassium is at 3 replaced in the follow-up potassium level is at 4, BUN is at 7 with a creatinine of 0.26. Serum bicarb is 24. Magnesium level is at 1.9. The patient remains on IV Zosyn. Hemodynamically stable and the patient is currently on no pressors. No seizure activity and the patient continues to be on antiepileptic medications. On 10/09/2024, the patient is being seen for a follow-up. Noted the patient was weaned off the mechanical ventilator and the patient was extubated yesterday and the patient did well for a few hours. Subsequently, the patient developed difficulties with respiratory secretions and she was unable to maintain patent airways. She was getting more tachycardic and short of breath and tachypneic and she was also desaturating. Few hours following the extubation, the patient was reintubated and placed back on mechanical ventilator. This morning, the patient is on propofol running at 30 mcg/kg/min and fentanyl at 0.5 mcg/kg/h. She is on assist-control mode of mechanical ventilation at rate of 12, tidal volume of 350, FiO2 40% with a PEEP of 5. pH is 7.38 with a pCO2 40 and pO2 119. The follow-up chest x-ray from today shows adequate positioning of the orotracheal tube. There is persistent cardiomegaly and small bilateral pleural effusion. There is also bibasilar pulmonary infiltrates consistent with pneumonia. Respiratory secretions are copious. The patient's white cell count is 18.8. Hemoglobin 10.9 and the platelet count is 884. BUN is at 7 with a creatinine of 0.22. Sodium is at 140 and a potassium level is at 3.6. Enteral feeding is to be restarted and the patient will be given a scopolamine patch. Remains on IV Zosyn as the patient previous sputum analysis showed Moraxella catarrhalis. The results of the bronchioloalveolar lavage are still pending for now. Hemodynamically stable. The patient is on no pressors. The patient on normal citrate at 100 cc an hour. On 10/10/2024, patient is being seen for a follow-up. This morning, the patient remains sedated on propofol which is running at 25 mcg/kg/min. The patient is also on fentanyl at 0.5 mcg/kg/h., The patient is calm and comfortable on mechanical ventilator and she is on assist-control mode at rate of 12, tidal volume of 350, FiO2 of 40% and PEEP of 5. Blood gas showed a pH of 7.4 with a pCO2 of 48 and pO2 of 103. Chest x-ray shows a persistent consolidation in the lung bases bilaterally. Respiratory secretions improved compared to yesterday. Urine output is adequate and the patient is currently on normal citrate of 20 cc an hour. Fluid balance is +1.4 L over the past 24 hours. The patient is on vital HP at rate of 34 cc an hour and the patient is currently in normal sinus rhythm without any significant hypotension. The patient is on no pressors. The white cell count of 9.5, hemoglobin is 10.5 and a platelet count of 172. BUN is 12 with a creatinine of 0.2. Sodium level is at 138 and a potassium level is at 3.6. Bicarb is at 28. The patient remains on IV Zosyn. No other significant events overnight. 10/11/2024, the patient remains on propofol at 20 mcg and fentanyl at 0.5 mcg. Remains on the mechanical ventilator on assist-control mode at rate of 12, tidal volume of 350, FiO2 of 40% with a PEEP of 5. Blood gas showed pH of 7.41 with a pCO2 of 51 and pO2 of 124. Chest x-ray unchanged with bilateral lower lobe pulmonary infiltrates worse on the left. Orotracheal tube is in good location. No significant secretions. Remains on IV Zosyn. Hemodynamically stable. No pressors. Tolerating enteral feeding for nutritional support, currently on vital HP at rate of 24 cc an hour. White cell count is at 7.9 with a hemoglobin 9.8 and a platelet count of 189. Sodium is at 138, BUN is 19 with a creatinine of 0.19. Potassium level is at 3.8. Patient was seen today on 10/12/2024, remains in the ICU, intubated and mechanically ventilated, patient is failed weaning, she was on Precedex and pressure support and CPAP for about 2 hours, however she became agitated and restless had to be placed back on propofol and fentanyl last night. She is on propofol at 50 mcg/kg/min she is also on fentanyl 1 mcg/kg/h. She is on assist- control rate of 12 tidal volume 350 FiO2 40% PEEP of 5 ABG showed a pO2 of 109 pCO2 52 pH of 7.48. Patient did have an extubation trial on 11/04 but she failed within a matter of hours. She could not clear her secretions. And most likely she will continue to have this problem considering her cerebral palsy patient had bronchoscopy on 10/06 and 10/07, cultures are positive for Moraxella catarrhalis. Hence I am going to give the patient a few more trials of weaning in the meantime I will go ahead and consult general surgery for possible tracheostomy and PEG tube placement. This will have to be cleared through her legal guardian. This will have to be cleared through her legal guardian. ABG today showed a pO2 of 109 pCO2 52 pH of 7.48. Basic metabolic profile is normal bicarb is 36 BUN is 21 creatinine 0.1 chest x-ray continues to show cardiomegaly small bilateral pleural effusions and left lower lobe consolidation with infiltrate and atelectasis. Microbiology showed positive Moraxella catarrhalis in the sputum. Blood cultures have been negative. Antibiotics henao, patient remains on Zosyn. Seen today , remains in the ICU, intubated mechanically ventilated. Remains on Zosyn remains on assist-control rate of 12 tidal volume 350 FiO2 40% PEEP of 5 ABG showed a pO2 of 97 pCO2 49 pH of 7.49. She is on propofol at 30 mcg/kg/min also on vital HP at 34 cc/h. Today I had a chance to discuss her condition with the legal guardian, and the legal guardian prefers to go to court with the petition to change her CODE STATUS to DNR and possibly consider comfort care. At this point in time, I was recommending either going to tracheostomy or PEG tube placement or go to comfort care. This is to be addressed by the court hopefully in the next 24 to 48 hours. In the meantime we are planning to continue supportive care measures, continue ventilatory support, patient is very high risk for extubation, as she will fail as she failed before, and I believe the patient has significant difficulty clearing her secretions or follow instructions to keep her airways intact. Ideally speaking tracheostomy would be ideal unless we proceed with DNR CODE STATUS, extubation, and comfort care measures at that point. Chest x-ray continues to show infiltrates specially in the left lower lobe. WBC count is 10.9 hemoglobin 10.7 platelets are 211. Basic metabolic profile is normal renal profile is normal bicarb is 35 Patient was seen today on 10/14/2024, remains in the ICU, intubated and mechanically ventilated, on assist-control rate of 12 tidal volume 350 FiO2 40% PEEP of 5 ABG showed a pO2 of 119 pCO2 5 0 pH of 7.46. Remains on propofol at 45 mcg/kg/min vital HP at 34 cc/h and on Zosyn ABG was noted and FiO2 was cut down to 35%. Chest x-ray was noted, continues to have infiltrate in the left lower lobe, may be a small pleural effusion right side seems to be relatively clear. Legal guardian is here today, and will petition the court for possible DNR CODE STATUS, and that the patient is to be extubated, not to be reintubated, and not to proceed with tracheostomy and PEG tube placement. WBC count is 11.2 hemoglobin is 10.6, basic metabolic profile is normal BUN is 20 creatinine 0.18 Seen today on 10/15/2024, patient remains in the ICU intubated and mechanically ventilated, on assist-control rate of 12 tidal volume 350 FiO2 35% and PEEP of 5 ABG showed a pO2 of 109 pCO2 47 pH of 7.49. Patient is on Precedex at 0.7 mg/kg/h, IV fluids at KVO, legal guardian petition to court and the patient was made DNR and comfort care. Hence we will proceed sometime in the next hour or so to comfort care and extubation. Will follow the protocol for comfort care, in the meantime I will keep her on Precedex. WBC count is 8.22, hemoglobin 8.7, basic metabolic profile is normal. Bicarb is 35, chest x-ray continues to show infiltrate in the left lower lobe. Objective - Vital Signs Vital signs: Vital Signs Temp 98.1 F 10/15/24 08:00 Pulse 77 10/15/24 11:00 Resp 20 10/15/24 11:00 BP 91/55 10/15/24 11:00 Pulse Ox 99 10/15/24 11:00 FiO2 35 10/15/24 11:14 Intake & Output 10/14/24 10/15/24 10/15/24 18:59 06:59 18:59 Intake Total 990.619 933.726 293.376 Output Total 610 125 20 Balance 380.619 808.726 273.376 Weight 48.7 kg Intake: IV 360 370 100 Piperacillin-Tazobactam 3 100 100 .375 gm In Sodium Chloride 0.9% 100 ml @ 25 mls/hr IVPB Q8HR [facility] Rx# :[id number] Sodium Chloride 0.9% 1, 260 170 100 000 ml @ 20 mls/hr IV . Q24H [facility] Rx#:[id number] Valproate Sodium 580 mg 100 In Sodium Chloride 0.9% 50 ml @ 50 mls/hr IVPB Q8H [facility] Rx#:[id number] Intake, IV Titration 98.619 99.726 159.376 Amount Dexmedetomidine/0.9% NaCl 24.502 72.119 47.658 (Pmx) 400 mcg In Empty Bag 1 bag @ 0.2 MCG/KG/HR 2.41 mls/hr IV .Q24H [facility] Rx#:[id number] Norepinephrine 8 mg In 27.607 11.718 Sodium Chloride 0.9% 250 ml @ 0.03 MCG/KG/MIN 2. 798 mls/hr IV .Q24H [facility] Rx#:[id number] Piperacillin-Tazobactam 3 100 .375 gm In Sodium Chloride 0.9% 100 ml @ 25 mls/hr IVPB Q8HR [facility] Rx# :[id number] propofoL 1,000 mg In 74.117 Empty Bag 1 bag @ 15 MCG/ KG/MIN 3.878 mls/hr IV . Q24H [facility] Rx#:[id number] Tube Feeding 442 374 34 Other 90 90 Output: Urine 610 125 20 Other: Voiding Method Indwelling Catheter Indwelling Catheter Indwelling Catheter - Exam General: Revealed a 53-year-old female, sedated, on Precedex, opens eyes but does not follow any instructions Derm: warm, dry Head: atraumatic, normocephalic, symmetric, NGT + ETT are intact. And in place. EENT: PERRLA, EOMI, nonicteric, no neck masses no JVD Mouth: Moist mucous membranes. Cardiovascular: Distant S1-S2, no S3 gallop, no murmur. Lungs: Crackles and rhonchi noted bilaterally. Ext: No deformities, no contractures, no muscle atrophy Neuro: Unable to assess opens eyes does not follow any instructions Psych: Unable to assess - Labs CBC & Chem 7: 10/15/24 05:25 10/15/24 05:25 Labs: Abnormal Lab Results - Last 24 Hours (Table) 10/14/24 10/14/24 10/15/24 Range/Units 18:07 23:42 00:34 RBC (4.10-5.20) 10*6/uL Hgb (12.0-15.0) g/dL Hct (37.2-46.3) % MCV (80.0-97.0) fL MCH (27.0-32.0) pg MCHC (32.0-37.0) g/dL MPV (9.5-12.2) fL Immature Gran # (0.00-0.04) 10*3/uL Monocytes # (0.20-1.00) 10*3/uL Eosinophils # (0.04-0.35) 10*3/uL ABG pH (7.35-7.45) ABG pCO2 (35-45) mmHg ABG pO2 (83-108) mmHg ABG HCO3 (21-25) mmol/L ABG Total CO2 (19-24) mmol/L ABG O2 Saturation (94-97) % Hemoglobin (11.4-16.0) gm/dL Carbon Dioxide (22-30) mmol/L BUN (7-17) mg/dL Creatinine (0.52-1.04) mg/dL Glucose (74-99) mg/dL POC Glucose (mg/dL) 113 H 126 H 113 H (70-110) mg/dL 10/15/24 10/15/24 10/15/24 Range/Units 05:25 05:25 05:43 RBC 2.57 L (4.10-5.20) 10*6/uL Hgb 8.7 L D (12.0-15.0) g/dL Hct 27.6 L (37.2-46.3) % MCV 107.4 H (80.0-97.0) fL MCH 33.9 H (27.0-32.0) pg MCHC 31.5 L (32.0-37.0) g/dL MPV 9.0 L (9.5-12.2) fL Immature Gran # 0.23 H (0.00-0.04) 10*3/uL Monocytes # 1.46 H (0.20-1.00) 10*3/uL Eosinophils # 0.03 L (0.04-0.35) 10*3/uL ABG pH 7.49 H (7.35-7.45) ABG pCO2 47 H (35-45) mmHg ABG pO2 109 H (83-108) mmHg ABG HCO3 36 H (21-25) mmol/L ABG Total CO2 37 H (19-24) mmol/L ABG O2 Saturation 97.7 H (94-97) % Hemoglobin 9.0 L (11.4-16.0) gm/dL Carbon Dioxide 35 H (22-30) mmol/L BUN 24 H (7-17) mg/dL Creatinine 0.27 L (0.52-1.04) mg/dL Glucose 128 H (74-99) mg/dL POC Glucose (mg/dL) (70-110) mg/dL 10/15/24 Range/Units 06:19 RBC (4.10-5.20) 10*6/uL Hgb (12.0-15.0) g/dL Hct (37.2-46.3) % MCV (80.0-97.0) fL MCH (27.0-32.0) pg MCHC (32.0-37.0) g/dL MPV (9.5-12.2) fL Immature Gran # (0.00-0.04) 10*3/uL Monocytes # (0.20-1.00) 10*3/uL Eosinophils # (0.04-0.35) 10*3/uL ABG pH (7.35-7.45) ABG pCO2 (35-45) mmHg ABG pO2 (83-108) mmHg ABG HCO3 (21-25) mmol/L ABG Total CO2 (19-24) mmol/L ABG O2 Saturation (94-97) % Hemoglobin (11.4-16.0) gm/dL Carbon Dioxide (22-30) mmol/L BUN (7-17) mg/dL Creatinine (0.52-1.04) mg/dL Glucose (74-99) mg/dL POC Glucose (mg/dL) 135 H (70-110) mg/dL Assessment and Plan Assessment: Impression: Acute hypoxic respiratory failure with extensive left lower lobe pneumonia seco ndary to Moraxella catarrhalis Cerebral palsy Deafness in both ears Nonverbal Limited intellectual functional capacity Seizure disorder on multiple meds for seizures History of Tetralogy of Fallot requiring surgery at young age/cardiac surgery 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 Recommendation: Legal guardian got an approval from court for DNR/comfort care measures Continue ventilatory support, for now but will plan to proceed to comfort care and extubation. Discontinue antibiotics, Continue Precedex Extubation and comfort care measures to follow Time with Patient: Less than 30
--- NOTE | 2024-10-15 13:32 | P.PN ---
Subjective Progress Note Date: 10/15/24 Hospital Course: 53-year-old female with cerebral palsy, deafness, seizure disorder presenting from her [facility] with shortness of breath. Patient was found to be having labored breathing that continued to get worse and the patient beak started to become pale and diaphoretic. EMS arrived and patient's pulse ox was at 80% on room air and she was placed on a nonrebreather and brought to the hospital. Guardian states that she has been on the decline for the past 6 months. She states that the patient has been refusing to eat and her oral intake has dramatically decreased. States that she has become more dependent over the past few months. In the ED she underwent extensive evaluation. T101 F, [place] 146, RR 27, BP 181/102, O2 saturation 88% on non-rebreather 15L. CBC, CMP significant fo r WBC 15.8, RBC 3.23, Hg 11.1, MCV 105.3, Na 134, Cl 108, bicarb 21, Cr 0.24, Ca 7.4, alb 2.3. Mag 1.6. Trop 0.055, 0.028 with EKG showing sinus tachycardia with no ST elevation. Lactic acid 0.8. CXR showed airspace consolidation involving the left lower lobe. Brain CT no acute process. Chest CTA no evidence for PE, dense consolidation of nearly entire left lower lobe. 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 Her respiratory status worsened and she was intubated in the ED and transferred to ICU for further management. Started on Rocephin and Azithromycin, switched to Zosyn for concerns for aspiration PNA. Urine Legionella neg. Phenytoin level 12.1, Valproic acid level 56.2. Venous doppler no DVT. Sputum Cx Moraxella. Echo EF 60%. Extubated on 10/08 but re- intubated later on that day. 10/11 failed weaning trial. 7Contacted legal guardian [phone], updated on patient's current health condition, clinical progress, inability to wean off from ventilator, failed extubation. As was suggested by pulm crit, we discussed possible placement of PEG tube and tracheostomy versus comfort measures only. At this moment, the legal guardian cannot make final decision and could not consent for surgery. In order to change CODE STATUS, a court order needs to be obtained. 10/13 discussed with RN, per legal guardian the plan is to obtain court order for code status change, no PEG or Trach for now 10/14: Plan for possible weaning later today, court hearing at 2 PM 10/15: Legal guardian obtained court order to change CODE STATUS to DNR and made patient comfort measures only, PROMOTIONS COORDINATOR orders placed, patient was extubated Pertinent Imaging: Chest x-ray, reviewed personally, left lower lung infiltrate/atelectasis unchanged, right lower lobe effusion Subjective: Intubated and sedated Pertinent positives and negatives as discussed above, a complete review of systems was performed and all other systems are negative. Vitals Signs Reviewed. General: Intubated and sedated Derm: warm, dry Head: atraumatic, normocephalic, symmetric, NGT + ETT in place Mouth: no lip lesion, mucus membranes moist Cardiovascular: S1S2 tachy, no murmur Lungs: Coarse BS bilaterally, no rales , no accessory muscle use Ext: no gross muscle atrophy, bilateral pitting pedal edema and hand edema, no contractures Neuro: Unable to determine Psych: Unable to determine Data Reviewed Today: Pertinent Labs: WBC 8.2, hemoglobin 8.7, platelet count normal, ABG alkalotic pH 7.49, pCO2 47, pO2 109, sodium, potassium, chloride normal, bicarb 100, creatinine 0.27, glucose 128 Assessment and Plan: Acute hypoxic respiratory failure and severe sepsis secondary to aspiration left lower lobe pneumonia s/p extubation failure on 10/25 -Discontinue continue Zosyn as part of PROMOTIONS COORDINATOR -Pulmonary/critical care following, -PROMOTIONS COORDINATOR orders per protocol Microcytic anemia Troponin elevation Seizure disorder Cerebral palsy Nonverbal at baseline Impaired hearing Depakote 580 mg IV TID. Keppra 1000 mg IV BID. Phenytoin 50 mg IV BID. Zonegran 100 mg PO BID, 25 mg PO QD when able. Resolved: HypoMag, Lactic acidosis, HypoK DVT ppx: Heparin subcu Code status: Full code Anticipated discharge place: TBD Anticipated discharge time: TBD Objective - Vital Signs Vital signs: Vital Signs Temp 98.1 F 10/15/24 08:00 Pulse 77 10/15/24 11:00 Resp 20 10/15/24 11:00 BP 91/55 10/15/24 11:00 Pulse Ox 99 10/15/24 11:00 FiO2 35 10/15/24 11:14 Intake & Output 10/14/24 10/15/24 10/15/24 18:59 06:59 18:59 Intake Total 990.619 933.726 296.609 Output Total 610 125 20 Balance 380.619 808.726 276.609 Weight 48.7 kg Intake: IV 360 370 100 Piperacillin-Tazobactam 3 100 100 .375 gm In Sodium Chloride 0.9% 100 ml @ 25 mls/hr IVPB Q8HR [facility] Rx# :[id number] Sodium Chloride 0.9% 1, 260 170 100 000 ml @ 20 mls/hr IV . Q24H [facility] Rx#:[id number] Valproate Sodium 580 mg 100 In Sodium Chloride 0.9% 50 ml @ 50 mls/hr IVPB Q8H [facility] Rx#:[id number] Intake, IV Titration 98.619 99.726 162.609 Amount Dexmedetomidine/0.9% NaCl 24.502 72.119 50.891 (Pmx) 400 mcg In Empty Bag 1 bag @ 0.2 MCG/KG/HR 2.41 mls/hr IV .Q24H [facility] Rx#:[id number] Norepinephrine 8 mg In 27.607 11.718 Sodium Chloride 0.9% 250 ml @ 0.03 MCG/KG/MIN 2. 798 mls/hr IV .Q24H [facility] Rx#:[id number] Piperacillin-Tazobactam 3 100 .375 gm In Sodium Chloride 0.9% 100 ml @ 25 mls/hr IVPB Q8HR [facility] Rx# :[id number] propofoL 1,000 mg In 74.117 Empty Bag 1 bag @ 15 MCG/ KG/MIN 3.878 mls/hr IV . Q24H [facility] Rx#:[id number] Tube Feeding 442 374 34 Other 90 90 Output: Urine 610 125 20 Other: Voiding Method Indwelling Catheter Indwelling Catheter Indwelling Catheter - Labs CBC & Chem 7: 10/15/24 05:25 10/15/24 05:25 Labs: Abnormal Lab Results - Last 24 Hours (Table) 10/14/24 10/14/24 10/15/24 Range/Units 18:07 23:42 00:34 RBC (4.10-5.20) 10*6/uL Hgb (12.0-15.0) g/dL Hct (37.2-46.3) % MCV (80.0-97.0) fL MCH (27.0-32.0) pg MCHC (32.0-37.0) g/dL MPV (9.5-12.2) fL Immature Gran # (0.00-0.04) 10*3/uL Monocytes # (0.20-1.00) 10*3/uL Eosinophils # (0.04-0.35) 10*3/uL ABG pH (7.35-7.45) ABG pCO2 (35-45) mmHg ABG pO2 (83-108) mmHg ABG HCO3 (21-25) mmol/L ABG Total CO2 (19-24) mmol/L ABG O2 Saturation (94-97) % Hemoglobin (11.4-16.0) gm/dL Carbon Dioxide (22-30) mmol/L BUN (7-17) mg/dL Creatinine (0.52-1.04) mg/dL Glucose (74-99) mg/dL POC Glucose (mg/dL) 113 H 126 H 113 H (70-110) mg/dL 10/15/24 10/15/24 10/15/24 Range/Units 05:25 05:25 05:43 RBC 2.57 L (4.10-5.20) 10*6/uL Hgb 8.7 L D (12.0-15.0) g/dL Hct 27.6 L (37.2-46.3) % MCV 107.4 H (80.0-97.0) fL MCH 33.9 H (27.0-32.0) pg MCHC 31.5 L (32.0-37.0) g/dL MPV 9.0 L (9.5-12.2) fL Immature Gran # 0.23 H (0.00-0.04) 10*3/uL Monocytes # 1.46 H (0.20-1.00) 10*3/uL Eosinophils # 0.03 L (0.04-0.35) 10*3/uL ABG pH 7.49 H (7.35-7.45) ABG pCO2 47 H (35-45) mmHg ABG pO2 109 H (83-108) mmHg ABG HCO3 36 H (21-25) mmol/L ABG Total CO2 37 H (19-24) mmol/L ABG O2 Saturation 97.7 H (94-97) % Hemoglobin 9.0 L (11.4-16.0) gm/dL Carbon Dioxide 35 H (22-30) mmol/L BUN 24 H (7-17) mg/dL Creatinine 0.27 L (0.52-1.04) mg/dL Glucose 128 H (74-99) mg/dL POC Glucose (mg/dL) (70-110) mg/dL 10/15/24 Range/Units 06:19 RBC (4.10-5.20) 10*6/uL Hgb (12.0-15.0) g/dL Hct (37.2-46.3) % MCV (80.0-97.0) fL MCH (27.0-32.0) pg MCHC (32.0-37.0) g/dL MPV (9.5-12.2) fL Immature Gran # (0.00-0.04) 10*3/uL Monocytes # (0.20-1.00) 10*3/uL Eosinophils # (0.04-0.35) 10*3/uL ABG pH (7.35-7.45) ABG pCO2 (35-45) mmHg ABG pO2 (83-108) mmHg ABG HCO3 (21-25) mmol/L ABG Total CO2 (19-24) mmol/L ABG O2 Saturation (94-97) % Hemoglobin (11.4-16.0) gm/dL Carbon Dioxide (22-30) mmol/L BUN (7-17) mg/dL Creatinine (0.52-1.04) mg/dL Glucose (74-99) mg/dL POC Glucose (mg/dL) 135 H (70-110) mg/dL
--- NOTE | 2024-10-15 13:44 | P.PN ---
Progress Note - Text Progress Note Date: 10/15/24 According to nurse, patient is comfort care measures. Therefore, there is no further neurological work-up. Will sign off. Please reconsult if needed.
[2024-10-15] MEDS ORDERED: LORazepam 1 MG/0.5 ML VIAL IV PRN (14:12)
[2024-10-15 14:30] VITALS: BMI 20.2
[2024-10-15] MEDS: MORPHINE SULFATE 4 MG/ML SYRINGE IVP PRN (14:49)
[2024-10-15 17:02] VITALS: BP 96/56
[2024-10-15] MEDS: LORazepam 2 MG/ML INJ IV PRN (23:44)
[2024-10-15] MEDS: MORPHINE SULFATE 100 MG in SODIUM CHLORIDE 0.9% 90 ML IV SCH (23:55)
[2024-10-16 01:18] VITALS: RESP 24
[2024-10-16 05:22] VITALS: PULSE 124
--- NOTE | 2024-10-16 07:52 | P.DS ---
Providers Date of admission: 10/06/24 04:30 Attending physician: Jaki Dominguez MD Consults: 10/06/24 04:26 Consult Physician Stat Consulting Provider: Derek Arzola Consult Reason/Comments: ICU Do you want consulting provider notified?: Already Contacted 10/07/24 09:07 Consult Physician Routine Consulting Provider: Osmel Hyman Consult Reason/Comments: seizures disorder, ams Do you want consulting provider notified?: Yes Primary care physician: Physician Nonstaff Hospital Course: Discharge Diagnosis: Discharged as Acute hypoxic respiratory failure and severe sepsis secondary to aspiration left lower lobe pneumonia Extubation failure Macrocytic anemia Troponin elevation Seizure disorder Cerebral palsy Nonverbal at baseline History of tetralogy of Fallot requiring surgery at young age Celiac artery stenosis Hospital Course: 53-year-old female with cerebral palsy, deafness, seizure disorder presenting from her senior living with shortness of breath. Patient was found to be having labored breathing that continued to get worse and the patient beak started to become pale and diaphoretic. EMS arrived and patient's pulse ox was at 80% on room air and she was placed on a nonrebreather and brought to the hospital. Guardian states that she has been on the decline for the past 6 months. She states that the patient has been refusing to eat and her oral intake has dramatically decreased. States that she has become more dependent over the past few months. In the ED she underwent extensive evaluation. T101 F, [place] 146, RR 27, BP 181/102, O2 saturation 88% on non-rebreather 15L. CBC, CMP significant for WBC 15.8, RBC 3.23, Hg 11.1, MCV 105.3, Na 134, Cl 108, bicarb 21, Cr 0.24, Ca 7.4, alb 2.3. Mag 1.6. Trop 0.055, 0.028 with EKG showing sinus tachycardia with no ST elevation. Lactic acid 0.8. CXR showed airspace consolidation involving the left lower lobe. Brain CT no acute process. Chest CTA no evidence for PE, dense consolidation of nearly entire left lower lobe. 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 Her respiratory status worsened and she was intubated in the ED and transferred to ICU for further management. Started on Rocephin and Azithromycin, switched to Zosyn for concerns for aspiration PNA. Urine Legionella neg. Phenytoin level 12.1, Valproic acid level 56.2. Venous doppler no DVT. Sputum Cx Moraxella. Echo EF 60%. Extubated on 10/08 but re- intubated later on that day. 10/11 failed weaning trial. ontacted legal guardian [phone], updated on patient's current health condition, clinical progress, inability to wean off from ventilator, failed extubation. As was suggested by pulm crit, we discussed possible placement of PEG tube and tracheostomy versus comfort measures only. At this moment, the legal guardian cannot make final decision and could not consent for surgery. In order to change CODE STATUS, a court order needs to be obtained. 10/13 discussed with RN, per legal guardian the plan is to obtain court order for code status change, no PEG or Trach for now 10/14: Plan for possible weaning later today, court hearing at 2 PM 10/15: Legal guardian obtained court order to change CODE STATUS to DNR and made patient comfort measures only, SPECIAL NEEDS TEACHER orders placed, patient was extubated on 10/16/2024 at 0704. Patient Condition at Discharge: Critical Plan - Discharge Summary New Discharge Prescriptions: No Action Zonisamide [Zonegran] 25 mg PO DAILY@1500 Phenytoin [Dilantin Chew] 50 mg PO BID levETIRAcetam [Keppra] 1,000 mg PO BID Zonisamide [Zonegran] 100 mg PO BID Divalproex [Depakote] 250 mg PO HS Divalproex [Depakote] 500 mg PO TID Multivitamins, Thera [Multivitamin] 1 tab PO HS Magnesium Hydroxide [Milk of Magnesia] 1 dose PO DIRECTED PRN PRN Reason: Gi Upset Loperamide [Imodium] 1 dose PO DIRECTED PRN PRN Reason: Diarrhea Sennosides-Docusate Sodium [Senokot-S] 1 tab PO BID Boost Vhc 0.9gm-2.25kcal/Ml Oral 237 ml PO BID Dextroamphetamine/Amphetamine [Adderall] 5 mg PO BID Jrpbiocm-Okuuzwldee-Gsff Oint [Triple Antibiotic Ointment] 1 applic TOPICAL DIRECTED PRN PRN Reason: Skin Irritation Midazolam [Nayzilam] 1 spray NASAL DIRECTED PRN PRN Reason: Seizures guaiFENesin SYRUP 100MG/5ML [Robitussin] 1 dose PO DIRECTED PRN PRN Reason: Cough OLANZapine [ZyPREXA] 5 mg PO HS Phenytoin Sodium Extended [Dilantin] 30 mg PO HS Acetaminophen [Tylenol] 650 mg PO Q4-6H PRN PRN Reason: FEVER>101/PAIN/HEADACHE Discharge Medication List Divalproex [Depakote] 250 mg PO HS 02/23/16 [History] Divalproex [Depakote] 500 mg PO TID 02/23/16 [History] Multivitamins, Thera [Multivitamin] 1 tab PO HS 02/23/16 [History] Phenytoin [Dilantin Chew] 50 mg PO BID 02/23/16 [History] Zonisamide [Zonegran] 25 mg PO DAILY@1500 02/23/16 [History] Zonisamide [Zonegran] 100 mg PO BID 02/23/16 [History] levETIRAcetam [Keppra] 1,000 mg PO BID 02/23/16 [History] Acetaminophen [Tylenol] 650 mg PO Q4-6H PRN 10/06/24 [History] Boost Vhc 0.9gm-2.25kcal/Ml Oral 237 ml PO BID 10/06/24 [History] Dextroamphetamine/Amphetamine [Adderall] 5 mg PO BID 10/06/24 [History] Loperamide [Imodium] 1 dose PO DIRECTED PRN 10/06/24 [History] Magnesium Hydroxide [Milk of Magnesia] 1 dose PO DIRECTED PRN 10/06/24 [History] Midazolam [Nayzilam] 1 spray NASAL DIRECTED PRN 10/06/24 [History] Qcrgiuqk-Kugcgbaavd-Uwzo Oint [Triple Antibiotic Ointment] 1 applic TOPICAL DIRECTED PRN 10/06/24 [History] OLANZapine [ZyPREXA] 5 mg PO HS 10/06/24 [History] Phenytoin Sodium Extended [Dilantin] 30 mg PO HS 10/06/24 [History] Sennosides-Docusate Sodium [Senokot-S] 1 tab PO BID 10/06/24 [History] guaiFENesin SYRUP 100MG/5ML [Robitussin] 1 dose PO DIRECTED PRN 10/06/24 [History] Follow up Appointment(s)/Referral(s): Nonstaff,Physician [Primary Care Provider] - 1-2 days
[2024-10-16] MEDS ORDERED: LORazepam 1 MG/0.5 ML VIAL IV PRN (08:27)
--- NOTE | 2024-10-20 15:46 | CDI ---
Documentation Clarification Form Date: 10/20/2024 03:04:35 PM From: Azalea Romero RN, CCDS Email: [email or web address] Admit Date: 10/06/2024 04:30:00 AM Patient Name: Mary Jo Ojeda Visit Number: [id number] Discharge Date: 10/16/2024 09:23:00 AM ATTENTION: The Clinical Documentation Specialists (CDI) and [facility] Coding Staff appreciate your assistance in clarifying documentation. Please respond to the clarification below the line at the bottom and electronically sign. The CDI & [facility] Coding staff will review the response and follow-up if needed. Please note: Queries are made part of the Legal Health Record. If you have any questions, please contact the author of this message via ITS. Doctor Loren Michelle The patient was receiving IV Levophed. Please clarify what condition/diagnosis was being treated. History/Risk Factors: Cerebral palsy, deafness, seizure disorder, presenting from her nursing home with shortness of breath. Patient was found to be having labored breathing that continued to get worse. Admitted with severe sepsis secondary to CAP and acute hypoxic respiratory failure requiring ventilatory support. Clinical indicators: H&P: "Severe sepsis secondary to community-acquired pneumonia. Lactic acidosis. SIRS 3 with fever of 101 F WBC 21.2, W[place] 146, RR 27, lactic acid 3.7. Currently mechanically intubated." 10/14 BP: 84/47-98/59 10/15 BP: 99/54 Treatment: IV Levophed titrated 10/14-10/15 What diagnosis were you treating with IV Levophed [x ] Septic shock [ ] Other shock, please specify [ ] Hypotension [ ] No additional diagnosis [ ] Other, please specify [ ] Unable to determine MTDD
== END 2024-10-16 09:23 | disposition expired | DRG 870 ==
LOC: EC 01:57 → 2SICU 04:30 → 4SSUR 10-16 05:17
PROVIDERS: ADMIT Internal Medicine; ATTEND Internal Medicine
PROC: 5A1955Z Respiratory Ventilation, Greater than 96 Consecutive Hours (ICD-10-PCS; principal; 2024-10-06)
PROC: 02HV33Z Insertion of Infusion Device into Superior Vena Cava, Percutaneous Approach (ICD-10-PCS; 2024-10-06)
PROC: 0BH18EZ Insertion of Endotracheal Airway into Trachea, Via Natural or Artificial Opening Endoscopic (ICD-10-PCS; 2024-10-06)
PROC: 0B9J8ZX Drainage of Left Lower Lung Lobe, Via Natural or Artificial Opening Endoscopic, Diagnostic (ICD-10-PCS; 2024-10-07)
PROC: 3E0G76Z Introduction of Nutritional Substance into Upper GI, Via Natural or Artificial Opening (ICD-10-PCS; 2024-10-07)
DX: A41.59 Other Gram-negative sepsis (principal); E43 Unspecified severe protein-calorie malnutrition; G93.41 Metabolic encephalopathy; J96.01 Acute respiratory failure with hypoxia; J15.69 Pneumonia due to other Gram-negative bacteria; Q21.3 Tetralogy of Fallot; J69.0 Pneumonitis due to inhalation of food and vomit; R65.21 Severe sepsis with septic shock; E87.20 Acidosis, unspecified; G80.9 Cerebral palsy, unspecified; G40.909 Epilepsy, unspecified, not intractable, without status epilepticus; I77.1 Stricture of artery; I15.8 Other secondary hypertension; D50.9 Iron deficiency anemia, unspecified; I24.89 Other forms of acute ischemic heart disease; J98.11 Atelectasis; E87.3 Alkalosis; Z51.5 Encounter for palliative care; Z66 Do not resuscitate; I16.0 Hypertensive urgency; H91.3 Deaf nonspeaking, not elsewhere classified; R10.0 Acute abdomen; R41.83 Borderline intellectual functioning; E83.42 Hypomagnesemia; I51.7 Cardiomegaly; R53.81 Other malaise; E87.6 Hypokalemia; D53.9 Nutritional anemia, unspecified; Z68.20 Body mass index [BMI] 20.0-20.9, adult; Z79.899 Other long term (current) drug therapy
CPT/HCPCS: 31500; 36415; 36556; 36600; 51702; 70450; 71045; 71275; 74022; 74177; 80048; 80053; 80164; 80177; 80185; 81003; 82607; 82746; 82803; 82805; 83605; 83735; 83880; 84132; 84443; 84484; 85025; 85027; 85610; 85730; 87040; 87070; 87205; 87449; 87636; 93005; 93306; 94002; 94003; 94640; 94667; 96365; 96366; 96367; 96368; 96372; 96375; 99291